=== PATIENT | female | born 1945 | race Caucasian/White ===

== ENCOUNTER → 2020-06-20 13:12 | Outpatient (BNVA) | payer MEDICARE, SELFPAY | PROVIDERS: PCP Family Medicine; Referring Provider Family Medicine; Visit Provider Internal Medicine | DX: I25.10 Atherosclerotic heart disease of native coronary artery without angina pectoris (principal); R00.2 Palpitations; I10 Essential (primary) hypertension; G47.33 Obstructive sleep apnea (adult) (pediatric); Z79.02 Long term (current) use of antithrombotics/antiplatelets; Z79.82 Long term (current) use of aspirin | CPT/HCPCS: 99212 ==

== ENCOUNTER 2020-07-21 20:37 | Observation (INO) | payer MEDICARE, SELFPAY ==
--- NOTE | 2020-07-21 | ECG_ITS ---
Test Reason : CP Blood Pressure : / mmHG Vent. Rate : 092 BPM Atrial Rate : 092 BPM P-R Int : 176 ms QRS Dur : 080 ms QT Int : 388 ms P-R-T Axes : 046 024 016 degrees QTc Int : 479 ms Sinus rhythm with Premature supraventricular complexes Nonspecific ST and T wave abnormality Abnormal ECG When compared with ECG of 12-NOV-2018 16:17, QT has lengthened Referred By: Generic ED Physician Electronically Signed By:CLOTILDE GERONIMO MD
[2020-07-21 20:49] VITALS: BP 187/102; PULSE 92; RESP 16; TEMP 36.9; O2SAT 99; BMI 28.9
--- NOTE | 2020-07-21 21:06 | ED.GENADULT ---
HPI - General Adult General Chief complaint: Weakness Stated complaint: Weakness Time Seen by Provider: 07/21/20 21:05 Source: patient Mode of arrival: wheelchair Limitations: language barrier Related Data Home Medications Medication Instructions Recorded Confirmed aspirin 81 mg tablet,delayed 81 mg PO DAILY 06/20/20 06/20/20 release clopidogrel 75 mg tablet 75 mg PO DAILY 06/20/20 06/20/20 empagliflozin 10 mg tablet 10 mg PO DAILY 06/20/20 06/20/20 glipizide 5 mg tablet, extended 10 mg PO DAILY tab 06/20/20 06/20/20 release 24 hr levothyroxine 50 mcg tablet 50 mcg PO DAILY tab 06/20/20 06/20/20 metoprolol succinate 25 mg 25 mg PO DAILY 06/20/20 06/20/20 tablet,extended release 24 hr pregabalin 75 mg capsule 75 mg PO DAILY cap 06/20/20 06/20/20 rosuvastatin 40 mg tablet 40 mg PO DAILY 06/20/20 06/20/20 sitagliptin 100 mg tablet 100 mg PO DAILY 06/20/20 06/20/20 tramadol 50 mg tablet 50 mg PO BID PRN 06/20/20 06/20/20 zolpidem 5 mg tablet 5 mg PO BEDTIME PRN 06/20/20 06/20/20 Allergies Allergy/AdvReac Type Severity Reaction Status Date / Time aspirin [Aspirin] AdvReac Mild STOMACHE Verified 07/21/20 20:49 UPSET esomeprazole [From NEXIUM] AdvReac Unknown BURNING Verified 07/21/20 20:49 SENSATION PMFSH Past Medical History Medical History Atherosclerotic cardiovascular disease Essential hypertension Heart palpitations TASHI (obstructive sleep apnea) Surgical History History of cardioversion (~08/16/13) History of hysterectomy History of tonsillectomy Family History Family History Father Asthma Mother Cardiovascular disease Diabetes Arthritis Social History Social History Smoking Status: Never smoker Advance Directives: No Advance Directives Information Provided: No Physical Exam Vital Signs: Vital Signs: Last Vital Signs Temp 98.4 F 07/21/20 20:49 Pulse 92 07/21/20 20:49 Resp 16 07/21/20 20:49 BP 187/102 H 07/21/20 20:49 Pulse Ox 99 07/21/20 20:49 Body Mass Index 28.9 Discharge Plan Discharge Prescriptions: No Action glipizide 5 mg tablet extended release 24hr 10 mg PO DAILY RF: 0 pregabalin 75 mg capsule 75 mg PO DAILY RF: 0 clopidogrel 75 mg tablet 75 mg PO DAILY RF: 0 tramadol 50 mg tablet 50 mg PO BID PRNRF: 0 Jardiance 10 mg tablet 10 mg PO DAILY RF: 0 zolpidem 5 mg tablet 5 mg PO BEDTIME PRNRF: 0 rosuvastatin 40 mg tablet 40 mg PO DAILY RF: 0 metoprolol succinate 25 mg tablet extended release 24 hr 25 mg PO DAILY RF: 0 aspirin 81 mg tablet,delayed release (DR/EC) 81 mg PO DAILY RF: 0 levothyroxine 50 mcg tablet 50 mcg PO DAILY RF: 0 Januvia 100 mg tablet 100 mg PO DAILY RF: 0
--- NOTE | 2020-07-21 21:07 | XR_ITS ---
EXAMINATION: PORTABLE CHEST 1 VIEW CLINICAL INFORMATION: CP . COMPARISON: 11/12/2018. TECHNIQUE: Portable frontal view of the chest was obtained. FINDINGS: The lungs are well expanded. No focal infiltrate, effusion, edema, or pneumothorax. Cardiac and mediastinal silhouettes are within normal limits for size. Coronary artery stents noted. No acute bony abnormality seen. XR/XR chest 1V IMPRESSION: No evidence of acute disease.
[2020-07-21 21:09] LABS: Glucose, Whole Blood 274 mg/dL (60-115)
--- NOTE | 2020-07-21 21:09 | PC.NURSE ---
Pt changed into hospital atire, pt placed on hat band attacher. poc collected and reported to provider. provider in to assess pt.
--- NOTE | 2020-07-21 21:19 | ED.CHESTPAIN ---
HPI - Chest Pain General Chief Complaint: Weakness Stated Complaint: Weakness Time Seen by Provider: 07/21/20 21:05 Source: patient Mode of arrival: ambulatory Limitations: language barrier History of Present Illness HPI narrative: Patient's history of coronary artery disease diabetes status post 3 stents placed 2 years ago and Plavix doing fine with her family suddenly when she got up from the stool in the kitchen felt lightheaded almost passed out and then started having chest chest pain is feeling like heaviness mid chest 10 without any radiation no diaphoresis little nauseated at that time had blurred vision patient does get of chest pain off and on but this time pain was heavy. Patient felt dizzy before the chest pain . Blood sugar was tested at home was 98. Patient denied any palpitations no urinary complaints no cough no shortness of breath MD complaint: chest heaviness Pertinent past history: coronary artery disease and [employer] Onset (ago): hour(s) (1) Timing of current episode: constant Prior episodes: Yes Onset: during rest Pain location: substernal Pain radiation: none Severity: moderate Pain scale (0-10): 6 Quality: heaviness Relieving factors: nothing Exacerbating factors: nothing Context: recent illness Associated symptoms: nausea Related Data Home Medications Medication Instructions Recorded Confirmed aspirin 81 mg tablet,delayed 81 mg PO DAILY 06/20/20 07/21/20 release clopidogrel 75 mg tablet 75 mg PO DAILY 06/20/20 07/21/20 glipizide 5 mg tablet, extended 10 mg PO DAILY tab 06/20/20 07/21/20 release 24 hr levothyroxine 50 mcg tablet 50 mcg PO DAILY tab 06/20/20 07/21/20 metoprolol succinate 25 mg 25 mg PO DAILY 06/20/20 07/21/20 tablet,extended release 24 hr pregabalin 75 mg capsule 75 mg PO DAILY cap 06/20/20 07/21/20 rosuvastatin 40 mg tablet 40 mg PO DAILY 06/20/20 07/21/20 tramadol 50 mg tablet 50 mg PO BID PRN 06/20/20 07/21/20 zolpidem 5 mg tablet 5 mg PO BEDTIME PRN 06/20/20 07/21/20 Allergies Allergy/AdvReac Type Severity Reaction Status Date / Time aspirin [Aspirin] AdvReac Mild STOMACHE Verified 07/21/20 20:49 UPSET esomeprazole [From NEXIUM] AdvReac Unknown BURNING Verified 07/21/20 20:49 SENSATION Review of Systems Review of Systems: Constitutional : No Weight loss, No Fever, No Chills ENT/Mouth : No sore throat, No Rhinorrhea Eyes: No Eye Pain, No Swelling Cardiovascular : no Dyspnea on Exertion, No Orthopnea, No Edema, No Palpitations, no SOB Respiratory : No Cough, No Sputum Gastrointestinal : No Vomiting, No Diarrhea, No abdominal Pain, No Hematochezia, No Melena Genitourinary : No Dysuria, No Urinary Frequency Musculoskeletal : No joint pain, No Myalgias, No Joint Swelling Skin : No Skin Lesions, No rash Neuro : No Weakness, No Numbness, No Dizziness, No Headache Psych : No Anxiety/Panic, No Depression Heme/Lymph: No Bruising, No Lymphadenopathy Endocrine : No Polyuria, No Polydipsia All other systems reviewed and are negative [facility] Past Medical History Medical History Atherosclerotic cardiovascular disease Essential hypertension Heart palpitations TASHI (obstructive sleep apnea) Surgical History History of cardioversion (~08/16/13) History of hysterectomy History of tonsillectomy Family History Family History Father Asthma Mother Cardiovascular disease Diabetes Arthritis Social History Social History Alcohol intake: never Smoking Status: Never smoker Smoked in Last 30 Days: No Use of substances other than those prescribed or required for medical reasons: No Advance Directives: No Advance Directives Information Provided: No Physical Exam Vital Signs: Vital Signs: Last Vital Signs Temp 98.8 F 07/22/20 04:00 Pulse 75 07/22/20 04:00 Resp 18 07/22/20 04:00 BP 154/78 H 07/22/20 04:00 Pulse Ox 98 07/22/20 04:00 Body Mass Index 28.9 Appearance: Alert. Oriented X3. No acute distress. Eyes: Pupils equal, round and reactive to light. ENT: Pharynx normal. Neck: Normal inspection. Neck supple. CVS: Normal heart rate and rhythm. Pulses normal. No murmur no S3 Respiratory: No respiratory distress. Breath sounds normal. Abdomen: Soft and nontender. Bowel sounds are present, no mass palpable, no CVA tenderness Skin: Skin warm and dry. Normal skin color. Normal skin turgor. Extremities: No lower extremity edema. Neuro: Oriented X 3. No motor deficit. No sensory deficit. MDM - Chest Pain MDM Narrative Medical decision making narrative: Patient with chest pain near syncope episode with history of coronary artery disease status post stent placement without any acute EKG changes. Will admit patient for unstable angina and near-syncope for further evaluation Differential Diagnosis Differential diagnosis: Likely unstable angina pectoris and chest pain Lab Data Attestation: I reviewed the patient's lab results. Result diagrams: 07/21/20 21:18 07/21/20 21:18 Labs: Lab Results 07/21/20 07/21/20 07/21/20 Range/Units 21:05 21:18 21:18 WBC 9.9 (4.8-10.8) X10*3/uL RBC 4.82 (4.20-5.50) X10*6/uL Hgb 13.0 (12.0-16.0) g/dl Hct 40.1 (37-47) % MCV 83.2 (80-98) fL MCH 27.0 (27.0-33.0) pg MCHC 32.4 (31.0-35.0) g/dl RDW 15.6 (11.0-16.0) % Plt Count 216 (160-400) X10*3/uL MPV 11.0 (9.4-12.3) fL Immature Gran % (Auto) 0.2 (0.0-0.4) % Neut % (Auto) 77.1 H (45-73) % Lymph % (Auto) 16.1 L (20-40) % [place] % (Auto) 5.6 (2-11) % Eos % (Auto) 0.8 (0-4) % Baso % (Auto) 0.2 (0-2) % Lymph # (Auto) 1.6 (1.2-4.9) X10*3/uL [place] # (Auto) 0.6 (0.1-1.2) X10*3/uL Eos # (Auto) 0.1 (0.0-0.4) X10*3/uL Baso # (Auto) 0.0 (0.0-0.2) X10*3/uL Abs Immat Gran (auto) 0.02 (0.00-0.03) X10*3/uL Absolute Neuts (auto) 7.6 (2.0-8.3) X10*3/uL Absolute Nucleated RBC 0.000 (0.0-0.012) X10*3/uL Nucleated RBC % (auto) 0.0 (0.0-0.2) /100WBC PT 12.7 (10.8-13.0) SEC INR 1.1 (0.9-1.1) APTT 40.4 H (24.1-38.0) SEC Sodium (135-145) mmol/L Potassium (3.3-5.1) mmol/l Chloride (96-108) mmol/L Carbon Dioxide (22-29) mmol/L Anion Gap (12-20) BUN (9-16) mg/dL Creatinine (0.5-1.4) mg/dL Estim Creat Clear Calc Estimated GFR POC Glucose 274 H (60-115) mg/dL Random Glucose (60-115) mg/dL Calcium (8.4-10.2) mg/dL Total Bilirubin (0.0-1.0) mg/dL Direct Bilirubin (0.0-0.5) mg/dL AST (5-31) U/L ALT (0-31) U/L Alkaline Phosphatase (39-117) U/L Troponin I High Sens (<3.5-17.0) ng/L Total Protein (6.5-8.0) g/dL Albumin (3.5-5.0) g/dL Urine Color Urine Appearance Urine pH (5.0-8.0) Ur Specific [place] (1.005-1.025) Urine Protein (NEG-TRACE) MG/DL Urine Glucose (UA) (NEG) MG/DL Urine Ketones (NEG) MG/DL Urine Blood (NEG) Urine Nitrite (NEG) Ur Leukocyte Esterase (NEG) Urine RBC (0) /HPF Urine WBC (0-4) /HPF Ur Squamous Epith Cells /LPF Urine Bacteria /LPF Coronavirus (PCR) (Negative) Influenza Type A (PCR) (Negative) Influenza Type B (PCR) (Negative) RSV RNA Qual (PCR) (Negative) 07/21/20 07/21/20 07/21/20 Range/Units 21:18 21:18 21:19 WBC (4.8-10.8) X10*3/uL RBC (4.20-5.50) X10*6/uL Hgb (12.0-16.0) g/dl Hct (37-47) % MCV (80-98) fL MCH (27.0-33.0) pg MCHC (31.0-35.0) g/dl RDW (11.0-16.0) % Plt Count (160-400) X10*3/uL MPV (9.4-12.3) fL Immature Gran % (Auto) (0.0-0.4) % Neut % (Auto) (45-73) % Lymph % (Auto) (20-40) % [place] % (Auto) (2-11) % Eos % (Auto) (0-4) % Baso % (Auto) (0-2) % Lymph # (Auto) (1.2-4.9) X10*3/uL [place] # (Auto) (0.1-1.2) X10*3/uL Eos # (Auto) (0.0-0.4) X10*3/uL Baso # (Auto) (0.0-0.2) X10*3/uL Abs Immat Gran (auto) (0.00-0.03) X10*3/uL Absolute Neuts (auto) (2.0-8.3) X10*3/uL Absolute Nucleated RBC (0.0-0.012) X10*3/uL Nucleated RBC % (auto) (0.0-0.2) /100WBC PT (10.8-13.0) SEC INR (0.9-1.1) APTT (24.1-38.0) SEC Sodium 135 (135-145) mmol/L Potassium 3.9 (3.3-5.1) mmol/l Chloride 97 (96-108) mmol/L Carbon Dioxide 28 (22-29) mmol/L Anion Gap 14 (12-20) BUN 21 H (9-16) mg/dL Creatinine 1.02 (0.5-1.4) mg/dL Estim Creat Clear Calc 40.0 Estimated GFR 53 POC Glucose (60-115) mg/dL Random Glucose 251 H (60-115) mg/dL Calcium 9.2 (8.4-10.2) mg/dL Total Bilirubin 0.4 (0.0-1.0) mg/dL Direct Bilirubin 0.2 (0.0-0.5) mg/dL AST 24 (5-31) U/L ALT 21 (0-31) U/L Alkaline Phosphatase 59 (39-117) U/L Troponin I High Sens 7.2 (<3.5-17.0) ng/L Total Protein 7.6 (6.5-8.0) g/dL Albumin 4.3 (3.5-5.0) g/dL Urine Color Urine Appearance Urine pH (5.0-8.0) Ur Specific [place] (1.005-1.025) Urine Protein (NEG-TRACE) MG/DL Urine Glucose (UA) (NEG) MG/DL Urine Ketones (NEG) MG/DL Urine Blood (NEG) Urine Nitrite (NEG) Ur Leukocyte Esterase (NEG) Urine RBC (0) /HPF Urine WBC (0-4) /HPF Ur Squamous Epith Cells /LPF Urine Bacteria /LPF Coronavirus (PCR) NEGATIVE (Negative) Influenza Type A (PCR) NEGATIVE (Negative) Influenza Type B (PCR) NEGATIVE (Negative) RSV RNA Qual (PCR) NEGATIVE (Negative) 07/21/20 07/21/20 Range/Units 23:36 23:36 WBC (4.8-10.8) X10*3/uL RBC (4.20-5.50) X10*6/uL Hgb (12.0-16.0) g/dl Hct (37-47) % MCV (80-98) fL MCH (27.0-33.0) pg MCHC (31.0-35.0) g/dl RDW (11.0-16.0) % Plt Count (160-400) X10*3/uL MPV (9.4-12.3) fL Immature Gran % (Auto) (0.0-0.4) % Neut % (Auto) (45-73) % Lymph % (Auto) (20-40) % [place] % (Auto) (2-11) % Eos % (Auto) (0-4) % Baso % (Auto) (0-2) % Lymph # (Auto) (1.2-4.9) X10*3/uL [place] # (Auto) (0.1-1.2) X10*3/uL Eos # (Auto) (0.0-0.4) X10*3/uL Baso # (Auto) (0.0-0.2) X10*3/uL Abs Immat Gran (auto) (0.00-0.03) X10*3/uL Absolute Neuts (auto) (2.0-8.3) X10*3/uL Absolute Nucleated RBC (0.0-0.012) X10*3/uL Nucleated RBC % (auto) (0.0-0.2) /100WBC PT (10.8-13.0) SEC INR (0.9-1.1) APTT (24.1-38.0) SEC Sodium (135-145) mmol/L Potassium (3.3-5.1) mmol/l Chloride (96-108) mmol/L Carbon Dioxide (22-29) mmol/L Anion Gap (12-20) BUN (9-16) mg/dL Creatinine (0.5-1.4) mg/dL Estim Creat Clear Calc Estimated GFR POC Glucose (60-115) mg/dL Random Glucose (60-115) mg/dL Calcium (8.4-10.2) mg/dL Total Bilirubin (0.0-1.0) mg/dL Direct Bilirubin (0.0-0.5) mg/dL AST (5-31) U/L ALT (0-31) U/L Alkaline Phosphatase (39-117) U/L Troponin I High Sens 11.0 D (<3.5-17.0) ng/L Total Protein (6.5-8.0) g/dL Albumin (3.5-5.0) g/dL Urine Color COLORLESS Urine Appearance CLEAR Urine pH 5.5 (5.0-8.0) Ur Specific [place] 1.010 (1.005-1.025) Urine Protein NEG (NEG-TRACE) MG/DL Urine Glucose (UA) 500 H (NEG) MG/DL Urine Ketones NEG (NEG) MG/DL Urine Blood TRACE (NEG) Urine Nitrite NEG (NEG) Ur Leukocyte Esterase NEG (NEG) Urine RBC 0-2 (0) /HPF Urine WBC 0-2 (0-4) /HPF Ur Squamous Epith Cells 1+ /LPF Urine Bacteria NONE /LPF Coronavirus (PCR) (Negative) Influenza Type A (PCR) (Negative) Influenza Type B (PCR) (Negative) RSV RNA Qual (PCR) (Negative) ECG Data ECG #1: Attestation: I personally reviewed and interpreted this ECG as follows: Interpretation: Normal sinus rhythm with ventricular rate of 92 normal axis normal intervals no acute ST T wave change occasional unifocal PVC impression no acute ischemia Discharge Plan Discharge Clinical Impression: Near syncope Chest pain Qualifiers: Chest pain type: precordial pain Qualified Code(s): R07.2 - Precordial pain Patient Disposition: Admitted As Inpatient Interventions: Admission Worksheet (ED) Last Done: 07/22/20 02:23 Discharge Date/Time: 07/22/20 02:23
[2020-07-21 21:25] VITALS: BP 176/78; PULSE 88; RESP 12; TEMP 37.5; O2SAT 97
[2020-07-21 21:27] LABS: Basophils Percent Auto 0.2 % (0-2); Eosinophils Absolute Auto 0.1 X10*3/uL (0.0-0.4); Eosinophils Percent Auto 0.8 % (0-4); Hematocrit 40.1 % (37-47); Imm Gran Abs Auto 0.02 X10*3/uL (0.00-0.03); Imm Gran Pct Auto 0.2 % (0.0-0.4); Lymphocytes Absolute Auto 1.6 X10*3/uL (1.2-4.9); Lymphocytes Percent Auto 16.1 % (20-40); Mean Corpuscular HGB Conc 32.4 g/dl (31.0-35.0); Mean Corpuscular Volume 83.2 fL (80-98); Monocytes Absolute Auto 0.6 X10*3/uL (0.1-1.2); Monocytes Percent Auto 5.6 % (2-11); Neutrophils Absolute Auto 7.6 X10*3/uL (2.0-8.3); Neutrophils Percent Auto 77.1 % (45-73); Platelet Count 216 X10*3/uL (160-400); Red Blood Count 4.82 X10*6/uL (4.20-5.50); Red Cell Distribution Width 15.6 % (11.0-16.0); White Blood Count 9.9 X10*3/uL (4.8-10.8)
[2020-07-21 21:28] LABS: MANUAL DIFF FLAG NO
[2020-07-21 21:33] LABS: INTERNATIONAL NORM RATIO 1.1 (0.9-1.1); Prothrombin Time 12.7 SEC (10.8-13.0)
--- NOTE | 2020-07-21 21:33 | PC.NURSE ---
patient placed on cardiac care nurse. provider at bedside poc 274 and ekg completed. labs drawn and sent. covid swab completed.
[2020-07-21 21:35] LABS: Partial Thromboplastin Time 40.4 SEC (24.1-38.0)
[2020-07-21 21:52] LABS: Alanine Aminotransferase 21 U/L (0-31); Albumin Level 4.3 g/dL (3.5-5.0); Alkaline Phosphatase 59 U/L (39-117); Anion Gap 14 (12-20); Aspartate Amino Transferase 24 U/L (5-31); Bilirubin Direct 0.2 mg/dL (0.0-0.5); Bilirubin Total 0.4 mg/dL (0.0-1.0); Blood Urea Nitrogen 21 mg/dL (9-16); Calcium 9.2 mg/dL (8.4-10.2); Carbon Dioxide 28 mmol/L (22-29); Chloride 97 mmol/L (96-108); Estimated Glomerular Filt Rate 53; Glucose Random 251 mg/dL (60-115); Potassium 3.9 mmol/l (3.3-5.1); Sodium 135 mmol/L (135-145); Total Protein 7.6 g/dL (6.5-8.0)
[2020-07-21 21:55] LABS: Troponin-I High Sensitivity 7.2 ng/L (<3.5-17.0)
[2020-07-21 22:19] LABS: Influenza A PCR NEGATIVE (Negative); Influenza B PCR NEGATIVE (Negative); Resp Syncy Virus RNA Qual PCR NEGATIVE (Negative); SARS COV2 PCR INHOUSE NEGATIVE (Negative)
[2020-07-21] MEDS: Nitroglycerin 2 % Oint 1 GM Packet 0.5 INCH TRANSDERMA (22:19)
--- NOTE | 2020-07-21 22:21 | PC.NURSE ---
Medicated per emar.
[2020-07-21 23:32] VITALS: BP 170/77; PULSE 78; RESP 16
--- NOTE | 2020-07-21 23:37 | PC.NURSE ---
Pt assisted to the bathroom, urine sample obtained and sent. Repeat Troponin obtained by this RN. Pt reports relief of chest discomfort, nitro paste remains in place on left upper chest. VSS. Awaiting results. Continue to monitor.
[2020-07-21 23:55] LABS: Appearance Urine CLEAR; Color Urine COLORLESS; Glucose Urine UA 500 MG/DL (NEG); Leukocyte Esterase Urine NEG (NEG); Nitrite Urine NEG (NEG); PH 5.5 (5.0-8.0); Urine Blood TRACE (NEG); Urine Ketones NEG (NEG); Urine Protein NEG (NEG-TRACE)
--- NOTE | 2020-07-21 23:56 | PC.NURSE ---
Hospitalist at bedside.
[2020-07-22] VITALS (10 sets, daily range): BP systolic 154–192; BP diastolic 71–79; PULSE 64–78; RESP 16–20; TEMP 36–37.1; O2SAT 95–99; BMI 29.4
--- NOTE | 2020-07-22 | MR_ITS ---
EXAMINATION: MR BRAIN WITHOUT CONTRAST CLINICAL INFORMATION: Vertigo. Cerebrovascular accident. COMPARISON: CT head from 06/02/2017. TECHNIQUE: MRI of the brain was obtained using routine sequences without contrast. FINDINGS: No focal restricted diffusion is demonstrated to suggest acute or subacute cerebral ischemia. No evidence of acute or chronic hemorrhagic products on heme-sensitive imaging. Basal ganglia mineralization. Scattered periventricular and deep white matter T2 FLAIR hyperintensities consistent with mild to moderate migraine cavity. Chronic lacunar infarcts within the bilateral lentiform nuclei and cortez radiata. The ventricles are normal in morphology and size. No abnormal mass effect. No midline shift. Sella turcica is expanded and partially empty. No abnormalities of the posterior fossa with normal appearance of the brainstem and cerebellum. Normal arterial and venous vascular flow voids are present. Normal, homogeneous marrow signal. Moderate degenerative spinal arthropathy of the visualized upper cervical spine. Thickening of the sinuses. No signal abnormalities within the mastoids. MR/MR head/brain wo con IMPRESSION: 1. No acute intracranial abnormalities. 2. Moderate underlying microangiopathy and generalized cerebral volume loss.
[2020-07-22 00:05] LABS: RBC Urine 0-2 /HPF (0); Squamous Epithelial Cell Urine 1+ /LPF; WBC Urine 0-2 /HPF (0-4)
--- NOTE | 2020-07-22 01:14 | PC.NURSE ---
Pt assisted OOB to the bathroom. Pt reports that she is pain free. BP elevated upon return from the bathroom. Pt assisted back into bed into POC. [facility] [place]
--- NOTE | 2020-07-22 01:18 | PC.NURSE ---
Report given to [facility] RN.
[2020-07-22] MEDS: traMADoL HCL 50 MG TABLET PO (03:57)
[2020-07-22] MEDS: Levothyroxine Sodium 50 MCG TABLET PO (05:25)
--- NOTE | 2020-07-22 05:44 | PM.IMHP ---
History of Present Illness Date of Service: 07/22/20 Chief Complaint: Dizziness and chest pain This is a 75-year-old female with past medical history of coronary artery disease status post stent placement, diabetes, hypothyroidism, who presents to the hospital with complaints of sudden-onset dizziness as well as chest pain. Patient reports that she was at dinner time, sitting with her friend, when all the sudden she started feeling vertigo were everything on the table was moving and spinning around, she tried to get up and illicit and she got chest pain that was epigastric, radiating upper chest, felt about 7/10, improved with the nitro paste, associated with nausea with no vomiting. Had no shortness of breath or palpitations. She reports chronic on and off chest pain but this felt different due to the dizziness. This pain was nonradiating, she has no abdominal pain diarrhea, suffers from chronic constipation. No urinary symptom. No lower extremity edema. No orthopnea or PND. On arrival to the ED hemodynamically stable with no significant abnormal vital Labs unremarkable, her troponin went from 7-11 with no changes on EKG Past medical history: Diabetes, hypertension, CAD status post stents on DAPT Surgical history: Hysterectomy, bladder prolapse repair Family history: Diabetes Social history: Comes from home, lives alone, uses a walker/cane to get around the house, denies any tobacco alcohol or illicit Review of Systems Review of Systems: Yes all other systems are reviewed and are negative [facility] Medical History Atherosclerotic cardiovascular disease Essential hypertension Heart palpitations TASHI (obstructive sleep apnea) Family History Father Asthma Mother Cardiovascular disease Diabetes Arthritis Surgical History History of cardioversion (~08/16/13) History of hysterectomy History of tonsillectomy Social History Alcohol intake: never Smoking Status: Never smoker Smoked in Last 30 Days: No Use of substances other than those prescribed or required for medical reasons: No Advance Directives: No Advance Directives Information Provided: No Meds Allergies Allergy/AdvReac Type Severity Reaction Status Date / Time aspirin [Aspirin] AdvReac Mild STOMACHE Verified 07/21/20 20:49 UPSET esomeprazole [From NEXIUM] AdvReac Unknown BURNING Verified 07/21/20 20:49 SENSATION Home Medications Medication Instructions Recorded Confirmed Type aspirin 81 mg tablet,delayed 81 mg PO DAILY 06/20/20 07/21/20 History release clopidogrel 75 mg tablet 75 mg PO DAILY 06/20/20 07/21/20 History glipizide 5 mg tablet, extended 10 mg PO DAILY tab 06/20/20 07/21/20 History release 24 hr levothyroxine 50 mcg tablet 50 mcg PO DAILY tab 06/20/20 07/21/20 History metoprolol succinate 25 mg 25 mg PO DAILY 06/20/20 07/21/20 History tablet,extended release 24 hr pregabalin 75 mg capsule 75 mg PO DAILY cap 06/20/20 07/21/20 History rosuvastatin 40 mg tablet 40 mg PO DAILY 06/20/20 07/21/20 History tramadol 50 mg tablet 50 mg PO BID PRN 06/20/20 07/21/20 History zolpidem 5 mg tablet 5 mg PO BEDTIME PRN 06/20/20 07/21/20 History Physical Exam Vital Signs and Narrative: Vital Signs: Last Vital Signs Temp 98.8 F 07/22/20 04:00 Pulse 75 07/22/20 04:00 Resp 18 07/22/20 04:00 BP 154/78 H 07/22/20 04:00 Pulse Ox 98 07/22/20 04:00 Body Mass Index 28.9 Const: General: cooperative and no acute distress Orientation/consciousness: patient oriented x3 Eyes: General: appearance normal, both eyes and all related structures Pupils: Equal, round and reactive pupils present Resp: Effort & Inspection: normal respiratory effort and able to speak in complete sentences Auscultation: clear to auscultation bilaterally Cardio: Rate: regular rate Rhythm: regular rhythm GI: Palpation (GI): Soft to palpation Auscultation: normal bowel sounds Skin: General skin exam: no rashes or lesions noted Neuro: Other: No nystagmus, no neurological deficit General: patient oriented x3 Cranial nerves: Yes Equal, round and reactive pupils present Cognition (Neuro): normal cognition Extrem: General: Yes normal to inspection and Yes no pedal edema Results Labs CBC and Chem 7: 07/21/20 21:18 07/21/20 21:18 Labs: Laboratory Results - last 24 hr 07/21/20 07/21/20 07/21/20 21:05 21:18 21:18 MCV 83.2 MCH 27.0 MCHC 32.4 RDW 15.6 Plt Count 216 MPV 11.0 Immature Gran % (Auto) 0.2 Neut % (Auto) 77.1 H Lymph % (Auto) 16.1 L [place] % (Auto) 5.6 Eos % (Auto) 0.8 Baso % (Auto) 0.2 Lymph # (Auto) 1.6 [place] # (Auto) 0.6 Eos # (Auto) 0.1 Baso # (Auto) 0.0 Abs Immat Gran (auto) 0.02 Absolute Neuts (auto) 7.6 Absolute Nucleated RBC 0.000 Nucleated RBC % (auto) 0.0 PT 12.7 INR 1.1 APTT 40.4 H Anion Gap Estim Creat Clear Calc Estimated GFR POC Glucose 274 H Random Glucose Calcium Total Bilirubin Direct Bilirubin AST ALT Alkaline Phosphatase Troponin I High Sens Total Protein Albumin Urine Color Urine Appearance Urine pH Ur Specific [place] Urine Protein Urine Glucose (UA) Urine Ketones Urine Blood Urine Nitrite Ur Leukocyte Esterase Urine RBC Urine WBC Ur Squamous Epith Cells Urine Bacteria Coronavirus (PCR) Influenza Type A (PCR) Influenza Type B (PCR) RSV RNA Qual (PCR) 07/21/20 07/21/20 07/21/20 21:18 21:18 21:19 MCV MCH MCHC RDW Plt Count MPV Immature Gran % (Auto) Neut % (Auto) Lymph % (Auto) [place] % (Auto) Eos % (Auto) Baso % (Auto) Lymph # (Auto) [place] # (Auto) Eos # (Auto) Baso # (Auto) Abs Immat Gran (auto) Absolute Neuts (auto) Absolute Nucleated RBC Nucleated RBC % (auto) PT INR APTT Anion Gap 14 Estim Creat Clear Calc 40.0 Estimated GFR 53 POC Glucose Random Glucose 251 H Calcium 9.2 Total Bilirubin 0.4 Direct Bilirubin 0.2 AST 24 ALT 21 Alkaline Phosphatase 59 Troponin I High Sens 7.2 Total Protein 7.6 Albumin 4.3 Urine Color Urine Appearance Urine pH Ur Specific [place] Urine Protein Urine Glucose (UA) Urine Ketones Urine Blood Urine Nitrite Ur Leukocyte Esterase Urine RBC Urine WBC Ur Squamous Epith Cells Urine Bacteria Coronavirus (PCR) NEGATIVE Influenza Type A (PCR) NEGATIVE Influenza Type B (PCR) NEGATIVE RSV RNA Qual (PCR) NEGATIVE 07/21/20 07/21/20 23:36 23:36 MCV MCH MCHC RDW Plt Count MPV Immature Gran % (Auto) Neut % (Auto) Lymph % (Auto) [place] % (Auto) Eos % (Auto) Baso % (Auto) Lymph # (Auto) [place] # (Auto) Eos # (Auto) Baso # (Auto) Abs Immat Gran (auto) Absolute Neuts (auto) Absolute Nucleated RBC Nucleated RBC % (auto) PT INR APTT Anion Gap Estim Creat Clear Calc Estimated GFR POC Glucose Random Glucose Calcium Total Bilirubin Direct Bilirubin AST ALT Alkaline Phosphatase Troponin I High Sens 11.0 D Total Protein Albumin Urine Color COLORLESS Urine Appearance CLEAR Urine pH 5.5 Ur Specific [place] 1.010 Urine Protein NEG Urine Glucose (UA) 500 H Urine Ketones NEG Urine Blood TRACE Urine Nitrite NEG Ur Leukocyte Esterase NEG Urine RBC 0-2 Urine WBC 0-2 Ur Squamous Epith Cells 1+ Urine Bacteria NONE Coronavirus (PCR) Influenza Type A (PCR) Influenza Type B (PCR) RSV RNA Qual (PCR) Imaging Radiologist's Impressions: Impressions Chest X-Ray 07/21/20 21:07 IMPRESSION: No evidence of acute disease. Assessment and Plan (1) Chest pain: Qualifiers: Chest pain type: precordial pain Qualified Code(s): R07.2 - Precordial pain Status: Acute (2) Near syncope: Status: Acute (3) Essential hypertension: Status: Acute (4) Coronary artery disease: Status: Acute (5) Vertigo: Status: Acute This is a 75-year-old female with past medical history of CAD who presents to the hospital with complaints of vertigo as well as chest # chest pain - atypical, no significant change to troponin, no significant EKG changes suggestive of ACS, most likely secondary to esophageal spasm/GERD - improved with nitro paste, this is nonspecific Plan: - Maarax p.r.n., will admit to telemetry for observation # vertigo - unclear etiology at this time, no need recent ear infection, she does have hearing issues and is very hard of hearing although that is chronic - will obtain the assistance of PT for possible [place]-Hallpike maneuver - will obtain orthostatic vital # diabetes - hold glipizide - low-dose sliding scale insulin, diabetic diet # CAD - continue metoprolol, aspirin, and Plavix # hypothyroidism - continue levothyroxine DVT prophylaxis: Early ambulation( admitted for observation )
[2020-07-22] MEDS: Clopidogrel Bisulfate 75 MG TABLET PO (09:00)
[2020-07-22] MEDS: Aspirin Enteric Coated 81 MG TABLET.DR PO (09:00)
[2020-07-22] MEDS: 0.9 % Sodium Chloride Flush 3 ML SYRINGE IVFLUSH (09:00)
[2020-07-22 09:01] LABS: Glucose, Whole Blood 220 mg/dL (60-115)
[2020-07-22] MEDS: Atorvastatin Calcium 80 MG TABLET PO (09:01)
[2020-07-22] MEDS: Metoprolol Succinate ER 25 MG TAB.ER.24H PO (09:01)
[2020-07-22] MEDS: Pregabalin 75 MG CAPSULE PO (09:01)
[2020-07-22] MEDS: Insulin Lispro 100 UNIT/ML 3 ML VIAL SUBCUT ×3 (09:25→16:25)
--- NOTE | 2020-07-22 09:44 | P.CONCA_ITS ---
History of Present Illness History of Present Illness Date of Service: 07/22/20 Requesting physician: Sky Juárez Consult reason: chest pain Chief complaint: Near Syncope Narrative: Thank you for inviting us in consult on Khadra. She is a pleasant 75-year-old woman with prior history of CAD status post LAD stenting as per her couple years ago, hypertension hyperlipidemia diabetes and obstructive sleep apnea. She was in usual state of health yesterday sitting with a friend having a meal suddenly she got dizzy. She describes this as systolic for her moving an abnormal pattern. She got concerned. She had associated headache as well as blurry vision. She then got up she got nauseous and subsequently got epigastric discomfort which he describes as pressure. She was admitted because of epigastric pressure and her prior coronary artery disease. On further inquiry she said this symptoms are similar to prior to her stent but much milder. Her initial EKG shows nonspecific ST changes, unchanged from before. Troponins are within normal limits cardiology consult was sought because of epigastric discomfort. She currently is chest discomfort free. Her dizziness also has resolved. She had no syncopal episodes, palpitations, shortness of breath. She has not had any recent exertional symptoms. Review of Systems Constitutional: Constitutional: Denies body ache(s), Denies chills, Denies fever(s) and Denies frequent falls Eyes: Eyes: Reports blurry vision ENT: Reports vertigo Cardiovascular: Cardiovascular: Denies chest pain with activity, Reports epigastric discomfort, Denies lightheadedness, Denies Loss of Consciousness, De nies palpitations and Denies dyspnea on exertion Respiratory: Respiratory: Denies cough and Denies dyspnea on exertion Gastrointestinal: Gastrointestinal: Reports nausea Genitourinary: Genitourinary: Reports no additional female genitourinary complaints Musculoskeletal: Musculoskeletal: Reports no additional musculoskeletal co mplaints Neurologic: Reports system reviewed and no additional complaints, except as documented, Reports vertigo and Denies frequent falls Psychiatric: Psychiatric: Reports no additional psychiatric complaints Endocrine: Endocrine: Reports no additional endocrine complaints and Denies palpitations PMFSH Past Medical History Medical History Essential hypertension Heart palpitations TASHI (obstructive sleep apnea) Family History Family History Father Asthma Mother Cardiovascular disease Diabetes Arthritis Surgical History Surgical History History of cardioversion (~08/16/13) History of hysterectomy History of tonsillectomy Stented coronary artery Social History Social History Alcohol intake: never Smoking Status: Never smoker Smoked in Last 30 Days: No Use of substances other than those prescribed or required for medical reasons: No Advance Directives: No Advance Directives Information Provided: No Meds Allergies Allergy/AdvReac Type Severity Reaction Status Date / Time aspirin [Aspirin] AdvReac Mild STOMACHE Verified 07/21/20 20:49 UPSET esomeprazole [From NEXIUM] AdvReac Unknown BURNING Verified 07/21/20 20:49 SENSATION Home Medications Medication Instructions Recorded Confirmed Type aspirin 81 mg tablet,delayed 81 mg PO DAILY 06/20/20 07/21/20 History release clopidogrel 75 mg tablet 75 mg PO DAILY 06/20/20 07/21/20 History glipizide 5 mg tablet, extended 10 mg PO DAILY tab 06/20/20 07/21/20 History release 24 hr levothyroxine 50 mcg tablet 50 mcg PO DAILY tab 06/20/20 07/21/20 History metoprolol succinate 25 mg 25 mg PO DAILY 06/20/20 07/21/20 History tablet,extended release 24 hr pregabalin 75 mg capsule 75 mg PO DAILY cap 06/20/20 07/21/20 History rosuvastatin 40 mg tablet 40 mg PO DAILY 06/20/20 07/21/20 History tramadol 50 mg tablet 50 mg PO BID PRN 06/20/20 07/21/20 History zolpidem 5 mg tablet 5 mg PO BEDTIME PRN 06/20/20 07/21/20 History Physical Exam Vital Signs: Vital Signs: Last Vital Signs Temp 97.3 F 07/22/20 08:00 Pulse 78 07/22/20 09:23 Resp 18 07/22/20 08:00 BP 176/78 H 07/22/20 09:23 Pulse Ox 95 07/22/20 08:00 Body Mass Index 29.4 Const: General: cooperative, comfortable, no acute distress, alert and awake Nutritional Appearance: obese Orientation/consciousness: patient oriented x3 Limitations: other limitations (Currently bed-bound) HENMT: Head: Yes normal to inspection, Yes normocephalic and Yes atraumatic Eyes: General: appearance normal, both eyes and all related structures Neck: Neck: Yes trachea midline, Yes supple and Yes no JVD Chest: Chest palpation & inspection: normal inspection of the chest Resp: Effort & Inspection: normal respiratory effort Auscultation: clear to auscultation bilaterally Cardio: Jugular venous distension: no JVD Palpation: normal PMI Rate: regular rate Rhythm: regular rhythm Heart sounds: S1 normal heart sound present, S2 normal heart sound present and Other heart sounds present (S4 present) GI: Auscultation: normal bowel sounds Skin: General skin exam: no rashes or lesions noted and ecchymosis Neuro: General: patient oriented x3 and no focal motor deficits Extrem: General: Yes no clubbing, cyanosis or edema Psych: Appearance: grossly normal Results Labs and Meds Result diagrams: 07/21/20 21:18 07/21/20 21:18 Lab results: Laboratory Results - last 24 hr 07/21/20 07/21/20 07/21/20 21:05 21:18 21:18 WBC 9.9 RBC 4.82 Hgb 13.0 Hct 40.1 MCV 83.2 MCH 27.0 MCHC 32.4 RDW 15.6 Plt Count 216 MPV 11.0 Immature Gran % (Auto) 0.2 Neut % (Auto) 77.1 H Lymph % (Auto) 16.1 L [place] % (Auto) 5.6 Eos % (Auto) 0.8 Baso % (Auto) 0.2 Lymph # (Auto) 1.6 [place] # (Auto) 0.6 Eos # (Auto) 0.1 Baso # (Auto) 0.0 Abs Immat Gran (auto) 0.02 Absolute Neuts (auto) 7.6 Absolute Nucleated RBC 0.000 Nucleated RBC % (auto) 0.0 PT 12.7 INR 1.1 APTT 40.4 H Sodium Potassium Chloride Carbon Dioxide Anion Gap BUN Creatinine Estim Creat Clear Calc Estimated GFR POC Glucose 274 H Random Glucose Calcium Total Bilirubin Direct Bilirubin AST ALT Alkaline Phosphatase Troponin I High Sens Total Protein Albumin Urine Color Urine Appearance Urine pH Ur Specific [place] Urine Protein Urine Glucose (UA) Urine Ketones Urine Blood Urine Nitrite Ur Leukocyte Esterase Urine RBC Urine WBC Ur Squamous Epith Cells Urine Bacteria Coronavirus (PCR) Influenza Type A (PCR) Influenza Type B (PCR) RSV RNA Qual (PCR) 07/21/20 07/21/20 07/21/20 21:18 21:18 21:19 WBC RBC Hgb Hct MCV MCH MCHC RDW Plt Count MPV Immature Gran % (Auto) Neut % (Auto) Lymph % (Auto) [place] % (Auto) Eos % (Auto) Baso % (Auto) Lymph # (Auto) [place] # (Auto) Eos # (Auto) Baso # (Auto) Abs Immat Gran (auto) Absolute Neuts (auto) Absolute Nucleated RBC Nucleated RBC % (auto) PT INR APTT Sodium 135 Potassium 3.9 Chloride 97 Carbon Dioxide 28 Anion Gap 14 BUN 21 H Creatinine 1.02 Estim Creat Clear Calc 40.0 Estimated GFR 53 POC Glucose Random Glucose 251 H Calcium 9.2 Total Bilirubin 0.4 Direct Bilirubin 0.2 AST 24 ALT 21 Alkaline Phosphatase 59 Troponin I High Sens 7.2 Total Protein 7.6 Albumin 4.3 Urine Color Urine Appearance Urine pH Ur Specific [place] Urine Protein Urine Glucose (UA) Urine Ketones Urine Blood Urine Nitrite Ur Leukocyte Esterase Urine RBC Urine WBC Ur Squamous Epith Cells Urine Bacteria Coronavirus (PCR) NEGATIVE Influenza Type A (PCR) NEGATIVE Influenza Type B (PCR) NEGATIVE RSV RNA Qual (PCR) NEGATIVE 07/21/20 07/21/20 07/22/20 23:36 23:36 08:57 WBC RBC Hgb Hct MCV MCH MCHC RDW Plt Count MPV Immature Gran % (Auto) Neut % (Auto) Lymph % (Auto) [place] % (Auto) Eos % (Auto) Baso % (Auto) Lymph # (Auto) [place] # (Auto) Eos # (Auto) Baso # (Auto) Abs Immat Gran (auto) Absolute Neuts (auto) Absolute Nucleated RBC Nucleated RBC % (auto) PT INR APTT Sodium Potassium Chloride Carbon Dioxide Anion Gap BUN Creatinine Estim Creat Clear Calc Estimated GFR POC Glucose 220 H Random Glucose Calcium Total Bilirubin Direct Bilirubin AST ALT Alkaline Phosphatase Troponin I High Sens 11.0 D Total Protein Albumin Urine Color COLORLESS Urine Appearance CLEAR Urine pH 5.5 Ur Specific [place] 1.010 Urine Protein NEG Urine Glucose (UA) 500 H Urine Ketones NEG Urine Blood TRACE Urine Nitrite NEG Ur Leukocyte Esterase NEG Urine RBC 0-2 Urine WBC 0-2 Ur Squamous Epith Cells 1+ Urine Bacteria NONE Coronavirus (PCR) Influenza Type A (PCR) Influenza Type B (PCR) RSV RNA Qual (PCR) EKG shows normal sinus rhythm with nonspecific ST changes Assessment and Plan (1) Vertigo: Status: Acute Sudden onset symptoms of vertigo in elderly woman with prior vascular disease. Neurologic issues and posterior circulation events need to be rule out. Consider MRI for the same. If this is negative then peripheral vertigo is possibility. Discussed this recommendation with the hospitalist team Dr. Juárez, will pursue this. (2) Epigastric discomfort: Status: Acute Epigastric discomfort, similar to her prior anginal sounding chest discomfort but much milder. Her troponins are negative. EKG does not show any new changes. At this point time she can be discharged from cardiac perspective. She will most likely require outpatient vasodilating myocardial perfusion imaging given her limited exercise activity. Will also obtain echocardiogram to assess LV systolic and diastolic function. Further treatment based on the finding of the test results and will be pursued as an outpatient and follow-up with Dr. Cassidy (3) Coronary artery disease: Status: Acute Coronary artery disease with prior PCI to the LAD for epigastric discomfort in unstable symptoms at that point time. Currently not having any evidence of acute coronary syndrome. Will pursue workup as about as outpatient. Blood pressure is well optimized, continue current therapy. Continue current antiplatelet therapy. Continue high-intensity statin therapy with target goal LDL less than 70 mg/dL. Will follow up as outpatient after the workup is completed. Thank you for allowing us to partake in the care
[2020-07-22 10:56] LABS: Glucose, Whole Blood 167 mg/dL (60-115)
--- NOTE | 2020-07-22 11:09 | MHC.CM.PN ---
CM met with patient with a interpreter who reports she is independent, amb with a cane and lives alone. Dtr Marisabel is HCP and [employer] ADMINISTRATOR [phone], copy requested. Patient has 24 hrs per wk [employer] services. Discussed discharge plan home with resumption of [employer]AN [employer]MINISTR[employer] services and PT services with [facility]. Granddaralf Tirado [phone] will provide transport. CM will continue to follow patient for discharge needs.
--- NOTE | 2020-07-22 15:18 | PM.DS ---
DS: Providers Provider Date of admission: 07/22/20 00:35 Primary care physician: Davis Watts MD Consults: 07/22/20 08:57 Consult to Cardiology Routine Consulting Provider: Rafael Cassidy Reason for consultation: chest pain DS: Diagnosis Discharge Diagnosis (1) Vertigo: Status: Acute (2) Epigastric discomfort: Status: Acute (3) Coronary artery disease: Status: Acute DS: Medications Discharge Medications Home Medications: Home Medications Medication Instructions Recorded Confirmed aspirin 81 mg tablet,delayed 81 mg PO DAILY 06/20/20 07/21/20 release clopidogrel 75 mg tablet 75 mg PO DAILY 06/20/20 07/21/20 glipizide 5 mg tablet, extended 10 mg PO DAILY tab 06/20/20 07/21/20 release 24 hr levothyroxine 50 mcg tablet 50 mcg PO DAILY tab 06/20/20 07/21/20 metoprolol succinate 25 mg 25 mg PO DAILY 06/20/20 07/21/20 tablet,extended release 24 hr pregabalin 75 mg capsule 75 mg PO DAILY cap 06/20/20 07/21/20 rosuvastatin 40 mg tablet 40 mg PO DAILY 06/20/20 07/21/20 tramadol 50 mg tablet 50 mg PO BID PRN 06/20/20 07/21/20 zolpidem 5 mg tablet 5 mg PO BEDTIME PRN 06/20/20 07/21/20 DS: Summary Hospital Course Hospital Course: patient was seen for chest pain. she was seen by cardiology who recommended outpatient follow up for echo and stress test. her chest pain did resolved. for her vertigo she had an mri which was negative for cva. she will be discharged home with home pt Time Spent with Patient Time attestation: Total time spent providing and/or coordinating discharge services: Physical Exam Vital Signs: Vital Signs: Last Vital Signs Temp 96.8 F 07/22/20 15:12 Pulse 64 07/22/20 15:12 Resp 19 07/22/20 15:12 BP 161/71 H 07/22/20 15:12 Pulse Ox 99 07/22/20 15:12 Body Mass Index 29.4 General: AO X 3, no acute distress Resp: CTA bilateral CVS: S1,S2,RRR GI: soft, non tender, non distended Neuro: motor grossly intact Psych: appropriate affect DS: Data Data Completed and Pending Labs on day of discharge: 07/21/20 ECG 12 lead EKG Stat 07/21/20 20:48 EKG Documentation DIRECTED 07/21/20 21:05 Glucose, Whole Blood Routine 07/21/20 21:07 XR chest 1V Stat 07/21/20 21:18 Basic Metabolic Panel Stat Complete Blood Count Auto Diff Stat Liver Panel Stat Partial Thromboplastin Time Stat Prothrombin Time INR Stat Troponin-I High Sensitivity Stat 07/21/20 21:19 SARS-CoV2/FLU/RSV Stat 07/21/20 21:20 Nitroglycerin 2 % Oint [Nitro-Bid] 1 inch TRANSDERMA ONCE ONE 07/21/20 22:16 Nitroglycerin 2 % Oint [Nitro-Bid] 0.5 inch TRANSDERMA ONCE ONE 07/21/20 23:36 Troponin-I High Sensitivity Stat 07/22/20 MR head/brain wo con Urgent 07/22/20 00:31 Transfer Order Routine 07/22/20 08:57 Glucose, Whole Blood Routine 07/22/20 10:50 Glucose, Whole Blood Routine Laboratory Last Values WBC 9.9 X10*3/uL (4.8-10.8) 07/21/20 21:18 RBC 4.82 X10*6/uL (4.20-5.50) 07/21/20 21:18 Hgb 13.0 g/dl (12.0-16.0) 07/21/20 21:18 Hct 40.1 % (37-47) 07/21/20 21:18 MCV 83.2 fL (80-98) 07/21/20 21:18 MCH 27.0 pg (27.0-33.0) 07/21/20 21:18 MCHC 32.4 g/dl (31.0-35.0) 07/21/20 21:18 RDW 15.6 % (11.0-16.0) 07/21/20 21:18 Plt Count 216 X10*3/uL (160-400) 07/21/20 21:18 MPV 11.0 fL (9.4-12.3) 07/21/20 21:18 Immature Gran % (Auto) 0.2 % (0.0-0.4) 07/21/20 21:18 Neut % (Auto) 77.1 % (45-73) H 07/21/20 21:18 Lymph % (Auto) 16.1 % (20-40) L 07/21/20 21:18 [place] % (Auto) 5.6 % (2-11) 07/21/20 21:18 Eos % (Auto) 0.8 % (0-4) 07/21/20 21:18 Baso % (Auto) 0.2 % (0-2) 07/21/20 21:18 Lymph # (Auto) 1.6 X10*3/uL (1.2-4.9) 07/21/20 21:18 [place] # (Auto) 0.6 X10*3/uL (0.1-1.2) 07/21/20 21:18 Eos # (Auto) 0.1 X10*3/uL (0.0-0.4) 07/21/20 21:18 Baso # (Auto) 0.0 X10*3/uL (0.0-0.2) 07/21/20 21:18 Abs Immat Gran (auto) 0.02 X10*3/uL (0.00-0.03) 07/21/20 21:18 Absolute Neuts (auto) 7.6 X10*3/uL (2.0-8.3) 07/21/20 21:18 Absolute Nucleated RBC 0.000 X10*3/uL (0.0-0.012) 07/21/20 21:18 Nucleated RBC % (auto) 0.0 /100WBC (0.0-0.2) 07/21/20 21:18 PT 12.7 SEC (10.8-13.0) 07/21/20 21:18 INR 1.1 (0.9-1.1) 07/21/20 21:18 APTT 40.4 SEC (24.1-38.0) H 07/21/20 21:18 Sodium 135 mmol/L (135-145) 07/21/20 21:18 Potassium 3.9 mmol/l (3.3-5.1) 07/21/20 21:18 Chloride 97 mmol/L (96-108) 07/21/20 21:18 Carbon Dioxide 28 mmol/L (22-29) 07/21/20 21:18 Anion Gap 14 (12-20) 07/21/20 21:18 BUN 21 mg/dL (9-16) H 07/21/20 21:18 Creatinine 1.02 mg/dL (0.5-1.4) 07/21/20 21:18 Estim Creat Clear Calc 40.0 07/21/20 21:18 Estimated GFR 53 07/21/20 21:18 POC Glucose 167 mg/dL (60-115) H 07/22/20 10:50 Random Glucose 251 mg/dL (60-115) H 07/21/20 21:18 Calcium 9.2 mg/dL (8.4-10.2) 07/21/20 21:18 Total Bilirubin 0.4 mg/dL (0.0-1.0) 07/21/20 21:18 Direct Bilirubin 0.2 mg/dL (0.0-0.5) 07/21/20 21:18 AST 24 U/L (5-31) 07/21/20 21:18 ALT 21 U/L (0-31) 07/21/20 21:18 Alkaline Phosphatase 59 U/L (39-117) 07/21/20 21:18 Troponin I High Sens 11.0 ng/L (<3.5-17.0) D 07/21/20 23:36 Total Protein 7.6 g/dL (6.5-8.0) 07/21/20 21:18 Albumin 4.3 g/dL (3.5-5.0) 07/21/20 21:18 Urine Color COLORLESS 07/21/20 23:36 Urine Appearance CLEAR 07/21/20 23:36 Urine pH 5.5 (5.0-8.0) 07/21/20 23:36 Ur Specific [place] 1.010 (1.005-1.025) 07/21/20 23:36 Urine Protein NEG MG/DL (NEG-TRACE) 07/21/20 23:36 Urine Glucose (UA) 500 MG/DL (NEG) H 07/21/20 23:36 Urine Ketones NEG MG/DL (NEG) 07/21/20 23:36 Urine Blood TRACE (NEG) 07/21/20 23:36 Urine Nitrite NEG (NEG) 07/21/20 23:36 Ur Leukocyte Esterase NEG (NEG) 07/21/20 23:36 Urine RBC 0-2 /HPF (0) 07/21/20 23:36 Urine WBC 0-2 /HPF (0-4) 07/21/20 23:36 Ur Squamous Epith Cells 1+ /LPF 07/21/20 23:36 Urine Bacteria NONE /LPF 07/21/20 23:36 Coronavirus (PCR) NEGATIVE (Negative) 07/21/20 21:19 Influenza Type A (PCR) NEGATIVE (Negative) 07/21/20 21:19 Influenza Type B (PCR) NEGATIVE (Negative) 07/21/20 21:19 RSV RNA Qual (PCR) NEGATIVE (Negative) 07/21/20 21:19 Discharge Plan Discharge Patient Disposition: Home Health Service Referrals: Davis Watts MD [Primary Care Provider] - Discharge Medications: Continued glipizide 5 mg tablet extended release 24hr 10 mg PO DAILY RF: 0 pregabalin 75 mg capsule 75 mg PO DAILY RF: 0 clopidogrel 75 mg tablet 75 mg PO DAILY RF: 0 tramadol 50 mg tablet 50 mg PO BID PRN (Reason: Pain) RF: 0 zolpidem 5 mg tablet 5 mg PO BEDTIME PRN (Reason: Sleep) RF: 0 rosuvastatin 40 mg tablet 40 mg PO DAILY RF: 0 metoprolol succinate 25 mg tablet extended release 24 hr 25 mg PO DAILY RF: 0 aspirin 81 mg tablet,delayed release (DR/EC) 81 mg PO DAILY RF: 0 levothyroxine 50 mcg tablet 50 mcg PO DAILY RF: 0 Discharge Orders: Discharge Order (Routine); Ordered 07/22/20 Ordered By: Sky Juárez Diet: advance to usual diet Activity on Discharge: As tolerated Visit Report Forms: Patient Portal Discharge page Care Plan Goals: recovery Health Concerns: cad Plan of Treatment: follow up with cardiology
--- NOTE | 2020-07-22 15:24 | MHC.CM.PN ---
Patient is being discharged home today with resumption of [facility] services. CM spoke with Yokasta at [facility] and informed PT recommended home PT and states [facility] can staff that. Nurse, patient made aware.
[2020-07-22 16:06] LABS: Glucose, Whole Blood 166 mg/dL (60-115)
== END 2020-07-22 17:15 | disposition home health service (06) ==
LOC: HO.ED 07-22 00:02 → HO.IMC 07-22 01:01
PROVIDERS: Admitting Provider Internal Medicine; Emergency Provider Internal Medicine; PCP Family Medicine; Visit Provider Internal Medicine
DX: R42 Dizziness and giddiness (principal); R10.13 Epigastric pain; I25.10 Atherosclerotic heart disease of native coronary artery without angina pectoris; R07.2 Precordial pain; R55 Syncope and collapse; I10 Essential (primary) hypertension; E78.5 Hyperlipidemia, unspecified; E11.9 Type 2 diabetes mellitus without complications; G47.33 Obstructive sleep apnea (adult) (pediatric); H53.8 Other visual disturbances; R00.2 Palpitations; I47.1 Supraventricular tachycardia; I45.81 Long QT syndrome; Z20.828 Contact with and (suspected) exposure to other viral communicable diseases; Z88.6 Allergy status to analgesic agent; Z88.8 Allergy status to other drugs, medicaments and biological substances; Z98.61 Coronary angioplasty status; Z79.899 Other long term (current) drug therapy
CPT/HCPCS: 0241U; 36415; 70551; 71045; 80048; 80076; 81001; 82947; 84484; 85025; 85610; 85730; 93005; 97161; 99219; 99285

== ENCOUNTER 2020-10-21 12:48 | Outpatient (REF) | payer MEDICARE, SELFPAY ==
--- NOTE | 2020-10-21 15:13 | MHC.AU.AHA ---
Adult Audiological Evaluation Date of Visit: 10/21/20 Reason for Appointment: History of asymmetrical hearing loss (worse in left ear). There is no measurable word discrimination ability in the left ear. Patient arrives today to determine if there has been a change in hearing. Previous Hearing Test Results: At this clinic on 04/13/2019- Right: Mild to moderately-severe sensorineural hearing loss Left: Severe to profound sensorineural hearing loss. Medical History: Medical History: History of diabetes, coronary artery disease, vertigo, sleep apnea, hypertension Hearing Instrument History- Right Ear: Research And Development Technician: Phonak Model: Bolero V50M Serial Number: [id number] Battery Size: 312 Repair Warranty: 06/21/2019 Loss and Damage Warranty: Used on 06/27/2018 Dispensed By: [facility] Date of Fittin04/07/2017 Hearing Instrument History- Left Ear: Research And Development Technician: Phonak Model: CROS II-312 Serial Number: [id number] Battery Size: 312 Warranty: 06/21/2019 Loss and Damage Warranty: 06/21/2019 Dispensed By: [facility] Date of Fittin04/07/2017 Otoscopy: Right Ear: Unremarkable Left Ear: Unremarkable Tympanometry: Tympanometry performed due to: To assess integrity of the middle ear system Right Ear: Normal Middle Ear System (Type A) Left Ear: Reduced Middle Ear Compliance (Type As) Hearing Evaluation: Transducer(s) Used: Insert Earphones Method: Conventional Audiometry Stimuli Used: Pure Tones Right Ear: Description of Hearing: Mild to moderately-severe sensorineural hearing loss Left Ear: Description of Hearing: Severe to profound sensorineural hearing loss Speech Recognition Threshold (SRT): Method Used: Recorded Lists Stimuli Used: Right Ear: 50 dBHL Left Ear: Could not test Word Discrimination: Method: Recorded Lists Word Lists Used: Lista Bisil?bica (Belarusian) Right Ear: 96% at 80 dBHL Left Ear: Could not test Aided Testing: Aided word discrimination is 96% at 55 dBHL Comparison: Compared to the most recent evaluation: Hearing is stable. Recommendations: Audiological re-evaluation in one year. See Hearing Aid Follow-Up note for more information. Diagnosis: Primary Diagnosis: H90.3 Bilateral Sensorineural Hearing Loss Services Performed: Comprehensive Audiological Evaluation (CPT 37914), Tympanometry (CPT 28879) Signature: Provider: Lizbeth Hooks, CCC-A
--- NOTE | 2020-10-21 15:14 | MHC.AU.HFU ---
Hearing Instrument Follow-Up- Binaural Date of Visit: 10/21/20 Right Ear: Pharmacy Customer Care Specialist: Phonak Model: Bolero V50M Serial Number: [id number] Repair Warranty: 06/21/2019 Loss and Damage Warranty: Used on 06/27/2018 Battery Size: 312 Left Ear: Pharmacy Customer Care Specialist: Phonak Model: CROS II-312 Serial Number: [id number] RepairWarranty: 06/21/2019 Loss and Damage Warranty: 06/21/2019 Battery Size: 312 Follow-Up Summary: Patient was seen for audiological evaluation. See separate note for details. Hearing aid maintenance performed. Slim tubes and domes replaced. Microphones vacuumed. Hearing instruments are working well. No programming changes made today. Dispensed batteries. Recommendations: Recommendations: Hearing instrument follow-up or maintenance as needed. Please contact our clinic with any questions or concerns. Diagnosis Code(s): Primary Diagnosis: H90.3 Bilateral Sensorineural Hearing Loss Signature: Provider: Lizbeth Hooks, BRITTANIE-A
== END 2020-10-21 12:49 | disposition home or self-care (01) ==
LOC: HO.SH 12:48
PROVIDERS: Visit Provider Nurse Practitioner Family
DX: Z46.1 Encounter for fitting and adjustment of hearing aid (principal); H90.3 Sensorineural hearing loss, bilateral
CPT/HCPCS: 92557; 92567; 99499; V5266

== ENCOUNTER → 2020-12-04 12:55 | Outpatient (REF) | payer MEDICARE, SELFPAY ==
--- NOTE | 2020-12-04 12:58 | CA_ITS ---
Transthoracic Echocardiogram Patient (Last, First, Middle): Khadra Hair, Gender: Female Date of : 1945 Age: 75 Procedure Date: 12/04/2020 Procedure Type: Transthoracic Echocardiogram Location: OP Height: 152.4 cm Weight: 68.04 kg BSA: 1.65 m2 Heart Rate: bpm BP: 150 / 80 mmHg Agricultural Technical Officer: VINNIE Referring MD: Rafael Cassidy MD Symptoms: I25.10 - Atherosclerotic heart disease of [place] coronary artery without angina pectoris Study Quality: Fair ECG Rhythm: Sinus Conclusions: - The left ventricular systolic function is low normal. The visually estimated ejection fraction is between 50-55%. - There is moderate mitral annular calcification. - There is mild calcification of the aortic valve. Findings Left Ventricle Normal left ventricular cavity size. There is mildly increased left ventricular wall thickness. The left ventricular systolic function is low normal. The visually estimated ejection fraction is between 50-55%. There is no evidence of regional wall motion abnormalities. E/E prime ratio is >15, consistent with elevated filling pressures. Evidence suggests grade I (mild) diastolic dysfunction. Right Ventricle Normal right ventricular cavity size and systolic function. Atria The left atrium is normal in size. The right atrium is normal in size. Aortic Valve There is mild calcification of the aortic valve. There is no aortic valve stenosis. There is no aortic valve regurgitation. Mitral Valve There is moderate mitral annular calcification. There is trace mitral valve regurgitation. There is no mitral valve stenosis. Pulmonic Valve The pulmonic valve was not well visualized. Tricuspid Valve Normal tricuspid valve structure. There is no tricuspid valve regurgitation. The pulmonary artery systolic pressure is normal. Great Vessels The aortic annulus, sinuses of valsalva, asc aorta, and aortic arch are normal in size. Venous The inferior vena cava is normal in size and collapses greater than 50% with inspiration. Pericardium/Pleural There is no evidence of pericardial effusion. Prior Study Comparison Changes noted compared to prior study dated: 12/06/2018. LVEF slightly reduced compared to prior study. Measurements 2D Linear Measurements IVSd: 1.04 0.6-0.9/0.6-1.0 cm LVIDd: 3.58 3.9-5.3/4.2-5.9 cm LVIDd Index: 2.17 2.4-3.2/2.2-3.1 cm/m2 LVIDs: 2.56 2.0-3.6 cm LVPWd: 1.04 0.7-1.1 cm Ao Root: 2.90 2.1-3.5 cm LA Diam: 3.40 2.7-3.8/3.0-4.0 cm LAIDs Index: 2.06 1.5-2.3 cm/m2 LV Mass: 140.86 67-162/88-224 g LV Mass Index: 85.37 43-95/49-115 g/m2 LVOT Diam: 1.90 3.0+(-)1.3 cm 2D Systolic Function EF 4C: 52.80 >55% EF 2C: 51.90 >55% EF BiP: 53.60 >55% Mitral Valve MV Pk E: 0.78 MV PK A: 1.02 MV Decel Time: 204.00 E/A: 0.80 E'Lateral: 5.03 E'Medial: 4.35 E/E' Med: 17.80 E/E' Lat: 15.40 PHT: 60.00 MVA PHT: 3.67 Decel [place]: 3.80 Aortic Valve AoV Pk Oli: 1.15 AoV Mn Oli: 0.84 AoV VTI: 0.30 AoV Pk Grad: 5.00 Aov Mn Grad: 3.00 GWENDOLYN Cont.VTI: 1.82 LVOT LVOT Pk Oli: 0.72 LVOT Mn Oli: 0.57 LVOT VTI: 0.19 LVOT Pk Grad: 2.00 LVOT Mn Grad: 1.00 LVOT Diam: 1.90 LVOT Area: 2.84 Diastolic Function MV Pk E: 0.78 MV Pk A: 1.02 E/A: 0.80 E'Medial: 4.35 E/E' Med: 17.80 E' Laterial: 5.03 E/E' Lat: 15.40 Tricuspid Valve TR Pk Oli: 1.64 TR Pk Grad: 11.00 RA Press: 3.00 RVSP: 14.00 Great Vessels Aorta Ao Root-2D: 2.90 2.0-3.7 cm Ao Asc: 2.40 2.1-3.4 cm Ao Arch: 2.50 Updated in Other Vendor System with Status of Final Rafael Cassidy MD electronically signed on 12/06/2020 3:08:20 PM with status of Final
== END ==
LOC: HO.CARD 12:55
PROVIDERS: Visit Provider Internal Medicine
DX: I25.10 Atherosclerotic heart disease of native coronary artery without angina pectoris (principal)
CPT/HCPCS: 93306

== ENCOUNTER → 2020-12-19 13:07 | Outpatient (BNVA) | payer MEDICARE, SELFPAY | PROVIDERS: Referring Provider Family Medicine; Visit Provider Internal Medicine | DX: I25.10 Atherosclerotic heart disease of native coronary artery without angina pectoris (principal); I10 Essential (primary) hypertension; I05.9 Rheumatic mitral valve disease, unspecified; G47.33 Obstructive sleep apnea (adult) (pediatric); R00.2 Palpitations | CPT/HCPCS: 99212 ==

== ENCOUNTER → 2021-06-19 12:33 | Outpatient (BNVA) | payer MEDICARE, SELFPAY | PROVIDERS: Visit Provider Internal Medicine | DX: I25.10 Atherosclerotic heart disease of native coronary artery without angina pectoris (principal); I10 Essential (primary) hypertension; I05.9 Rheumatic mitral valve disease, unspecified; R00.2 Palpitations; G47.33 Obstructive sleep apnea (adult) (pediatric); Z98.61 Coronary angioplasty status; Z98.890 Other specified postprocedural states; Z79.4 Long term (current) use of insulin; Z79.84 Long term (current) use of oral hypoglycemic drugs; Z79.899 Other long term (current) drug therapy | CPT/HCPCS: 93005; 99212 ==

== ENCOUNTER 2021-11-26 20:12 | Emergency (ER) | payer OTHER, SELFPAY ==
[2021-11-26 20:45] VITALS: BP 198/94; PULSE 98; RESP 16; TEMP 36.8; O2SAT 98; BMI 29.2
[2021-11-26 21:27] LABS: Appearance Urine CLOUDY; Color Urine STRAW; Glucose Urine UA 100 MG/DL (NEG); Leukocyte Esterase Urine 3+ (NEG); Nitrite Urine NEG (NEG); PH 5.5 (5.0-8.0); Specific Gravity - Urine <= 1.005 (1.005-1.025); UACC Culture Trigger YES; Urine Blood 1+ (NEG); Urine Ketones NEG (NEG); Urine Protein NEG (NEG-TRACE)
[2021-11-26 21:53] LABS: Bacteria Urine 3+ /LPF; Mucus Urine TRACE /LPF; Squamous Epithelial Cell Urine TRACE /LPF; WBC Clumps Urine NOTED; WBC Urine 30-49 /HPF (0-4)
[2021-11-26 23:20] LABS: Glucose, Whole Blood 211 mg/dL (60-115)
[2021-11-27 00:33] VITALS: BP 168/72; PULSE 97; RESP 18; TEMP 36.7; O2SAT 97
--- NOTE | 2021-11-27 00:40 | ED_ITS ---
HPI - Female Genitourinary General Chief complaint: Urogenital-Female Stated complaint: UTI- meds arent working Time Seen by Provider: 11/27/21 00:40 Source: patient Mode of arrival: ambulatory Limitations: no limitations History of Present Illness HPI Narrative: Patient history of diabetes been having recurrent UTI for last 1 year this year the 1st time she has UTI symptoms for last 1 week seen her PCP was started for on amoxicillin patient still feeling discomfort when she urinated and now for last 2 days pain is going to the left flank area has some nausea no vomiting no fever + chills does not feel comfortable has mild supra pubic pain Related Data Home Medications Medication Instructions Recorded Confirmed pregabalin 75 mg capsule 75 mg PO DAILY cap 06/20/20 06/19/21 tramadol 50 mg tablet 50 mg PO BID PRN 06/20/20 06/19/21 zolpidem 5 mg tablet 5 mg PO BEDTIME PRN 06/20/20 06/19/21 metoprolol succinate 50 mg 50 mg PO DAILY 12/19/20 06/19/21 tablet,extended release 24 hr sertraline 25 mg tablet 25 mg PO DAILY 12/19/20 06/19/21 aspirin 81 mg tablet,delayed 81 mg PO DAILY 06/19/21 06/19/21 release atorvastatin 40 mg tablet 40 mg PO BEDTIME 06/19/21 06/19/21 clopidogrel 75 mg tablet 75 mg PO DAILY 06/19/21 06/19/21 dulaglutide 1.5 mg/0.5 mL mg SUBCUT 06/19/21 06/19/21 subcutaneous pen injector (Trulicity) empagliflozin 10 mg tablet 10 mg PO DAILY 06/19/21 06/19/21 (Jardiance) glipizide 5 mg tablet 5 mg PO DAILY 06/19/21 06/19/21 levothyroxine 75 mcg tablet 0 mcg PO 06/19/21 06/19/21 pantoprazole 40 mg tablet,delayed 40 mg PO DAILY 06/19/21 06/19/21 release Previous Rx's Medication Instructions Recorded cefpodoxime 200 mg tablet 200 mg PO BID #20 tab 11/27/21 phenazopyridine 200 mg tablet 200 mg PO TID PRN 5 Days #5 tab 11/27/21 (Pyridium) Allergies Allergy/AdvReac Type Severity Reaction Status Date / Time aspirin [Aspirin] AdvReac Mild STOMACHE Verified 06/19/21 12:50 UPSET esomeprazole [From NEXIUM] AdvReac Unknown BURNING Verified 06/19/21 12:50 SENSATION Review of Systems Review of Systems: Yes all other systems are reviewed and are negative [facility] Past Medical History Medical History (Updated 11/27/21 @ 02:19 by Spenser Wolf MD) Essential hypertension Heart palpitations Mitral annular calcification TASHI (obstructive sleep apnea) Surgical History History of cardioversion (~08/16/13) History of hysterectomy History of tonsillectomy Stented coronary artery Family History Family History Father Asthma Mother Cardiovascular disease Diabetes Arthritis Social History Social History (Updated 06/19/21 @ 12:50 by YOAN Alarcon) Alcohol intake: never Patient Tobacco Use Status: Never used Tobacco Advance Directives: No Advance Directives Information Provided: Yes service: No Current occupational status: unemployed Physical Exam Vital Signs: Vital Signs: Last Vital Signs Temp 99.5 F 11/27/21 02:40 Pulse 77 11/27/21 02:40 Resp 18 11/27/21 02:40 BP 179/82 H 11/27/21 02:40 Pulse Ox 98 11/27/21 02:40 BMI result Body Mass Index 29.2 Appearance: Alert. Oriented X3. No acute distress. Eyes: No pallor or icterus ENT: Pharynx normal. Oral Mucosa moist Neck: Normal inspection. Neck supple. CVS: Normal heart rate and rhythm. Pulses normal. Respiratory: No respiratory distress. Equal air entry bilateral, Abdomen: Soft and nontender. Bowel sounds are present, no mass palpable, mild left CVA tenderness Skin: Skin warm and dry. Normal skin color. Normal skin turgor. Extremities: No lower extremity edema. No calf tenderness Neuro: Oriented X 3. MDM - Female Genitourinary MDM Narrative Medical decision making narrative: Patient with UTI symptoms with chills going to the left flank area will check his white count and lactic acid give IV dose of Rocephin UA showed UTI at this time we do not have any old cultures Lab Data Attestation: I reviewed the patient's lab results. Result diagrams: 11/27/21 01:23 11/27/21 01:23 Labs: Lab Results 11/26/21 11/26/21 11/27/21 Range/Units 21:20 23:16 01:23 WBC 8.9 (4.8-10.8) X10*3/uL RBC 4.85 (4.20-5.50) X10*6/uL Hgb 13.0 (12.0-16.0) g/dl Hct 39.4 (37.0-47.0) % MCV 81.2 (80.0-98.0) fL MCH 26.8 L (27.0-33.0) pg MCHC 33.0 (31.0-35.0) g/dl RDW 14.6 (11.0-16.0) % Plt Count 225 (160-400) X10*3/uL MPV 10.4 (9.4-12.3) fL Immature Gran % (Auto) 0.2 (0.0-0.4) % Neut % (Auto) 56.8 (45-73) % Lymph % (Auto) 32.2 (20-40) % [place] % (Auto) 9.5 (2-11) % Eos % (Auto) 1.1 (0-4) % Baso % (Auto) 0.2 (0-2) % Lymph # (Auto) 2.9 (1.2-4.9) X10*3/uL [place] # (Auto) 0.8 (0.1-1.2) X10*3/uL Eos # (Auto) 0.1 (0.0-0.4) X10*3/uL Baso # (Auto) 0.0 (0.0-0.2) X10*3/uL Abs Immat Gran (auto) 0.02 (0.00-0.03) X10*3/uL Absolute Neuts (auto) 5.0 (2.0-8.3) x10*3/uL Absolute Nucleated RBC 0.000 (0.0-0.012) X10*3/uL Nucleated RBC % (auto) 0.0 (0.0-0.2) /100WBC Sodium (135-145) mmol/L Potassium (3.3-5.1) mmol/L Chloride (96-108) mmol/L Carbon Dioxide (22-29) mmol/L Anion Gap (12-20) BUN (9-16) mg/dL Creatinine (0.5-1.4) mg/dL Estim Creat Clear Calc Estimated GFR POC Glucose 211 H (60-115) mg/dL Random Glucose (60-115) mg/dL Lactic Acid (0.5-2.0) mmol/L Calcium (8.4-10.2) mg/dL Urine Color STRAW Urine Appearance CLOUDY Urine pH 5.5 (5.0-8.0) Ur Specific [place] <= 1.005 (1.005-1.025) Urine Protein NEG (NEG-TRACE) MG/DL Urine Glucose (UA) 100 H (NEG) MG/DL Urine Ketones NEG (NEG) MG/DL Urine Blood 1+ H (NEG) Urine Nitrite NEG (NEG) Ur Leukocyte Esterase 3+ H (NEG) Urine RBC 1-4 (0) /HPF Urine WBC 30-49 H (0-4) /HPF Urine WBC Clumps NOTED Ur Squamous Epith Cells TRACE /LPF Urine Bacteria 3+ /LPF Urine Mucus TRACE /LPF 11/27/21 11/27/21 Range/Units 01:23 01:23 WBC (4.8-10.8) X10*3/uL RBC (4.20-5.50) X10*6/uL Hgb (12.0-16.0) g/dl Hct (37.0-47.0) % MCV (80.0-98.0) fL MCH (27.0-33.0) pg MCHC (31.0-35.0) g/dl RDW (11.0-16.0) % Plt Count (160-400) X10*3/uL MPV (9.4-12.3) fL Immature Gran % (Auto) (0.0-0.4) % Neut % (Auto) (45-73) % Lymph % (Auto) (20-40) % [place] % (Auto) (2-11) % Eos % (Auto) (0-4) % Baso % (Auto) (0-2) % Lymph # (Auto) (1.2-4.9) X10*3/uL [place] # (Auto) (0.1-1.2) X10*3/uL Eos # (Auto) (0.0-0.4) X10*3/uL Baso # (Auto) (0.0-0.2) X10*3/uL Abs Immat Gran (auto) (0.00-0.03) X10*3/uL Absolute Neuts (auto) (2.0-8.3) x10*3/uL Absolute Nucleated RBC (0.0-0.012) X10*3/uL Nucleated RBC % (auto) (0.0-0.2) /100WBC Sodium 135 (135-145) mmol/L Potassium 4.4 (3.3-5.1) mmol/L Chloride 99 (96-108) mmol/L Carbon Dioxide 28 (22-29) mmol/L Anion Gap 12 (12-20) BUN 13 (9-16) mg/dL Creatinine 0.87 (0.5-1.4) mg/dL Estim Creat Clear Calc 46.6 Estimated GFR > 60 POC Glucose (60-115) mg/dL Random Glucose 198 H (60-115) mg/dL Lactic Acid 1.6 (0.5-2.0) mmol/L Calcium 9.8 D (8.4-10.2) mg/dL Urine Color Urine Appearance Urine pH (5.0-8.0) Ur Specific [place] (1.005-1.025) Urine Protein (NEG-TRACE) MG/DL Urine Glucose (UA) (NEG) MG/DL Urine Ketones (NEG) MG/DL Urine Blood (NEG) Urine Nitrite (NEG) Ur Leukocyte Esterase (NEG) Urine RBC (0) /HPF Urine WBC (0-4) /HPF Urine WBC Clumps Ur Squamous Epith Cells /LPF Urine Bacteria /LPF Urine Mucus /LPF Discharge Plan Discharge Clinical Impression: Urinary tract infection Patient Disposition: Home, Self-Care Instructions: Urinary Tract Infection in Older Adults (ED) Additional Instructions: Drink plenty of fluids Take antibiotic as prescribed and follow with PCP Report to the ER if high fever/vomiting /increased pain Prescriptions: New cefpodoxime 200 mg tablet 200 mg PO BID Qty: 20 0RF Rx Instructions: must administer with a meal/food phenazopyridine [Pyridium] 200 mg tablet 200 mg PO TID PRN (Reason: pain) 5 Days Qty: 5 0RF No Action glipizide 5 mg tablet 5 mg PO DAILY 0RF clopidogrel 75 mg tablet 75 mg PO DAILY 0RF atorvastatin 40 mg tablet 40 mg PO BEDTIME 0RF Trulicity 1.5 mg/0.5 mL pen injector subcut 0RF levothyroxine 75 mcg tablet 0 mcg PO 0RF pantoprazole 40 mg tablet,delayed release (DR/EC) 40 mg PO DAILY 0RF Jardiance 10 mg tablet 10 mg PO DAILY 0RF aspirin 81 mg tablet,delayed release (DR/EC) 81 mg PO DAILY 0RF pregabalin 75 mg capsule 75 mg PO DAILY 0RF tramadol 50 mg tablet 50 mg PO BID PRN (Reason: Pain) 0RF zolpidem 5 mg tablet 5 mg PO BEDTIME PRN (Reason: Sleep) 0RF metoprolol succinate 50 mg tablet extended release 24 hr 50 mg PO DAILY 0RF sertraline 25 mg tablet 25 mg PO DAILY 0RF Interventions: ED Discharge Assessment Last Done: 11/27/21 02:55 Discharge Date/Time: 11/27/21 02:55 Print Language: [place]
[2021-11-27] MEDS: cefTRIAXone sodium 1 GM in 0.9 % Sodium Chloride 50 ML IV (01:29)
[2021-11-27] MEDS: 0.9 % Sodium Chloride 1,000 ML 999 ML IV (01:29)
[2021-11-27 01:31] LABS: MANUAL DIFF FLAG NO
[2021-11-27 01:32] LABS: Basophils Percent Auto 0.2 % (0-2); Eosinophils Absolute Auto 0.1 X10*3/uL (0.0-0.4); Eosinophils Percent Auto 1.1 % (0-4); Hematocrit 39.4 % (37.0-47.0); Imm Gran Abs Auto 0.02 X10*3/uL (0.00-0.03); Imm Gran Pct Auto 0.2 % (0.0-0.4); Lymphocytes Absolute Auto 2.9 X10*3/uL (1.2-4.9); Lymphocytes Percent Auto 32.2 % (20-40); Mean Corpuscular Hemoglobin 26.8 pg (27.0-33.0); Mean Corpuscular Volume 81.2 fL (80.0-98.0); Mean Platelet Volume 10.4 fL (9.4-12.3); Monocytes Absolute Auto 0.8 X10*3/uL (0.1-1.2); Monocytes Percent Auto 9.5 % (2-11); Neutrophils Percent Auto 56.8 % (45-73); Platelet Count 225 X10*3/uL (160-400); Red Blood Count 4.85 X10*6/uL (4.20-5.50); Red Cell Distribution Width 14.6 % (11.0-16.0); White Blood Count 8.9 X10*3/uL (4.8-10.8)
[2021-11-27 01:43] LABS: Lactic Acid 1.6 mmol/L (0.5-2.0)
[2021-11-27 01:48] LABS: Anion Gap 12 (12-20); Blood Urea Nitrogen 13 mg/dL (9-16); Calcium 9.8 mg/dL (8.4-10.2); Carbon Dioxide 28 mmol/L (22-29); Chloride 99 mmol/L (96-108); Creatinine Clr Calc Pharmacy 46.6; Estimated Glomerular Filt Rate > 60; Glucose Random 198 mg/dL (60-115); Potassium 4.4 mmol/L (3.3-5.1); Sodium 135 mmol/L (135-145)
[2021-11-27 02:40] VITALS: BP 179/82; PULSE 77; RESP 18; TEMP 37.5; O2SAT 98
== END 2021-11-27 02:55 | disposition home or self-care (01) ==
PROVIDERS: Emergency Provider Internal Medicine
DX: N39.0 Urinary tract infection, site not specified (principal); E11.9 Type 2 diabetes mellitus without complications; I10 Essential (primary) hypertension
CPT/HCPCS: 36415; 80048; 81001; 82947; 83605; 85025; 87086; 96361; 96374; 99284; J0696

== ENCOUNTER 2021-12-19 21:01 | Emergency (ER) | payer MEDICARE, SELFPAY ==
--- NOTE | ~2021-12-19 | XR_ITS ---
EXAMINATION: XR CHEST CLINICAL INFORMATION: Abdominal pain. COMPARISON: 07/21/2020 TECHNIQUE: Frontal view of the chest was obtained. FINDINGS: Coronary stents are in place. Heart is normal in size. Calcific atherosclerosis is present in the thoracic aorta. Pulmonary vasculature is unremarkable. Lungs appear clear. No consolidation, pneumothorax, or pleural effusion. Degenerative spondylosis in the thoracic spine. No intraperitoneal free air. XR/XR chest 1V IMPRESSION: No acute pulmonary findings. No pneumoperitoneum.
[2021-12-19 21:27] VITALS: BP 218/102; PULSE 83; RESP 20; TEMP 37.1; O2SAT 98; BMI 29.2
--- NOTE | 2021-12-19 23:18 | ED_ITS ---
HPI - Female Genitourinary General Chief complaint: Urogenital-Female Stated complaint: UTI Source: patient Mode of arrival: ambulatory Limitations: language barrier History of Present Illness HPI Narrative: 76-year-old female presents With dysuria, frequency, recently finished a course of Macrobid about a week ago. Patient stop taking the medication because the medication caused abdominal pain and nausea. Patient does report drinking lots of water today. MD elicited complaint: dysuria and UTI Pertinent past history: recurrent UTIs Onset (ago): week(s) (1) Location of symptoms: urethra Severity: moderate Female Urogenital Radiation: Non-Radiating Severity scale (1-10): 7 Quality of pain: burning Consistency: intermittent Vaginal discharge: none Vaginal bleeding: none Urinary symptoms: Dysuria, Urgency and Frequency Exacerbating factors: urination Relieving factors: none Treatment prior to arrival: none Sexual activity: No Related Data Home Medications Medication Instructions Recorded Confirmed pregabalin 75 mg capsule 75 mg PO DAILY cap 06/20/20 06/19/21 tramadol 50 mg tablet 50 mg PO BID PRN 06/20/20 06/19/21 zolpidem 5 mg tablet 5 mg PO BEDTIME PRN 06/20/20 06/19/21 metoprolol succinate 50 mg 50 mg PO DAILY 12/19/20 06/19/21 tablet,extended release 24 hr sertraline 25 mg tablet 25 mg PO DAILY 12/19/20 06/19/21 aspirin 81 mg tablet,delayed 81 mg PO DAILY 06/19/21 06/19/21 release atorvastatin 40 mg tablet 40 mg PO BEDTIME 06/19/21 06/19/21 clopidogrel 75 mg tablet 75 mg PO DAILY 06/19/21 06/19/21 dulaglutide 1.5 mg/0.5 mL mg SUBCUT 06/19/21 06/19/21 subcutaneous pen injector (Trulicity) empagliflozin 10 mg tablet 10 mg PO DAILY 06/19/21 06/19/21 (Jardiance) glipizide 5 mg tablet 5 mg PO DAILY 06/19/21 06/19/21 levothyroxine 75 mcg tablet 0 mcg PO 06/19/21 06/19/21 pantoprazole 40 mg tablet,delayed 40 mg PO DAILY 06/19/21 06/19/21 release Previous Rx's Medication Instructions Recorded cefpodoxime 200 mg tablet 200 mg PO BID #20 tab 11/27/21 phenazopyridine 200 mg tablet 200 mg PO TID PRN 5 Days #5 tab 11/27/21 (Pyridium) cefuroxime axetil 500 mg tablet 500 mg PO Q12H 7 Days #14 tab 12/20/21 Allergies Allergy/AdvReac Type Severity Reaction Status Date / Time aspirin [Aspirin] AdvReac Mild STOMACHE Verified 06/19/21 12:50 UPSET esomeprazole [From NEXIUM] AdvReac Unknown BURNING Verified 06/19/21 12:50 SENSATION Review of Systems 2 Review of Systems: Constitutional: No Fever, No Chills ENT/Mouth: No Ear Pain, No Hoarseness, No sore throat Eyes: No Eye Pain, No Swelling, No Redness, No Foreign Body Cardiovascular: No Chest Pain, No SOB Respiratory: No Cough, No Dyspnea Gastrointestinal: No Nausea, No Vomiting, No Diarrhea, positive abdominal Pain Genitourinary: Positive Dysuria, positive frequency, No Hematuria Musculoskeletal: No joint pain, No Myalgias, No Joint Swelling Skin: No Skin lacerations, No rash Neuro: No Weakness, No Numbness, No Paresthesias, No Loss of Consciousness, No Dizziness, No Headache Psych: No Anxiety/Panic, No Depression Heme/Lymph: no easy bruising, no Lymphadenopathy Endocrine: No Polyuria, No Polydipsia Yes all other systems are reviewed and are negative [facility] Past Medical History Attestation statement: The following information was validated with the patient. Source: old records reviewed Medical History Essential hypertension Heart palpitations Mitral annular calcification TASHI (obstructive sleep apnea) Surgical History History of cardioversion (~08/16/13) History of hysterectomy History of tonsillectomy Stented coronary artery Family History Family History Father Asthma Mother Cardiovascular disease Diabetes Arthritis Social History Social History Alcohol intake: never Patient Tobacco Use Status: Never used Tobacco Advance Directives: No Advance Directives Information Provided: Yes service: No Current occupational status: unemployed Physical Exam Vital Signs: Vital Signs: Last Vital Signs Temp 98.3 F 12/20/21 03:06 Pulse 77 12/20/21 03:06 Resp 18 12/20/21 03:06 BP 147/69 H 12/20/21 03:06 Pulse Ox 100 12/20/21 03:06 BMI result Body Mass Index 29.2 Appearance: Alert. Oriented X3. No acute distress. Eyes: Pupils equal, round and reactive to light. ENT: Pharynx normal. Neck: Normal inspection. Neck supple. CVS: Normal heart rate and rhythm. Pulses normal. Respiratory: No respiratory distress. Breath sounds normal. Abdomen: Soft and nontender to palpation. No CVA tenderness. Skin: Skin warm and dry. Normal skin color. Normal skin turgor. Extremities: No lower extremity edema. Moves all extremities against resistance. Neuro: No motor deficit. No sensory deficit. Cranial nerves 2-12 intact. Course Course Course Narrative: 76-year-old female presents with 1 week of urinary frequency, dysuria, was given Macrobid but stop the antibiotic short because of abdominal discomfort. Patient does not report any fevers, chills, or any other concerning symptoms. Patient is afebrile, appears nontoxic, blood pressure is elevated however she does report drinking lots of water today. Daughter states that there is usually a gal of water or more. Will order urinalysis, labs lactic and cultures. Will give ceftriaxone IV at this time and 1 L of fluid. 01:30 sodium 126, BUN 20. Will repeat lab values after L of fluid. 03:17 labs pending. Sign out to Dr. Weiner. [facility] - Female Genitourinary Differential Diagnosis Differential diagnosis: Likely urinary tract infection and cystitis Medical Records Attestation: I reviewed the patient's medical records. Lab Data Attestation: I reviewed the patient's lab results. Result diagrams: 12/19/21 23:34 12/19/21 23:34 Labs: Lab Results 12/19/21 12/19/21 12/19/21 Range/Units 23:34 23:34 23:34 WBC 9.6 (4.8-10.8) X10*3/uL RBC 5.02 (4.20-5.50) X10*6/uL Hgb 13.6 (12.0-16.0) g/dl Hct 40.4 (37.0-47.0) % MCV 80.5 (80.0-98.0) fL MCH 27.1 (27.0-33.0) pg MCHC 33.7 (31.0-35.0) g/dl RDW 14.5 (11.0-16.0) % Plt Count 224 (160-400) X10*3/uL MPV 10.3 (9.4-12.3) fL Immature Gran % (Auto) 0.2 (0.0-0.4) % Neut % (Auto) 70.0 (45-73) % Lymph % (Auto) 21.2 (20-40) % [place] % (Auto) 7.7 (2-11) % Eos % (Auto) 0.7 (0-4) % Baso % (Auto) 0.2 (0-2) % Lymph # (Auto) 2.0 (1.2-4.9) X10*3/uL [place] # (Auto) 0.7 (0.1-1.2) X10*3/uL Eos # (Auto) 0.1 (0.0-0.4) X10*3/uL Baso # (Auto) 0.0 (0.0-0.2) X10*3/uL Abs Immat Gran (auto) 0.02 (0.00-0.03) X10*3/uL Absolute Neuts (auto) 6.7 (2.0-8.3) x10*3/uL Absolute Nucleated RBC 0.000 (0.0-0.012) X10*3/uL Nucleated RBC % (auto) 0.0 (0.0-0.2) /100WBC Sodium 126 L (135-145) mmol/L Potassium 5.0 (3.3-5.1) mmol/L Chloride 92 L (96-108) mmol/L Carbon Dioxide 27 (22-29) mmol/L Anion Gap 12 (12-20) BUN 20 H D (9-16) mg/dL Creatinine 1.00 (0.5-1.4) mg/dL Estim Creat Clear Calc 40.5 Estimated GFR 54 Random Glucose 240 H (60-115) mg/dL Lactic Acid 1.0 (0.5-2.0) mmol/L Calcium 9.6 (8.4-10.2) mg/dL Urine Color Urine Appearance Urine pH (5.0-8.0) Ur Specific [place] (1.005-1.025) Urine Protein (NEG-TRACE) MG/DL Urine Glucose (UA) (NEG) MG/DL Urine Ketones (NEG) MG/DL Urine Blood (NEG) Urine Nitrite (NEG) Ur Leukocyte Esterase (NEG) Urine RBC (0) /HPF Urine WBC (0-4) /HPF Ur Squamous Epith Cells /LPF Urine Bacteria /LPF Influenza Type A (PCR) (Negative) Influenza Type B (PCR) (Negative) RSV RNA Qual (PCR) (Negative) SARS-CoV-2 RNA (RT-PCR) (Negative) 12/19/21 12/19/21 Range/Units 23:42 23:43 WBC (4.8-10.8) X10*3/uL RBC (4.20-5.50) X10*6/uL Hgb (12.0-16.0) g/dl Hct (37.0-47.0) % MCV (80.0-98.0) fL MCH (27.0-33.0) pg MCHC (31.0-35.0) g/dl RDW (11.0-16.0) % Plt Count (160-400) X10*3/uL MPV (9.4-12.3) fL Immature Gran % (Auto) (0.0-0.4) % Neut % (Auto) (45-73) % Lymph % (Auto) (20-40) % [place] % (Auto) (2-11) % Eos % (Auto) (0-4) % Baso % (Auto) (0-2) % Lymph # (Auto) (1.2-4.9) X10*3/uL [place] # (Auto) (0.1-1.2) X10*3/uL Eos # (Auto) (0.0-0.4) X10*3/uL Baso # (Auto) (0.0-0.2) X10*3/uL Abs Immat Gran (auto) (0.00-0.03) X10*3/uL Absolute Neuts (auto) (2.0-8.3) x10*3/uL Absolute Nucleated RBC (0.0-0.012) X10*3/uL Nucleated RBC % (auto) (0.0-0.2) /100WBC Sodium (135-145) mmol/L Potassium (3.3-5.1) mmol/L Chloride (96-108) mmol/L Carbon Dioxide (22-29) mmol/L Anion Gap (12-20) BUN (9-16) mg/dL Creatinine (0.5-1.4) mg/dL Estim Creat Clear Calc Estimated GFR Random Glucose (60-115) mg/dL Lactic Acid (0.5-2.0) mmol/L Calcium (8.4-10.2) mg/dL Urine Color YELLOW Urine Appearance CLEAR Urine pH 6.5 (5.0-8.0) Ur Specific [place] <= 1.005 (1.005-1.025) Urine Protein NEG (NEG-TRACE) MG/DL Urine Glucose (UA) 100 H (NEG) MG/DL Urine Ketones NEG (NEG) MG/DL Urine Blood NEG (NEG) Urine Nitrite NEG (NEG) Ur Leukocyte Esterase 1+ H (NEG) Urine RBC 1-4 (0) /HPF Urine WBC 5-9 H (0-4) /HPF Ur Squamous Epith Cells TRACE /LPF Urine Bacteria 3+ /LPF Influenza Type A (PCR) NEGATIVE (Negative) Influenza Type B (PCR) NEGATIVE (Negative) RSV RNA Qual (PCR) NEGATIVE (Negative) SARS-CoV-2 RNA (RT-PCR) NEGATIVE (Negative) Imaging Data Chest x-ray: Attestation: I personally reviewed and interpreted this imaging study as follows: Radiologist's impression: EXAMINATION: XR CHEST CLINICAL INFORMATION: Abdominal pain. COMPARISON: 07/21/2020 TECHNIQUE: Frontal view of the chest was obtained. FINDINGS: Coronary stents are in place. Heart is normal in size. Calcific atherosclerosis is present in the thoracic aorta. Pulmonary vasculature is unremarkable. Lungs appear clear. No consolidation, pneumothorax, or pleural effusion. Degenerative spondylosis in the thoracic spine. No intraperitoneal free air. XR/XR chest 1V IMPRESSION: No acute pulmonary findings. ? No pneumoperitoneum. ? Discharge Plan Discharge Clinical Impression: Acute UTI, Acute hyponatremia Patient Disposition: Home, Self-Care Instructions: Urinary Tract Infection in Older Adults (ED) Additional Instructions: Usted fue evaluado por s?ntomas urinarios. El an?lisis de orina es positivo para UTI. Le administramos 1 dosis de ceftriaxona IV mientras estaba en el departamento de emergencias. [place] cefuroxima 500 mg cada 12 horas bobo 7 d?as. Debe hacer un seguimiento con johnson m?dico de atenci?n primaria para repetir los valores de laboratorio. Eligio por elegir nancy departamento de emergencias para johnson evaluaci?n. Por favor, aydin un seguimiento con el m?dico de atenci?n primaria seg?n sea necesario. Regrese al departamento de emergencias por cualquier s?ntoma nuevo, preocupante o que empeore. You were evaluated for urinary symptoms. Urinalysis is positive for UTI. We gave you 1 dose of IV ceftriaxone while in the emergency department. Please take cefuroxime 500 mg every 12 hours for 7 days. You must follow-up with her primary care physician for repeat lab values. Thank you for choosing this emergency department for evaluation. Please follow-up with primary care physician as needed. Return to the emergency department for any new, concerning, or worsening symptoms. Prescriptions: New cefuroxime axetil 500 mg tablet 500 mg PO Q12H 7 Days Qty: 14 0RF No Action cefpodoxime 200 mg tablet 200 mg PO BID Qty: 20 0RF Rx Instructions: must administer with a meal/food phenazopyridine [Pyridium] 200 mg tablet 200 mg PO TID PRN (Reason: pain) 5 Days Qty: 5 0RF glipizide 5 mg tablet 5 mg PO DAILY 0RF clopidogrel 75 mg tablet 75 mg PO DAILY 0RF atorvastatin 40 mg tablet 40 mg PO BEDTIME 0RF Trulicity 1.5 mg/0.5 mL pen injector subcut 0RF levothyroxine 75 mcg tablet 0 mcg PO 0RF pantoprazole 40 mg tablet,delayed release (DR/EC) 40 mg PO DAILY 0RF Jardiance 10 mg tablet 10 mg PO DAILY 0RF aspirin 81 mg tablet,delayed release (DR/EC) 81 mg PO DAILY 0RF pregabalin 75 mg capsule 75 mg PO DAILY 0RF tramadol 50 mg tablet 50 mg PO BID PRN (Reason: Pain) 0RF zolpidem 5 mg tablet 5 mg PO BEDTIME PRN (Reason: Sleep) 0RF metoprolol succinate 50 mg tablet extended release 24 hr 50 mg PO DAILY 0RF sertraline 25 mg tablet 25 mg PO DAILY 0RF
[2021-12-19 23:37] LABS: Appearance Urine CLEAR; Color Urine YELLOW; Glucose Urine UA 100 MG/DL (NEG); Leukocyte Esterase Urine 1+ (NEG); Nitrite Urine NEG (NEG); PH 6.5 (5.0-8.0); Specific Gravity - Urine <= 1.005 (1.005-1.025); UACC Culture Trigger YES; Urine Blood NEG (NEG); Urine Ketones NEG (NEG); Urine Protein NEG (NEG-TRACE)
[2021-12-19 23:50] LABS: MANUAL DIFF FLAG NO
[2021-12-19 23:53] LABS: Basophils Percent Auto 0.2 % (0-2); Eosinophils Absolute Auto 0.1 X10*3/uL (0.0-0.4); Eosinophils Percent Auto 0.7 % (0-4); Hematocrit 40.4 % (37.0-47.0); Hemoglobin 13.6 g/dl (12.0-16.0); Imm Gran Abs Auto 0.02 X10*3/uL (0.00-0.03); Imm Gran Pct Auto 0.2 % (0.0-0.4); Lymphocytes Percent Auto 21.2 % (20-40); Mean Corpuscular HGB Conc 33.7 g/dl (31.0-35.0); Mean Corpuscular Hemoglobin 27.1 pg (27.0-33.0); Mean Corpuscular Volume 80.5 fL (80.0-98.0); Mean Platelet Volume 10.3 fL (9.4-12.3); Monocytes Absolute Auto 0.7 X10*3/uL (0.1-1.2); Monocytes Percent Auto 7.7 % (2-11); Neutrophils Absolute Auto 6.7 x10*3/uL (2.0-8.3); Platelet Count 224 X10*3/uL (160-400); Red Blood Count 5.02 X10*6/uL (4.20-5.50); Red Cell Distribution Width 14.5 % (11.0-16.0); White Blood Count 9.6 X10*3/uL (4.8-10.8)
[2021-12-19] MEDS: 0.9 % Sodium Chloride 1,000 ML 999 ML IVCONT (23:54)
[2021-12-19] MEDS: cefTRIAXone sodium 1 GM in 0.9 % Sodium Chloride 50 ML IV (23:54)
[2021-12-19 23:59] LABS: Bacteria Urine 3+ /LPF; Squamous Epithelial Cell Urine TRACE /LPF
[2021-12-20 00:05] LABS: Anion Gap 12 (12-20); Blood Urea Nitrogen 20 mg/dL (9-16); Calcium 9.6 mg/dL (8.4-10.2); Carbon Dioxide 27 mmol/L (22-29); Chloride 92 mmol/L (96-108); Creatinine Clr Calc Pharmacy 40.5; Estimated Glomerular Filt Rate 54; Glucose Random 240 mg/dL (60-115); Sodium 126 mmol/L (135-145)
[2021-12-20 00:30] LABS: Influenza A PCR NEGATIVE (Negative); Influenza B PCR NEGATIVE (Negative); Resp Syncy Virus RNA Qual PCR NEGATIVE (Negative); SARS COV2 PCR INHOUSE NEGATIVE (Negative)
[2021-12-20 02:00] VITALS: BP 142/63; PULSE 75; RESP 16; TEMP 36.7; O2SAT 99
[2021-12-20 03:06] VITALS: BP 147/69; PULSE 77; RESP 18; TEMP 36.8; O2SAT 100
[2021-12-20 03:34] LABS: Anion Gap 10 (12-20); Blood Urea Nitrogen 18 mg/dL (9-16); Calcium 8.8 mg/dL (8.4-10.2); Carbon Dioxide 28 mmol/L (22-29); Chloride 97 mmol/L (96-108); Estimated Glomerular Filt Rate > 60; Glucose Random 201 mg/dL (60-115); Potassium 4.6 mmol/L (3.3-5.1); Sodium 130 mmol/L (135-145)
[2021-12-20 03:52] VITALS: BP 147/89
== END 2021-12-20 04:08 | disposition home or self-care (01) ==
PROVIDERS: Nurse Practitioner Family; Emergency Provider Emergency Medicine; PCP Allergy & Immunology
DX: N39.0 Urinary tract infection, site not specified (principal); R30.0 Dysuria; E87.1 Hypo-osmolality and hyponatremia; R35.0 Frequency of micturition; R07.89 Other chest pain; Z20.822 Contact with and (suspected) exposure to COVID-19; Z79.899 Other long term (current) drug therapy
CPT/HCPCS: 0241U; 36415; 71045; 80048; 81001; 83605; 85025; 87040; 87086; 87088; 87186; 96361; 96365; 99283; 99284; J0696

== ENCOUNTER 2021-12-23 12:43 | Inpatient (IN) | payer MEDICARE, SELFPAY ==
--- NOTE | ~2021-12-23 | CT_ITS ---
EXAMINATION: CT CHEST, ABDOMEN AND PELVIS WITHOUT CONTRAST CLINICAL INFORMATION: Chest pain. Abdominal pain. COMPARISON: CT chest 06/02/2017. CT abdomen pelvis 12/14/2017. Plain film chest and abdomen November 2021 TECHNIQUE: Multidetector volumetric CT imaging of the chest, abdomen and pelvis was obtained without oral or intravenous contrast. Coronal and sagittal reformatted images are performed at CT scanner [This CT examination was performed using dose optimization techniques as appropriate, variously including the following: *Automated exposure control *Adjustment of mA and/or kV according to patient size (this includes techniques or standardized protocols for targeted exams where dose is matched to indication/reason for exam; i.e. extremities or head) *Use of iterative reconstruction technique] DLP: 754 mGy-cm. FINDINGS: CT CHEST: Lungs: The lungs are clear with no evidence of inflammation or nodules. Small thin-walled lung cyst at right lung apex. Mediastinum: No mediastinal mass or significant lymphadenopathy. Heart size is normal. Heavy vascular calcification of coronary arteries. No aneurysm of aorta. Moderate volume of calcifications of aorta. Pleura: There is no pleural effusion. No pleural mass or thickening. Axilla: No lymphadenopathy. CT ABDOMEN AND PELVIS: Liver, Gallbladder and Biliary Tree: The liver is normal in size, shape, and attenuation. No focal hepatic lesion or biliary ductal dilatation is present. Small volume of hyperdense material consistent with gallstones layering dependently in gallbladder. No edema around the gallbladder. No bile duct dilatation. Pancreas: Moderate fatty atrophy of the pancreas. No acute change of pancreas. No inflammation or mass. Pancreatic duct dilatation. Spleen: Spleen normal in size and contour. No focal lesion. Adrenal Glands: Adrenal glands are normal in size. No focal mass. Kidneys and Ureters: The kidneys are normal in size, shape, and attenuation. No hydronephrosis, hydroureter, or calculi seen. No perinephric stranding. Bladder: Unremarkable. Gastrointestinal Tract: The small and large bowel are unremarkable. The appendix is unremarkable. Mesentery: No focal inflammation. No free fluid. No free air. Abdominal Wall: No significant hernia is appreciated. Lymph Nodes: Normal. Vascular: There are extensive atherosclerotic vascular calcifications throughout the abdomen and pelvis. Pelvic Viscera: Status post hysterectomy. No pelvic mass. Osseous Structures: S-shaped scoliosis spine. Multilevel degenerative spondylosis spine. Degenerative joint disease of hips bilateral. CT/CT abdomen pelvis wo con IMPRESSION: 1. CT CHEST: No acute abnormality of chest. 2. CT abdomen pelvis: No acute abnormality CT abdomen and pelvis.
--- NOTE | ~2021-12-23 | CT_ITS ---
EXAMINATION: CT HEAD WITHOUT CONTRAST CLINICAL INFORMATION: Headache, dizziness. COMPARISON: None TECHNIQUE: Contiguous axial imaging was performed from the skull base to vertex without intravenous administration of contrast. This CT examination was performed using dose optimization techniques as appropriate, variously including the following: *Automated exposure control *Adjustment of mA and/or kV according to patient size (this includes techniques or standardized protocols for targeted exams where dose is matched to indication/reason for exam; i.e. extremities or head) *Use of iterative reconstruction technique DLP: 580 mGy-cm FINDINGS: There is no evidence of acute intracranial hemorrhage or territorial infarction. No abnormal mass effect or midline shift is seen. Terry to white matter differentiation is well preserved. No extra-axial fluid collections are identified. The lateral ventricles are symmetrical in size and configuration but mildly enlarged. There is diffuse periventricular hypodensity in both cerebral hemispheres suggestive of chronic small vessel ischemic changes. The osseous structures and soft tissues are normal. The mastoid air cells and visualized portions of the paranasal sinuses are well aerated. CT/CT head/brain wo con IMPRESSION: No acute intracranial process seen. Mild cerebral volume loss and Chronic small vessel ischemic changes in both cerebral hemispheres.
--- NOTE | ~2021-12-23 | XR_ITS ---
EXAMINATION: XR ABDOMEN KUB CLINICAL INDICATION: Constipation COMPARISON: None TECHNIQUE: AP view of the abdomen. FINDINGS: There are no dilated loops of bowel to suggest obstruction. There is does not appear to be a large stool burden. There is no evidence of free air. No calcifications are seen. There is curvature of the lumbar spine to the left and degenerative changes. XR/XR KUB IMPRESSION: Unremarkable bowel gas pattern.
--- NOTE | 2021-12-23 14:01 | ECG_ITS ---
Test Reason : CHEST PAIN Blood Pressure : / mmHG Vent. Rate : 079 BPM Atrial Rate : 079 BPM P-R Int : 138 ms QRS Dur : 082 ms QT Int : 390 ms P-R-T Axes : 023 019 -07 degrees QTc Int : 447 ms Normal sinus rhythm Nonspecific T wave abnormality Abnormal ECG When compared with ECG of 21-JUL-2020 21:11, Premature supraventricular complexes are no longer Present Referred By: Generic ED Physician Electronically Signed By:Musa Tadeo
[2021-12-23 14:05] VITALS: BP 184/82; PULSE 85; RESP 18; TEMP 36.9; O2SAT 95; BMI 29.2
[2021-12-23 14:23] LABS: MANUAL DIFF FLAG NO
[2021-12-23 14:25] LABS: Basophils Percent Auto 0.2 % (0-2); Eosinophils Absolute Auto 0.1 X10*3/uL (0.0-0.4); Hematocrit 38.3 % (37.0-47.0); Hemoglobin 12.9 g/dl (12.0-16.0); Imm Gran Abs Auto 0.02 X10*3/uL (0.00-0.03); Imm Gran Pct Auto 0.2 % (0.0-0.4); Lymphocytes Absolute Auto 2.1 X10*3/uL (1.2-4.9); Lymphocytes Percent Auto 23.4 % (20-40); Mean Corpuscular HGB Conc 33.7 g/dl (31.0-35.0); Mean Corpuscular Hemoglobin 27.1 pg (27.0-33.0); Mean Corpuscular Volume 80.5 fL (80.0-98.0); Mean Platelet Volume 10.1 fL (9.4-12.3); Monocytes Absolute Auto 0.6 X10*3/uL (0.1-1.2); Monocytes Percent Auto 7.1 % (2-11); Neutrophils Absolute Auto 6.1 x10*3/uL (2.0-8.3); Neutrophils Percent Auto 68.1 % (45-73); Platelet Count 203 X10*3/uL (160-400); Red Blood Count 4.76 X10*6/uL (4.20-5.50); Red Cell Distribution Width 14.4 % (11.0-16.0); White Blood Count 8.9 X10*3/uL (4.8-10.8)
[2021-12-23 14:44] LABS: COVID-19 Test Negative (Negative); Influenza A Negative (Negative); Influenza B2 Negative (Negative)
[2021-12-23 14:50] LABS: Troponin-I High Sensitivity 9.5 ng/L (<3.5-17.0)
[2021-12-23 14:58] LABS: Alanine Aminotransferase 65 U/L (0-31); Albumin Level 3.9 g/dL (3.5-5.0); Alkaline Phosphatase 60 U/L (39-117); Anion Gap 11 (12-20); Aspartate Amino Transferase 38 U/L (5-31); Bilirubin Total 0.7 mg/dL (0.0-1.0); Blood Urea Nitrogen 12 mg/dL (9-16); Calcium 9.1 mg/dL (8.4-10.2); Carbon Dioxide 26 mmol/L (22-29); Chloride 92 mmol/L (96-108); Creatinine Clr Calc Pharmacy 49.4; Estimated Glomerular Filt Rate > 60; Glucose Random 185 mg/dL (60-115); Potassium 4.6 mmol/L (3.3-5.1); Sodium 124 mmol/L (135-145); Total Protein 7.2 g/dL (6.5-8.0)
--- NOTE | 2021-12-23 20:45 | ED.GENADULT ---
HPI - General Adult General Chief complaint: General Medical Stated complaint: stomach pain/High BP Time Seen by Provider: 12/23/21 20:45 Source: patient Mode of arrival: ambulatory Limitations: no limitations History of Present Illness HPI narrative: 76-year-old female past medical history significant for mitral annular calcification, obstructive sleep apnea, palpitations, hypertension presents with severe abdominal pain, constipation, chest pain, dizziness and weakness x3 days worsening. Patient tells me her abdominal pain is diffuse however worse in the epigastric region she tells me it is a strong pain, and very uncomfortable worse with movement. Patient also reports constipation with no bowel movements x4 days. She tells me that she took milk of magnesium with little to no relief. Patient also reports substernal chest pain nonradiating she rates it a 7 out of 10. She tells me that the chest pain is intermittent in nature. She also reports dizziness and issues with ambulation, as she reports she feels like she is going to fall over. She denies shortness of breath, fevers, chills, increased urinary frequency changes in urination, altered mental status. Onset (ago): day(s) (2) Location: chest and abdomen Radiation: non-radiation Severity: severe Severity scale (1-10): 10 Quality: constant and other (cramping) Pain Consistency: constant Relieving factors: none Exacerbating factors: none Associated symptoms: chest pain, headaches, malaise and other (dizziness) Treatments prior to arrival: none Related Data Home Medications Medication Instructions Recorded Confirmed pregabalin 75 mg capsule 75 mg PO DAILY cap 06/20/20 06/19/21 tramadol 50 mg tablet 50 mg PO BID PRN 06/20/20 06/19/21 zolpidem 5 mg tablet 5 mg PO BEDTIME PRN 06/20/20 06/19/21 metoprolol succinate 50 mg 50 mg PO DAILY 12/19/20 06/19/21 tablet,extended release 24 hr sertraline 25 mg tablet 25 mg PO DAILY 12/19/20 06/19/21 aspirin 81 mg tablet,delayed 81 mg PO DAILY 06/19/21 06/19/21 release atorvastatin 40 mg tablet 40 mg PO BEDTIME 06/19/21 06/19/21 clopidogrel 75 mg tablet 75 mg PO DAILY 06/19/21 06/19/21 dulaglutide 1.5 mg/0.5 mL mg SUBCUT 06/19/21 06/19/21 subcutaneous pen injector (Trulicity) empagliflozin 10 mg tablet 10 mg PO DAILY 06/19/21 06/19/21 (Jardiance) glipizide 5 mg tablet 5 mg PO DAILY 06/19/21 06/19/21 levothyroxine 75 mcg tablet 0 mcg PO 06/19/21 06/19/21 pantoprazole 40 mg tablet,delayed 40 mg PO DAILY 06/19/21 06/19/21 release Previous Rx's Medication Instructions Recorded cefpodoxime 200 mg tablet 200 mg PO BID #20 tab 11/27/21 phenazopyridine 200 mg tablet 200 mg PO TID PRN 5 Days #5 tab 11/27/21 (Pyridium) cefuroxime axetil 500 mg tablet 500 mg PO Q12H 7 Days #14 tab 12/20/21 Allergies Allergy/AdvReac Type Severity Reaction Status Date / Time aspirin [Aspirin] AdvReac Mild STOMACHE Verified 12/23/21 14:05 UPSET esomeprazole [From NEXIUM] AdvReac Unknown BURNING Verified 12/23/21 14:05 SENSATION Review of Systems Review of Systems: Constitutional : No Weight loss, No Fever, No Chills, No Fatigue, No Malaise ENT/Mouth : No sore throat, No Rhinorrhea Eyes: No Eye Pain, No Swelling, No Redness Cardiovascular : + Chest Pain, No SOB, No Dyspnea on Exertion, No Orthopnea, No Edema, No Palpitations Respiratory : No Cough, No Sputum, No Wheezing Gastrointestinal : No Nausea, No Vomiting, No Diarrhea, + Constipation, + abdominal Pain, No Hematochezia, No Melena Genitourinary : No Dysuria, No Urinary Frequency, No Hematuria, Musculoskeletal : No joint pain, No Myalgias, No Joint Swelling Skin : No Skin Lesions, No rash Neuro : No Weakness, No Numbness, + Dizziness, No Headache Psych : No Anxiety/Panic, No Depression All other systems reviewed and are negative Yes all other systems are reviewed and are negative [facility] Past Medical History Attestation statement: The following information was validated with the patient. Source: old records reviewed and nursing notes reviewed Medical History Essential hypertension Heart palpitations Mitral annular calcification TASHI (obstructive sleep apnea) Surgical History History of cardioversion (~08/16/13) History of hysterectomy History of tonsillectomy Stented coronary artery Family History Family History Father Asthma Mother Cardiovascular disease Diabetes Arthritis Social History Social History Alcohol intake: never Patient Tobacco Use Status: Never used Tobacco Advance Directives: No Advance Directives Information Provided: No service: No Current occupational status: unemployed Physical Exam ED Vital Signs: Vital Signs - 24 hr 12/23/21 14:05 12/23/21 21:56 12/23/21 21:59 Temperature 98.5 F Pulse Rate 85 79 81 Respiratory Rate 18 Blood Pressure 184/82 H 186/72 H 186/87 H Pulse Oximetry 95 12/23/21 22:00 12/23/21 22:03 Temperature 98.9 F Pulse Rate 82 82 Respiratory Rate 17 Blood Pressure 183/87 H 183/87 H Pulse Oximetry 99 BMI result Body Mass Index 29.2 vss Appearance: Alert.? Oriented X3.? No acute distress.? Head: Normocephalic, atraumatic, no step-offs or deformities Eyes: Pupils equal, round and reactive to light.? ENT: Pharynx normal.? Neck: Normal inspection.? Neck supple.? CVS: Normal heart rate and rhythm.? Pulses normal.? Respiratory: No respiratory distress.? Breath sounds normal.? Abdomen: Soft and +diffusely tender. Normal bowel sounds ? Skin: Skin warm and dry.? Normal skin color.? Normal skin turgor.? Extremities: No lower extremity edema.? No calf ttp. 5/5 strength to bilateral upper and lower extremities Back: No midline tenderness, no C-spine tenderness, full range of motion, no CVA tenderness bilaterally Neuro: Oriented X 3.? No motor deficit.? No sensory deficit. CN 2-12 intact . Normal finger to nose, heel to saul. Reports severe dizziness w/ ambulation Course Reevaluation(s) Reevaluation #1: Patient's CBC within normal limits. Chemistry is significant for hyponatremia. Initial troponin 9.5 2nd troponin pending. UA clean for infection. COVID negative, influenza negative. Patient receiving a L of normal saline as she has symptomatic hyponatremia. Will also obtain CT of the head, chest, abdomen and pelvis to rule out any signs of malignancy and other etiologies. Patient's KUB unremarkable. Time: 21:40 Reevaluation #2: Head CT non remarkable. Pending urine, serum osms, urine creatinine and urine sodium. Pending CT of the chest, abdomen and pelvis. Time: 21:42 Reevaluation #3: Spoke to Nephrology Dr. Randall who tells me there is no need for fluids at this time. He suggest checking a TSH and free T4 to rule out hypothyroidism as a causative agent of hyponatremia. He also tells me that SSRIs could be causing the hyponatremia. He recommends a water restriction have p.o. fluids of 1 L for 24 hours. No need for IVF. And he would like sodium rechecked at this time.Informed nuring strict I&Os should be recorded. Time: 21:51 Additional Reevaluation(s): 2226 Patient's sodium is not downtrending. Discussed laboratory studies and imaging with hospitalist who agrees to take patient for symptomatic hyponatremia. Medical Decision Making MDM Narrative Medical decision making narrative: 2114 76 yo f present w/ abd pain, cp, dizziness X3 days. Upon physical examination patient is noted to be dizzy with positional changes, normal [id number], [id number], negative pronator drift, neuro exam is nonfocal. Regular rate and rhythm. Lungs clear. Abdomen soft and diffusely tender with normoactive bowel sounds. Will rule out electrolyte abnormalities, ICH, ACS, CHF, UTI, orthostatic hypotension. Based off patient history and physical examination I do not suspect posterior infarct, patient tells me that her dizziness feels like her typical dizziness and she gets it all the time and this is been going on for months. Unlikely ACS. Patient denies head trauma neuro exam is nonfocal unlikely ICH or stroke. Medical Records Medical records reviewed: Yes I reviewed the patient's medical records. Lab Data Lab results reviewed: Yes I reviewed the patient's lab results. Result diagrams: 12/23/21 14:11 12/23/21 14:11 Labs: Lab Results 05/24/22 05/24/22 05/24/22 Range/Units 10:46 10:46 10:46 WBC (4.8-10.8) X10*3/uL RBC (4.20-5.50) X10*6/uL Hgb (12.0-16.0) g/dl Hct (37.0-47.0) % MCV (80.0-98.0) fL MCH (27.0-33.0) pg MCHC (31.0-35.0) g/dl RDW (11.0-16.0) % Plt Count (160-400) X10*3/uL MPV (9.4-12.3) fL Immature Gran % (Auto) (0.0-0.4) % Neut % (Auto) (45-73) % Lymph % (Auto) (20-40) % [place] % (Auto) (2-11) % Eos % (Auto) (0-4) % Baso % (Auto) (0-2) % Lymph # (Auto) (1.2-4.9) X10*3/uL [place] # (Auto) (0.1-1.2) X10*3/uL Eos # (Auto) (0.0-0.4) X10*3/uL Baso # (Auto) (0.0-0.2) X10*3/uL Abs Immat Gran (auto) (0.00-0.03) X10*3/uL Absolute Neuts (auto) (2.0-8.3) x10*3/uL Absolute Nucleated RBC (0.0-0.012) X10*3/uL Nucleated RBC % (auto) (0.0-0.2) /100WBC Sodium (135-145) mmol/L Potassium (3.3-5.1) mmol/L Chloride (96-108) mmol/L Carbon Dioxide (22-29) mmol/L Anion Gap (12-20) BUN (9-16) mg/dL Creatinine (0.5-1.4) mg/dL Estim Creat Clear Calc Estimated GFR Random Glucose (60-115) mg/dL Osmolality (281-305) mosm/kg Calcium (8.4-10.2) mg/dL Magnesium (1.6-2.6) mg/dL Total Bilirubin (0.0-1.0) mg/dL AST (5-31) U/L ALT (0-31) U/L Alkaline Phosphatase (39-117) U/L Troponin I High Sens (<3.5-17.0) ng/L B-Natriuretic Peptide (<100) pg/mL Total Protein (6.5-8.0) g/dL Albumin (3.5-5.0) g/dL Urine Color YELLOW Urine Appearance CLEAR Urine pH 7.0 (5.0-8.0) Ur Specific [place] 1.020 (1.005-1.025) Urine Protein NEG (NEG-TRACE) MG/DL Urine Glucose (UA) NEG (NEG) MG/DL Urine Ketones 15 (NEG) MG/DL Urine Blood NEG (NEG) Urine Nitrite NEG (NEG) Ur Leukocyte Esterase NEG (NEG) Urine Osmolality 1095 H (373-1093) mosm/kg Ur Random Sodium 233.0 mmol/L COVID-19 (SONIA) (Negative) COVID-19 Clin Com Influenza Type A (REYNA) (Negative) Influenza Type B (REYNA) (Negative) Influenza A & B Note 12/23/21 12/23/21 12/23/21 Range/Units 14:11 14:11 14:11 WBC 8.9 (4.8-10.8) X10*3/uL RBC 4.76 (4.20-5.50) X10*6/uL Hgb 12.9 (12.0-16.0) g/dl Hct 38.3 (37.0-47.0) % MCV 80.5 (80.0-98.0) fL MCH 27.1 (27.0-33.0) pg MCHC 33.7 (31.0-35.0) g/dl RDW 14.4 (11.0-16.0) % Plt Count 203 (160-400) X10*3/uL MPV 10.1 (9.4-12.3) fL Immature Gran % (Auto) 0.2 (0.0-0.4) % Neut % (Auto) 68.1 (45-73) % Lymph % (Auto) 23.4 (20-40) % [place] % (Auto) 7.1 (2-11) % Eos % (Auto) 1.0 (0-4) % Baso % (Auto) 0.2 (0-2) % Lymph # (Auto) 2.1 (1.2-4.9) X10*3/uL [place] # (Auto) 0.6 (0.1-1.2) X10*3/uL Eos # (Auto) 0.1 (0.0-0.4) X10*3/uL Baso # (Auto) 0.0 (0.0-0.2) X10*3/uL Abs Immat Gran (auto) 0.02 (0.00-0.03) X10*3/uL Absolute Neuts (auto) 6.1 (2.0-8.3) x10*3/uL Absolute Nucleated RBC 0.000 (0.0-0.012) X10*3/uL Nucleated RBC % (auto) 0.0 (0.0-0.2) /100WBC Sodium 124 L (135-145) mmol/L Potassium 4.6 (3.3-5.1) mmol/L Chloride 92 L (96-108) mmol/L Carbon Dioxide 26 (22-29) mmol/L Anion Gap 11 L (12-20) BUN 12 (9-16) mg/dL Creatinine 0.82 (0.5-1.4) mg/dL Estim Creat Clear Calc 49.4 Estimated GFR > 60 Random Glucose 185 H (60-115) mg/dL Osmolality (281-305) mosm/kg Calcium 9.1 (8.4-10.2) mg/dL Magnesium (1.6-2.6) mg/dL Total Bilirubin 0.7 (0.0-1.0) mg/dL AST 38 H D (5-31) U/L ALT 65 H (0-31) U/L Alkaline Phosphatase 60 (39-117) U/L Troponin I High Sens (<3.5-17.0) ng/L B-Natriuretic Peptide (<100) pg/mL Total Protein 7.2 (6.5-8.0) g/dL Albumin 3.9 (3.5-5.0) g/dL Urine Color Urine Appearance Urine pH (5.0-8.0) Ur Specific [place] (1.005-1.025) Urine Protein (NEG-TRACE) MG/DL Urine Glucose (UA) (NEG) MG/DL Urine Ketones (NEG) MG/DL Urine Blood (NEG) Urine Nitrite (NEG) Ur Leukocyte Esterase (NEG) Urine Osmolality (373-1093) mosm/kg Ur Random Sodium mmol/L COVID-19 (SONIA) Negative (Negative) COVID-19 Clin Com See Note Influenza Type A (REYNA) (Negative) Influenza Type B (REYNA) (Negative) Influenza A & B Note 12/23/21 12/23/21 12/23/21 Range/Units 14:11 14:11 14:11 WBC (4.8-10.8) X10*3/uL RBC (4.20-5.50) X10*6/uL Hgb (12.0-16.0) g/dl Hct (37.0-47.0) % MCV (80.0-98.0) fL MCH (27.0-33.0) pg MCHC (31.0-35.0) g/dl RDW (11.0-16.0) % Plt Count (160-400) X10*3/uL MPV (9.4-12.3) fL Immature Gran % (Auto) (0.0-0.4) % Neut % (Auto) (45-73) % Lymph % (Auto) (20-40) % [place] % (Auto) (2-11) % Eos % (Auto) (0-4) % Baso % (Auto) (0-2) % Lymph # (Auto) (1.2-4.9) X10*3/uL [place] # (Auto) (0.1-1.2) X10*3/uL Eos # (Auto) (0.0-0.4) X10*3/uL Baso # (Auto) (0.0-0.2) X10*3/uL Abs Immat Gran (auto) (0.00-0.03) X10*3/uL Absolute Neuts (auto) (2.0-8.3) x10*3/uL Absolute Nucleated RBC (0.0-0.012) X10*3/uL Nucleated RBC % (auto) (0.0-0.2) /100WBC Sodium (135-145) mmol/L Potassium (3.3-5.1) mmol/L Chloride (96-108) mmol/L Carbon Dioxide (22-29) mmol/L Anion Gap (12-20) BUN (9-16) mg/dL Creatinine (0.5-1.4) mg/dL Estim Creat Clear Calc Estimated GFR Random Glucose (60-115) mg/dL Osmolality 263 L (281-305) mosm/kg Calcium (8.4-10.2) mg/dL Magnesium (1.6-2.6) mg/dL Total Bilirubin (0.0-1.0) mg/dL AST (5-31) U/L ALT (0-31) U/L Alkaline Phosphatase (39-117) U/L Troponin I High Sens 9.5 (<3.5-17.0) ng/L B-Natriuretic Peptide (<100) pg/mL Total Protein (6.5-8.0) g/dL Albumin (3.5-5.0) g/dL Urine Color Urine Appearance Urine pH (5.0-8.0) Ur Specific [place] (1.005-1.025) Urine Protein (NEG-TRACE) MG/DL Urine Glucose (UA) (NEG) MG/DL Urine Ketones (NEG) MG/DL Urine Blood (NEG) Urine Nitrite (NEG) Ur Leukocyte Esterase (NEG) Urine Osmolality (373-1093) mosm/kg Ur Random Sodium mmol/L COVID-19 (SONIA) (Negative) COVID-19 Clin Com Influenza Type A (REYNA) Negative (Negative) Influenza Type B (REYNA) Negative (Negative) Influenza A & B Note See Note 12/23/21 12/23/21 Range/Units 21:45 21:45 WBC (4.8-10.8) X10*3/uL RBC (4.20-5.50) X10*6/uL Hgb (12.0-16.0) g/dl Hct (37.0-47.0) % MCV (80.0-98.0) fL MCH (27.0-33.0) pg MCHC (31.0-35.0) g/dl RDW (11.0-16.0) % Plt Count (160-400) X10*3/uL MPV (9.4-12.3) fL Immature Gran % (Auto) (0.0-0.4) % Neut % (Auto) (45-73) % Lymph % (Auto) (20-40) % [place] % (Auto) (2-11) % Eos % (Auto) (0-4) % Baso % (Auto) (0-2) % Lymph # (Auto) (1.2-4.9) X10*3/uL [place] # (Auto) (0.1-1.2) X10*3/uL Eos # (Auto) (0.0-0.4) X10*3/uL Baso # (Auto) (0.0-0.2) X10*3/uL Abs Immat Gran (auto) (0.00-0.03) X10*3/uL Absolute Neuts (auto) (2.0-8.3) x10*3/uL Absolute Nucleated RBC (0.0-0.012) X10*3/uL Nucleated RBC % (auto) (0.0-0.2) /100WBC Sodium (135-145) mmol/L Potassium (3.3-5.1) mmol/L Chloride (96-108) mmol/L Carbon Dioxide (22-29) mmol/L Anion Gap (12-20) BUN (9-16) mg/dL Creatinine (0.5-1.4) mg/dL Estim Creat Clear Calc Estimated GFR Random Glucose (60-115) mg/dL Osmolality (281-305) mosm/kg Calcium (8.4-10.2) mg/dL Magnesium 2.3 (1.6-2.6) mg/dL Total Bilirubin (0.0-1.0) mg/dL AST (5-31) U/L ALT (0-31) U/L Alkaline Phosphatase (39-117) U/L Troponin I High Sens 9.5 (<3.5-17.0) ng/L B-Natriuretic Peptide 176 H (<100) pg/mL Total Protein (6.5-8.0) g/dL Albumin (3.5-5.0) g/dL Urine Color Urine Appearance Urine pH (5.0-8.0) Ur Specific [place] (1.005-1.025) Urine Protein (NEG-TRACE) MG/DL Urine Glucose (UA) (NEG) MG/DL Urine Ketones (NEG) MG/DL Urine Blood (NEG) Urine Nitrite (NEG) Ur Leukocyte Esterase (NEG) Urine Osmolality (373-1093) mosm/kg Ur Random Sodium mmol/L COVID-19 (SONIA) (Negative) COVID-19 Clin Com Influenza Type A (REYNA) (Negative) Influenza Type B (RENYA) (Negative) Influenza A & B Note Critical Care Time Critical Care Time Critical Care Time: No Discharge Plan Discharge Clinical Impression: Acute hyponatremia, Chest pain, Dizziness, Abdominal pain, Constipation Patient Disposition: Admitted As Inpatient
[2021-12-23] MEDS: 0.9 % Sodium Chloride 1,000 ML 999 ML IV (21:46)
[2021-12-23] MEDS: bisacodyL 5 MG TABLET.DR 10 MG PO (21:46)
[2021-12-23 21:51] LABS: Osmolality, Serum 263 mosm/kg (281-305)
[2021-12-23 21:56] VITALS: BP 186/72; PULSE 79
[2021-12-23 21:59] VITALS: BP 186/87; PULSE 81
[2021-12-23 22:00] VITALS: BP 183/87; PULSE 82
[2021-12-23 22:03] VITALS: BP 183/87; PULSE 82; RESP 17; TEMP 37.2; O2SAT 99
[2021-12-23 22:05] LABS: Magnesium 2.3 mg/dL (1.6-2.6)
[2021-12-23 22:12] LABS: B Type Natriuretic Peptide 176 pg/mL (<100); Troponin-I High Sensitivity 9.5 ng/L (<3.5-17.0)
[2021-12-23 22:24] LABS: Alanine Aminotransferase 67 U/L (0-31); Albumin Level 4.3 g/dL (3.5-5.0); Alkaline Phosphatase 66 U/L (39-117); Anion Gap 13 (12-20); Aspartate Amino Transferase 37 U/L (5-31); Blood Urea Nitrogen 10 mg/dL (9-16); Calcium 9.6 mg/dL (8.4-10.2); Carbon Dioxide 25 mmol/L (22-29); Chloride 92 mmol/L (96-108); Creatinine Clr Calc Pharmacy 46.6; Estimated Glomerular Filt Rate > 60; Glucose Random 201 mg/dL (60-115); Potassium 4.7 mmol/L (3.3-5.1); Sodium 125 mmol/L (135-145); Total Protein 7.9 g/dL (6.5-8.0)
--- NOTE | 2021-12-23 22:31 | PM.IMHP ---
History of Present Illness Date of Service: 12/23/21 Chief Complaint: chest pain 78-year-old female with a past medical history of hypertension, hyperlipidemia, diabetes, TASHI, hypothyroidism, anxiety, depression presented to the hospital with a chief complaint of abdominal pain. Patient reports that over the past few days she has been having abdominal pain, felt constipated, took milk of magnesia with no significant improvement; patient reports that she has not been eating drinking. Patient also reports she had chest pain, nonradiating, no associated nausea vomiting or diaphoresis. chest pain currently resolved Reports she felt lightheaded/ dizzy. Denies any room spinning. Denies any falls or trauma. Denies any nausea or vomiting. Denies any fever chills cough Denies any chest pain or palpitations. Review of all other systems is negative except mentioned above ER course: Per ER team patient exam was nonfocal; CT head showed no acute findings; CT chest abdomen pelvis was pending; on labs noted to have hyponatremia to 124; spoke to Nephrology - concern for possible SIADH. I recommended to give the patient on fluid restriction. Admitted to the hospital for further management [facility] Medical History Essential hypertension Heart palpitations Mitral annular calcification TASHI (obstructive sleep apnea) Family History Father Asthma Mother Cardiovascular disease Diabetes Arthritis Surgical History History of cardioversion (~08/16/13) History of hysterectomy History of tonsillectomy Stented coronary artery Social History Alcohol intake: never Patient Tobacco Use Status: Never used Tobacco Advance Directives: No Advance Directives Information Provided: No service: No Current occupational status: unemployed Meds Allergies Allergy/AdvReac Type Severity Reaction Status Date / Time aspirin [Aspirin] AdvReac Mild STOMACHE Verified 12/23/21 14:05 UPSET esomeprazole [From NEXIUM] AdvReac Unknown BURNING Verified 12/23/21 14:05 SENSATION Active Medications: Current Medications Dextrose (Dextrose 50 % 25 Gm/50 Ml Syringe) 25 gm IVPUSH Q15M PRN; Protocol PRN Reason: per Hypoglycemia Standing Ord. Glucose (Glucose Gel 15 Gm Gel..Gram.) 15 gm PO Q15M PRN; Protocol PRN Reason: per Hypoglycemia Standing Ord. Insulin Human Lispro (Insulin Lispro 100 Unit/Ml 3 Ml Vial) 0 unit SUBCUT [facility]; Protocol Home Medications Medication Instructions Recorded Confirmed Last Taken Type pregabalin 75 mg capsule 75 mg PO DAILY cap 06/20/20 06/19/21 07/21/20 History tramadol 50 mg tablet 50 mg PO BID PRN 06/20/20 06/19/21 07/21/20 History zolpidem 5 mg tablet 5 mg PO BEDTIME PRN 06/20/20 06/19/21 07/20/20 21:00 History metoprolol succinate 50 mg 50 mg PO DAILY 12/19/20 06/19/21 Unknown History tablet,extended release 24 hr sertraline 25 mg tablet 25 mg PO DAILY 12/19/20 06/19/21 Unknown History aspirin 81 mg tablet,delayed 81 mg PO DAILY 06/19/21 06/19/21 Unknown History release atorvastatin 40 mg tablet 40 mg PO BEDTIME 06/19/21 06/19/21 Unknown History clopidogrel 75 mg tablet 75 mg PO DAILY 06/19/21 06/19/21 Unknown History dulaglutide 1.5 mg/0.5 mL mg SUBCUT 06/19/21 06/19/21 Unknown History subcutaneous pen injector (Trulicity) empagliflozin 10 mg tablet 10 mg PO DAILY 06/19/21 06/19/21 Unknown History (Jardiance) glipizide 5 mg tablet 5 mg PO DAILY 06/19/21 06/19/21 Unknown History levothyroxine 75 mcg tablet 0 mcg PO 06/19/21 06/19/21 Unknown History pantoprazole 40 mg tablet,delayed 40 mg PO DAILY 06/19/21 06/19/21 Unknown History release Physical Exam Vital Signs and Narrative: Vital Signs: Last Vital Signs Temp 98.9 F 12/23/21 22:03 Pulse 82 12/23/21 22:03 Resp 17 12/23/21 22:03 BP 183/87 H 12/23/21 22:03 Pulse Ox 99 12/23/21 22:03 BMI result Body Mass Index 29.2 Gen: Appears be in no acute distress HEENT: NCAT, Moist mucosa. Pulmonary: Vesicular breath sounds, fair air entry CVS: Normal S1-S2 Abdomen: BS+, Soft, Nontender Extremities: Warm well perfused Neuro: Alert and awake. grossly nonfocal Results Labs CBC and Chem 7: 12/23/21 14:11 12/23/21 21:45 Labs: Laboratory Results - last 24 hr 12/23/21 12/23/21 12/23/21 10:46 10:46 10:46 MCV MCH MCHC RDW Plt Count MPV Immature Gran % (Auto) Neut % (Auto) Lymph % (Auto) [place] % (Auto) Eos % (Auto) Baso % (Auto) Lymph # (Auto) [place] # (Auto) Eos # (Auto) Baso # (Auto) Abs Immat Gran (auto) Absolute Neuts (auto) Absolute Nucleated RBC Nucleated RBC % (auto) Anion Gap Estim Creat Clear Calc Estimated GFR Random Glucose Osmolality Calcium Magnesium Total Bilirubin AST ALT Alkaline Phosphatase Troponin I High Sens B-Natriuretic Peptide Total Protein Albumin Urine Color YELLOW Urine Appearance CLEAR Urine pH 7.0 Ur Specific [place] 1.020 Urine Protein NEG Urine Glucose (UA) NEG Urine Ketones 15 Urine Blood NEG Urine Nitrite NEG Ur Leukocyte Esterase NEG Urine Osmolality 1095 H Ur Random Sodium 233.0 COVID-19 (SONIA) COVID-19 Clin Com Influenza Type A (REYNA) Influenza Type B (REYNA) Influenza A & B Note 12/23/21 12/23/21 12/23/21 14:11 14:11 14:11 MCV 80.5 MCH 27.1 MCHC 33.7 RDW 14.4 Plt Count 203 MPV 10.1 Immature Gran % (Auto) 0.2 Neut % (Auto) 68.1 Lymph % (Auto) 23.4 [place] % (Auto) 7.1 Eos % (Auto) 1.0 Baso % (Auto) 0.2 Lymph # (Auto) 2.1 [place] # (Auto) 0.6 Eos # (Auto) 0.1 Baso # (Auto) 0.0 Abs Immat Gran (auto) 0.02 Absolute Neuts (auto) 6.1 Absolute Nucleated RBC 0.000 Nucleated RBC % (auto) 0.0 Anion Gap 11 L Estim Creat Clear Calc 49.4 Estimated GFR > 60 Random Glucose 185 H Osmolality Calcium 9.1 Magnesium Total Bilirubin 0.7 AST 38 H D ALT 65 H Alkaline Phosphatase 60 Troponin I High Sens B-Natriuretic Peptide Total Protein 7.2 Albumin 3.9 Urine Color Urine Appearance Urine pH Ur Specific [place] Urine Protein Urine Glucose (UA) Urine Ketones Urine Blood Urine Nitrite Ur Leukocyte Esterase Urine Osmolality Ur Random Sodium COVID-19 (SONIA) Negative COVID-19 Clin Com See Note Influenza Type A (REYNA) Influenza Type B (REYNA) Influenza A & B Note 12/23/21 12/23/21 12/23/21 14:11 14:11 14:11 MCV MCH MCHC RDW Plt Count MPV Immature Gran % (Auto) Neut % (Auto) Lymph % (Auto) [place] % (Auto) Eos % (Auto) Baso % (Auto) Lymph # (Auto) [place] # (Auto) Eos # (Auto) Baso # (Auto) Abs Immat Gran (auto) Absolute Neuts (auto) Absolute Nucleated RBC Nucleated RBC % (auto) Anion Gap Estim Creat Clear Calc Estimated GFR Random Glucose Osmolality 263 L Calcium Magnesium Total Bilirubin AST ALT Alkaline Phosphatase Troponin I High Sens 9.5 B-Natriuretic Peptide Total Protein Albumin Urine Color Urine Appearance Urine pH Ur Specific [place] Urine Protein Urine Glucose (UA) Urine Ketones Urine Blood Urine Nitrite Ur Leukocyte Esterase Urine Osmolality Ur Random Sodium COVID-19 (SONIA) COVID-19 Clin Com Influenza Type A (REYNA) Negative Influenza Type B (REYNA) Negative Influenza A & B Note See Note 12/23/21 12/23/21 12/23/21 21:45 21:45 21:45 MCV MCH MCHC RDW Plt Count MPV Immature Gran % (Auto) Neut % (Auto) Lymph % (Auto) [place] % (Auto) Eos % (Auto) Baso % (Auto) Lymph # (Auto) [place] # (Auto) Eos # (Auto) Baso # (Auto) Abs Immat Gran (auto) Absolute Neuts (auto) Absolute Nucleated RBC Nucleated RBC % (auto) Anion Gap 13 Estim Creat Clear Calc 46.6 Estimated GFR > 60 Random Glucose 201 H Osmolality Calcium 9.6 Magnesium 2.3 Total Bilirubin 1.0 AST 37 H ALT 67 H Alkaline Phosphatase 66 Troponin I High Sens 9.5 B-Natriuretic Peptide 176 H Total Protein 7.9 Albumin 4.3 Urine Color Urine Appearance Urine pH Ur Specific [place] Urine Protein Urine Glucose (UA) Urine Ketones Urine Blood Urine Nitrite Ur Leukocyte Esterase Urine Osmolality Ur Random Sodium COVID-19 (SONIA) COVID-19 Clin Com Influenza Type A (REYNA) Influenza Type B (REYNA) Influenza A & B Note Imaging Radiologist's Impressions: Impressions KUB X-Ray 12/23/21 14:31 IMPRESSION: Unremarkable bowel gas pattern. Head CT 12/23/21 21:07 IMPRESSION: No acute intracranial process seen. Mild cerebral volume loss and Chronic small vessel ischemic changes in both cerebral hemispheres. Assessment and Plan Plan 76-year-old female with a past medical history of hypertension, hyperlipidemia, diabetes, anxiety, depression presented to the hospital with a chief complaint of abdominal pain/chest pain /dizziness; noted to have following Hyponatremia: Likely low solute state in the setting of poor oral intake s/w normal saline at 50 cc/hour Nephrology follow-up Abdominal pain: CT abdomen showed no acute findings. Supportive care Dizziness: Nonfocal examination. CT head showed no acute findings. Fall precautions. PT/ OT. Chest pain: Atypical in nature. EKG nonischemic. Troponins negative. History of Diabetes: Insulin sliding scale History of Hypothyroidism: Will obtain TSH. Continue home levothyroxine History of Hypertension/Hyperlipidemia: Continue home medications DVT prophylaxis: Lovenox Code status: DNR/DNI. Quality Stroke Does the patient have a stroke diagnosis?: No VTE Prior VTE?: No VTE Risk Level:: Medical - moderate - high VTE Device Contraindication: N/A - Device Ordered VTE Drug Contraindication: Treatment Not Indicated
[2021-12-23 22:44] LABS: TSH reflex Free T4 1.28 uIU/mL (0.32-4.0)
[2021-12-24] VITALS (7 sets, daily range): BP systolic 151–187; BP diastolic 70–94; PULSE 87–96; RESP 10–17; TEMP 36.1–37.2; O2SAT 91–98
[2021-12-24 01:12] LABS: Appearance Urine HAZY; Color Urine STRAW; Glucose Urine UA 100 MG/DL (NEG); Leukocyte Esterase Urine NEG (NEG); Nitrite Urine NEG (NEG); PH 7.5 (5.0-8.0); Urine Blood NEG (NEG); Urine Ketones 15 MG/DL (NEG); Urine Protein NEG (NEG-TRACE)
[2021-12-24 01:23] LABS: Osmolality Urine 266 mosm/kg (373-1093)
[2021-12-24] MEDS: Enoxaparin Sodium 40 MG/0.4 ML SYRINGE SUBCUT (02:12)
[2021-12-24] MEDS: 0.9 % Sodium Chloride Flush 3 ML SYRINGE IVFLUSH (02:12)
--- NOTE | 2021-12-24 02:29 | PC.NURSE ---
Addendum entered by Melody Barboza 12/24/21 07:02: Report given to ALFRED Inman Addendum entered by Melody Barboza 12/24/21 04:34: pt had two episode of vtach showing in the monitor. Dr. Gruber aware. Original Note: report given to ALFRED Demarco
[2021-12-24] MEDS: 0.9 % Sodium Chloride 1,000 ML 50 ML IVCONT (02:40)
[2021-12-24] MEDS: Melatonin 3 MG TABLET 6 MG PO (03:45)
[2021-12-24] MEDS: Acetaminophen 325 MG TABLET 650 MG PO ×2 (03:45→16:16)
[2021-12-24 07:40] LABS: Glucose, Whole Blood 179 mg/dL (60-115)
--- NOTE | 2021-12-24 09:19 | PHA.MEDREC ---
Pharmacy Consult ? Medication Reconciliation Pharmacy has completed the medication reconciliation.
[2021-12-24] MEDS: Aspirin 81 MG TAB.CHEW PO (09:20)
[2021-12-24] MEDS: Insulin Lispro 100 UNIT/ML 3 ML VIAL SUBCUT ×2 (09:20→19:15)
[2021-12-24 10:49] LABS: Anion Gap 11 (12-20); Blood Urea Nitrogen 13 mg/dL (9-16); Calcium 9.2 mg/dL (8.4-10.2); Carbon Dioxide 25 mmol/L (22-29); Chloride 93 mmol/L (96-108); Creatinine Clr Calc Pharmacy 45.5; Estimated Glomerular Filt Rate > 60; Glucose Random 231 mg/dL (60-115); Potassium 4.8 mmol/L (3.3-5.1); Sodium 124 mmol/L (135-145)
[2021-12-24 12:16] LABS: Glucose, Whole Blood 156 mg/dL (60-115)
--- NOTE | 2021-12-24 14:28 | MHC.CM.PN ---
Met with pt and dtr Irene Ortega to discuss d/c planning needs. 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 Dtrs provide transportation. Pt uses a walker, BG monitoring device and 2 hearing aides; of which the Left is not working. HCP at home: copy requested: IMM signed and in chart. No additional services anticipated. CM to follow.
--- NOTE | 2021-12-24 14:41 | PC.NURSE ---
PT AOX4 USING BESIDE COMMODE, TOLERATING PO. PT WAITING ON NEPHROLOGY CONSULT POC DONE BEFORE MEALS
[2021-12-24 15:53] LABS: Glucose, Whole Blood 302 mg/dL (60-115)
[2021-12-24] MEDS: Sertraline HCL 25 MG TABLET PO (16:16)
--- NOTE | 2021-12-24 16:28 | PC.NURSE ---
pt a&ox3, vss, medicated per provider order - insulin held pending dinner arrival to ED overflow. pt c/o 04/11 back/leg/abd pain - medicated w PRN tylenol. pt reports that she didn't sleep last night and was wondering if her sleep medication was ordered - provider notified.
--- NOTE | 2021-12-24 16:53 | HO.PM.IMPN ---
Subjective Subjective Date of Service: 12/24/21 Interval History: cc: chest pain interval history: neuropathic pain, insomnia Constitutional Constitutional: Reports no additional constitutional complaints Eyes Eyes: Reports no additional eye complaints Physical Exam Vital Signs: Vital Signs: Last Vital Signs Temp 97.5 F 12/24/21 16:00 Pulse 89 12/24/21 16:00 Resp 16 12/24/21 16:00 BP 161/87 H 12/24/21 16:00 Pulse Ox 98 12/24/21 16:00 BMI result Body Mass Index 29.2 General: AO X 3, no acute distress Resp: CTA bilateral, no accessory muscles used CVS: S1,S2,RRR GI: soft, non tender, non distended Neuro: motor grossly intact, alert Psych: appropriate affect, appropriate insight Objective Data Active Medications Acetaminophen (Acetaminophen 325 Mg Tablet) 650 mg PO Q6H PRN PRN Reason: Pain, Mild (Pain Scale 1-3) Last Admin: 12/24/21 16:16 Dose: 650 mg Documented by: NAY Aspirin (Aspirin 81 Mg Tab.Chew) 81 mg PO DAILY [facility] Last Admin: 12/24/21 09:20 Dose: 81 mg Documented by: TANIYA Atorvastatin Calcium (Atorvastatin Calcium 40 Mg Tablet) 40 mg PO BEDTIME [facility] Benzonatate (Benzonatate 100 Mg Capsule) 100 mg PO TID PRN PRN Reason: Cough Calcium Carbonate (Calcium Carbonate 500 Mg Tablet) 500 mg PO DAILY [facility] Dextrose (Dextrose 50 % 25 Gm/50 Ml Syringe) 25 gm IVPUSH Q15M PRN; Protocol PRN Reason: per Hypoglycemia Standing Ord. Enoxaparin Sodium (Enoxaparin Sodium 40 Mg/0.4 Ml Syringe) 40 mg SUBCUT Q24H [facility] Last Admin: 12/24/21 02:12 Dose: 40 mg Documented by: FARSHAD Glucose (Glucose Gel 15 Gm Gel..Gram.) 15 gm PO Q15M PRN; Protocol PRN Reason: per Hypoglycemia Standing Ord. Insulin Human Lispro (Insulin Lispro 100 Unit/Ml 3 Ml Vial) 0 unit SUBCUT QIDACHS [facility]; Protocol Last Admin: 12/24/21 14:08 Dose: Not Given Documented by: TANIYA Non-Admin Reason: No Insulin Coverage Levothyroxine Sodium (Levothyroxine Sodium 50 Mcg Tablet) 50 mcg PO SuTuThSa@0600 [facility] Levothyroxine Sodium (Levothyroxine Sodium 75 Mcg Tablet) 75 mcg PO MoWeFr@0600 [facility] Melatonin (Melatonin 3 Mg Tablet) 6 mg PO BEDTIME PRN PRN Reason: Insomnia Last Admin: 12/24/21 03:45 Dose: 6 mg Documented by: TORITO-ANICL Omeprazole (Omeprazole 20 Mg Capsule.Dr) 20 mg PO DAILY [facility] Senna (Sennosides 8.6 Mg Tablet) 17.2 mg PO BEDTIME PRN PRN Reason: Constipation Sertraline HCl (Sertraline Hcl 25 Mg Tablet) 25 mg PO DAILY@1400 [facility] Last Admin: 12/24/21 16:16 Dose: 25 mg Documented by: ABBIEDENNick Sodium Chloride (0.9 % Sodium Chloride Flush 3 Ml Syringe) 3 ml IVFLUSH QSHIFT [facility] Last Admin: 12/24/21 16:21 Dose: Not Given Documented by: NAY Non-Admin Reason: IV Running Valsartan (Valsartan 40 Mg Tablet) 40 mg PO DAILY [facility] Zolpidem Tartrate (Zolpidem Tartrate 5 Mg Tablet) 5 mg PO BEDTIME PRN PRN Reason: Sleep Labs CBC & Chem 7: 12/23/21 14:11 12/24/21 10:04 Labs: Laboratory Results - last 24 hr 12/23/21 12/23/21 12/23/21 10:46 10:46 10:46 Anion Gap Estim Creat Clear Calc Estimated GFR POC Glucose Random Glucose Osmolality Calcium Magnesium Total Bilirubin AST ALT Alkaline Phosphatase Troponin I High Sens B-Natriuretic Peptide Total Protein Albumin TSH Urine Color Urine Appearance Urine pH Ur Specific [place] Urine Protein Urine Glucose (UA) Urine Ketones Urine Blood Urine Nitrite Ur Leukocyte Esterase Urine Osmolality Ur Random Sodium Ur Random Chloride 12/23/21 12/23/21 12/23/21 14:11 21:45 21:45 Anion Gap Estim Creat Clear Calc Estimated GFR POC Glucose Random Glucose Osmolality 263 L Calcium Magnesium 2.3 Total Bilirubin AST ALT Alkaline Phosphatase Troponin I High Sens 9.5 B-Natriuretic Peptide 176 H Total Protein Albumin TSH Urine Color Urine Appearance Urine pH Ur Specific [place] Urine Protein Urine Glucose (UA) Urine Ketones Urine Blood Urine Nitrite Ur Leukocyte Esterase Urine Osmolality Ur Random Sodium Ur Random Chloride 12/23/21 12/24/21 12/24/21 21:45 01:01 01:01 Anion Gap 13 Estim Creat Clear Calc 46.6 Estimated GFR > 60 POC Glucose Random Glucose 201 H Osmolality Calcium 9.6 Magnesium Total Bilirubin 1.0 AST 37 H ALT 67 H Alkaline Phosphatase 66 Troponin I High Sens B-Natriuretic Peptide Total Protein 7.9 Albumin 4.3 TSH 1.28 Urine Color STRAW Urine Appearance HAZY Urine pH 7.5 Ur Specific [place] 1.010 Urine Protein NEG Urine Glucose (UA) 100 H Urine Ketones 15 Urine Blood NEG Urine Nitrite NEG Ur Leukocyte Esterase NEG Urine Osmolality 266 L Ur Random Sodium Ur Random Chloride 12/24/21 12/24/21 12/24/21 01:01 07:36 10:04 Anion Gap 11 L Estim Creat Clear Calc 45.5 Estimated GFR > 60 POC Glucose 179 H Random Glucose 231 H Osmolality Calcium 9.2 Magnesium Total Bilirubin AST ALT Alkaline Phosphatase Troponin I High Sens B-Natriuretic Peptide Total Protein Albumin TSH Urine Color Urine Appearance Urine pH Ur Specific [place] Urine Protein Urine Glucose (UA) Urine Ketones Urine Blood Urine Nitrite Ur Leukocyte Esterase Urine Osmolality Ur Random Sodium 68.0 Ur Random Chloride 51.0 12/24/21 12/24/21 12:11 15:45 Anion Gap Estim Creat Clear Calc Estimated GFR POC Glucose 156 H 302 H Random Glucose Osmolality Calcium Magnesium Total Bilirubin AST ALT Alkaline Phosphatase Troponin I High Sens B-Natriuretic Peptide Total Protein Albumin TSH Urine Color Urine Appearance Urine pH Ur Specific [place] Urine Protein Urine Glucose (UA) Urine Ketones Urine Blood Urine Nitrite Ur Leukocyte Esterase Urine Osmolality Ur Random Sodium Ur Random Chloride Assessment and Plan (1) Acute hyponatremia: Status: Acute Plan 76F presented with chest pain found to have hyponatremia chest pain resolved, ekg negative, troponins negative, no further work up for now hyponatremia ?SIADH hold ivf, fluid restrict, will hold lyrica, sertraline neprho follow up montior bmp DM insulin hypohtyroid tsh normal continue sythroid htn diovan hld statin insomnia ambien dvt prophylaxis - lovenox dnr/dni reason for continued hospitalization: stil with significant hyponatremia requiring close monitoring Quality Stroke Does the patient have a stroke diagnosis?: No VTE Prior VTE?: No VTE Risk Level:: Medical - moderate - high VTE Device Contraindication: N/A - Device Ordered VTE Drug Contraindication: Treatment Not Indicated
--- NOTE | 2021-12-24 18:06 | PM.CNNEP ---
History of Present Illness Reason for Consult Consult date: 12/24/21 Reason for consult: Hyponatremia Chief Complaint Chief complaint: Hyponatremia History of Present Illness Narrative: 76-year-old female past medical history significant for mitral annular calcification, obstructive sleep apnea, palpitations, and hypertension who presented with severe abdominal pain, constipation, chest pain, dizziness and weakness x3 days.She also reports dizziness and issues with ambulation, as she reports she feels like she is going to fall over. She denies shortness of breath, fevers, chills, increased urinary frequency changes in urination, altered mental status. In ED, initial lab work showed Na = 124. Started on Fluid restriction. ROS otherwise negative. Review of Systems Review of Systems Yes all other systems are reviewed and are negative Constitutional: Reports as per [facility] Past Medical History Medical History Essential hypertension Heart palpitations Mitral annular calcification TASHI (obstructive sleep apnea) Family History Family History Father Asthma Mother Cardiovascular disease Diabetes Arthritis Surgical History Surgical History History of cardioversion (~08/16/13) History of hysterectomy History of tonsillectomy Stented coronary artery Social History Social History Alcohol intake: never Patient Tobacco Use Status: Never used Tobacco Advance Directives: No Advance Directives Information Provided: No service: No Current occupational status: unemployed Meds Allergies Allergy/AdvReac Type Severity Reaction Status Date / Time aspirin [Aspirin] AdvReac Mild STOMACHE Verified 12/23/21 14:05 UPSET esomeprazole [From NEXIUM] AdvReac Unknown BURNING Verified 12/23/21 14:05 SENSATION Active Medications: Current Medications Acetaminophen (Acetaminophen 325 Mg Tablet) 650 mg PO Q6H PRN PRN Reason: Pain, Mild (Pain Scale 1-3) Last Admin: 12/24/21 16:16 Dose: 650 mg Documented by: Aspirin (Aspirin 81 Mg Tab.Chew) 81 mg PO DAILY HIREN Last Admin: 12/24/21 09:20 Dose: 81 mg Documented by: Atorvastatin Calcium (Atorvastatin Calcium 40 Mg Tablet) 40 mg PO BEDTIME [facility] Benzonatate (Benzonatate 100 Mg Capsule) 100 mg PO TID PRN PRN Reason: Cough Calcium Carbonate (Calcium Carbonate 500 Mg Tablet) 500 mg PO DAILY [facility] Dextrose (Dextrose 50 % 25 Gm/50 Ml Syringe) 25 gm IVPUSH Q15M PRN; Protocol PRN Reason: per Hypoglycemia Standing Ord. Enoxaparin Sodium (Enoxaparin Sodium 40 Mg/0.4 Ml Syringe) 40 mg SUBCUT Q24H [facility] Last Admin: 12/24/21 02:12 Dose: 40 mg Documented by: Glucose (Glucose Gel 15 Gm Gel..Gram.) 15 gm PO Q15M PRN; Protocol PRN Reason: per Hypoglycemia Standing Ord. Insulin Human Lispro (Insulin Lispro 100 Unit/Ml 3 Ml Vial) 0 unit SUBCUT QIDACHS [facility]; Protocol Last Admin: 12/24/21 14:08 Dose: Not Given Documented by: Levothyroxine Sodium (Levothyroxine Sodium 50 Mcg Tablet) 50 mcg PO SuTuThSa@0600 [facility] Levothyroxine Sodium (Levothyroxine Sodium 75 Mcg Tablet) 75 mcg PO MoWeFr@0600 [facility] Melatonin (Melatonin 3 Mg Tablet) 6 mg PO BEDTIME PRN PRN Reason: Insomnia Last Admin: 12/24/21 03:45 Dose: 6 mg Documented by: Omeprazole (Omeprazole 20 Mg Capsule.Dr) 20 mg PO DAILY [facility] Senna (Sennosides 8.6 Mg Tablet) 17.2 mg PO BEDTIME PRN PRN Reason: Constipation Sodium Chloride (0.9 % Sodium Chloride Flush 3 Ml Syringe) 3 ml IVFLUSH QSHIFT [facility] Last Admin: 12/24/21 16:21 Dose: Not Given Documented by: Urea (Urea 15 Gm Powder) 15 gm PO ONCE ONE Stop: 12/24/21 18:06 Valsartan (Valsartan 40 Mg Tablet) 40 mg PO DAILY [facility] Zolpidem Tartrate (Zolpidem Tartrate 5 Mg Tablet) 5 mg PO BEDTIME PRN PRN Reason: Sleep Home Medications Medication Instructions Recorded Confirmed Last Taken Type pregabalin 75 mg capsule 75 mg PO BID cap 06/20/20 12/24/21 12/23/21 History tramadol 50 mg tablet 50 mg PO BID PRN 06/20/20 12/24/2120 History zolpidem 5 mg tablet 5 mg PO BEDTIME PRN 06/20/20 12/24/21 07/20/20 21:00 History sertraline 25 mg tablet 25 mg PO DAILY@1400 12/19/20 12/24/21 12/23/21 History aspirin 81 mg tablet,delayed 81 mg PO DAILY 06/19/21 12/24/21 12/23/21 History release atorvastatin 40 mg tablet 40 mg PO BEDTIME 06/19/21 12/24/21 12/23/21 History glipizide 5 mg tablet 5 mg PO DAILY 06/19/21 12/24/21 Unknown History levothyroxine 75 mcg tablet 75 mcg PO MOWEFR 06/19/21 12/24/21 12/22/21 History pantoprazole 40 mg tablet,delayed 40 mg PO DAILY 06/19/21 12/24/21 12/23/21 History release calcium carbonate 500 mg calcium 500 mg PO DAILY 12/24/21 12/24/21 12/23/21 History (1,250 mg) tablet dulaglutide 0.75 mg/0.5 mL 0.75 mg SUBCUT WE 12/24/21 12/24/21 12/17/21 History subcutaneous pen injector (Trulicity) irbesartan 75 mg tablet 1 tab PO DAILY 12/24/21 12/24/21 12/23/21 History levothyroxine 50 mcg tablet 1 tab PO SUTUTHSA 12/24/21 12/24/21 12/23/21 History Physical Exam Vital Signs: Last Vital Signs Temp 97.5 F 12/24/21 16:00 Pulse 89 12/24/21 16:00 Resp 16 12/24/21 16:00 BP 161/87 H 12/24/21 16:00 Pulse Ox 98 12/24/21 16:00 BMI result Body Mass Index 29.2 Const General: no acute distress HEENT Head: Yes normocephalic and Yes atraumatic Neck Neck: Yes no JVD Resp Auscultation: clear to auscultation bilaterally Cardio Jugular venous distension: no JVD Rate: regular rate Rhythm: regular rhythm Heart sounds: S1 normal heart sound present and S2 normal heart sound present GI Auscultation: normal bowel sounds Neuro General: no focal motor deficits Extrem General: Yes no clubbing, cyanosis or edema Results Lab Results Result Diagrams: 12/23/21 14:11 12/24/21 10:04 Lab results: Chemistry 12/23/21 12/23/21 12/24/21 14:11 21:45 10:04 Sodium 124 L 125 L 124 L Potassium 4.6 4.7 4.8 Carbon Dioxide 26 25 25 BUN 12 10 13 Creatinine 0.82 0.87 0.89 Calcium 9.1 9.6 9.2 Hematology 12/23/21 14:11 WBC 8.9 Hgb 12.9 Plt Count 203 Urinalysis 12/23/21 12/24/21 10:46 01:01 Urine Color STRAW Urine Appearance HAZY Urine pH 7.5 Ur Specific [place] 1.010 Urine Protein NEG Urine Glucose (UA) 100 H Urine Ketones 15 Urine Blood NEG Urine Nitrite NEG Ur Leukocyte Esterase NEG Urine Studies 12/23/21 12/24/21 10:46 01:01 Urine Osmolality 266 L Assessment and Plan (1) Acute hyponatremia: Status: Acute Plan 76-year-old female past medical history significant for mitral annular calcification, obstructive sleep apnea, palpitations, and hypertension who presented with severe abdominal pain, constipation, chest pain, dizziness and weakness x3 days.She also reports dizziness and issues with ambulation, as she reports she feels like she is going to fall over. She denies shortness of breath, fevers, chills, increased urinary frequency changes in urination, altered mental status. In ED, initial lab work showed Na = 124. Started on Fluid restriction. #) Hypotonic hyponatremia: Hyponatremia in setting of poor po intake, and concern for SIADH. Review of urine data consistent with preserved renal attempt to excrete FW and generate dilute urine. No adh secretion Would repeat U-Osm, U-Na daily. Suspect she has low solute state which was worsened by pain/nausea and chronic medications. Her Sertraline and tramadol combination place her at high risk for hyponatremia and serotonin syndrome. I will add 15 gm urea now. Would add boost/ensure to provide additional supplementation. Continue with FW restriction. TSH ok-hx underlying hypothyroidism. Procedures Date of Service Date of Service: 12/24/21
--- NOTE | 2021-12-24 19:03 | PC.NURSE ---
Addendum entered by Melody Barboza 12/25/21 06:54: Report given to ALFRED Amato Note: report received from ALFRED Patel
[2021-12-24 20:03] LABS: Glucose, Whole Blood 206 mg/dL (60-115)
[2021-12-24] MEDS: Urea 15 GM POWDER PO (20:58)
[2021-12-24] MEDS: Zolpidem Tartrate 5 MG TABLET PO (20:58)
[2021-12-24] MEDS: Atorvastatin Calcium 40 MG TABLET PO (20:58)
[2021-12-25] VITALS: BP 144/70; PULSE 86; RESP 18; TEMP 36.2; O2SAT 96
[2021-12-25 05:00] LABS: Hematocrit 37.1 % (37.0-47.0); Hemoglobin 12.6 g/dl (12.0-16.0); Mean Corpuscular Hemoglobin 27.3 pg (27.0-33.0); Mean Corpuscular Volume 80.5 fL (80.0-98.0); Mean Platelet Volume 10.3 fL (9.4-12.3); Platelet Count 196 X10*3/uL (160-400); Red Blood Count 4.61 X10*6/uL (4.20-5.50); Red Cell Distribution Width 14.3 % (11.0-16.0); White Blood Count 8.3 X10*3/uL (4.8-10.8)
[2021-12-25 05:21] VITALS: BP 148/84; PULSE 100; RESP 17; TEMP 36.2; O2SAT 17
[2021-12-25 05:23] LABS: Anion Gap 13 (12-20); Blood Urea Nitrogen 24 mg/dL (9-16); Calcium 8.6 mg/dL (8.4-10.2); Carbon Dioxide 25 mmol/L (22-29); Chloride 92 mmol/L (96-108); Creatinine Clr Calc Pharmacy 50.7; Estimated Glomerular Filt Rate > 60; Glucose Fasting 111 mg/dL (60-99); Potassium 4.9 mmol/L (3.3-5.1); Sodium 125 mmol/L (135-145)
[2021-12-25] MEDS: Levothyroxine Sodium 50 MCG TABLET PO (05:23)
[2021-12-25 07:40] LABS: Glucose, Whole Blood 146 mg/dL (60-115)
[2021-12-25] MEDS: Aspirin 81 MG TAB.CHEW PO (08:34)
[2021-12-25] MEDS: Omeprazole 20 MG CAPSULE.DR PO (08:34)
[2021-12-25] MEDS: Valsartan 40 MG TABLET PO (08:34)
[2021-12-25 08:45] VITALS: BP 161/86; PULSE 102; TEMP 36; O2SAT 97
--- NOTE | 2021-12-25 12:59 | PC.NURSE ---
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
--- NOTE | 2021-12-25 13:28 | P.PNIM_ITS ---
Subjective Subjective Date of Service: 12/25/21 Interval History: cc: chest pain interval history: no complaints Cardiovascular Cardiovascular: Reports no additional cardiovascular complaints Respiratory Respiratory: Reports no additional respiratory complaints Physical Exam Vital Signs: Vital Signs: Last Vital Signs Temp 96.8 F 12/25/21 08:45 Pulse 102 H 12/25/21 08:45 Resp 17 12/25/21 05:21 BP 161/86 H 12/25/21 08:45 Pulse Ox 97 12/25/21 08:45 BMI result Body Mass Index 29.2 General: AO X 3, no acute distress Resp: CTA bilateral, no accessory muscles used CVS: S1,S2,RRR GI: soft, non tender, non distended Neuro: motor grossly intact, alert Psych: appropriate affect, appropriate insight Objective Data Active Medications Acetaminophen (Acetaminophen 325 Mg Tablet) 650 mg PO Q6H PRN PRN Reason: Pain, Mild (Pain Scale 1-3) Last Admin: 12/24/21 16:16 Dose: 650 mg Documented by: NAY Aspirin (Aspirin 81 Mg Tab.Chew) 81 mg PO DAILY COUNT [facility]CLUD[facility] Last Admin: 12/25/21 08:34 Dose: 81 mg Documented by: RUSLAN Atorvastatin Calcium (Atorvastatin Calcium 40 Mg Tablet) 40 mg PO BEDTIME COUNT [facility]CLUD[facility] Last Admin: 12/24/21 20:58 Dose: 40 mg Documented by: TORITO-ANICL Benzonatate (Benzonatate 100 Mg Capsule) 100 mg PO TID PRN PRN Reason: Cough Calcium Carbonate (Calcium Carbonate 500 Mg Tablet) 500 mg PO DAILY COUNT [facility] Last Admin: 12/25/21 08:34 Dose: 500 mg Documented by: RUSLAN Dextrose (Dextrose 50 % 25 Gm/50 Ml Syringe) 25 gm IVPUSH Q15M PRN; Protocol PRN Reason: per Hypoglycemia Standing Ord. Enoxaparin Sodium (Enoxaparin Sodium 40 Mg/0.4 Ml Syringe) 40 mg SUBCUT Q24H S Last Admin: 12/24/21 23:13 Dose: Not Given Documented by: TORITO-ANICL Non-Admin Reason: Patient Asleep Glucose (Glucose Gel 15 Gm Gel..Gram.) 15 gm PO Q15M PRN; Protocol PRN Reason: per Hypoglycemia Standing Ord. Insulin Human Lispro (Insulin Lispro 100 Unit/Ml 3 Ml Vial) 0 unit SUBCUT QIDACHS COUNT [facility]CLUDES [facility]; Protocol Last Admin: 12/25/21 07:30 Dose: Not Given Documented by: RUSLAN Non-Admin Reason: No Insulin Coverage Levothyroxine Sodium (Levothyroxine Sodium 50 Mcg Tablet) 50 mcg PO SuTuThSa@0600 COUNT [facility] Last Admin: 12/25/21 05:23 Dose: 50 mcg Documented by: TORITO-ANICL Levothyroxine Sodium (Levothyroxine Sodium 75 Mcg Tablet) 75 mcg PO MoWeFr@0600 COUNT [facility] Melatonin (Melatonin 3 Mg Tablet) 6 mg PO BEDTIME PRN PRN Reason: Insomnia Last Admin: 12/24/21 03:45 Dose: 6 mg Documented by: TORITO-PER Omeprazole (Omeprazole 20 Mg Capsule.Dr) 20 mg PO DAILY COUNT [facility]CLUD[facility] Last Admin: 12/25/21 08:34 Dose: 20 mg Documented by: RUSLAN Senna (Sennosides 8.6 Mg Tablet) 17.2 mg PO BEDTIME PRN PRN Reason: Constipation Sodium Chloride (0.9 % Sodium Chloride Flush 3 Ml Syringe) 3 ml IVFLUSH QSHIFT COUNT [facility]CLUDES [facility] Last Admin: 12/25/21 10:42 Dose: Not Given Documented by: RUSLAN Non-Admin Reason: Med Not Available Valsartan (Valsartan 40 Mg Tablet) 40 mg PO DAILY COUNT [facility] Last Admin: 12/25/21 08:34 Dose: 40 mg Documented by: RUSLAN Zolpidem Tartrate (Zolpidem Tartrate 5 Mg Tablet) 5 mg PO BEDTIME PRN PRN Reason: Sleep Last Admin: 12/24/21 20:58 Dose: 5 mg Documented by: ALMA Labs CBC & Chem 7: 12/25/21 04:42 12/25/21 04:42 Labs: Laboratory Results - last 24 hr 12/24/21 12/24/21 12/25/21 15:45 19:59 04:42 MCV 80.5 MCH 27.3 MCHC 34.0 RDW 14.3 Plt Count 196 MPV 10.3 Absolute Nucleated RBC 0.000 Nucleated RBC % (auto) 0.0 Anion Gap Estim Creat Clear Calc Estimated GFR POC Glucose 302 H 206 H Fasting Glucose Calcium 12/25/21 12/25/21 04:42 07:30 MCV MCH MCHC RDW Plt Count MPV Absolute Nucleated RBC Nucleated RBC % (auto) Anion Gap 13 Estim Creat Clear Calc 50.7 Estimated GFR > 60 POC Glucose 146 H Fasting Glucose 111 H Calcium 8.6 D Assessment and Plan (1) Acute hyponatremia: Status: Acute Plan 76F presented with chest pain found to have hyponatremia chest pain resolved, ekg negative, troponins negative, no further work up for now hyponatremia ?SIADH, solute deficiency fluid restrict, will hold lyrica, sertraline nephro appreciated, urea 09/26, will give another dose today montior bmp DM insulin hypohtyroid tsh normal continue sythroid htn diovan hld statin insomnia ambien dvt prophylaxis - lovenox dnr/dni reason for continued hospitalization: stil with significant hyponatremia requiring close monitoring Quality Stroke Does the patient have a stroke diagnosis?: No VTE Prior VTE?: No VTE Risk Level:: Medical - moderate - high VTE Device Contraindication: N/A - Device Ordered VTE Drug Contraindication: Treatment Not Indicated
[2021-12-25 13:49] LABS: Glucose, Whole Blood 190 mg/dL (60-115)
[2021-12-25 14:22] VITALS: BP 156/85; PULSE 100; RESP 16; TEMP 36.1; O2SAT 97
[2021-12-25] MEDS: Insulin Lispro 100 UNIT/ML 3 ML VIAL SUBCUT ×2 (14:53→18:29)
[2021-12-25] MEDS: Urea 15 GM POWDER PO (14:53)
--- NOTE | 2021-12-25 17:43 | PM.PNNEP ---
Subjective Subjective Date of Service: 12/25/21 Interval history: Chart Reviewed. Events noted. Physical Exam Vital Signs: Vital Signs: Last Vital Signs Temp 97.0 F 12/25/21 14: Pulse 100 12/25/21 14:22 Resp 16 12/25/21 14:22 BP 156/85 H 12/25/21 14:22 Pulse Ox 97 12/25/21 14:22 BMI result Body Mass Index 29.2 Const: General: cooperative and no acute distress HEENT: Head: Yes normocephalic Neck: Neck: Yes no JVD Resp: Auscultation: clear to auscultation bilaterally Cardio: Jugular venous distension: no JVD Rate: regular rate Rhythm: regular rhythm Heart sounds: S1 normal heart sound present and S2 normal heart sound present GI: Auscultation: normal bowel sounds Neuro: General: no focal motor deficits Extrem: General: Yes no clubbing, cyanosis or edema Objective Data Labs CBC & Chem 7: 12/25/21 04:42 12/25/21 04:42 Labs: Laboratory Results - last 24 hr 12/24/21 12/25/21 12/25/21 19:59 04:42 04:42 WBC 8.3 RBC 4.61 Hgb 12.6 Hct 37.1 MCV 80.5 MCH 27.3 MCHC 34.0 RDW 14.3 Plt Count 196 MPV 10.3 Absolute Nucleated RBC 0.000 Nucleated RBC % (auto) 0.0 Sodium 125 L Potassium 4.9 Chloride 92 L Carbon Dioxide 25 Anion Gap 13 BUN 24 H D Creatinine 0.80 Estim Creat Clear Calc 50.7 Estimated GFR > 60 POC Glucose 206 H Fasting Glucose 111 H Calcium 8.6 D 12/25/21 12/25/21 07:30 13:46 WBC RBC Hgb Hct MCV MCH MCHC RDW Plt Count MPV Absolute Nucleated RBC Nucleated RBC % (auto) Sodium Potassium Chloride Carbon Dioxide Anion Gap BUN Creatinine Estim Creat Clear Calc Estimated GFR POC Glucose 146 H 190 H Fasting Glucose Calcium Procedures Date of Service Date of Service: 12/25/21 Assessment & Plan Assessment and plan (1) Acute hyponatremia: Status: Acute Assessment and Plan: 76-year-old female past medical history significant for mitral annular calcification, obstructive sleep apnea, palpitations, and hypertension who presented with severe abdominal pain, constipation, chest pain, dizziness and weakness x3 days.She also reports dizziness and issues with ambulation, as she reports she feels like she is going to fall over.? She denies shortness of breath, fevers, chills, increased urinary frequency changes in urination, altered mental status. In ED, initial lab work showed Na = 124. Started on Fluid restriction. #) Hypotonic hyponatremia: Hyponatremia in setting of poor po intake, and concern for SIADH. Review of urine data consistent with preserved renal attempt to excrete FW and generate dilute urine. Suspect she has low solute state which was worsened by pain/nausea and chronic medications. Her Sertraline and tramadol combination place her at high risk for hyponatremia and serotonin syndrome. Continue urea supplementation. Suggest increasing to 30 Gm daily. Would add boost/ensure to provide additional supplementation. Continue with FW restriction. TSH ok-hx underlying hypothyroidism. Time Spent With Patient Time: Total time spent is greater than 50% in coordination of care (as documented) at patient's floor/unit and/or counseling patient: Progress Note: Quality Stroke Does the patient have a stroke diagnosis?: No
[2021-12-25 17:59] VITALS: BP 130/63; PULSE 84; RESP 16; TEMP 36.8; O2SAT 98
[2021-12-25 18:11] LABS: Glucose, Whole Blood 211 mg/dL (60-115)
[2021-12-25] MEDS: Acetaminophen 325 MG TABLET 650 MG PO (18:42)
[2021-12-25 21:17] VITALS: BP 130/63; PULSE 85; RESP 18; TEMP 36.9; O2SAT 98
[2021-12-25 21:24] LABS: Glucose, Whole Blood 123 mg/dL (60-115)
[2021-12-25] MEDS: Atorvastatin Calcium 40 MG TABLET PO (21:44)
[2021-12-25] MEDS: Zolpidem Tartrate 5 MG TABLET PO (21:44)
--- NOTE | 2021-12-25 22:00 | PC.NURSE ---
Pt medicated per SEP Pt given warm pack for back/hip pain Pt made aware of 1000 cc/day fluid restriction Will continue to monitor
[2021-12-25] MEDS: Enoxaparin Sodium 40 MG/0.4 ML SYRINGE SUBCUT (23:44)
[2021-12-25] MEDS: 0.9 % Sodium Chloride Flush 3 ML SYRINGE IVFLUSH (23:45)
[2021-12-26] VITALS (7 sets, daily range): BP systolic 118–186; BP diastolic 56–95; PULSE 83–94; RESP 14–18; TEMP 36.1–36.8; O2SAT 97–99
[2021-12-26] MEDS: Acetaminophen 325 MG TABLET 650 MG PO ×2 (04:33→19:54)
[2021-12-26] MEDS: Levothyroxine Sodium 75 MCG TABLET PO (05:53)
[2021-12-26 06:59] LABS: Hematocrit 36.1 % (37.0-47.0); Hemoglobin 12.6 g/dl (12.0-16.0); Mean Corpuscular HGB Conc 34.9 g/dl (31.0-35.0); Mean Corpuscular Hemoglobin 27.8 pg (27.0-33.0); Mean Corpuscular Volume 79.5 fL (80.0-98.0); Mean Platelet Volume 10.4 fL (9.4-12.3); Platelet Count 202 X10*3/uL (160-400); Red Blood Count 4.54 X10*6/uL (4.20-5.50); Red Cell Distribution Width 14.4 % (11.0-16.0); White Blood Count 8.9 X10*3/uL (4.8-10.8)
[2021-12-26 07:20] LABS: Anion Gap 12 (12-20); Blood Urea Nitrogen 24 mg/dL (9-16); Calcium 8.9 mg/dL (8.4-10.2); Carbon Dioxide 24 mmol/L (22-29); Chloride 92 mmol/L (96-108); Creatinine Clr Calc Pharmacy 48.8; Estimated Glomerular Filt Rate > 60; Glucose Fasting 145 mg/dL (60-99); Potassium 4.9 mmol/L (3.3-5.1); Sodium 123 mmol/L (135-145)
[2021-12-26] MEDS: Insulin Lispro 100 UNIT/ML 3 ML VIAL SUBCUT ×4 (07:37→20:46)
[2021-12-26] MEDS: 0.9 % Sodium Chloride Flush 3 ML SYRINGE IVFLUSH ×3 (07:38→20:51)
[2021-12-26 07:43] LABS: Glucose, Whole Blood 186 mg/dL (60-115)
[2021-12-26] MEDS: Omeprazole 20 MG CAPSULE.DR PO (08:54)
[2021-12-26] MEDS: Urea 15 GM POWDER 30 GM PO ×2 (08:54→16:47)
[2021-12-26] MEDS: Aspirin 81 MG TAB.CHEW PO (08:54)
[2021-12-26] MEDS: Valsartan 40 MG TABLET PO (08:54)
--- NOTE | 2021-12-26 11:18 | P.PNIM_ITS ---
Subjective Subjective Date of Service: 12/26/21 Interval History: cc: chest pain interval history: no complaints Cardiovascular Cardiovascular: Reports no additional cardiovascular complaints Respiratory Respiratory: Reports no additional respiratory complaints Physical Exam Vital Signs: Vital Signs: Last Vital Signs Temp 97.8 F 12/26/21 07:40 Pulse 92 12/26/21 08:53 Resp 18 12/26/21 07:40 BP 133/56 L 12/26/21 08:53 Pulse Ox 99 12/26/21 07:40 BMI result Body Mass Index 29.2 General: AO X 3, no acute distress Resp: CTA bilateral, no accessory muscles used CVS: S1,S2,RRR GI: soft, non tender, non distended Neuro: motor grossly intact, alert Psych: appropriate affect, appropriate insight Objective Data Active Medications Acetaminophen (Acetaminophen 325 Mg Tablet) 650 mg PO Q6H PRN PRN Reason: Pain, Mild (Pain Scale 1-3) Last Admin: 12/26/21 04:33 Dose: 650 mg Documented by: YURI Aspirin (Aspirin 81 Mg Tab.Chew) 81 mg PO DAILY [facility] Last Admin: 12/26/21 08:54 Dose: 81 mg Documented by: HAILE Atorvastatin Calcium (Atorvastatin Calcium 40 Mg Tablet) 40 mg PO BEDTIME [facility] Last Admin: 12/25/21 21:44 Dose: 40 mg Documented by: YURI Benzonatate (Benzonatate 100 Mg Capsule) 100 mg PO TID PRN PRN Reason: Cough Calcium Carbonate (Calcium Carbonate 500 Mg Tablet) 500 mg PO DAILY [facility] Last Admin: 12/26/21 08:54 Dose: 500 mg Documented by: HAILE Dextrose (Dextrose 50 % 25 Gm/50 Ml Syringe) 25 gm IVPUSH Q15M PRN; Protocol PRN Reason: per Hypoglycemia Standing Ord. Enoxaparin Sodium (Enoxaparin Sodium 40 Mg/0.4 Ml Syringe) 40 mg SUBCUT Q24H S Last Admin: 12/25/21 23:44 Dose: 40 mg Documented by: YURI Glucose (Glucose Gel 15 Gm Gel..Gram.) 15 gm PO Q15M PRN; Protocol PRN Reason: per Hypoglycemia Standing Ord. Insulin Human Lispro (Insulin Lispro 100 Unit/Ml 3 Ml Vial) 0 unit SUBCUT QIDACHS [facility]; Protocol Last Admin: 12/26/21 07:37 Dose: 2 unit Documented by: HAILE Levothyroxine Sodium (Levothyroxine Sodium 50 Mcg Tablet) 50 mcg PO SuTuThSa@0600 [facility] Last Admin: 12/25/21 05:23 Dose: 50 mcg Documented by: ALMA Levothyroxine Sodium (Levothyroxine Sodium 75 Mcg Tablet) 75 mcg PO MoWeFr@0600 [facility] Last Admin: 12/26/21 05:53 Dose: 75 mcg Documented by: YURI Melatonin (Melatonin 3 Mg Tablet) 6 mg PO BEDTIME PRN PRN Reason: Insomnia Last Admin: 12/24/21 03:45 Dose: 6 mg Documented by: ALMA Omeprazole (Omeprazole 20 Mg Capsule.Dr) 20 mg PO DAILY [facility] Last Admin: 12/26/21 08:54 Dose: 20 mg Documented by: HAILE Senna (Sennosides 8.6 Mg Tablet) 17.2 mg PO BEDTIME PRN PRN Reason: Constipation Sodium Chloride (0.9 % Sodium Chloride Flush 3 Ml Syringe) 3 ml IVFLUSH QSHIFT [facility] Last Admin: 12/26/21 07:38 Dose: 3 ml Documented by: HAILE Urea (Urea 15 Gm Powder) 30 gm PO DAILY [facility] Last Admin: 12/26/21 08:54 Dose: 30 gm Documented by: HAILE Valsartan (Valsartan 40 Mg Tablet) 40 mg PO DAILY [facility] Last Admin: 12/26/21 08:54 Dose: 40 mg Documented by: HAILE Zolpidem Tartrate (Zolpidem Tartrate 5 Mg Tablet) 5 mg PO BEDTIME PRN PRN Reason: Sleep Last Admin: 12/25/21 21:44 Dose: 5 mg Documented by: YURI Labs CBC & Chem 7: 12/26/21 06:11 12/26/21 06:11 Labs: Laboratory Results - last 24 hr 12/25/21 12/25/21 12/25/21 13:46 18:06 21:15 MCV MCH MCHC RDW Plt Count MPV Absolute Nucleated RBC Nucleated RBC % (auto) Anion Gap Estim Creat Clear Calc Estimated GFR POC Glucose 190 H 211 H 123 H Fasting Glucose Calcium 12/26/21 12/26/21 12/26/21 06:11 06:11 07:31 MCV 79.5 L MCH 27.8 MCHC 34.9 RDW 14.4 Plt Count 202 MPV 10.4 Absolute Nucleated RBC 0.000 Nucleated RBC % (auto) 0.0 Anion Gap 12 Estim Creat Clear Calc 48.8 Estimated GFR > 60 POC Glucose 186 H Fasting Glucose 145 H Calcium 8.9 Assessment and Plan (1) Acute hyponatremia: Status: Acute Plan 76F presented with chest pain found to have hyponatremia chest pain resolved, ekg negative, troponins negative, no further work up for now hyponatremia continues to be low - 123 today ?SIADH, solute deficiency fluid restrict, holding lyrica, sertraline nephro appreciated, continue urea 30gm daily montior bmp DM insulin hypohtyroid tsh normal continue sythroid htn diovan hld statin insomnia ambien dvt prophylaxis - lovenox dnr/dni reason for continued hospitalization: stil with significant hyponatremia requiri ng close monitoring Quality Stroke Does the patient have a stroke diagnosis?: No VTE Prior VTE?: No VTE Risk Level:: Medical - moderate - high VTE Device Contraindication: N/A - Device Ordered VTE Drug Contraindication: Treatment Not Indicated
[2021-12-26 11:29] LABS: Glucose, Whole Blood 210 mg/dL (60-115)
[2021-12-26 14:21] LABS: Sodium 124 mmol/L (135-145)
[2021-12-26 15:56] LABS: Glucose, Whole Blood 220 mg/dL (60-115)
--- NOTE | 2021-12-26 16:46 | PM.PNNEP ---
Subjective Subjective Date of Service: 12/26/21 Interval history: Seen and examined, events noted Physical Exam Vital Signs: Vital Signs: Last Vital Signs Temp 97.6 F 12/26/21 15:50 Pulse 83 12/26/21 15:50 Resp 17 12/26/21 15:50 BP 118/64 12/26/21 15:50 Pulse Ox 99 12/26/21 15:50 BMI result Body Mass Index 29.2 Const: General: cooperative and no acute distress HEENT: Head: Yes normocephalic and Yes atraumatic Neck: Neck: Yes no JVD Resp: Auscultation: clear to auscultation bilaterally Cardio: Jugular venous distension: no JVD Rate: regular rate Rhythm: regular rhythm Heart sounds: S1 normal heart sound present and S2 normal heart sound present GI: Auscultation: normal bowel sounds Neuro: General: no focal motor deficits Extrem: General: Yes no clubbing, cyanosis or edema Objective Data Labs CBC & Chem 7: 12/26/21 06:11 12/26/21 14:05 Labs: Laboratory Results - last 24 hr 12/25/21 12/25/21 12/26/21 18:06 21:15 06:11 WBC 8.9 RBC 4.54 Hgb 12.6 Hct 36.1 L MCV 79.5 L MCH 27.8 MCHC 34.9 RDW 14.4 Plt Count 202 MPV 10.4 Absolute Nucleated RBC 0.000 Nucleated RBC % (auto) 0.0 Sodium Potassium Chloride Carbon Dioxide Anion Gap BUN Creatinine Estim Creat Clear Calc Estimated GFR POC Glucose 211 H 123 H Fasting Glucose Calcium 12/26/21 12/26/21 12/26/21 06:11 07:31 11:21 WBC RBC Hgb Hct MCV MCH MCHC RDW Plt Count MPV Absolute Nucleated RBC Nucleated RBC % (auto) Sodium 123 L Potassium 4.9 Chloride 92 L Carbon Dioxide 24 Anion Gap 12 BUN 24 H Creatinine 0.83 Estim Creat Clear Calc 48.8 Estimated GFR > 60 POC Glucose 186 H 210 H Fasting Glucose 145 H Calcium 8.9 12/26/21 12/26/21 14:05 15:51 WBC RBC Hgb Hct MCV MCH MCHC RDW Plt Count MPV Absolute Nucleated RBC Nucleated RBC % (auto) Sodium 124 L Potassium Chloride Carbon Dioxide Anion Gap BUN Creatinine Estim Creat Clear Calc Estimated GFR POC Glucose 220 H Fasting Glucose Calcium Procedures Date of Service Date of Service: 12/26/21 Assessment & Plan Assessment and plan (1) Acute hyponatremia: Status: Acute Assessment and Plan: 76-year-old female past medical history significant for mitral annular calcification, obstructive sleep apnea, palpitations, and hypertension who presented with severe abdominal pain, constipation, chest pain, dizziness and weakness x3 days.She also reports dizziness and issues with ambulation, as she reports she feels like she is going to fall over.? She denies shortness of breath, fevers, chills, increased urinary frequency changes in urination, altered mental status. In ED, initial lab work showed Na = 124. Started on Fluid restriction. 1. Euvolemic HypoNa: w/u c/w SIADH but suspect low solute intake playing a contributing role; need to r/o adrenal insuf hypothy has been r/o also head and chest CT do not identify any tuors which can alos be a soure of SIADH She had been on SSRI ( zoloft ) whic h can also be assoc with SIADH REC: incr URea and cont po fluid restrition; am cortisol ordered, repeat urine studies ( I ordered), may need to conisder use of demeclocylcine if Urea does not work, be sure fluid restreiction is being adhered to will follow with team Time Spent With Patient Time: Total time spent is greater than 50% in coordination of care (as documented) at patient's floor/unit and/or counseling patient: Progress Note: Quality Stroke Does the patient have a stroke diagnosis?: No
[2021-12-26 17:16] LABS: Uric Acid 2.3 mg/dL (2.4-5.7)
[2021-12-26 20:42] LABS: Glucose, Whole Blood 319 mg/dL (60-115)
[2021-12-26] MEDS: Atorvastatin Calcium 40 MG TABLET PO (20:46)
[2021-12-26] MEDS: Zolpidem Tartrate 5 MG TABLET PO (20:48)
[2021-12-26] MEDS: Enoxaparin Sodium 40 MG/0.4 ML SYRINGE SUBCUT (23:38)
[2021-12-27] VITALS: BP 128/72; PULSE 97; RESP 18; TEMP 36.4; O2SAT 98
[2021-12-27 04:00] VITALS: BP 145/68; PULSE 94; RESP 18; TEMP 36.9; O2SAT 99
[2021-12-27] MEDS: Levothyroxine Sodium 50 MCG TABLET PO (05:45)
[2021-12-27 06:27] LABS: Anion Gap 13 (12-20); Blood Urea Nitrogen 56 mg/dL (9-16); Calcium 9.9 mg/dL (8.4-10.2); Carbon Dioxide 27 mmol/L (22-29); Chloride 96 mmol/L (96-108); Creatinine Clr Calc Pharmacy 41.3; Estimated Glomerular Filt Rate 55; Glucose Fasting 141 mg/dL (60-99); Potassium 4.9 mmol/L (3.3-5.1); Sodium 131 mmol/L (135-145)
[2021-12-27 06:44] LABS: Cortisol Random 9.3 ug/dL
[2021-12-27 07:18] VITALS: BP 137/71; PULSE 96; RESP 18; TEMP 37.3; O2SAT 96
[2021-12-27 07:40] LABS: Glucose, Whole Blood 156 mg/dL (60-115)
[2021-12-27] MEDS: Aspirin 81 MG TAB.CHEW PO (09:28)
[2021-12-27] MEDS: Omeprazole 20 MG CAPSULE.DR PO (09:29)
[2021-12-27] MEDS: Urea 15 GM POWDER 30 GM PO (09:29)
[2021-12-27] MEDS: Insulin Lispro 100 UNIT/ML 3 ML VIAL SUBCUT ×3 (09:29→12:34)
[2021-12-27] MEDS: Valsartan 40 MG TABLET PO (09:29)
[2021-12-27] MEDS: 0.9 % Sodium Chloride Flush 3 ML SYRINGE IVFLUSH (09:33)
--- NOTE | 2021-12-27 11:19 | PM.DS ---
DS: Providers Provider Date of Service: 12/27/21 Date of admission: 12/23/21 22:27 Primary care physician: Ariela Goodwin MD Consults: 12/24/21 09:41 Consult to Nephrology Routine Consulting Provider: Jerman Lara Reason for consultation: hyponatremia DS: Diagnosis Discharge Diagnosis (1) Acute hyponatremia: Status: Acute DS: Summary Hospital Course Hospital Course: from initial hpi: Chief Complaint:? chest pain 78-year-old female with a past medical history of hypertension, hyperlipidemia, diabetes, TASHI, hypothyroidism, anxiety, depression presented to the hospital with a chief complaint of abdominal pain.? Patient reports that over the past few days she has been having abdominal pain, felt constipated, took milk of magnesia with no significant improvement; patient reports that she has not been eating drinking. Patient also reports she had chest pain, nonradiating, no associated nausea vomiting or diaphoresis. chest pain currently resolved ? Reports she felt lightheaded/ dizzy.? Denies any room spinning.? Denies any falls or trauma. Denies any nausea or vomiting.? Denies any fever chills cough Denies any chest pain or palpitations.? Review of all other systems is negative except mentioned above ER course: Per ER team patient exam was nonfocal; CT head showed no acute findings; CT chest abdomen pelvis was pending; on labs noted to have hyponatremia to 124; spoke to Nephrology - concern for possible SIADH.? I recommended to give the patient on fluid restriction.? Admitted to the hospital for further management hospital course: Patient was admitted for chest pain and hyponatremia. Her chest pain resolved. Her troponins were negative and EKG was negative, no further workup was pursued. For her hyponatremia this was felt to be multifactorial, element of SIADH and poor solute intake. She was put on fluid restriction, her Lyrica and sertraline was initially held, though can try restarting on discharge and follow-up BMP as outpatient. She was given urea and sodium slowly improved, it is 131 at time of discharge. For diabetes she will continue insulin, for hypothyroid she will continue Synthroid, for hypertension she will continue Diovan, for hyperlipidemia she will continue statin, for insomnia Ambien. Time Spent with Patient Time attestation: Total time spent providing and/or coordinating discharge services: Discharge coordination time: Greater than 30 minutes Quality: Safe Use of Opioids Does Pt have an Active Cancer Diagnosis on the Problem List?: No Quality: Stroke Does the patient have a stroke diagnosis?: No Physical Exam Vital Signs: Vital Signs: Last Vital Signs Temp 99.1 F 12/27/21 07:18 Pulse 96 12/27/21 07:18 Resp 18 12/27/21 07:18 BP 137/71 12/27/21 07:18 Pulse Ox 96 12/27/21 07:18 BMI result Body Mass Index 29.2 General: AO X 3, no acute distress Resp: CTA bilateral, no accessory muscles used CVS: S1,S2,RRR GI: soft, non tender, non distended Neuro: motor grossly intact, alert Psych: appropriate affect, appropriate insight DS: Data Data Completed and Pending Labs on day of discharge: Laboratory Results - last 24 hr 12/26/21 12/26/21 12/26/21 11:21 14:05 15:51 Sodium 124 L Potassium Chloride Carbon Dioxide Anion Gap BUN Creatinine Estim Creat Clear Calc Estimated GFR POC Glucose 210 H 220 H Fasting Glucose Uric Acid 2.3 L Calcium Random Cortisol 12/26/21 12/27/21 12/27/21 19:13 05:22 05:22 Sodium 131 L Potassium 4.9 Chloride 96 Carbon Dioxide 27 Anion Gap 13 BUN 56 H D Creatinine 0.98 Estim Creat Clear Calc 41.3 Estimated GFR 55 POC Glucose 319 H Fasting Glucose 141 H Uric Acid Calcium 9.9 D Random Cortisol 9.3 12/27/21 07:17 Sodium Potassium Chloride Carbon Dioxide Anion Gap BUN Creatinine Estim Creat Clear Calc Estimated GFR POC Glucose 156 H Fasting Glucose Uric Acid Calcium Random Cortisol Discharge Plan Discharge Patient Disposition: Home, Self-Care Discharge Diagnosis: hyponatremia Referrals: Ariela Goodwin MD [Primary Care Provider] - 1 Week Discharge Medications: Continued levothyroxine 50 mcg tablet 1 tab PO SUTUTHSA 0RF irbesartan 75 mg tablet 1 tab PO DAILY 0RF Trulicity 0.75 mg/0.5 mL pen injector 0.75 mg subcut WE 0RF calcium carbonate 500 mg calcium (1,250 mg) Tablet 500 mg PO DAILY 0RF glipizide 5 mg tablet 5 mg PO DAILY 0RF atorvastatin 40 mg tablet 40 mg PO BEDTIME 0RF levothyroxine 75 mcg tablet 75 mcg PO MOWEFR 0RF pantoprazole 40 mg tablet,delayed release (DR/EC) 40 mg PO DAILY 0RF aspirin 81 mg tablet,delayed release (DR/EC) 81 mg PO DAILY 0RF pregabalin 75 mg capsule 75 mg PO BID 0RF tramadol 50 mg tablet 50 mg PO BID PRN (Reason: Pain) 0RF zolpidem 5 mg tablet 5 mg PO BEDTIME PRN (Reason: Sleep) 0RF sertraline 25 mg tablet 25 mg PO DAILY@1400 0RF Discharge Orders: Discharge Order (Routine); Ordered 12/27/21 Ordered By: Sky Juárez Diet: advance to usual diet Activity on Discharge: As tolerated Stand Alone Forms: Patient Portal Discharge page Care Plan Goals: avoid low sodium Health Concerns: low sodium Plan of Treatment: fluid restriction Assessment: see above
--- NOTE | 2021-12-27 11:26 | MHC.CM.PN ---
DC HOME WITH FAMILY RN AWARE IMM 12/26 IN CHART
[2021-12-27 11:51] VITALS: BP 145/69; PULSE 107; RESP 18; TEMP 36.4; O2SAT 97
[2021-12-27 11:56] LABS: Glucose, Whole Blood 425 mg/dL (60-115)
--- NOTE | 2021-12-27 13:04 | PM.PNNEP ---
Subjective Subjective Date of Service: 12/27/21 Interval history: Seen and examined, events noted Physical Exam Vital Signs: Vital Signs: Last Vital Signs Temp 97.5 F 12/27/21 11:51 Pulse 107 H 12/27/21 11:51 Resp 18 12/27/21 11:51 BP 145/69 H 12/27/21 11:51 Pulse Ox 97 12/27/21 11:51 BMI result Body Mass Index 29.2 Const: General: cooperative and no acute distress HEENT: Head: Yes normocephalic and Yes atraumatic Neck: Neck: Yes no JVD Resp: Auscultation: clear to auscultation bilaterally Cardio: Jugular venous distension: no JVD Rate: regular rate Rhythm: regular rhythm Heart sounds: S1 normal heart sound present and S2 normal heart sound present GI: Auscultation: normal bowel sounds Neuro: General: no focal motor deficits Extrem: General: Yes no clubbing, cyanosis or edema Objective Data Labs CBC & Chem 7: 12/26/21 06:11 12/27/21 05:22 Labs: Laboratory Results - last 24 hr 12/26/21 12/26/21 12/26/21 14:05 15:51 19:13 Sodium 124 L Potassium Chloride Carbon Dioxide Anion Gap BUN Creatinine Estim Creat Clear Calc Estimated GFR POC Glucose 220 H 319 H Fasting Glucose Uric Acid 2.3 L Calcium Random Cortisol 12/27/21 12/27/21 12/27/21 05:22 05:22 07:17 Sodium 131 L Potassium 4.9 Chloride 96 Carbon Dioxide 27 Anion Gap 13 BUN 56 H D Creatinine 0.98 Estim Creat Clear Calc 41.3 Estimated GFR 55 POC Glucose 156 H Fasting Glucose 141 H Uric Acid Calcium 9.9 D Random Cortisol 9.3 12/27/21 11:50 Sodium Potassium Chloride Carbon Dioxide Anion Gap BUN Creatinine Estim Creat Clear Calc Estimated GFR POC Glucose 425 H* Fasting Glucose Uric Acid Calcium Random Cortisol Procedures Date of Service Date of Service: 12/27/21 Assessment & Plan Assessment and plan (1) Acute hyponatremia: Status: Acute Assessment and Plan: 76-year-old female past medical history significant for mitral annular calcification, obstructive sleep apnea, palpitations, and hypertension who presented with severe abdominal pain, constipation, chest pain, dizziness and weakness x3 days.She also reports dizziness and issues with ambulation, as she reports she feels like she is going to fall over.? She denies shortness of breath, fevers, chills, increased urinary frequency changes in urination, altered mental status. In ED, initial lab work showed Na = 124. Started on Fluid restriction. 1. Euvolemic HypoNa: SNA 131 this am w/u c/w SIADH but suspect low solute intake playing a contributing role; need to r/o adrenal insuf hypothy has been r/o also head and chest CT do not identify any tumors which can alos be a soure of SIADH She had been on SSRI ( zoloft ) whic h can also be assoc with SIADH REC: cont URea and cont po fluid restrition; be sure fluid restreiction is being adhered to if d/c home needs repeat labs in 2-4 days as outpt to stay ontop of the SNa; the Urea is over the counter--they can try to buy it online from [employer] ( cheaper then URe-Na) will follow with team Time Spent With Patient Time: Total time spent is greater than 50% in coordination of care (as documented) at patient's floor/unit and/or counseling patient: Progress Note: Quality Stroke Does the patient have a stroke diagnosis?: No
[2021-12-27 14:25] LABS: Glucose, Whole Blood 305 mg/dL (60-115)
== END 2021-12-27 16:30 | disposition home or self-care (01) | DRG 645 ==
LOC: HO.ED 21:59 → HO.EDOVER 22:49 → HO.S3 12-26 08:47
PROVIDERS: Internal Medicine Nephrology; Physician Assistant; Admitting Provider Hospitalist; Emergency Provider Internal Medicine; PCP Allergy & Immunology; Visit Provider Internal Medicine
DX: E22.2 Syndrome of inappropriate secretion of antidiuretic hormone (principal); E03.9 Hypothyroidism, unspecified; Z66 Do not resuscitate; F32.A Depression, unspecified; G47.33 Obstructive sleep apnea (adult) (pediatric); E78.5 Hyperlipidemia, unspecified; E11.40 Type 2 diabetes mellitus with diabetic neuropathy, unspecified; I10 Essential (primary) hypertension; G47.00 Insomnia, unspecified; K59.00 Constipation, unspecified; Z20.822 Contact with and (suspected) exposure to COVID-19; Z88.6 Allergy status to analgesic agent; Z88.8 Allergy status to other drugs, medicaments and biological substances; Z79.82 Long term (current) use of aspirin; Z79.84 Long term (current) use of oral hypoglycemic drugs; Z79.890 Hormone replacement therapy; Z79.899 Other long term (current) drug therapy
CPT/HCPCS: 36415; 70450; 71250; 74018; 74176; 80048; 80053; 81003; 82436; 82533; 82947; 83735; 83880; 83930; 83935; 84295; 84300; 84443; 84484; 84550; 85025; 85027; 87502; 87635; 93005; 96360; 99285; J1650

== ENCOUNTER → 2022-04-09 09:34 | Outpatient (BNVA) | payer MEDICARE, SELFPAY | PROVIDERS: PCP Family Medicine; Referring Provider Family Medicine; Visit Provider Internal Medicine | DX: I25.10 Atherosclerotic heart disease of native coronary artery without angina pectoris (principal); I10 Essential (primary) hypertension; I05.9 Rheumatic mitral valve disease, unspecified; G47.33 Obstructive sleep apnea (adult) (pediatric) | CPT/HCPCS: 99212 ==

== ENCOUNTER 2022-05-25 15:12 | Emergency (ER) | payer MEDICARE, SELFPAY ==
[2022-05-25 15:37] VITALS: BP 161/71; PULSE 87; RESP 16; TEMP 36.6; O2SAT 96; BMI 29.2
[2022-05-25 15:59] LABS: MANUAL DIFF FLAG NO
[2022-05-25 16:03] LABS: Basophils Percent Auto 0.4 % (0-2); Eosinophils Absolute Auto 0.2 X10*3/uL (0.0-0.4); Eosinophils Percent Auto 2.5 % (0-4); Hematocrit 35.7 % (37.0-47.0); Hemoglobin 11.9 g/dl (12.0-16.0); Imm Gran Abs Auto 0.01 X10*3/uL (0.00-0.03); Imm Gran Pct Auto 0.1 % (0.0-0.4); Lymphocytes Absolute Auto 2.2 X10*3/uL (1.2-4.9); Lymphocytes Percent Auto 31.6 % (20-40); Mean Corpuscular HGB Conc 33.3 g/dl (31.0-35.0); Mean Corpuscular Hemoglobin 28.2 pg (27.0-33.0); Mean Corpuscular Volume 84.6 fL (80.0-98.0); Mean Platelet Volume 11.3 fL (9.4-12.3); Monocytes Absolute Auto 0.9 X10*3/uL (0.1-1.2); Monocytes Percent Auto 13.1 % (2-11); Neutrophils Absolute Auto 3.6 x10*3/uL (2.0-8.3); Neutrophils Percent Auto 52.3 % (45-73); Platelet Count 197 X10*3/uL (160-400); Red Blood Count 4.22 X10*6/uL (4.20-5.50); Red Cell Distribution Width 14.7 % (11.0-16.0); White Blood Count 6.9 X10*3/uL (4.8-10.8)
[2022-05-25 16:17] LABS: Anion Gap 16 (12-20); Blood Urea Nitrogen 18 mg/dL (9-16); Carbon Dioxide 24 mmol/L (22-29); Chloride 102 mmol/L (96-108); Estimated Glomerular Filt Rate > 60; Glucose Random 129 mg/dL (60-115); Potassium 4.3 mmol/L (3.3-5.1); Sodium 138 mmol/L (135-145)
[2022-05-25 16:36] LABS: Appearance Urine Cloudy; Color Urine Yellow; Glucose Urine UA Negative (Negative); Leukocyte Esterase Urine Trace (Negative); Nitrite Urine Negative (Negative); UMIC TRIGGER UACC YES; Urine Blood Negative (Negative); Urine Ketones Negative (Negative); Urine Protein Negative (Neg-Trace)
[2022-05-25 16:38] LABS: Bacteria Urine None Seen (None Seen); Hyaline Casts Urine 0-2 /LPF (0-2); RBC Urine 0-2 /HPF (0-2); UACC Culture Trigger YES
[2022-05-25 22:21] VITALS: BP 185/77; PULSE 74; RESP 16; TEMP 36.6; O2SAT 98
--- NOTE | 2022-05-25 22:26 | ED.FEMALEGU ---
HPI - Female Genitourinary General Chief complaint: Urogenital-Female Stated complaint: ?uti Time Seen by Provider: 05/25/22 22:13 Source: patient, family and occupational therapist assistants Mode of arrival: ambulatory History of Present Illness HPI Narrative: 77-year-old female presents with complaints of suprapubic discomfort, burning on urination and dysuria. She denies any fever, chills, nausea, vomiting. Related Data Home Medications Medication Instructions Recorded Confirmed pregabalin 75 mg capsule 75 mg PO BID 06/20/20 04/09/22 tramadol 50 mg tablet 50 mg PO BID PRN Pain 06/20/20 04/09/22 zolpidem 5 mg tablet 5 mg PO BEDTIME PRN Sleep 06/20/20 04/09/22 sertraline 25 mg tablet 25 mg PO DAILY@1400 12/19/20 04/09/22 aspirin 81 mg tablet,delayed 81 mg PO DAILY 06/19/21 04/09/22 release atorvastatin 40 mg tablet 40 mg PO BEDTIME 06/19/21 04/09/22 glipizide 5 mg tablet 5 mg PO DAILY 06/19/21 04/09/22 levothyroxine 75 mcg tablet 75 mcg PO MOWEFR 06/19/21 04/09/22 pantoprazole 40 mg tablet,delayed 40 mg PO DAILY 06/19/21 04/09/22 release calcium carbonate 500 mg calcium 500 mg PO DAILY 12/24/21 04/09/22 (1,250 mg) tablet dulaglutide 0.75 mg/0.5 mL 0.75 mg subcut WE 12/24/21 04/09/22 subcutaneous pen injector (Trulicity) levothyroxine 50 mcg tablet 1 tab PO SUTUTHSA 12/24/21 04/09/22 irbesartan 75 mg tablet 75 mg PO DAILY 04/09/22 04/09/22 Previous Rx's Medication Instructions Recorded cefdinir 300 mg capsule 300 mg PO Q12H 5 days #10 caps 05/25/22 phenazopyridine 100 mg tablet 100 mg PO TID PRN pain 6 doses #6 05/25/22 (Pyridium) tabs Allergies Allergy/AdvReac Type Severity Reaction Status Date / Time aspirin [Aspirin] AdvReac Mild STOMACHE Verified 04/09/22 09:46 UPSET esomeprazole [From NEXIUM] AdvReac Unknown BURNING Verified 04/09/22 09:46 SENSATION Review of Systems Review of Systems: Pertinent positives and negatives as stated in HPI 10 point review of systems is otherwise negative. [facility] Past Medical History Source: nursing notes reviewed Medical History Essential hypertension Heart palpitations Mitral annular calcification TASHI (obstructive sleep apnea) Surgical History History of cardioversion (~08/16/13) History of hysterectomy History of tonsillectomy Stented coronary artery Family History Family History Father Asthma Mother Cardiovascular disease Diabetes Arthritis Social History Social History Household Members: None Housing: Apartment Do you presently have visiting nurse or other home services: No (vmware architect only) Alcohol intake: never Patient Tobacco Use Status: Never used Tobacco e-Cigarette/Vaping Use: Never Used Use of substances other than those prescribed or required for medical reasons: No Advance Directives: No Advance Directives Information Provided: No service: No Current occupational status: unemployed Physical Exam Vital Signs: Vital Signs: Last Vital Signs Temp 97.9 F 05/25/22 22:21 Pulse 74 05/25/22 22:21 Resp 16 05/25/22 22:21 BP 185/77 H 05/25/22 22:21 Pulse Ox 98 05/25/22 22:21 O2 Del Method 05/25/22 22:21 BMI result Body Mass Index 29.2 VITAL SIGNS: Reviewed. GENERAL: Well developed, well nourished, in no acute distress. HEAD: Normocephalic/atraumatic EYES: PERRLA, EOMI EARS: Ext canals without abnormality OROPHARYNX: no oral lesions noted, posterior pharynx clear LUNGS: Normal breath sounds. No adventitious sounds or accessory muscle use. SpO2<98> CARDIOVASCULAR: Regular rate and rhythm without noted murmurs, no JVD or lower extremity edema. ABDOMEN: Soft, pain on palpation is suprapubic without rebound, non-distended with bowel sounds, no CVA tenderness MUSCULOSKELETAL: No tenderness, deformities, or effusions noted on gross inspection. EXTREMITIES: No cyanosis, clubbing or edema. SKIN: Inspection of the skin reveals no rashes NEUROLOGIC: Alert and oriented x 4. Strength and sensation to light touch were grossly intact x 4. Course Course Course Narrative: 77-year-old female with history and clinical presentation after review of all investigations consistent with cystitis. Patient received pyridium, initial antibiotics, as well as Tylenol. She is otherwise discharged home in stable condition. MDM - Female Genitourinary Lab Data Result diagrams: 05/25/22 15:53 05/25/22 15:53 Labs: Lab Results 05/25/22 05/25/22 05/25/22 Range/Units 15:53 15:53 16:29 WBC 6.9 (4.8-10.8) X10*3/uL RBC 4.22 (4.20-5.50) X10*6/uL Hgb 11.9 L (12.0-16.0) g/dl Hct 35.7 L (37.0-47.0) % MCV 84.6 (80.0-98.0) fL MCH 28.2 (27.0-33.0) pg MCHC 33.3 (31.0-35.0) g/dl RDW 14.7 (11.0-16.0) % Plt Count 197 (160-400) X10*3/uL MPV 11.3 (9.4-12.3) fL Immature Gran % (Auto) 0.1 (0.0-0.4) % Neut % (Auto) 52.3 (45-73) % Lymph % (Auto) 31.6 (20-40) % Milam % (Auto) 13.1 H (2-11) % Eos % (Auto) 2.5 (0-4) % Baso % (Auto) 0.4 (0-2) % Lymph # (Auto) 2.2 (1.2-4.9) X10*3/uL Milam # (Auto) 0.9 (0.1-1.2) X10*3/uL Eos # (Auto) 0.2 (0.0-0.4) X10*3/uL Baso # (Auto) 0.0 (0.0-0.2) X10*3/uL Abs Immat Gran (auto) 0.01 (0.00-0.03) X10*3/uL Absolute Neuts (auto) 3.6 (2.0-8.3) x10*3/uL Absolute Nucleated RBC 0.000 (0.0-0.012) X10*3/uL Nucleated RBC % (auto) 0.0 (0.0-0.2) /100WBC Sodium 138 (135-145) mmol/L Potassium 4.3 (3.3-5.1) mmol/L Chloride 102 (96-108) mmol/L Carbon Dioxide 24 (22-29) mmol/L Anion Gap 16 (12-20) BUN 18 H D (9-16) mg/dL Creatinine 0.83 (0.5-1.4) mg/dL Estim Creat Clear Calc 48.0 Estimated GFR > 60 Random Glucose 129 H (60-115) mg/dL Calcium 9.0 D (8.4-10.2) mg/dL Urine Color Yellow Urine Appearance Cloudy Urine pH 6.0 (5.0-9.0) Ur Specific Pyatt 1.010 (1.005-1.025) Urine Protein Negative (Neg-Trace) mg/dL Urine Glucose (UA) Negative (Negative) mg/dL Urine Ketones Negative (Negative) mg/dL Urine Blood Negative (Negative) Urine Nitrite Negative (Negative) Ur Leukocyte Esterase Trace H (Negative) Urine RBC 0-2 (0-2) /HPF Urine WBC 6-10 H (0-5) /HPF Ur Squamous Epith Cells 3-5 (0-2) /HPF Urine Bacteria None Seen (None Seen) Hyaline Casts 0-2 (0-2) /LPF Discharge Plan Discharge Clinical Impression: Cystitis Patient Disposition: Home, Self-Care Instructions: Urinary Tract Infection in Older Adults (ED) Additional Instructions: 1. Reanudar todos los medicamentos caseros seg?n lo prescrito. 2. Complete todo el ciclo de antibi?ticos seg?n lo indicado. 3. Elle un seguimiento con johnson proveedor de atenci?n primaria y discuta rosalee remisi?n para izabella a un especialista en urolog?a para evaluar m?s a fondo las posibles razones de las UTI recurrentes. Regrese a la calvin de emergencias si los s?ntomas empeoran. Prescriptions: New cefdinir 300 mg capsule 300 mg PO Q12H 5 Days Qty: 10 0RF phenazopyridine [Pyridium] 100 mg tablet 100 mg PO TID PRN (Reason: pain) Qty: 6 0RF No Action levothyroxine 50 mcg tablet 1 tab PO SUTUTHSA Trulicity 0.75 mg/0.5 mL pen injector 0.75 mg subcut WE calcium carbonate 500 mg calcium (1,250 mg) Tablet 500 mg PO DAILY irbesartan 75 mg tablet 75 mg PO DAILY glipizide 5 mg tablet 5 mg PO DAILY atorvastatin 40 mg tablet 40 mg PO BEDTIME levothyroxine 75 mcg tablet 75 mcg PO MOWEFR pantoprazole 40 mg tablet,delayed release (DR/EC) 40 mg PO DAILY aspirin 81 mg tablet,delayed release (DR/EC) 81 mg PO DAILY pregabalin 75 mg capsule 75 mg PO BID tramadol 50 mg tablet 50 mg PO BID PRN (Reason: Pain) zolpidem 5 mg tablet 5 mg PO BEDTIME PRN (Reason: Sleep) sertraline 25 mg tablet 25 mg PO DAILY@1400 Print Language: Portuguese
[2022-05-25] MEDS: Acetaminophen 325 MG TABLET 975 MG PO (22:34)
[2022-05-25] MEDS: Phenazopyridine HCL 100 MG TABLET PO (22:35)
[2022-05-25] MEDS: levoFLOXacin 750 MG TABLET PO (22:35)
== END 2022-05-25 22:49 | disposition home or self-care (01) ==
PROVIDERS: Emergency Provider Student in an Organized Health Care Education/Training Program; PCP Family Medicine
DX: N30.90 Cystitis, unspecified without hematuria (principal); B96.20 Unspecified Escherichia coli [E. coli] as the cause of diseases classified elsewhere; E11.9 Type 2 diabetes mellitus without complications; I10 Essential (primary) hypertension; Z79.02 Long term (current) use of antithrombotics/antiplatelets; Z79.82 Long term (current) use of aspirin; Z79.899 Other long term (current) drug therapy
CPT/HCPCS: 36415; 80048; 81001; 85025; 87086; 87088; 87186; 99283; 99284

== ENCOUNTER 2022-07-18 19:46 | Emergency (ER) | payer MEDICARE, SELFPAY ==
[2022-07-18 20:14] VITALS: BP 180/90; BP 200/62; PULSE 84; PULSE 98; RESP 17; TEMP 36.9; O2SAT 96; O2SAT 97; BMI 29.2
--- NOTE | 2022-07-18 20:23 | ED_ITS ---
HPI - Female Genitourinary General Chief complaint: Urogenital-Female Stated complaint: LOW ABD PAIN PER EMS Time Seen by Provider: 07/18/22 20:21 Source: patient, EMS and drug counselor Mode of arrival: EMS Limitations: language barrier History of Present Illness HPI Narrative: Patient is a 77 year old assigned female at with a history of recurrent UTI presenting to the emergency department today with mid abdominal pain and burning when she urinates. Patient states that she finished her most recent dose of antibiotics for a UTI 1 week ago. Patient denies any dizziness, lightheadedness, nausea, vomiting, fever, chills, blurry vision, double vision, loss of vision, chest pain, difficulty breathing, shortness of breath, back pain, night sweats, increased urinary frequency, increased urinary urgency, blood in her urine or stool, syncope or a near syncopal episode, recent trauma or falls, bowel incontinence, bladder incontinence, bowel retention, bladder retention, or any other complaints at this time. MD elicited complaint: dysuria and UTI Severity scale (1-10): 1 Vaginal discharge: none Vaginal bleeding: none Related Data Home Medications Medication Instructions Recorded Confirmed pregabalin 75 mg capsule 75 mg PO BID 06/20/20 04/09/22 tramadol 50 mg tablet 50 mg PO BID PRN Pain 06/20/20 04/09/22 zolpidem 5 mg tablet 5 mg PO BEDTIME PRN Sleep 06/20/20 04/09/22 sertraline 25 mg tablet 25 mg PO DAILY@1400 12/19/20 04/09/22 aspirin 81 mg tablet,delayed 81 mg PO DAILY 06/19/21 04/09/22 release atorvastatin 40 mg tablet 40 mg PO BEDTIME 06/19/21 04/09/22 glipizide 5 mg tablet 5 mg PO DAILY 06/19/21 04/09/22 levothyroxine 75 mcg tablet 75 mcg PO MOWEFR 06/19/21 04/09/22 pantoprazole 40 mg tablet,delayed 40 mg PO DAILY 06/19/21 04/09/22 release calcium carbonate 500 mg calcium 500 mg PO DAILY 12/24/21 04/09/22 (1,250 mg) tablet dulaglutide 0.75 mg/0.5 mL 0.75 mg subcut WE 12/24/21 04/09/22 subcutaneous pen injector ([facility]) levothyroxine 50 mcg tablet 1 tab PO SUTUTHSA 12/24/21 04/09/22 irbesartan 75 mg tablet 75 mg PO DAILY 04/09/22 04/09/22 Previous Rx's Medication Instructions Recorded cefdinir 300 mg capsule 300 mg PO Q12H 5 days #10 caps 05/25/22 phenazopyridine 100 mg tablet 100 mg PO TID PRN pain 6 doses #6 05/25/22 (Pyridium) tabs phenazopyridine 200 mg tablet 200 mg PO TID 3 days #9 tabs 07/03/22 (Pyridium) sulfamethoxazole 800 1 tab PO BID 5 days #10 tabs 07/03/22 mg-trimethoprim 160 mg tablet (Bactrim DS) cephalexin 500 mg capsule 500 mg PO Q6H 7 days #28 caps 07/18/22 Allergies Allergy/AdvReac Type Severity Reaction Status Date / Time aspirin [Aspirin] AdvReac Mild STOMACHE Verified 07/03/22 15:12 UPSET esomeprazole [From NEXIUM] AdvReac Unknown BURNING Verified 07/03/22 15:12 SENSATION Review of Systems Constitutional: Constitutional: Reports no additional constitutional complaints, Denies chills, Denies fever(s) and Denies night sweats Eyes: Eyes: Reports no additional eye complaints, Denies blurry vision, Denies change in vision, Denies diplopia, Denies eye discharge, Denies loss of vision and Denies eye pain ENT: Denies dizziness Cardiovascular: Cardiovascular: Reports no additional cardiovascular complaints, Denies chest pain, Denies lightheadedness, Denies Loss of Consciousness and Denies dyspnea Respiratory: Respiratory: Reports no additional respiratory complaints and Denies dyspnea Gastrointestinal: Gastrointestinal: Reports no additional gastrointestinal complaints, Reports abdominal pain, Denies melena, Denies hematochezia, Denies change in bowel habits and Denies change in stool character Genitourinary: Genitourinary: Denies hematuria, Denies urinary frequency, Reports dysuria, Denies urinary incontinence, Denies urinary hesitancy and Denies urinary urgency Musculoskeletal: Musculoskeletal: Reports no additional musculoskeletal complaints, Denies numbness and Denies tingling Neurologic: Denies dizziness, Denies loss of vision, Denies numbness and Denies tingling Psychiatric: Psychiatric: Reports no additional psychiatric complaints Endocrine: Endocrine: Reports no additional endocrine complaints Hematologic/Lymphatic: Hematologic/Lymphatic: Reports no additional hematologic/lymphatic complaints Allergic/Immunologic: Allergic/Immunologic: Reports no additional allergic/immunologic complaints [facility] Past Medical History Attestation statement: The following information was validated with the patient. Source: old records reviewed and nursing notes reviewed Medical History Essential hypertension Heart palpitations Mitral annular calcification TASHI (obstructive sleep apnea) Surgical History History of cardioversion (~08/16/13) History of hysterectomy History of tonsillectomy Stented coronary artery Family History Family History Father Asthma Mother Cardiovascular disease Diabetes Arthritis Social History Social History Household Members: None Housing: Apartment Do you presently have visiting nurse or other home services: No (regional program manager only) Alcohol intake: never Patient Tobacco Use Status: Never used Tobacco Smoked in Last 30 Days: No e-Cigarette/Vaping Use: Never Used Use of substances other than those prescribed or required for medical reasons: No Advance Directives: No Advance Directives Information Provided: No Patient : No service: No Current occupational status: unemployed Physical Exam Vital Signs: Vital Signs: Last Vital Signs Temp 98.0 F 07/19/22 00:05 Pulse 82 07/19/22 00:05 Resp 20 07/19/22 00:05 BP 137/64 07/19/22 00:05 Pulse Ox 98 07/19/22 00:05 O2 Del Method 07/19/22 00:05 BMI result Body Mass Index 29.2 Const: General: cooperative, no acute distress, alert and awake Nutritional Appearance: well nourished Orientation/consciousness: patient oriented x3 Limitations: no limitations HEENT: Head: Yes normal to inspection and Yes atraumatic Ears: hearing grossly normal bilaterally and external ears normal General nose exam: Normal external nose present, no nasal discharge noted and no epistaxis Face and sinus: Yes normal facial exam, No abrasion and No laceration Mouth: Normal oral and palatal mucosa present, no drooling and no muffled voice Eyes: General: appearance normal, both eyes and all related structures Periorbital: periorbital findings normal Eyelids: Yes eyelids normal Conjunctivae: conjunctivae normal Pupils: Equal, round and reactive pupils present EOM: EOMs intact bilaterally Neck: Neck: Yes normal visual inspection, Yes full ROM and Yes no lymphadenopathy Chest: Chest palpation & inspection: normal inspection of the chest Resp: Effort & Inspection: normal respiratory effort and able to speak in complete sentences Auscultation: clear to auscultation bilaterally Cardio: Rate: regular rate Rhythm: regular rhythm GI: Inspection: Yes normal to inspection Palpation (GI): Soft to palpation, not firm, nontender, no guarding and not rigid Neuro: General: patient oriented x3 and moves all extremities Cranial nerves: Yes Equal, round and reactive pupils present Cognition (Neuro): normal cognition Motor exam (neuro): 5/5 motor strength present throughout Sensory Exam: Normal double simultaneous stimulation for sensation Coordination: [id number] test normal Extrem: General: Yes normal to inspection, Yes full ROM and Yes capillary refill normal Psych: Appearance: grossly normal Mental Status: mental status grossly normal Affect: normal affect Attitude: cooperative Thought process: Normal thought process present Thought content: Normal thought content present Insight: Good insight present (Psych) Medications Administered Discontinued Medications Generic Name Dose Route Start Last Admin Trade Name Freq PRN Reason Stop Dose Admin Ceftriaxone Sodium 2 gm/ 50 mls @ 100 mls/hr 07/18/22 22:52 07/19/22 00:27 Sodium Chloride IV 07/18/22 23:21 Infused ONCE ONE Infusion Morphine Sulfate 4 mg 07/18/22 22:52 07/18/22 23:57 Morphine Sulfate 4 Mg/Ml Cartridge IVPUSH 07/18/22 22:53 4 mg ONCE ONE Administration Protocol Ondansetron HCl 4 mg 07/18/22 22:52 07/18/22 23:57 Ondansetron Hcl 4 Mg/2 Ml Vial IVPUSH 07/18/22 22:53 4 mg ONCE ONE Administration Medical Decision Making Medical Decision Making MDM Narrative: Patient is a 77 year old assigned female at with a history of recurrent UTI presenting to the emergency department today with abdominal pain and painful urination. Patient's physical exam was unremarkable. Patient's blood work was unremarkable. Patient's urine showed an acute UTI. I explained my physical exam findings as well as all test results to the patient. I answered all questions asked by the patient. I stressed the importance of the patient taking her medication as prescribed. I stressed the importance of the patient following up with her primary care provider and her urologist this upcoming Wednesday as scheduled. I stressed the importance of the patient returning to the emergency department immediately if her symptoms were to worsen or if she were to develop any dizziness, shortness of breath, difficulty breathing, chest pain, blurry vision, loss of vision, nausea, vomiting, abdominal pain, fever, chills, back pain, or any other complaints. Patient verbalized agreement and understanding with this treatment plan and discharge. Differential Diagnosis Differential Diagnoses: The differential diagnosis associated with the presentation includes UTI Lab Data MDM Lab Attestation statement: I reviewed the patient's lab results. Result Diagrams: 07/18/22 20:33 07/18/22 20:33 Labs: Lab Results 07/18/22 07/18/22 07/18/22 Range/Units 20:32 20:33 20:33 WBC 8.9 (4.8-10.8) X10*3/uL RBC 4.45 (4.20-5.50) X10*6/uL Hgb 12.1 (12.0-16.0) g/dl Hct 36.8 L (37.0-47.0) % MCV 82.7 (80.0-98.0) fL MCH 27.2 (27.0-33.0) pg MCHC 32.9 (31.0-35.0) g/dl RDW 14.3 (11.0-16.0) % Plt Count 231 (160-400) X10*3/uL MPV 10.9 (9.4-12.3) fL Immature Gran % (Auto) 0.2 (0.0-0.4) % Neut % (Auto) 67.8 (45-73) % Lymph % (Auto) 22.7 (20-40) % Hood % (Auto) 7.9 (2-11) % Eos % (Auto) 1.1 (0-4) % Baso % (Auto) 0.3 (0-2) % Lymph # (Auto) 2.0 (1.2-4.9) X10*3/uL Hood # (Auto) 0.7 (0.1-1.2) X10*3/uL Eos # (Auto) 0.1 (0.0-0.4) X10*3/uL Baso # (Auto) 0.0 (0.0-0.2) X10*3/uL Abs Immat Gran (auto) 0.02 (0.00-0.03) X10*3/uL Absolute Neuts (auto) 6.0 (2.0-8.3) x10*3/uL Absolute Nucleated RBC 0.000 (0.0-0.012) X10*3/uL Nucleated RBC % (auto) 0.0 (0.0-0.2) /100WBC Sodium 135 (135-145) mmol/L Potassium 4.3 (3.3-5.1) mmol/L Chloride 100 (96-108) mmol/L Carbon Dioxide 28 (22-29) mmol/L Anion Gap 11 L (12-20) BUN 19 H (9-16) mg/dL Creatinine 0.89 (0.5-1.4) mg/dL Estim Creat Clear Calc 44.8 Estimated GFR > 60 Random Glucose 184 H (60-115) mg/dL Lactic Acid (0.5-2.0) mmol/L Calcium 9.3 (8.4-10.2) mg/dL Magnesium 1.7 (1.6-2.6) mg/dL Total Bilirubin 0.3 (0.0-1.0) mg/dL AST 22 (5-31) U/L ALT 24 (0-31) U/L Alkaline Phosphatase 60 (39-117) U/L Total Protein 6.9 (6.5-8.0) g/dL Albumin 3.9 (3.5-5.0) g/dL Urine Color Yellow Urine Appearance Cloudy Urine pH 7.0 (5.0-9.0) Ur Specific [place] <= 1.005 (1.005-1.025) Urine Protein Negative (Neg-Trace) mg/dL Urine Glucose (UA) Negative (Negative) mg/dL Urine Ketones Negative (Negative) mg/dL Urine Blood Small (1+) H (Negative) Urine Nitrite Negative (Negative) Ur Leukocyte Esterase Large (3+) H (Negative) Urine RBC 0-2 (0-2) /HPF Urine WBC >50 H (0-5) /HPF Ur Squamous Epith Cells 0-2 (0-2) /HPF Urine Bacteria None Seen (None Seen) Hyaline Casts 0-2 (0-2) /LPF Influenza Type A (PCR) (Negative) Influenza Type B (PCR) (Negative) RSV RNA Qual (PCR) (Negative) SARS-CoV-2 RNA (RT-PCR) (Negative) 07/18/22 07/18/22 Range/Units 20:33 20:37 WBC (4.8-10.8) X10*3/uL RBC (4.20-5.50) X10*6/uL Hgb (12.0-16.0) g/dl Hct (37.0-47.0) % MCV (80.0-98.0) fL MCH (27.0-33.0) pg MCHC (31.0-35.0) g/dl RDW (11.0-16.0) % Plt Count (160-400) X10*3/uL MPV (9.4-12.3) fL Immature Gran % (Auto) (0.0-0.4) % Neut % (Auto) (45-73) % Lymph % (Auto) (20-40) % Hood % (Auto) (2-11) % Eos % (Auto) (0-4) % Baso % (Auto) (0-2) % Lymph # (Auto) (1.2-4.9) X10*3/uL Hood # (Auto) (0.1-1.2) X10*3/uL Eos # (Auto) (0.0-0.4) X10*3/uL Baso # (Auto) (0.0-0.2) X10*3/uL Abs Immat Gran (auto) (0.00-0.03) X10*3/uL Absolute Neuts (auto) (2.0-8.3) x10*3/uL Absolute Nucleated RBC (0.0-0.012) X10*3/uL Nucleated RBC % (auto) (0.0-0.2) /100WBC Sodium (135-145) mmol/L Potassium (3.3-5.1) mmol/L Chloride (96-108) mmol/L Carbon Dioxide (22-29) mmol/L Anion Gap (12-20) BUN (9-16) mg/dL Creatinine (0.5-1.4) mg/dL Estim Creat Clear Calc Estimated GFR Random Glucose (60-115) mg/dL Lactic Acid 1.8 (0.5-2.0) mmol/L Calcium (8.4-10.2) mg/dL Magnesium (1.6-2.6) mg/dL Total Bilirubin (0.0-1.0) mg/dL AST (5-31) U/L ALT (0-31) U/L Alkaline Phosphatase (39-117) U/L Total Protein (6.5-8.0) g/dL Albumin (3.5-5.0) g/dL Urine Color Urine Appearance Urine pH (5.0-9.0) Ur Specific [place] (1.005-1.025) Urine Protein (Neg-Trace) mg/dL Urine Glucose (UA) (Negative) mg/dL Urine Ketones (Negative) mg/dL Urine Blood (Negative) Urine Nitrite (Negative) Ur Leukocyte Esterase (Negative) Urine RBC (0-2) /HPF Urine WBC (0-5) /HPF Ur Squamous Epith Cells (0-2) /HPF Urine Bacteria (None Seen) Hyaline Casts (0-2) /LPF Influenza Type A (PCR) NEGATIVE (Negative) Influenza Type B (PCR) NEGATIVE (Negative) RSV RNA Qual (PCR) NEGATIVE (Negative) SARS-CoV-2 RNA (RT-PCR) NEGATIVE (Negative) Discharge Plan Discharge Clinical Impression: Urinary tract infection Patient Disposition: Home, Self-Care Instructions: Urinary Tract Infection in Older Adults (ED) Additional Instructions: Follow up with your primary care provider and urologist. Return to the emergency department immediately if your symptoms worsen or if you develop any dizziness, shortness of breath, difficulty breathing, chest pain, blurry vision, loss of vision, nausea, vomiting, abdominal pain, fever, chills, back pain, or any other complaints. Elle un seguimiento con johnson proveedor de atenci?n primaria y ur?logo. Regrese al departamento de emergencias de inmediato si yuri s?ntomas empeoran o si presenta mareos, falta de aire, dificultad para respirar, dolor de pecho, visi?n borrosa, p?rdida de la visi?n, n?useas, v?mitos, dolor abdominal, fiebre, escalofr?os, dolor de espalda o cualquier otras quejas. Prescriptions: New cephalexin 500 mg capsule 500 mg PO Q6H 7 Days Qty: 28 0RF No Action levothyroxine 50 mcg tablet 1 tab PO SUTUTHSA Trulicity 0.75 mg/0.5 mL pen injector 0.75 mg subcut WE calcium carbonate 500 mg calcium (1,250 mg) Tablet 500 mg PO DAILY irbesartan 75 mg tablet 75 mg PO DAILY cefdinir 300 mg capsule 300 mg PO Q12H 5 Days Qty: 10 0RF phenazopyridine [Pyridium] 100 mg tablet 100 mg PO TID PRN (Reason: pain) Qty: 6 0RF sulfamethoxazole-trimethoprim [Bactrim DS] 800-160 mg tablet 1 tab PO BID 5 Days Qty: 10 0RF phenazopyridine [Pyridium] 200 mg tablet 200 mg PO TID 3 Days Qty: 9 0RF glipizide 5 mg tablet 5 mg PO DAILY atorvastatin 40 mg tablet 40 mg PO BEDTIME levothyroxine 75 mcg tablet 75 mcg PO MOWEFR pantoprazole 40 mg tablet,delayed release (DR/EC) 40 mg PO DAILY aspirin 81 mg tablet,delayed release (DR/EC) 81 mg PO DAILY pregabalin 75 mg capsule 75 mg PO BID tramadol 50 mg tablet 50 mg PO BID PRN (Reason: Pain) zolpidem 5 mg tablet 5 mg PO BEDTIME PRN (Reason: Sleep) sertraline 25 mg tablet 25 mg PO DAILY@1400 Interventions: ED Discharge Assessment Last Done: 07/19/22 00:35 Discharge Date/Time: 07/19/22 00:40 Print Language: Polish
[2022-07-18 20:38] VITALS: BP 174/65; PULSE 78; RESP 16; TEMP 37; O2SAT 96
[2022-07-18 20:42] LABS: MANUAL DIFF FLAG NO
--- NOTE | 2022-07-18 20:43 | PC.NURSE ---
Pt's BP elevated, afribile no AMS, a/o x4, labs has been drawn, and IV on her RAC inserted a 20g. Urine specimen has been collected, pt in bed, call perales within reach.
[2022-07-18 20:47] LABS: Basophils Percent Auto 0.3 % (0-2); Eosinophils Absolute Auto 0.1 X10*3/uL (0.0-0.4); Eosinophils Percent Auto 1.1 % (0-4); Hematocrit 36.8 % (37.0-47.0); Hemoglobin 12.1 g/dl (12.0-16.0); Imm Gran Abs Auto 0.02 X10*3/uL (0.00-0.03); Imm Gran Pct Auto 0.2 % (0.0-0.4); Lymphocytes Percent Auto 22.7 % (20-40); Mean Corpuscular HGB Conc 32.9 g/dl (31.0-35.0); Mean Corpuscular Hemoglobin 27.2 pg (27.0-33.0); Mean Corpuscular Volume 82.7 fL (80.0-98.0); Mean Platelet Volume 10.9 fL (9.4-12.3); Monocytes Absolute Auto 0.7 X10*3/uL (0.1-1.2); Monocytes Percent Auto 7.9 % (2-11); Neutrophils Percent Auto 67.8 % (45-73); Platelet Count 231 X10*3/uL (160-400); Red Blood Count 4.45 X10*6/uL (4.20-5.50); Red Cell Distribution Width 14.3 % (11.0-16.0); White Blood Count 8.9 X10*3/uL (4.8-10.8)
[2022-07-18 20:49] LABS: Appearance Urine Cloudy; Color Urine Yellow; Glucose Urine UA Negative (Negative); Leukocyte Esterase Urine Large (3+) (Negative); Nitrite Urine Negative (Negative); Specific Gravity - Urine <= 1.005 (1.005-1.025); UMIC TRIGGER UACC YES; Urine Blood Small (1+) (Negative); Urine Ketones Negative (Negative); Urine Protein Negative (Neg-Trace)
[2022-07-18 20:59] LABS: Lactic Acid 1.8 mmol/L (0.5-2.0)
[2022-07-18 21:02] LABS: Alanine Aminotransferase 24 U/L (0-31); Albumin Level 3.9 g/dL (3.5-5.0); Alkaline Phosphatase 60 U/L (39-117); Anion Gap 11 (12-20); Aspartate Amino Transferase 22 U/L (5-31); Bilirubin Total 0.3 mg/dL (0.0-1.0); Blood Urea Nitrogen 19 mg/dL (9-16); Calcium 9.3 mg/dL (8.4-10.2); Carbon Dioxide 28 mmol/L (22-29); Chloride 100 mmol/L (96-108); Creatinine Clr Calc Pharmacy 44.8; Estimated Glomerular Filt Rate > 60; Glucose Random 184 mg/dL (60-115); Magnesium 1.7 mg/dL (1.6-2.6); Potassium 4.3 mmol/L (3.3-5.1); Sodium 135 mmol/L (135-145); Total Protein 6.9 g/dL (6.5-8.0)
[2022-07-18 21:28] LABS: Influenza A PCR NEGATIVE (Negative); Influenza B PCR NEGATIVE (Negative); Resp Syncy Virus RNA Qual PCR NEGATIVE (Negative); SARS COV2 PCR INHOUSE NEGATIVE (Negative)
[2022-07-18 22:00] VITALS: BP 164/62; PULSE 75; RESP 16; TEMP 36.3; O2SAT 97
[2022-07-18 23:38] LABS: Bacteria Urine None Seen (None Seen); Hyaline Casts Urine 0-2 /LPF (0-2); RBC Urine 0-2 /HPF (0-2); Squamous Epithelial Cell Urine 0-2 /HPF (0-2); UACC Culture Trigger YES; WBC Urine >50 /HPF (0-5)
[2022-07-18 23:57] VITALS: RESP 18
[2022-07-18] MEDS: cefTRIAXone sodium 2 GM in 0.9 % Sodium Chloride 50 ML IV (23:57)
[2022-07-18] MEDS: ondansetron HCL 4 MG/2 ML VIAL IVPUSH (23:57)
[2022-07-18] MEDS: Morphine Sulfate 4 MG/ML CARTRIDGE IVPUSH (23:57)
[2022-07-19 00:05] VITALS: BP 137/64; PULSE 82; RESP 20; TEMP 36.7; O2SAT 98
== END 2022-07-19 00:40 | disposition home or self-care (01) ==
PROVIDERS: Physician Assistant Medical; Emergency Provider Emergency Medicine
DX: N39.0 Urinary tract infection, site not specified (principal); B96.1 Klebsiella pneumoniae [K. pneumoniae] as the cause of diseases classified elsewhere; B96.89 Other specified bacterial agents as the cause of diseases classified elsewhere; I10 Essential (primary) hypertension; Z87.440 Personal history of urinary (tract) infections; Z20.828 Contact with and (suspected) exposure to other viral communicable diseases
CPT/HCPCS: 0241U; 36415; 80053; 81001; 81003; 83605; 83735; 85025; 87040; 87086; 87088; 87186; 96365; 96375; 99284; 99285; J0696; J2270; J2405

== ENCOUNTER 2022-10-12 07:29 | Day surgery (SDC) | payer MEDICARE, SELFPAY ==
[2022-10-07 11:52] VITALS: BMI 29.8
--- NOTE | 2022-10-09 09:18 | MHC.SHP ---
Pre-Procedural Eval Section A Date of Service: 10/09/22 The patient is an INPATIENT: No Changes since office visit: No Cold of Flu in the past 2 weeks, No New Medical Problems, No Changes in Medication and No Patient answered all questions The History & Physical has been completed within 30 days and I have reviewed it.: Yes Section B Chief Complaint: Age-related nuclear cataract, right eye Allergies: Allergies Allergy/AdvReac Type Severity Reaction Status Date / Time aspirin [Aspirin] AdvReac Mild STOMACHE Verified 10/07/22 11:23 UPSET esomeprazole [From NEXIUM] AdvReac Unknown BURNING Verified 10/07/22 11:23 SENSATION Plan Diagnosis/Plan: Unchanged I have reviewed the history and physical and performed a pertinent physical examination on my patient. No changes have occurred unless specified. Time Spent With Patient Time: Total time managing care of this patient today ____ minutes.
--- NOTE | 2022-10-09 10:22 | HO.ANESPROP2 ---
Documented by User: Gloria Champion NP 10/09/22 10:22 HPI - Anesthesia Eval Consult details Narrative: 77yo F for Right Cataract Extraction IOL Insertion PCP cleared No previous cataract on record [facility] Active Problems Active Problems: All Active Problems (Updated 10/07/22 @ 11:33 by Keiry Aguilar, RN) Chest pain (Acute) Near syncope (Acute) Coronary artery disease (Acute) Vertigo (Acute) Diabetes (Acute) Epigastric discomfort (Acute) Acute hyponatremia (Acute) Chest pain (Acute) Dizziness (Acute) Abdominal pain (Acute) Constipation (Acute) Urinary tract infection (Acute) Mitral annular calcification (Acute) Heart palpitations (Acute) TASHI (obstructive sleep apnea) (Acute) Essential hypertension (Acute) Past Medical History Medical History (Updated 10/07/22 @ 11:33 by Keiry Aguilar, RN) Anxiety and depression CAD (coronary artery disease) Diabetes Diabetic retinopathy Essential hypertension Female bladder prolapse GERD (gastroesophageal reflux disease) Heart palpitations History of CVA (cerebrovascular accident) Hypothyroid IBS (irritable bowel syndrome) Mitral annular calcification Neuropathy TASHI (obstructive sleep apnea) Osteoarthritis Osteoporosis Family History Family History Father Asthma Mother Cardiovascular disease Diabetes Arthritis Surgical History Surgical History History of cardioversion (~08/16/13) History of hysterectomy History of tonsillectomy Hx of colonoscopy Stented coronary artery Social History Social History Household Members: None Housing: Apartment Are you a primary home care manager to a significant other at home: No Do you presently have visiting nurse 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) Alcohol intake: never Patient Tobacco Use Status: Never used Tobacco e-Cigarette/Vaping Use: Never Used Use of substances other than those prescribed or required for medical reasons: No Are you DNR?: No Advance Directives: No Advance Directives Information Provided: Yes Advance Directives on File: No Recently lost weight without trying: No Eating poorly because of decreased appetite: No Nutrition Risks: No Nutritional Risk service: No Current occupational status: unemployed Meds Allergies Allergy/AdvReac Type Severity Reaction Status Date / Time aspirin [Aspirin] AdvReac Mild STOMACHE Verified 10/07/22 11:23 UPSET esomeprazole [From NEXIUM] AdvReac Unknown BURNING Verified 10/07/22 11:23 SENSATION Home Medications Medication Instructions Recorded Confirmed Last Taken Type pregabalin 75 mg capsule 75 mg PO BID 06/20/20 10/07/22 12/23/21 History tramadol 50 mg tablet 50 mg PO BID PRN Pain 06/20/20 10/07/22 07/21/20 History zolpidem 5 mg tablet 5 mg PO BEDTIME PRN Sleep 06/20/20 10/07/22 07/20/20 21:00 History sertraline 25 mg tablet 25 mg PO DAILY@1400 12/19/20 10/07/22 12/23/21 History aspirin 81 mg tablet,delayed 81 mg PO DAILY 06/19/21 10/07/22 12/23/21 History release atorvastatin 40 mg tablet 40 mg PO BEDTIME 06/19/21 10/07/22 12/23/21 History glipizide 5 mg tablet 5 mg PO DAILY 06/19/21 10/07/22 Unknown History levothyroxine 75 mcg tablet 75 mcg PO MOWEFR 06/19/21 10/07/22 10/12/22 History pantoprazole 40 mg tablet,delayed 40 mg PO DAILY 06/19/21 10/07/22 10/12/22 History release calcium carbonate 500 mg calcium 500 mg PO DAILY 12/24/21 10/07/22 12/23/21 History (1,250 mg) tablet dulaglutide 0.75 mg/0.5 mL 0.75 mg subcut WE 12/24/21 10/07/22 12/17/21 History subcutaneous pen injector (Trulicity) levothyroxine 50 mcg tablet 1 tab PO SUTUTHSA 12/24/21 10/07/22 12/23/21 History irbesartan 75 mg tablet 75 mg PO DAILY 04/09/22 10/07/22 10/12/22 History alpha lipoic acid 600 mg capsule 600 mg PO DAILY 10/07/22 10/07/22 Unknown History ascorbic acid (vitamin C) 500 mg 500 mg PO BID 10/07/22 10/07/22 Unknown History tablet (Vitamin C) cholecalciferol (vitamin D3) 50 50 mcg PO DAILY 10/07/22 10/07/22 Unknown History mcg (2,000 unit) capsule (Vitamin D3) estradiol 0.01% (0.1 mg/gram) vaginal 10/07/22 Unknown History vaginal cream meclizine 12.5 mg tablet 1 tab PO TID PRN dizziness 10/07/22 10/07/22 Unknown History methenamine hippurate 1 gram tablet 1 g PO BID 10/07/22 10/07/22 Unknown History Exam Exam Date and Time: October 09, 2022 1022 Height,Weight and Vital Signs: Height 5 ft Weight 69.3 kg Assessment and Plan Assessment Anesthesia Assessment: Chart Reviewed Documented by User: Joshua Etienne MD 10/12/22 12:31 HPI - Anesthesia Eval Consult details Narrative: 77yo F for Right Cataract Extraction IOL Insertion CVA left sided residual weakness , facial asymmetry , left eye dropping , CAD s/p stent optimized as per PCP No previous cataract on record PMF Past Medical History Medical History (Updated 10/07/22 @ 11:33 by Keiry Aguilar RN) Anxiety and depression CAD (coronary artery disease) Diabetes Diabetic retinopathy Essential hypertension Female bladder prolapse GERD (gastroesophageal reflux disease) Heart palpitations History of CVA (cerebrovascular accident) Hypothyroid IBS (irritable bowel syndrome) Mitral annular calcification Neuropathy TASHI (obstructive sleep apnea) Osteoarthritis Osteoporosis Family History Family History Father Asthma Mother Cardiovascular disease Diabetes Arthritis Family history of problems with anesthesia: Yes (Ponv sister ) Surgical History Surgical History History of cardioversion (~08/16/13) History of hysterectomy History of tonsillectomy Hx of colonoscopy Stented coronary artery History of Problems with Anesthesia: No Social History Social History Household Members: None Housing: Apartment Are you a primary home care manager to a significant other at home: No Do you presently have 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 nurse 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) Alcohol intake: never Patient Tobacco Use Status: Never used Tobacco e-Cigarette/Vaping Use: Never Used Use of substances other than those prescribed or required for medical reasons: No Are you DNR?: No Advance Directives: No Advance Directives Information Provided: Yes Advance Directives on File: No Recently lost weight without trying: No Eating poorly because of decreased appetite: No Nutrition Risks: No Nutritional Risk service: No Current occupational status: unemployed Meds Allergies Allergy/AdvReac Type Severity Reaction Status Date / Time aspirin [Aspirin] AdvReac Mild STOMACHE Verified 10/07/22 11:23 UPSET esomeprazole [From NEXIUM] AdvReac Unknown BURNING Verified 10/07/22 11:23 SENSATION Home Medications Medication Instructions Recorded Confirmed Last Taken Type pregabalin 75 mg capsule 75 mg PO BID 06/20/20 10/07/22 12/23/21 History tramadol 50 mg tablet 50 mg PO BID PRN Pain 06/20/20 10/07/22 07/21/20 History zolpidem 5 mg tablet 5 mg PO BEDTIME PRN Sleep 06/20/20 10/07/22 07/20/20 21:00 History sertraline 25 mg tablet 25 mg PO DAILY@1400 12/19/20 10/07/22 12/23/21 History aspirin 81 mg tablet,delayed 81 mg PO DAILY 06/19/21 10/07/22 12/23/21 History release atorvastatin 40 mg tablet 40 mg PO BEDTIME 06/19/21 10/07/22 12/23/21 History glipizide 5 mg tablet 5 mg PO DAILY 06/19/21 10/07/22 Unknown History levothyroxine 75 mcg tablet 75 mcg PO MOWEFR 06/19/21 10/07/22 10/12/22 History pantoprazole 40 mg tablet,delayed 40 mg PO DAILY 06/19/21 10/07/22 10/12/22 History release calcium carbonate 500 mg calcium 500 mg PO DAILY 12/24/21 10/07/22 12/23/21 History (1,250 mg) tablet dulaglutide 0.75 mg/0.5 mL 0.75 mg subcut WE 12/24/21 10/07/22 12/17/21 History subcutaneous pen injector (Trulicity) levothyroxine 50 mcg tablet 1 tab PO SUTUTHSA 12/24/21 10/07/22 12/23/21 History irbesartan 75 mg tablet 75 mg PO DAILY 04/09/22 10/07/22 10/12/22 History alpha lipoic acid 600 mg capsule 600 mg PO DAILY 10/07/22 10/07/22 Unknown History ascorbic acid (vitamin C) 500 mg 500 mg PO BID 10/07/22 10/07/22 Unknown History tablet (Vitamin C) cholecalciferol (vitamin D3) 50 50 mcg PO DAILY 10/07/22 10/07/22 Unknown History mcg (2,000 unit) capsule (Vitamin D3) estradiol 0.01% (0.1 mg/gram) vaginal 10/07/22 Unknown History vaginal cream meclizine 12.5 mg tablet 1 tab PO TID PRN dizziness 10/07/22 10/07/22 Unknown History methenamine hippurate 1 gram tablet 1 g PO BID 10/07/22 10/07/22 Unknown History Exam Narrative Narrative: EKG on 12/23/21 Normal sinus rhythm Nonspecific T wave abnormality Abnormal ECG When compared with ECG of 21-JUL-2020 21:11, Premature supraventricular complexes are no longer Present Airway Mallampati Class: IV TM Dist: >3cm Neck ROM: Full Loose/Missing/Broken Teeth: Yes Heart: S1,S2 Lungs: b/l breath sounds Assessment and Plan Assessment Anesthesia Assessment: Anesthesia Plan Discussed Final Anesthetic Review Family History of Problems with Anesthesia: Yes (Ponv sister ) History of Problems with Anesthesia: No NPO: Yes ASA Class: III Final Preanesthetic Review: Meds/Allgs Chart Reviewed, Consent Obtained/Reviewed and Anes Risks/Benef Reviewed Patient Risk: Intermediate Procedure Risk: Intermediate Anesthetic Plan Anesthetic Plan: MAC: Disposition: Standard PACU
[2022-10-12 08:39] VITALS: BP 188/64; PULSE 79; RESP 16; TEMP 35.8; O2SAT 97
[2022-10-12] MEDS: Tetracaine HCl/PF 0.5% Oph Sol 4 ML DROPS 1 DROP EYE-RIGHT (08:45)
[2022-10-12] MEDS: Cyclopentolate 1 % Ophth Sol 2 ML DRPBTL 1 DROP EYE-RIGHT ×3 (08:46→08:57)
[2022-10-12] MEDS: Tropicamide 1 % Ophth Sol 3 ML BTL 1 DROP EYE-RIGHT ×3 (08:47→08:58)
[2022-10-12] MEDS: Ketorolac Tromethamine 0.5% Op 5 ML DROPS 1 DROP EYE-RIGHT ×3 (08:48→08:59)
[2022-10-12] MEDS: Phenylephrine HCL 2.5% Oph SoL 2 ML BOTTLE 1 DROP EYE-RIGHT ×3 (08:50→09:01)
[2022-10-12] MEDS: Lactated Ringers 500 ML 50 ML IV (08:54)
[2022-10-12 09:02] LABS: Glucose, Whole Blood 97 mg/dL (60-115)
--- NOTE | 2022-10-12 10:04 | HO.PNOPHT ---
Ophthalmology Procedure Procedure Date of Service: 10/12/22 Ophthalmology Viscoelastic: Healluis Duet Dual Pack Pro Ophthalmology Lenses: TECNIS [id number] (21.5) Procedure Notes: PREOPERATIVE DIAGNOSIS: Decreased visual acuity right eye secondary to cataract POSTOPERATIVE DIAGNOSIS: Same PROCEDURE: Right cataract extraction with intraocular lens insertion SURGEON: Selvin Ramos M.D. ANESTHESIA: Topical/MAC ESTIMATED BLOOD LOSS: None COMPLICATIONS: None After obtaining informed consent, the patient was brought to the operating room suite and placed in the supine position. After adequate sedation per anesthesia, topical drops of Tetracaine were given to the right eye. The eye was then prepped and draped in the usual sterile fashion. The operating room microscope was then positioned over the operative eye and a lid speculum placed. A paracentesis was created. Viscoelastic was then instilled into the anterior chamber. A three plane incision was then created temporally, utilizing a 2.85 mm keratome. Capsulotomy forceps were then utilized to create a circular tear capsulotomy. Hydrodissection and hydrodelineation were carried out until adequate mobilization of the nucleus occurred. Phacoemulsification was then utilized to remove the dense central nucleus followed by removal of the cortical material utilizing the automated aspiration irrigation unit. Viscoelastic was instilled into the posterior capsular bag followed by placement of a posterior chamber intraocular lens without difficulty. The residual Viscoelastic was then removed utilizing the automated IA machine. The wound was checked and found to be watertight. The patient tolerated the procedure well and the lid speculum was removed. Intracameral injection of Vigamox 0.1 mL followed by a subtenon injection of Kenalog-40 0.2 mL were administered. The patient will be seen in the a.m.
[2022-10-12 10:35] VITALS: BP 156/64; PULSE 78; RESP 16; TEMP 36.1; O2SAT 96
== END 2022-10-12 10:41 | disposition home or self-care (01) ==
PROVIDERS: PCP Family Medicine; Visit Provider Ophthalmology
PROC: (CPT 66985; principal; 2022-10-12 10:10)
DX: H25.11 Age-related nuclear cataract, right eye (principal); H54.7 Unspecified visual loss; Z83.511 Family history of glaucoma; I10 Essential (primary) hypertension; E03.9 Hypothyroidism, unspecified; E11.9 Type 2 diabetes mellitus without complications; E78.00 Pure hypercholesterolemia, unspecified; F41.1 Generalized anxiety disorder; Z79.82 Long term (current) use of aspirin; Z79.85 Long-term (current) use of injectable non-insulin antidiabetic drugs; Z79.899 Other long term (current) drug therapy; Z88.8 Allergy status to other drugs, medicaments and biological substances
CPT/HCPCS: 66984; 82947; J2250; J3010; J3301; V2632

== ENCOUNTER 2022-10-26 08:19 | Day surgery (SDC) | payer OTHER, SELFPAY ==
[2022-10-07 11:58] VITALS: BMI 29.8
--- NOTE | 2022-10-22 14:51 | MHC.SHP ---
Pre-Procedural Eval Section A Date of Service: 10/22/22 The patient is an INPATIENT: No Changes since office visit: No Cold of Flu in the past 2 weeks, No New Medical Problems, No Changes in Medication and No Patient answered all questions The History & Physical has been completed within 30 days and I have reviewed it.: Yes Section B Chief Complaint: Age-related nuclear cataract, left eye Allergies: Allergies Allergy/AdvReac Type Severity Reaction Status Date / Time aspirin [Aspirin] AdvReac Mild STOMACHE Verified 10/07/22 11:23 UPSET esomeprazole [From NEXIUM] AdvReac Unknown BURNING Verified 10/07/22 11:23 SENSATION Plan Diagnosis/Plan: Unchanged I have reviewed the history and physical and performed a pertinent physical examination on my patient. No changes have occurred unless specified. Time Spent With Patient Time: Total time managing care of this patient today ____ minutes.
[2022-10-26 09:04] VITALS: BMI 29.2
[2022-10-26 09:18] VITALS: BP 189/74; PULSE 75; RESP 18; TEMP 36.8; O2SAT 98
[2022-10-26] MEDS: Phenylephrine HCL 2.5% Oph SoL 2 ML BOTTLE 1 DROP EYE-LEFT ×3 (09:21→09:29)
[2022-10-26] MEDS: Tetracaine HCl/PF 0.5% Oph Sol 4 ML DROPS 1 DROP EYE-LEFT (09:21)
[2022-10-26] MEDS: Ketorolac Tromethamine 0.5% Op 5 ML DROPS 1 DROP EYE-LEFT ×3 (09:21→09:29)
[2022-10-26] MEDS: Cyclopentolate 1 % Ophth Sol 2 ML DRPBTL 1 DROP EYE-LEFT ×3 (09:22→09:30)
[2022-10-26] MEDS: Tropicamide 1 % Ophth Sol 3 ML BTL 1 DROP EYE-LEFT ×3 (09:22→09:30)
--- NOTE | 2022-10-26 09:23 | P.CONAN_ITS ---
[facility] Active Problems Active Problems: All Active Problems (Updated 10/07/22 @ 11:33 by Keiry Aguilar, RN) Chest pain (Acute) Near syncope (Acute) Coronary artery disease (Acute) Vertigo (Acute) Diabetes (Acute) Epigastric discomfort (Acute) Acute hyponatremia (Acute) Chest pain (Acute) Dizziness (Acute) Abdominal pain (Acute) Constipation (Acute) Urinary tract infection (Acute) Mitral annular calcification (Acute) Heart palpitations (Acute) TASHI (obstructive sleep apnea) (Acute) Essential hypertension (Acute) Past Medical History Medical History (Updated 10/07/22 @ 11:33 by Keiry Aguilar, RN) Anxiety and depression CAD (coronary artery disease) Diabetes Diabetic retinopathy Essential hypertension Female bladder prolapse GERD (gastroesophageal reflux disease) Heart palpitations History of CVA (cerebrovascular accident) Hypothyroid IBS (irritable bowel syndrome) Mitral annular calcification Neuropathy TASHI (obstructive sleep apnea) Osteoarthritis Osteoporosis Family History Family History Father Asthma Mother Cardiovascular disease Diabetes Arthritis Family history of problems with anesthesia: Yes (Ponv sister ) Surgical History Surgical History History of cardioversion (~08/16/13) History of hysterectomy History of tonsillectomy Hx of colonoscopy Stented coronary artery History of Problems with Anesthesia: No Social History Social History Household Members: None Housing: Apartment Are you a primary urgent care physician assistant to a significant other at home: No Do you presently 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) Alcohol intake: never Patient Tobacco Use Status: Never used Tobacco e-Cigarette/Vaping Use: Never Used Use of substances other than those prescribed or required for medical reasons: No Are you DNR?: No Advance Directives: No Advance Directives Information Provided: Yes Advance Directives on File: No Patient : No service: No Current occupational status: unemployed Meds Allergies Allergy/AdvReac Type Severity Reaction Status Date / Time aspirin [Aspirin] AdvReac Mild STOMACHE Verified 10/07/22 11:23 UPSET esomeprazole [From NEXIUM] AdvReac Unknown BURNING Verified 10/07/22 11:23 SENSATION Active Medications: Current Medications Cyclopentolate HCl (Cyclopentolate 1 % Ophth Abena 2 Ml Drpbtl) 1 drop EYE-LEFT Q5M HIRNE Stop: 10/26/22 09:26 Last Admin: 10/26/22 09:22 Dose: 1 drop Lactated Ringer's (Lr) 500 mls @ 50 mls/hr IV .Q10H HIREN Stop: 10/26/22 19:14 Ketorolac Tromethamine (Ketorolac Tromethamine 0.5% Op 5 Ml Drops) 1 drop EYE- LEFT Q5M HIREN Stop: 10/26/22 09:26 Last Admin: 10/26/22 09:21 Dose: 1 drop Phenylephrine HCl (Phenylephrine Hcl 2.5% Oph Abena 2 Ml Bottle) 1 drop EYE-LEFT Q5M HIREN Stop: 10/26/22 09:26 Last Admin: 10/26/22 09:21 Dose: 1 drop Povidone Iodine (Povidone Iodine 5 % Ophth Soln 30 Ml Bottle) 1 appl EYE-LEFT PREOP PRN PRN Reason: Pre-Op Surgical Implant Prophy Tropicamide (Tropicamide 1 % Ophth Abena 3 Ml Btl) 1 drop EYE-LEFT Q5M HIREN Stop: 10/26/22 09:26 Last Admin: 10/26/22 09:22 Dose: 1 drop Home Medications Medication Instructions Recorded Confirmed Last Taken Type pregabalin 75 mg capsule 75 mg PO BID 06/20/20 10/07/22 12/23/21 History tramadol 50 mg tablet 50 mg PO BID PRN Pain 06/20/20 10/07/22 07/21/20 History zolpidem 5 mg tablet 5 mg PO BEDTIME PRN Sleep 06/20/20 10/07/22 07/20/20 21:00 History sertraline 25 mg tablet 25 mg PO DAILY@1400 12/19/20 10/07/22 12/23/21 History aspirin 81 mg tablet,delayed 81 mg PO DAILY 06/19/21 10/07/22 12/23/21 History release atorvastatin 40 mg tablet 40 mg PO BEDTIME 06/19/21 10/07/22 12/23/21 History glipizide 5 mg tablet 5 mg PO DAILY 06/19/21 10/07/22 Unknown History levothyroxine 75 mcg tablet 75 mcg PO MOWEFR 06/19/21 10/07/22 10/12/22 History pantoprazole 40 mg tablet,delayed 40 mg PO DAILY 06/19/21 10/07/22 10/12/22 History release calcium carbonate 500 mg calcium 500 mg PO DAILY 12/24/21 10/07/22 12/23/21 History (1,250 mg) tablet dulaglutide 0.75 mg/0.5 mL 0.75 mg subcut WE 12/24/21 10/07/22 12/17/21 History subcutaneous pen injector (Trulicity) levothyroxine 50 mcg tablet 1 tab PO SUTUTHSA 12/24/21 10/07/22 12/23/21 History irbesartan 75 mg tablet 75 mg PO DAILY 04/09/22 10/07/22 10/12/22 History alpha lipoic acid 600 mg capsule 600 mg PO DAILY 10/07/22 10/07/22 Unknown History ascorbic acid (vitamin C) 500 mg 500 mg PO BID 10/07/22 10/07/22 Unknown History tablet (Vitamin C) cholecalciferol (vitamin D3) 50 50 mcg PO DAILY 10/07/22 10/07/22 Unknown History mcg (2,000 unit) capsule (Vitamin D3) estradiol 0.01% (0.1 mg/gram) vaginal 10/07/22 Unknown History vaginal cream meclizine 12.5 mg tablet 1 tab PO TID PRN dizziness 10/07/22 10/07/22 Unknown History methenamine hippurate 1 gram tablet 1 g PO BID 10/07/22 10/07/22 Unknown History Exam Exam Date and Time: October 26, 2022 0923 Height,Weight and Vital Signs: Height 5 ft Weight 68.039 kg Last Vital Signs Temp 98.2 F 10/26/22 09:18 Pulse 75 10/26/22 09:18 Resp 18 10/26/22 09:18 BP 189/74 H 10/26/22 09:18 Pulse Ox 98 10/26/22 09:18 O2 Del Method Room Air 10/26/22 09:18 Airway Mallampati Class: III TM Dist: >3cm Neck ROM: Full Heart: rrr Lungs: cta Assessment and Plan Assessment Anesthesia Assessment: Anesthesia Plan Discussed Final Anesthetic Review Family History of Problems with Anesthesia: Yes (Ponv sister ) History of Problems with Anesthesia: No NPO: No ASA Class: III Final Preanesthetic Review: No Changes in Pt Med Stat and Meds/Allgs Chart Reviewed Patient Risk: Intermediate Procedure Risk: Intermediate Anesthetic Plan Anesthetic Plan: MAC:
[2022-10-26 09:34] LABS: Glucose, Whole Blood 129 mg/dL (60-115)
[2022-10-26] MEDS: Lactated Ringers 500 ML 50 ML IV (09:34)
--- NOTE | 2022-10-26 09:50 | HO.PNOPHT ---
Ophthalmology Procedure Procedure Date of Service: 10/26/22 Ophthalmology Viscoelastic: Healluis Duet Dual Pack Pro Ophthalmology Lenses: TECNIS [id number] (21.5) Procedure Notes: PREOPERATIVE DIAGNOSIS: Decreased visual acuity left eye secondary to cataract POSTOPERATIVE DIAGNOSIS: Same PROCEDURE: Left cataract extraction with intraocular lens insertion SURGEON: Selvin Ramos M.D. ANESTHESIA: Topical/MAC ESTIMATED BLOOD LOSS: None COMPLICATIONS: None After obtaining informed consent, the patient was brought to the operation room suite and placed in the supine position. After adequate sedation per anesthesia, topical drops of Tetracaine were given to the left eye. The eye was then prepped and draped in the usual sterile fashion. The operating room microscope was then positioned over the operative eye and a lid speculum placed. A paracentesis was created. Viscoelastic was then instilled into the anterior chamber. A three plane incision was then created temporally, utilizing a 2.85 mm keratome. Capsulotomy forceps were then utilized to create a circular tear capsulotomy. Hydrodissection and hydrodelineation were carried out until adequate mobilization of the nucleus occurred. Phacoemulsification was then utilized to remove the dense central nucleus followed by removal of the cortical material utilizing the automated aspiration irrigation unit. Viscoat elastic was instilled into the posterior capsular bag followed by placement of a posterior chamber intraocular lens without difficulty. The residual Viscoat elastic was then removed utilizing the automated IA machine. The wound was check and found to be watertight. The patient tolerated the procedure well and the lid speculum was removed. Intracameral injection of Vigamox 0.1 mL followed by a subtenon injection of Kenalog-40 0.2 mL were administered. The patient will be seen in the a.m.
[2022-10-26 10:11] VITALS: BP 161/68; PULSE 70; RESP 13; TEMP 36.6; O2SAT 100
== END 2022-10-26 10:29 | disposition home or self-care (01) ==
PROVIDERS: PCP Family Medicine; Visit Provider Ophthalmology
PROC: (CPT 66985; principal; 2022-10-26 10:00)
DX: H25.12 Age-related nuclear cataract, left eye (principal); Z83.511 Family history of glaucoma; H52.4 Presbyopia; I10 Essential (primary) hypertension; E78.00 Pure hypercholesterolemia, unspecified; E03.9 Hypothyroidism, unspecified; F41.1 Generalized anxiety disorder; M81.0 Age-related osteoporosis without current pathological fracture; I25.10 Atherosclerotic heart disease of native coronary artery without angina pectoris; Z95.5 Presence of coronary angioplasty implant and graft; E11.9 Type 2 diabetes mellitus without complications; Z79.84 Long term (current) use of oral hypoglycemic drugs; Z79.85 Long-term (current) use of injectable non-insulin antidiabetic drugs; Z79.899 Other long term (current) drug therapy; Z79.82 Long term (current) use of aspirin; Z88.8 Allergy status to other drugs, medicaments and biological substances
CPT/HCPCS: 66984; 82947; J2250; J3010; J3301; V2632

== ENCOUNTER 2023-10-31 13:47 | Inpatient (IN) | payer OTHER, SELFPAY ==
--- NOTE | ~2023-10-31 | XR_ITS ---
EXAMINATION: PORTABLE CHEST 1 VIEW CLINICAL INFORMATION: cp. COMPARISON: 12/19/2021. TECHNIQUE: Portable frontal view of the chest was obtained. FINDINGS: The lungs are well expanded. Minimal linear scarring or atelectasis at the left lung base. No focal infiltrate, effusion, edema, or pneumothorax. Cardiac and mediastinal silhouettes are within normal limits for size. Coronary artery stent is seen with vascular calcification in aorta. No acute bony abnormality seen. XR/XR chest 1V IMPRESSION: Chronic appearing and postoperative changes but no acute process seen otherwise.
--- NOTE | 2023-10-31 09:58 | ECG_ITS ---
Test Reason : CHEST PAIN Blood Pressure : / mmHG Vent. Rate : 093 BPM Atrial Rate : 093 BPM P-R Int : 160 ms QRS Dur : 078 ms QT Int : 358 ms P-R-T Axes : 047 009 175 degrees QTc Int : 445 ms Normal sinus rhythm ST & T wave abnormality, consider inferior ischemia ST & T wave abnormality, consider anterolateral ischemia Abnormal ECG When compared with ECG of 23-DEC-2021 13:59, Inverted T waves have replaced nonspecific T wave abnormality in Anterolateral leads Referred By: Marielena Becerra Electronically Signed By:CLOTILDE GERONIMO MD
--- NOTE | 2023-10-31 09:59 | ECG_ITS ---
Test Reason : ELEVATED TROP Blood Pressure : / mmHG Vent. Rate : 089 BPM Atrial Rate : 089 BPM P-R Int : 168 ms QRS Dur : 076 ms QT Int : 370 ms P-R-T Axes : 041 013 144 degrees QTc Int : 450 ms Normal sinus rhythm Nonspecific ST and T wave abnormality Abnormal ECG When compared with ECG of 31-OCT-2023 18:05, No significant change was found Referred By: Marielena Becerra Electronically Signed By:CLOTILDE GERONIMO MD
[2023-10-31 13:56] VITALS: BP 184/103; BP 192/86; PULSE 96; PULSE 97; RESP 18; TEMP 37.2; O2SAT 97; O2SAT 98; BMI 30.2
--- NOTE | 2023-10-31 14:03 | ECG_ITS ---
Test Reason : ELEVATED TROP Blood Pressure : / mmHG Vent. Rate : 089 BPM Atrial Rate : 089 BPM P-R Int : 174 ms QRS Dur : 076 ms QT Int : 392 ms P-R-T Axes : 041 013 158 degrees QTc Int : 476 ms Normal sinus rhythm Nonspecific ST and T wave abnormality Prolonged QT Abnormal ECG When compared with ECG of 31-OCT-2023 14:03, No significant change was found Referred By: Generic ED Physician Electronically Signed By:CLOTILDE GERONIMO MD
[2023-10-31 14:36] LABS: MANUAL DIFF FLAG NO
[2023-10-31 14:38] LABS: Appearance Urine Clear; Basophils Percent Auto 0.5 % (0-2); Color Urine Yellow; Eosinophils Absolute Auto 0.1 X10*3/uL (0.0-0.4); Eosinophils Percent Auto 1.7 % (0-4); Glucose Urine UA 100 mg/dL (Negative); Hematocrit 38.8 % (37.0-47.0); Imm Gran Abs Auto 0.01 X10*3/uL (0.00-0.03); Imm Gran Pct Auto 0.2 % (0.0-0.4); Leukocyte Esterase Urine Negative (Negative); Lymphocytes Percent Auto 33.9 % (20-40); Mean Corpuscular HGB Conc 33.5 g/dl (31.0-35.0); Mean Corpuscular Volume 83.6 fL (80.0-98.0); Mean Platelet Volume 10.4 fL (9.4-12.3); Monocytes Absolute Auto 0.6 X10*3/uL (0.1-1.2); Monocytes Percent Auto 10.5 % (2-11); Neutrophils Absolute Auto 3.1 x10*3/uL (2.0-8.3); Neutrophils Percent Auto 53.2 % (45-73); Nitrite Urine Negative (Negative); PH 7.5 (5.0-9.0); Platelet Count 199 X10*3/uL (160-400); Red Blood Count 4.64 X10*6/uL (4.20-5.50); Red Cell Distribution Width 13.4 % (11.0-16.0); Specific Gravity - Urine <= 1.005 (1.005-1.025); Urine Blood Negative (Negative); Urine Ketones Negative (Negative); Urine Protein Negative (Neg-Trace); White Blood Count 5.8 X10*3/uL (4.8-10.8)
[2023-10-31 15:01] LABS: Troponin-I High Sensitivity 45.9 ng/L (<3.5-17.0)
[2023-10-31 15:04] LABS: Alanine Aminotransferase 25 U/L (0-31); Alkaline Phosphatase 54 U/L (39-117); Anion Gap 11 (12-20); Aspartate Amino Transferase 23 U/L (5-31); Bilirubin Total 0.4 mg/dL (0.0-1.0); Blood Urea Nitrogen 14 mg/dL (9-16); Calcium 9.2 mg/dL (8.4-10.2); Carbon Dioxide 27 mmol/L (22-29); Chloride 102 mmol/L (96-108); Creatinine Clr Calc Pharmacy 46.3; Estimated Glomerular Filt Rate > 60; Glucose Random 164 mg/dL (60-115); Potassium 4.1 mmol/L (3.3-5.1); Sodium 136 mmol/L (135-145); Total Protein 7.3 g/dL (6.5-8.0)
--- NOTE | 2023-10-31 15:56 | ED.CHESTPAIN ---
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 The description of the chest pain is coming and going and pressure in nature. Related Data Home Medications Medication Instructions Recorded Confirmed pregabalin 75 mg capsule 75 mg PO BID 06/20/20 10/07/22 tramadol 50 mg tablet 50 mg PO BID PRN Pain 06/20/20 10/07/22 zolpidem 5 mg tablet 5 mg PO BEDTIME PRN Sleep 06/20/20 10/07/22 sertraline 25 mg tablet 25 mg PO DAILY@1400 12/19/20 10/07/22 aspirin 81 mg tablet,delayed 81 mg PO DAILY 06/19/21 10/07/22 release atorvastatin 40 mg tablet 40 mg PO BEDTIME 06/19/21 10/07/22 glipizide 5 mg tablet 5 mg PO DAILY 06/19/21 10/07/22 levothyroxine 75 mcg tablet 75 mcg PO MOWEFR 06/19/21 10/07/22 pantoprazole 40 mg tablet,delayed 40 mg PO DAILY 06/19/21 10/07/22 release calcium carbonate 500 mg calcium 500 mg PO DAILY 12/24/21 10/07/22 (1,250 mg) tablet dulaglutide 0.75 mg/0.5 mL 0.75 mg subcut WE 12/24/21 10/07/22 subcutaneous pen injector (Trulicity) levothyroxine 50 mcg tablet 1 tab PO SUTUTHSA 12/24/21 10/07/22 irbesartan 75 mg tablet 75 mg PO DAILY 04/09/22 10/07/22 alpha lipoic acid 600 mg capsule 600 mg PO DAILY 10/07/22 10/07/22 ascorbic acid (vitamin C) 500 mg 500 mg PO BID 10/07/22 10/07/22 tablet (Vitamin C) cholecalciferol (vitamin D3) 50 50 mcg PO DAILY 03/08/23 03/08/23 mcg (2,000 unit) capsule (Vitamin D3) estradiol 0.01% (0.1 mg/gram) vaginal 10/07/22 vaginal cream meclizine 12.5 mg tablet 1 tab PO TID PRN dizziness 10/07/22 10/07/22 methenamine hippurate 1 gram tablet 1 g PO BID 10/07/22 10/07/22 Previous Rx's Medication Instructions Recorded phenazopyridine 100 mg tablet 100 mg PO TID PRN pain 6 doses #6 05/25/22 (Pyridium) tabs Allergies Allergy/AdvReac Type Severity Reaction Status Date / Time esomeprazole [From NEXIUM] AdvReac Unknown BURNING Verified 10/07/22 11:23 SENSATION Review of Systems Review of Systems: Pertinent positives and negatives as stated in HPI [facility] Past Medical History Source: nursing notes reviewed Medical History Anxiety and depression IBS (irritable bowel syndrome) Female bladder prolapse Diabetic retinopathy Osteoporosis CAD (coronary artery disease) Diabetes Osteoarthritis Neuropathy Hypothyroid GERD (gastroesophageal reflux disease) History of CVA (cerebrovascular accident) Mitral annular calcification Heart palpitations TASHI (obstructive sleep apnea) Essential hypertension Surgical History Hx of colonoscopy Stented coronary artery History of hysterectomy History of tonsillectomy History of cardioversion (~08/16/13) Family History Family History Father Asthma Mother Cardiovascular disease Diabetes Arthritis Social History Social History Household Members: None Housing: Apartment Are you a primary director of healthcare systems to a significant other at home: No 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) Alcohol intake: never Patient Tobacco Use Status: Never used Tobacco Smoked in Last 30 Days: No e-Cigarette/Vaping Use: Never Used Use of substances other than those prescribed or required for medical reasons: No Advance Directives: Yes Advance Directives Information Provided: No Advance Directives on File: No service: No Current occupational status: unemployed Physical Exam Vital Signs: Vital Signs: Last Vital Signs Temp 98.9 F 10/31/23 13:56 Pulse 96 10/31/23 13:56 Resp 18 10/31/23 13:56 BP 192/86 H 10/31/23 13:56 Pulse Ox 97 10/31/23 13:56 O2 Del Method Room Air 10/31/23 13:56 BMI result Body Mass Index 30.2 VITAL SIGNS: Reviewed. GENERAL: Elevated BMI, Well developed, well nourished, in no acute distress. HEAD: Normocephalic/atraumatic EYES: PERRLA, EOMI EARS: Ext canals without abnormality NOSE: Nares patent bilateral OROPHARYNX: no oral lesions noted, posterior pharynx clear NECK: Supple, no adenopathy LUNGS: Normal breath sounds. No adventitious sounds or accessory muscle use. SpO2<97> CARDIOVASCULAR: Regular rate and rhythm without noted murmurs, no JVD or lower extremity edema. ABDOMEN: Soft, non-tender, non-distended with bowel sounds. MUSCULOSKELETAL: No tenderness, deformities, or effusions noted on gross inspection. EXTREMITIES: No cyanosis, clubbing or edema. SKIN: Inspection of the skin reveals no rashes NEUROLOGIC: Alert and oriented x 4. Strength and sensation to light touch were grossly intact x 4. Medical Decision Making Medical Decision Making [facility] Narrative: 78-year-old female with history and clinical presentation, DDX: Malignant hypertension, ACS, viral illness, pneumonia, acid reflux. I reviewed all investigations and hematologic indices are negative for leukocytosis/left shift/anemia/thrombocytopenia. Chemistry indices negative for ZA/electrolyte/liver enzymes derangement, but I sensitivity troponin is noted to be 45.9 and although this could be attributable to poorly controlled blood pressure will follow-up with 2nd troponin, patient's chest pain is absent at this time but there were noted ST abnormalities in the anterolateral leads without comparison EKG. Signed out to Dr Dickson. - Trop #2 - Viral Testing - UA Differential Diagnosis Differential Diagnoses: The differential diagnosis associated with the presentation includes Please see the discussion above Admission/Observation Consideration of admission/observation: Escalation of care including admission/observation considered Please see the discussion above Lab Data [facility] Lab Attestation statement: I reviewed the patient's lab results. Please see the discussion above 10/31/23 14:32 10/31/23 14:32 Labs: Lab Results 10/31/23 Range/Units 14:32 WBC 5.8 (4.8-10.8) X10*3/uL RBC 4.64 (4.20-5.50) X10*6/uL Hgb 13.0 (12.0-16.0) g/dl Hct 38.8 (37.0-47.0) % MCV 83.6 (80.0-98.0) fL MCH 28.0 (27.0-33.0) pg MCHC 33.5 (31.0-35.0) g/dl RDW 13.4 (11.0-16.0) % Plt Count 199 (160-400) X10*3/uL MPV 10.4 (9.4-12.3) fL Immature Gran % (Auto) 0.2 (0.0-0.4) % Neut % (Auto) 53.2 (45-73) % Lymph % (Auto) 33.9 (20-40) % [place] % (Auto) 10.5 (2-11) % Eos % (Auto) 1.7 (0-4) % Baso % (Auto) 0.5 (0-2) % Lymph # (Auto) 2.0 (1.2-4.9) X10*3/uL [place] # (Auto) 0.6 (0.1-1.2) X10*3/uL Eos # (Auto) 0.1 (0.0-0.4) X10*3/uL Baso # (Auto) 0.0 (0.0-0.2) X10*3/uL Abs Immat Gran (auto) 0.01 (0.00-0.03) X10*3/uL Absolute Neuts (auto) 3.1 (2.0-8.3) x10*3/uL Absolute Nucleated RBC 0.000 (0.0-0.012) X10*3/uL Nucleated RBC % (auto) 0.0 (0.0-0.2) /100WBC Sodium 136 (135-145) mmol/L Potassium 4.1 (3.3-5.1) mmol/L Chloride 102 (96-108) mmol/L Carbon Dioxide 27 (22-29) mmol/L Anion Gap 11 L (12-20) BUN 14 (9-16) mg/dL Creatinine 0.86 (0.5-1.4) mg/dL Estim Creat Clear Calc 46.3 Estimated GFR > 60 Random Glucose 164 H (60-115) mg/dL Calcium 9.2 (8.4-10.2) mg/dL Total Bilirubin 0.4 (0.0-1.0) mg/dL AST 23 (5-31) U/L ALT 25 (0-31) U/L Alkaline Phosphatase 54 (39-117) U/L Troponin I High Sens 45.9 H (<3.5-17.0) ng/L Total Protein 7.3 (6.5-8.0) g/dL Albumin 4.0 (3.5-5.0) g/dL Urine Color Yellow Urine Appearance Clear Urine pH 7.5 (5.0-9.0) Ur Specific [place] <= 1.005 (1.005-1.025) Urine Protein Negative (Neg-Trace) mg/dL Urine Glucose (UA) 100 H (Negative) mg/dL Urine Ketones Negative (Negative) mg/dL Urine Blood Negative (Negative) Urine Nitrite Negative (Negative) Ur Leukocyte Esterase Negative (Negative) Independent Interpretation I performed an independent interpretation of an: EKG Interpretation: Normal sinus rhythm, HR-93, no STEMI, but significant ST abnormalities in the inferolateral as well as anterior leads, due to system constraints unable to obtain comparison EKG. Radiology Impression Discussion of test interpretation with radiology: I have reviewed the radiologist's reading. Radiologist Impression: Please see the discussion above External Record Review External record reviewed: Outpatient record, Prior outpatient labs and Prior outpatient radiology Chronic Conditions Patient?s care impacted by: Diabetes and Hypertension Critical Care Time Critical Care Time Critical Care Time: Yes Total Critical Care Time: 45 Attestation: I personally attest to this time spent taking care of the patient. Discharge Plan Discharge Clinical Impression: Chest pain Patient Disposition: Still a Patient Prescriptions: No Action levothyroxine 50 mcg tablet 1 tab PO SUTUTHSA Trulicity 0.75 mg/0.5 mL pen injector 0.75 mg subcut WE calcium carbonate 500 mg calcium (1,250 mg) Tablet 500 mg PO DAILY irbesartan 75 mg tablet 75 mg PO DAILY phenazopyridine [Pyridium] 100 mg tablet 100 mg PO TID PRN (Reason: pain) Qty: 6 0RF meclizine 12.5 mg tablet 1 tab PO TID PRN (Reason: dizziness) estradiol 0.01 % (0.1 mg/gram) cream vaginal methenamine hippurate 1 gram Tablet 1 g PO BID ascorbic acid (vitamin C) [Vitamin C] 500 mg Tablet 500 mg PO BID cholecalciferol (vitamin D3) [Vitamin D3] 50 mcg (2,000 unit) Capsule 50 mcg PO DAILY alpha lipoic acid 600 mg Capsule 600 mg PO DAILY glipizide 5 mg tablet 5 mg PO DAILY atorvastatin 40 mg tablet 40 mg PO BEDTIME levothyroxine 75 mcg tablet 75 mcg PO MOWEFR pantoprazole 40 mg tablet,delayed release (DR/EC) 40 mg PO DAILY aspirin 81 mg tablet,delayed release (DR/EC) 81 mg PO DAILY pregabalin 75 mg capsule 75 mg PO BID tramadol 50 mg tablet 50 mg PO BID PRN (Reason: Pain) zolpidem 5 mg tablet 5 mg PO BEDTIME PRN (Reason: Sleep) sertraline 25 mg tablet 25 mg PO DAILY@1400
[2023-10-31 16:58] VITALS: BP 162/75; PULSE 89; RESP 12; O2SAT 97
[2023-10-31] MEDS: amLODIPine Besylate 10 MG TABLET PO (16:58)
[2023-10-31 17:35] LABS: COVID-19 Test Negative (Negative); IDNOW Serial# 152EDE1D
[2023-10-31 17:36] LABS: IDNOW Serial# 08D9AD1C; Influenza A Negative (Negative); Influenza B2 Negative (Negative)
[2023-10-31 18:29] VITALS: BP 190/89; PULSE 91; RESP 12; O2SAT 97
--- NOTE | 2023-10-31 18:34 | PHA.MEDREC ---
Pharmacy Consult ? Medication Reconciliation Pharmacy has completed the medication reconciliation. spoke with patient and family members to confirm medications. Patient is a good historian. They reported she stopped taking bupropion. Her Trulicity is given on Saturdays and did receive yesterday. She reports taking her morning medications today.
--- NOTE | 2023-10-31 18:57 | PC.NURSE ---
Karina BOYD made aware of pts elevated BP
[2023-10-31 18:58] LABS: Hematocrit 41.4 % (37.0-47.0); Hemoglobin 14.4 g/dl (12.0-16.0); Mean Corpuscular HGB Conc 34.8 g/dl (31.0-35.0); Mean Corpuscular Hemoglobin 29.1 pg (27.0-33.0); Mean Corpuscular Volume 83.6 fL (80.0-98.0); Mean Platelet Volume 11.3 fL (9.4-12.3); Platelet Count 213 X10*3/uL (160-400); Red Blood Count 4.95 X10*6/uL (4.20-5.50); Red Cell Distribution Width 13.3 % (11.0-16.0); White Blood Count 7.4 X10*3/uL (4.8-10.8)
[2023-10-31] MEDS: Nitroglycerin 2 % Oint 1 GM Packet 0.5 INCH TRANSDERMA (18:59)
[2023-10-31] MEDS: Atorvastatin Calcium 80 MG TABLET PO (18:59)
[2023-10-31] MEDS: Aspirin 81 MG TAB.CHEW 324 MG PO (19:00)
--- NOTE | 2023-10-31 19:23 | PC.NURSE ---
Admitting provider at bedside. Second 22 G IV line placed into L AC by this RN, PT/INR, PTT HD drawn and sent to lab for processing.
[2023-10-31 19:30] LABS: INTERNATIONAL NORM RATIO 0.9 (0.9-1.1); Prothrombin Time 11.3 SEC (11.1-13.3)
[2023-10-31 19:33] LABS: PTT Heparin Drip 37.2 SEC (53-77.9)
[2023-10-31] MEDS: Heparin Sodium,Porcine 5,000 UNIT/ML VIAL 4000 UNIT IVPUSH (19:39)
[2023-10-31] MEDS: Heparin Sodium,Porcine/1/2NS 25,000 UNIT/250 ML IV.SOLN 8.42 UNIT IVCONT (19:40)
[2023-10-31 19:52] VITALS: BP 191/99; PULSE 97; RESP 13; O2SAT 96
--- NOTE | 2023-10-31 19:59 | PM.IMHP ---
History of Present Illness Date of Service: 10/31/23 Attending physician on admission: Pablo Vo Chief Complaint: Chest pain 78-year-old female with history of [id number] type 2 diabetes, osteoporosis, diabetic polyneuropathy, hypothyroidism, GERD, history CVA, TASHI not on CPAP but uses 2 L supplemental O2 at bedtime, hypertension, diabetic retinopathy, coronary artery disease s/p JANEY to LAD 2019 presents to the ED earlier today for evaluation of chest pain that started last night. She is accompanied by her daughters, Irene and Gerardo. Per the patient, since last night, she has had intermittent midsternal/left-sided chest pain radiating to the shoulder and down the left arm. She currently reports her pain as a 9/10 but at its worst was a 10/10. She does endorse associated lightheadedness, nausea, dyspnea. Currently she just feels generally unwell. Since arrival, patient has been hypertensive with blood pressure improved to 151/100 following amlodipine 10 mg and nitro paste. Vitals otherwise stable. Hematology studies unremarkable. Renal function baseline, electrolyte levels normal. Initial troponin 45.9, repeat 95.0. Negative for COVID-19, influenza, RSV. Chest x-ray shows chronic appearing postoperative changes but no acute process. EKG shows NSR, rate 89 without any significant acute ST/T-wave abnormalities. In the ED, given 324 mg aspirin, 80 mg atorvastatin, 0.5 in nitroglycerin paste, 10 mg amlodipine, and initiated on heparin drip with bolus per protocol. Patient will be admitted for further management of NSTEMI. American interpretor used to assist with translation. [facility] Medical History Anxiety and depression IBS (irritable bowel syndrome) Female bladder prolapse Diabetic retinopathy Osteoporosis CAD (coronary artery disease) Diabetes Osteoarthritis Neuropathy Hypothyroid GERD (gastroesophageal reflux disease) History of CVA (cerebrovascular accident) Mitral annular calcification Heart palpitations TASHI (obstructive sleep apnea) Essential hypertension Family History Father Asthma Mother Cardiovascular disease Diabetes Arthritis Surgical History Hx of colonoscopy Stented coronary artery History of hysterectomy History of tonsillectomy History of cardioversion (~08/16/13) Social History Household Members: None Housing: Apartment Are you a primary wound care rn to a significant other at home: No 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) Alcohol intake: never Patient Tobacco Use Status: Never used Tobacco Smoked in Last 30 Days: No e-Cigarette/Vaping Use: Never Used Use of substances other than those prescribed or required for medical reasons: No Advance Directives: Yes Advance Directives Information Provided: No Advance Directives on File: No service: No Current occupational status: unemployed Meds Allergies Allergy/AdvReac Type Severity Reaction Status Date / Time esomeprazole [From NEXIUM] AdvReac Unknown BURNING Verified 10/07/22 11:23 SENSATION Active Medications: Current Medications Acetaminophen (Acetaminophen 325 Mg Tablet) 650 mg PO Q6H PRN PRN Reason: Pain, Mild (Pain Scale 1-3) Artificial Tears (Artificial Tears 15 Ml Drops) 1 drop EYE-BOTH Q4H PRN PRN Reason: Dry Eyes Heparin Sodium (Porcine) (Heparin Sodium,Porcine 5,000 Unit/Ml Vial) 2,800 unit 40 unit/kg (2800 unit) IVPUSH PROTOCOL BOLUS PRN; Protocol PRN Reason: 40 unit/kg - Heparin Protocol Heparin Sodium (Porcine) (Heparin Sodium,Porcine 5,000 Unit/Ml Vial) 5,600 unit 80 unit/kg (5600 unit) IVPUSH PROTOCOL BOLUS PRN; Protocol PRN Reason: 80 unit/kg - Heparin Protocol Heparin Sodium/Sodium Chloride (Heparin Sodium,Porcine/1/2ns) 25,000 unit in 250 mls @ 0 mls/hr IVCONT .Q0M HIREN; Protocol Last Admin: 10/31/23 19:40 Dose: 12 units/kg/hr, 8.42 mls/hr Ondansetron HCl (Ondansetron Hcl 4 Mg/2 Ml Vial) 4 mg IVPUSH Q8H PRN PRN Reason: Nausea and Vomiting Senna (Sennosides 8.6 Mg Tablet) 17.2 mg PO BEDTIME PRN PRN Reason: Constipation Sodium Chloride (0.9 % Sodium Chloride Flush 3 Ml Syringe) 3 ml IVFLUSH [facility] Home Medications Medication Instructions Recorded Confirmed Last Taken Type pregabalin 75 mg capsule 75 mg PO BID 06/20/20 10/31/23 12/23/21 History tramadol 50 mg tablet 50 mg PO BID Pain 06/20/20 10/31/23 07/21/20 History zolpidem 5 mg tablet 5 mg PO BEDTIME Sleep 06/20/20 10/31/23 07/20/20 21:00 History aspirin 81 mg tablet,delayed 81 mg PO DAILY 06/19/21 10/31/23 12/23/21 History release atorvastatin 40 mg tablet 40 mg PO BEDTIME 06/19/21 10/31/23 12/23/21 History levothyroxine 75 mcg tablet 75 mcg PO MOWEFR 06/19/21 10/31/23 10/26/22 History pantoprazole 40 mg tablet,delayed 40 mg PO DAILY 06/19/21 10/31/23 10/12/22 History release calcium carbonate 500 mg calcium 500 mg PO DAILY 12/24/21 10/31/23 12/23/21 History (1,250 mg) tablet dulaglutide 0.75 mg/0.5 mL 0.75 mg subcut SA 12/24/21 10/31/23 10/30/23 History subcutaneous pen injector (Trulicity) levothyroxine 50 mcg tablet 1 tab PO SUTUTHSA 12/24/21 10/31/23 12/23/21 History irbesartan 75 mg tablet 75 mg PO DAILY 04/09/22 10/31/23 10/12/22 History ascorbic acid (vitamin C) 500 mg 500 mg PO BID 10/07/22 10/31/23 Unknown History tablet (Vitamin C) cholecalciferol (vitamin D3) 50 50 mcg PO DAILY 10/07/22 10/31/23 Unknown History mcg (2,000 unit) capsule (Vitamin D3) estradiol 0.01% (0.1 mg/gram) 2 g vaginal 2XW 10/07/22 10/31/23 Unknown History vaginal cream Physical Exam Vital Signs and Narrative: Vital Signs: Last Vital Signs Temp 98.9 F 10/31/23 13:56 Pulse 97 10/31/23 19:52 Resp 13 10/31/23 19:52 BP 191/99 H 10/31/23 19:52 Pulse Ox 96 10/31/23 19:52 O2 Del Method Room Air 10/31/23 19:52 BMI result Body Mass Index 30.2 Constitutional - Awake and Alert, No apparent distress Eyes - PERRLA, EOMI Cardiovascular - S1S2, RRR, No edema Respiratory - Normal lung expansion, Normal respiratory effort, No respiratory distress, CTA bilaterally Gastrointestinal - NT / ND; +BS; No rebound or guarding Extremities - no calf tenderness bilaterally, no swelling Skin - Warm/Dry Neurological - Alert & oriented x3 Psychological - Appropriate affect Results Labs 10/31/23 18:42 10/31/23 14:32 Labs: Laboratory Results - last 24 hr 10/31/23 10/31/23 10/31/23 14:32 17:08 18:42 MCV 83.6 83.6 MCH 28.0 29.1 MCHC 33.5 34.8 RDW 13.4 13.3 Plt Count 199 213 MPV 10.4 11.3 Immature Gran % (Auto) 0.2 Neut % (Auto) 53.2 Lymph % (Auto) 33.9 [place] % (Auto) 10.5 Eos % (Auto) 1.7 Baso % (Auto) 0.5 Lymph # (Auto) 2.0 [place] # (Auto) 0.6 Eos # (Auto) 0.1 Baso # (Auto) 0.0 Abs Immat Gran (auto) 0.01 Absolute Neuts (auto) 3.1 Absolute Nucleated RBC 0.000 0.000 Nucleated RBC % (auto) 0.0 0.0 PT INR aPTT Heparin Protocol Hold Blue Top Anion Gap 11 L Estim Creat Clear Calc 46.3 Estimated GFR > 60 Random Glucose 164 H Calcium 9.2 Total Bilirubin 0.4 AST 23 ALT 25 Alkaline Phosphatase 54 Troponin I High Sens 45.9 H 95.0 H* D Total Protein 7.3 Albumin 4.0 Urine Color Yellow Urine Appearance Clear Urine pH 7.5 Ur Specific [place] <= 1.005 Urine Protein Negative Urine Glucose (UA) 100 H Urine Ketones Negative Urine Blood Negative Urine Nitrite Negative Ur Leukocyte Esterase Negative COVID-19 (SONIA) Negative COVID-19 Clin Com See Note Influenza Type A (REYNA) Negative Influenza Type B (REYNA) Negative Influenza A & B Note See Note 10/31/23 10/31/23 18:43 19:20 MCV MCH MCHC RDW Plt Count MPV Immature Gran % (Auto) Neut % (Auto) Lymph % (Auto) [place] % (Auto) Eos % (Auto) Baso % (Auto) Lymph # (Auto) [place] # (Auto) Eos # (Auto) Baso # (Auto) Abs Immat Gran (auto) Absolute Neuts (auto) Absolute Nucleated RBC Nucleated RBC % (auto) PT 11.3 INR 0.9 aPTT Heparin Protocol 37.2 L Hold Blue Top SEE NOTE Anion Gap Estim Creat Clear Calc Estimated GFR Random Glucose Calcium Total Bilirubin AST ALT Alkaline Phosphatase Troponin I High Sens Total Protein Albumin Urine Color Urine Appearance Urine pH Ur Specific [place] Urine Protein Urine Glucose (UA) Urine Ketones Urine Blood Urine Nitrite Ur Leukocyte Esterase COVID-19 (SONIA) COVID-19 Clin Com Influenza Type A (REYNA) Influenza Type B (REYNA) Influenza A & B Note Imaging Radiologist's Impressions: Impressions Chest X-Ray 10/31/23 14:10 IMPRESSION: Chronic appearing and postoperative changes but no acute process seen otherwise. Assessment and Plan (1) NSTEMI (non-ST elevated myocardial infarction): Status: Acute Plan 78-year-old female with history of [id number]-[id number] type 2 diabetes, osteoporosis, diabetic polyneuropathy, hypothyroidism, GERD, history CVA, TASHI not on CPAP but uses 2 L supplemental O2 at bedtime, hypertension, diabetic retinopathy, coronary artery disease s/p JANEY to LAD 2018 admitted for further management of NSTEMI #NSTEMI -trop 45.9 -->95.0. EKG wtihout any acute israel or depressions -Continue heparin per protocol -nitro paste, statin -continue asa 81mg daily -initiate metorpolol 25mg BID -echo -cardiac diet -repeat trop am -cardiology consult -monitor on telemetry # [id number] type 2 diabetes without hyperglycemia -POC glucose, diabetic diet -Admelog on sliding scale # hypertension -blood pressure improved on admission -nitro in place -continue irbesartan. Initaite metoprolol 25mg BID #diabetic polyneuropathy -continue lyrica, tramadol # hypothyroidism -continue levothyroxine # GERD -PPI # TASHI with nocturnal hypoxemia -intolerant of CPAP. Continue 2 L supplemental O2 at bedtime # CAD -as above DVT prophylaxis-on heparin drip DNR/DNI Patient requires inpatient stay at least 2 midnights for management of NSTEMI on heparin drip per protocol requiring expert consultation, close cardiac monitoring and probable transfer to tertiary care facility for cardiac catheterization pending echocardiogram Quality Stroke Does the patient have a stroke diagnosis?: No VTE Prior VTE?: No VTE Risk Level:: Medical - moderate - high VTE Device Contraindication: Treatment Not Indicated VTE Drug Contraindication: N/A - Med Ordered
[2023-10-31 20:00] VITALS: BP 151/100; PULSE 100; RESP 14; O2SAT 97
--- NOTE | 2023-10-31 20:02 | PC.NURSE ---
Patient continues to report left sided chest pain / at present. BP improved 151/100. Heparin drip started and infusing w/o issues via 22 G IV line in L AC. Patient requested turkey sandwich and isa merary. Patient's daughters at bedside, call perales in patient's reach.
[2023-10-31 21:01] LABS: Glucose, Whole Blood 211 mg/dL (60-115)
[2023-10-31] MEDS: traMADoL HCL 50 MG TABLET PO (21:04)
[2023-10-31] MEDS: Metoprolol Tartrate 25 MG TABLET PO (21:05)
[2023-10-31] MEDS: Pregabalin 75 MG CAPSULE PO (21:05)
[2023-10-31] MEDS: Insulin Lispro 100 UNIT/ML 3 ML VIAL SUBCUT (21:06)
[2023-10-31] MEDS: Zolpidem Tartrate 5 MG TABLET PO (21:06)
[2023-10-31] MEDS: Ascorbic Acid 500 MG TABLET PO (21:06)
[2023-10-31 22:24] LABS: Glucose, Whole Blood 194 mg/dL (60-115)
[2023-10-31 23:39] VITALS: BP 136/78; PULSE 85; RESP 18; TEMP 37; O2SAT 94
[2023-11-01 02:14] LABS: PTT Heparin Drip > 200.0 SEC (53-77.9)
[2023-11-01 03:31] VITALS: BP 125/69; PULSE 77; RESP 20; TEMP 36.8; O2SAT 97
[2023-11-01 04:20] LABS: PTT Heparin Drip > 200.0 SEC (53-77.9)
[2023-11-01 05:19] LABS: MANUAL DIFF FLAG NO
[2023-11-01 05:22] LABS: Basophils Percent Auto 0.5 % (0-2); Eosinophils Absolute Auto 0.2 X10*3/uL (0.0-0.4); Eosinophils Percent Auto 2.1 % (0-4); Hematocrit 38.9 % (37.0-47.0); Imm Gran Abs Auto 0.01 X10*3/uL (0.00-0.03); Imm Gran Pct Auto 0.1 % (0.0-0.4); Lymphocytes Percent Auto 34.9 % (20-40); Mean Corpuscular HGB Conc 33.4 g/dl (31.0-35.0); Mean Corpuscular Hemoglobin 28.6 pg (27.0-33.0); Mean Corpuscular Volume 85.5 fL (80.0-98.0); Monocytes Absolute Auto 0.9 X10*3/uL (0.1-1.2); Neutrophils Absolute Auto 4.6 x10*3/uL (2.0-8.3); Neutrophils Percent Auto 52.4 % (45-73); Platelet Count 204 X10*3/uL (160-400); Red Blood Count 4.55 X10*6/uL (4.20-5.50); Red Cell Distribution Width 13.6 % (11.0-16.0); White Blood Count 8.7 X10*3/uL (4.8-10.8)
[2023-11-01 05:28] LABS: Prothrombin Time 12.4 SEC (11.1-13.3)
[2023-11-01 05:30] LABS: PTT Heparin Drip 77.7 SEC (53-77.9)
[2023-11-01 05:36] LABS: Anion Gap 12 (12-20); Blood Urea Nitrogen 12 mg/dL (9-16); Calcium 9.4 mg/dL (8.4-10.2); Carbon Dioxide 25 mmol/L (22-29); Chloride 107 mmol/L (96-108); Cholesterol 182 mg/dL (<200); Creatinine Clr Calc Pharmacy 46.8; Estimated Glomerular Filt Rate > 60; Glucose Random 128 mg/dL (60-115); HDL Cholesterol 48 mg/dL (>40); LDL Cholesterol Calculated 104 mg/dL (<100); Potassium 4.4 mmol/L (3.3-5.1); Sodium 140 mmol/L (135-145); Triglycerides 153 mg/dL (<150)
[2023-11-01] MEDS: Levothyroxine Sodium 75 MCG TABLET PO (05:46)
[2023-11-01] MEDS: Omeprazole 20 MG CAPSULE.DR PO (05:46)
[2023-11-01 05:48] LABS: Troponin-I High Sensitivity 298.7 ng/L (<3.5-17.0)
--- NOTE | 2023-11-01 07:00 | CA_ITS ---
Transthoracic Echocardiogram Patient (Last, First, Middle): Khadra Hair, Gender: Female Date of : 1945 Age: 78 Procedure Date: 11/01/2023 Procedure Type: Transthoracic Echocardiogram Location: [facility] – [place] Height: 152.4 cm Weight: 66.68 kg BSA: 1.64 m2 Heart Rate: 80 bpm BP: 125 / 69 mmHg Office System Analyst: KATHIE Referring MD: Mary BOYD Mosaic Worker: Bishop Fountain MD Symptoms: nstemi Study Quality: Adequate ECG Rhythm: Sinus Conclusions: - 1. Normal LV ejection fraction 55-60% with impaired relaxation filling pattern and elevated filling pressures 2. Severe mitral calcification and fibrocalcific aortic valve changes noted with cardiac valvular Dopplers within normal limits 3. Normal RV systolic pressure 4. No gross pericardial effusion Findings Left Ventricle Normal left ventricular size, thickness, and systolic function. The visually estimated ejection fraction is between 55-60%. Regional wall motion abnormalities can not be excluded due to suboptimal endocardial definition. Spectral Doppler is indicative of an impaired relaxation filling pattern. Elevated filling pressures. E/E prime ratio is >15, consistent with elevated filling pressures. Right Ventricle Normal right ventricular cavity size. There is moderately decreased right ventricular systolic function. Atria Both atria are normal in size. Interatrial shunt cannot be excluded. Aortic Valve There is mild calcification of the aortic valve. There is no aortic valve stenosis. There is no aortic valve regurgitation. Mitral Valve There is mild anterior and severe posterior mitral leaflet thickening. There is severe mitral annular calcification. There is trace mitral valve regurgitation. There is no mitral valve stenosis. Pulmonic Valve The pulmonic valve was not well visualized. Tricuspid Valve Likely normal tricuspid valve structure and function. There is mild tricuspid valve regurgitation. The right ventricular systolic pressure is normal. The right ventricular systolic pressure is 19 mmHg. Normal right atrial pressure. There is no evidence of pulmonary hypertension. Great Vessels The pulmonary artery was not well visualized. There is no dilatation of the ascending aorta measuring 2.70 cm. Moderate plaque is seen in the ascending aorta and arch. Venous The inferior vena cava is normal in size and collapses greater than 50% with inspiration. Pericardium/Pleural There is no evidence of pericardial effusion. Prior Study Comparison No significant change compared to prior study dated: 12/04/2020. Measurements 2D Linear Measurements IVSd: 0.86 0.6-0.9/0.6-1.0 cm LVIDd: 3.75 3.9-5.3/4.2-5.9 cm LVIDd Index: 2.29 2.4-3.2/2.2-3.1 cm/m2 LVIDs: 2.53 2.0-3.6 cm LVPWd: 0.60 0.7-1.1 cm Ao Root: 2.90 2.1-3.5 cm LA Diam: 3.20 2.7-3.8/3.0-4.0 cm LAIDs Index: 1.95 1.5-2.3 cm/m2 LV Mass: 91.73 67-162/88-224 g LV Mass Index: 55.93 43-95/49-115 g/m2 LVOT Diam: 2.00 3.0+(-)1.3 cm 2D Systolic Function EF 4C: 56.20 >55% EF 2C: 55.20 >55% EF BiP: 57.80 >55% Mitral Valve MV Pk E: 0.76 MV PK A: 1.01 MV Decel Time: 206.00 E/A: 0.80 E'Lateral: 3.81 E'Medial: 3.37 E/E' Med: 22.60 E/E' Lat: 20.00 PHT: 60.00 MVA PHT: 3.67 Decel Charlton: 3.69 Aortic Valve AoV Pk Oli: 1.10 AoV Pk Grad: 5.00 GWENDOLYN: 1.84 LVOT LVOT Pk Oli: 0.65 LVOT Mn Oli: 0.46 LVOT VTI: 0.16 LVOT Pk Grad: 2.00 LVOT Mn Grad: 1.00 LVOT Diam: 2.00 LVOT Area: 3.14 Diastolic Function MV Pk E: 0.76 MV Pk A: 1.01 E/A: 0.80 E'Medial: 3.37 E/E' Med: 22.60 E' Laterial: 3.81 E/E' Lat: 20.00 Right Ventricle TAPSE (mm): 12.00 TVS' Oli: 7.00 Tricuspid Valve TR Pk Oli: 2.00 TR Pk Grad: 16.00 RA Press: 3.00 RVSP: 19.00 Great Vessels Aorta Ao Root-2D: 2.90 2.0-3.7 cm Ao Asc: 2.70 2.1-3.4 cm Pulmonary Valve PV Pk Oli: 0.71 Peak PV Grad: 2.00 Updated in Other Vendor System with Status of Final Bishop Fountain MD electronically signed on 11/01/2023 11:24:42 AM with status of Final
[2023-11-01 07:21] VITALS: BMI 28.8
[2023-11-01 07:49] LABS: Glucose, Whole Blood 124 mg/dL (60-115)
[2023-11-01 08:00] VITALS: BP 121/73; PULSE 75; RESP 18; TEMP 36.2; O2SAT 94
[2023-11-01] MEDS: Metoprolol Tartrate 25 MG TABLET PO (08:37)
[2023-11-01] MEDS: Aspirin Enteric Coated 81 MG TABLET.DR PO (08:37)
[2023-11-01] MEDS: Pregabalin 75 MG CAPSULE PO (08:37)
[2023-11-01] MEDS: Cholecalciferol (Vitamin D3) 25 MCG TABLET 50 MCG PO (08:37)
[2023-11-01] MEDS: traMADoL HCL 50 MG TABLET PO (08:37)
[2023-11-01] MEDS: Ascorbic Acid 500 MG TABLET PO (08:37)
[2023-11-01] MEDS: 0.9 % Sodium Chloride Flush 3 ML SYRINGE IVFLUSH (08:38)
--- NOTE | 2023-11-01 10:42 | P.CONCA_ITS ---
History of Present Illness History of Present Illness Date of Service: 11/01/23 Requesting physician: Ariela Hair Chief complaint: Acute coronary syndrome Narrative: I was consulted to see Khadra in cardiology consultation today for acute coronary syndrome. She has a 78-year-old female, history obtained with help of a jockey room custodian in the room. Patient's daughter was present as well. Patient with prior history of LAD stenting 2018 for angina, last seen in cardiology clinic by Dr. Cassidy in April of 2022. No follow-up since then. Patient has prior history of diabetes, hypertension, obstructive sleep apnea, can not use CPAP at night but uses oxygen therapy. Patient's usual state of health minimally active at home because of her diabetic neuropathy and pain in her joints and knees. She also has history of fibromyalgia. Patient came to the hospital because she was feeling weak the whole day and following that night she had severe chest pressure with radiation to both arms with numbness in her fingers. Patient then decided come to emergency room. Initial EKG with diffuse ST T wave changes in multiple leads. She was then treated as myocardial ischemia and the symptoms improved. EKG shows improvement in ST depression her troponin initially was 45 then to the 90s and then used as a to 40s. Patient currently is chest pain-free. Cardiology consult was sought because of symptoms suggestive of acute coronary syndrome. Review of Systems 2 Constitutional: Constitutional: Denies body ache(s), Denies chills, Denies fever(s), Reports lethargy and Reports weakness Eyes: Eyes: Reports no additional eye complaints Cardiovascular: Cardiovascular: Reports chest pain at rest, Denies pedal edema, Denies leg edema, Reports lightheadedness, Denies Loss of Consciousness and Denies dyspnea Respiratory: Respiratory: Reports no additional respiratory complaints and Denies dyspnea Gastrointestinal: Gastrointestinal: Reports no additional gastrointestinal complaints Genitourinary: Genitourinary: Reports no additional female genitourinary complaints Musculoskeletal: Musculoskeletal: Reports no additional musculoskeletal complaints Integumentary/Breasts: Skin/Breast: Reports system reviewed and no additional complaints, except as docu Neurologic: Reports system reviewed and no additional complaints, except as documented and Reports weakness Psychiatric: Psychiatric: Reports no additional psychiatric complaints Endocrine: Endocrine: Reports no additional endocrine complaints Hematologic/Lymphatic: Hematologic/Lymphatic: Reports no additional hematologic/lymphatic complaints Allergic/Immunologic: Allergic/Immunologic: Reports no additional allergic/immunologic complaints PMFSH Past Medical History Medical History Anxiety and depression IBS (irritable bowel syndrome) Female bladder prolapse Diabetic retinopathy Osteoporosis CAD (coronary artery disease) Diabetes Osteoarthritis Neuropathy Hypothyroid GERD (gastroesophageal reflux disease) History of CVA (cerebrovascular accident) Mitral annular calcification Heart palpitations TASHI (obstructive sleep apnea) Essential hypertension Family History Family History Father Asthma Mother Cardiovascular disease Diabetes Arthritis Surgical History Surgical History Hx of colonoscopy Stented coronary artery History of hysterectomy History of tonsillectomy History of cardioversion (~08/16/13) Social History Social History Household Members: None Housing: Apartment Are you a primary patient care to a significant other at home: No Do you presently have visiting nurse or other home services: Yes ([employer]) Alcohol intake: never Patient Tobacco Use Status: Never used Tobacco e-Cigarette/Vaping Use: Never Used Advance Directives Date on File: 10/31/23 service: No Current occupational status: unemployed Meds Allergies Allergy/AdvReac Type Severity Reaction Status Date / Time esomeprazole [From NEXIUM] AdvReac Unknown BURNING Verified 10/07/22 11:23 SENSATION Active Medications: Current Medications Acetaminophen (Acetaminophen 325 Mg Tablet) 650 mg PO Q6H PRN PRN Reason: Pain, Mild (Pain Scale 1-3) Artificial Tears (Artificial Tears 15 Ml Drops) 1 drop EYE-BOTH Q4H PRN PRN Reason: Dry Eyes Ascorbic Acid (Ascorbic Acid 500 Mg Tablet) 500 mg PO BID [facility] Last Admin: 11/01/23 08:37 Dose: 500 mg Aspirin (Aspirin Enteric Coated 81 Mg Tablet.Dr) 81 mg PO DAILY [facility] Last Admin: 11/01/23 08:37 Dose: 81 mg Atorvastatin Calcium (Atorvastatin Calcium 40 Mg Tablet) 40 mg PO BEDTIME [facility] Calcium Carbonate (Calcium Carbonate 500 Mg Tablet) 500 mg PO DAILY [facility] Last Admin: 11/01/23 08:37 Dose: 500 mg Dextrose (Dextrose 50 % 25 Gm/50 Ml Syringe) 25 gm IVPUSH Q15M PRN; Protocol PRN Reason: per Hypoglycemia Standing Ord. Glucose (Glucose Gel 15 Gm Gel..Gram.) 15 gm PO Q15M PRN; Protocol PRN Reason: per Hypoglycemia Standing Ord. Heparin Sodium (Porcine) (Heparin Sodium,Porcine 5,000 Unit/Ml Vial) 2,800 unit 40 unit/kg (2800 unit) IVPUSH PROTOCOL BOLUS PRN; Protocol PRN Reason: 40 unit/kg - Heparin Protocol Heparin Sodium (Porcine) (Heparin Sodium,Porcine 5,000 Unit/Ml Vial) 5,600 unit 80 unit/kg (5600 unit) IVPUSH PROTOCOL BOLUS PRN; Protocol PRN Reason: 80 unit/kg - Heparin Protocol Heparin Sodium/Sodium Chloride (Heparin Sodium,Porcine/1/2ns) 25,000 unit in 250 mls @ 0 mls/hr IVCONT .Q0M [facility]; Protocol Last Titration: 11/01/23 05:41 Dose: 8 units/kg/hr, 5.62 mls/hr Insulin Human Lispro (Insulin Lispro 100 Unit/Ml 3 Ml Vial) 0 unit SUBCUT QIDACHS [facility]; Protocol Last Admin: 11/01/23 07:51 Dose: Not Given Levothyroxine Sodium (Levothyroxine Sodium 50 Mcg Tablet) 50 mcg PO SuTuThSa@0600 [facility] Levothyroxine Sodium (Levothyroxine Sodium 75 Mcg Tablet) 75 mcg PO MoWeFr@0600 [facility] Last Admin: 11/01/23 05:46 Dose: 75 mcg Metoprolol Tartrate (Metoprolol Tartrate 25 Mg Tablet) 25 mg PO BID [facility]; Protocol Last Admin: 11/01/23 08:37 Dose: 25 mg Non-Formulary Medication (Estradiol) 2 gm VAGINAL 2XW [facility] Omeprazole (Omeprazole 20 Mg Capsule.Dr) 20 mg PO DAILY@0630 [facility] Last Admin: 11/01/23 05:46 Dose: 20 mg Ondansetron HCl (Ondansetron Hcl 4 Mg/2 Ml Vial) 4 mg IVPUSH Q8H PRN PRN Reason: Nausea and Vomiting Pregabalin (Pregabalin 75 Mg Capsule) 75 mg PO BID [facility] Last Admin: 11/01/23 08:37 Dose: 75 mg Senna (Sennosides 8.6 Mg Tablet) 17.2 mg PO BEDTIME PRN PRN Reason: Constipation Sodium Chloride (0.9 % Sodium Chloride Flush 3 Ml Syringe) 3 ml IVFLUSH QSHIFT [facility] Last Admin: 11/01/23 08:38 Dose: 3 ml Tramadol HCl (Tramadol Hcl 50 Mg Tablet) 50 mg PO BID [facility] Last Admin: 11/01/23 08:37 Dose: 50 mg Vitamin D (Cholecalciferol (Vitamin D3) 25 Mcg Tablet) 50 mcg PO DAILY [facility] Last Admin: 11/01/23 08:37 Dose: 50 mcg Zolpidem Tartrate (Zolpidem Tartrate 5 Mg Tablet) 5 mg PO BEDTIME [facility] Last Admin: 10/31/23 21:06 Dose: 5 mg Home Medications Medication Instructions Recorded Confirmed Last Taken Type pregabalin 75 mg capsule 75 mg PO BID 06/20/20 10/31/23 12/23/21 History tramadol 50 mg tablet 50 mg PO BID Pain 06/20/20 10/31/23 07/21/20 History zolpidem 5 mg tablet 5 mg PO BEDTIME Sleep 06/20/20 10/31/23 07/20/20 21:00 History aspirin 81 mg tablet,delayed 81 mg PO DAILY 06/19/21 10/31/23 12/23/21 History release atorvastatin 40 mg tablet 40 mg PO BEDTIME 06/19/21 10/31/23 12/23/21 History levothyroxine 75 mcg tablet 75 mcg PO MOWEFR 06/19/21 10/31/23 10/26/22 History pantoprazole 40 mg tablet,delayed 40 mg PO DAILY 06/19/21 10/31/23 10/12/22 History release calcium carbonate 500 mg calcium 500 mg PO DAILY 12/24/21 10/31/23 12/23/21 History (1,250 mg) tablet dulaglutide 0.75 mg/0.5 mL 0.75 mg subcut SA 12/24/21 10/31/23 10/30/23 History subcutaneous pen injector (Trulicity) levothyroxine 50 mcg tablet 1 tab PO SUTUTHSA 12/24/21 10/31/23 12/23/21 History irbesartan 75 mg tablet 75 mg PO DAILY 04/09/22 10/31/23 10/12/22 History ascorbic acid (vitamin C) 500 mg 500 mg PO BID 10/07/22 10/31/23 Unknown History tablet (Vitamin C) cholecalciferol (vitamin D3) 50 50 mcg PO DAILY 10/07/22 10/31/23 Unknown History mcg (2,000 unit) capsule (Vitamin D3) estradiol 0.01% (0.1 mg/gram) 2 g vaginal 2XW 10/07/22 10/31/23 Unknown History vaginal cream Physical Exam 2 Vital Signs: Vital Signs: Last Vital Signs Temp 97.2 F 11/01/23 08:00 Pulse 75 11/01/23 08:00 Resp 18 11/01/23 08:00 BP 121/73 11/01/23 08:00 Pulse Ox 94 11/01/23 08:00 O2 Del Method Room Air 11/01/23 08:00 BMI result Body Mass Index 28.8 Const: General: cooperative, comfortable, no acute distress, alert and awake Nutritional Appearance: overweight Orientation/consciousness: patient oriented x3 HEENT: Head: Yes normocephalic and Yes atraumatic Neck: Neck: Yes trachea midline, Yes supple and Yes no JVD Resp: Effort & Inspection: normal respiratory effort Auscultation: clear to auscultation bilaterally Cardio: Jugular venous distension: no JVD Palpation: normal PMI Rate: r egular rate Rhythm: regular rhythm Heart sounds: S1 normal heart sound present, S2 normal heart sound present, no click, no gallops, no murmurs and no rubs GI: Auscultation: normal bowel sounds Skin: General skin exam: no rashes or lesions noted Neuro: General: patient oriented x3 and no focal motor deficits Extrem: General: Yes no clubbing, cyanosis or edema Psych: Appearance: grossly normal Objective Labs and Meds 11/01/23 04:57 11/01/23 04:57 Lab results: Laboratory Results - last 24 hr 10/31/23 10/31/23 10/31/23 14:32 17:08 18:42 WBC 5.8 7.4 RBC 4.64 4.95 Hgb 13.0 14.4 Hct 38.8 41.4 MCV 83.6 83.6 MCH 28.0 29.1 MCHC 33.5 34.8 RDW 13.4 13.3 Plt Count 199 213 MPV 10.4 11.3 Immature Gran % (Auto) 0.2 Neut % (Auto) 53.2 Lymph % (Auto) 33.9 [place] % (Auto) 10.5 Eos % (Auto) 1.7 Baso % (Auto) 0.5 Lymph # (Auto) 2.0 [place] # (Auto) 0.6 Eos # (Auto) 0.1 Baso # (Auto) 0.0 Abs Immat Gran (auto) 0.01 Absolute Neuts (auto) 3.1 Absolute Nucleated RBC 0.000 0.000 Nucleated RBC % (auto) 0.0 0.0 PT INR aPTT Heparin Protocol Hold Blue Top Sodium 136 Potassium 4.1 Chloride 102 Carbon Dioxide 27 Anion Gap 11 L BUN 14 Creatinine 0.86 Estim Creat Clear Calc 46.3 Estimated GFR > 60 POC Glucose Random Glucose 164 H Calcium 9.2 Total Bilirubin 0.4 AST 23 ALT 25 Alkaline Phosphatase 54 Troponin I High Sens 45.9 H 95.0 H* D Total Protein 7.3 Albumin 4.0 Triglycerides Cholesterol LDL Cholesterol, Calc HDL Cholesterol Urine Color Yellow Urine Appearance Clear Urine pH 7.5 Ur Specific [place] <= 1.005 Urine Protein Negative Urine Glucose (UA) 100 H Urine Ketones Negative Urine Blood Negative Urine Nitrite Negative Ur Leukocyte Esterase Negative COVID-19 (SONIA) Negative COVID-19 Clin Com See Note Influenza Type A (REYNA) Negative Influenza Type B (REYNA) Negative Influenza A & B Note See Note 10/31/23 10/31/23 10/31/23 18:43 19:20 20:57 WBC RBC Hgb Hct MCV MCH MCHC RDW Plt Count MPV Immature Gran % (Auto) Neut % (Auto) Lymph % (Auto) [place] % (Auto) Eos % (Auto) Baso % (Auto) Lymph # (Auto) [place] # (Auto) Eos # (Auto) Baso # (Auto) Abs Immat Gran (auto) Absolute Neuts (auto) Absolute Nucleated RBC Nucleated RBC % (auto) PT 11.3 INR 0.9 aPTT Heparin Protocol 37.2 L Hold Blue Top SEE NOTE Sodium Potassium Chloride Carbon Dioxide Anion Gap BUN Creatinine Estim Creat Clear Calc Estimated GFR POC Glucose 211 H Random Glucose Calcium Total Bilirubin AST ALT Alkaline Phosphatase Troponin I High Sens Total Protein Albumin Triglycerides Cholesterol LDL Cholesterol, Calc HDL Cholesterol Urine Color Urine Appearance Urine pH Ur Specific [place] Urine Protein Urine Glucose (UA) Urine Ketones Urine Blood Urine Nitrite Ur Leukocyte Esterase COVID-19 (SONIA) COVID-19 Clin Com Influenza Type A (REYNA) Influenza Type B (REYNA) Influenza A & B Note 10/31/23 11/01/23 11/01/23 22:19 01:45 03:40 WBC RBC Hgb Hct MCV MCH MCHC RDW Plt Count MPV Immature Gran % (Auto) Neut % (Auto) Lymph % (Auto) [place] % (Auto) Eos % (Auto) Baso % (Auto) Lymph # (Auto) [place] # (Auto) Eos # (Auto) Baso # (Auto) Abs Immat Gran (auto) Absolute Neuts (auto) Absolute Nucleated RBC Nucleated RBC % (auto) PT INR aPTT Heparin Protocol > 200.0 H* D > 200.0 H* Hold Blue Top Sodium Potassium Chloride Carbon Dioxide Anion Gap BUN Creatinine Estim Creat Clear Calc Estimated GFR POC Glucose 194 H Random Glucose Calcium Total Bilirubin AST ALT Alkaline Phosphatase Troponin I High Sens Total Protein Albumin Triglycerides Cholesterol LDL Cholesterol, Calc HDL Cholesterol Urine Color Urine Appearance Urine pH Ur Specific [place] Urine Protein Urine Glucose (UA) Urine Ketones Urine Blood Urine Nitrite Ur Leukocyte Esterase COVID-19 (SONIA) COVID-19 Clin Com Influenza Type A (REYNA) Influenza Type B (REYNA) Influenza A & B Note 11/01/23 11/01/23 04:57 07:44 WBC 8.7 RBC 4.55 Hgb 13.0 Hct 38.9 MCV 85.5 MCH 28.6 MCHC 33.4 RDW 13.6 Plt Count 204 MPV 11.0 Immature Gran % (Auto) 0.1 Neut % (Auto) 52.4 Lymph % (Auto) 34.9 [place] % (Auto) 10.0 Eos % (Auto) 2.1 Baso % (Auto) 0.5 Lymph # (Auto) 3.0 [place] # (Auto) 0.9 Eos # (Auto) 0.2 Baso # (Auto) 0.0 Abs Immat Gran (auto) 0.01 Absolute Neuts (auto) 4.6 Absolute Nucleated RBC 0.000 Nucleated RBC % (auto) 0.0 PT 12.4 INR 1.0 aPTT Heparin Protocol 77.7 D Hold Blue Top Sodium 140 Potassium 4.4 Chloride 107 Carbon Dioxide 25 Anion Gap 12 BUN 12 Creatinine 0.85 Estim Creat Clear Calc 46.8 Estimated GFR > 60 POC Glucose 124 H Random Glucose 128 H Calcium 9.4 Total Bilirubin AST ALT Alkaline Phosphatase Troponin I High Sens 298.7 H* D Total Protein Albumin Triglycerides 153 H Cholesterol 182 LDL Cholesterol, Calc 104 H HDL Cholesterol 48 Urine Color Urine Appearance Urine pH Ur Specific [place] Urine Protein Urine Glucose (UA) Urine Ketones Urine Blood Urine Nitrite Ur Leukocyte Esterase COVID-19 (SONIA) COVID-19 Clin Com Influenza Type A (REYNA) Influenza Type B (REYNA) Influenza A & B Note Imaging Radiologist's impression: Impressions Chest X-Ray 10/31/23 14:10 IMPRESSION: Chronic appearing and postoperative changes but no acute process seen otherwise. Assessment and Plan (1) ACS (acute coronary syndrome): Status: Acute Acute coronary syndrome in this lady with high risk features with prior LAD stenting. Diffuse ST T wave changes abnormal troponins. Discussed about management including need for cardiac catheterization. I had a very detailed discussion about possible outcomes. Risks, benefits, alternatives to the procedures were discussed. Possibility of needing cardiac surgery was discussed. She is job was witnessed and says she would not take blood products under any circumstances. For now continue IV heparin. Continue aspirin. Avoid dual antiplatelet therapy for now. Continue high-intensity statin therapy. Continue nitro paste and metoprolol therapy as an anti ischemic therapy. Arrangements have been made for transfer the cardiac catheterization to [facility]. Will follow up in the clinic after discharge. Thank you for allowing me to partake in the care Procedures Date of Service Date of Service: 11/01/23
[2023-11-01 11:19] LABS: Glucose, Whole Blood 189 mg/dL (60-115)
--- NOTE | 2023-11-01 11:21 | MHC.CM.PN ---
IMM 10/31. This CM met with pt with a seismic interpreter. 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 Pt uses a cane and a walker. Pts daughter to transport home at D/C. Pt states she has a HCP and her daughter will bring in a copy. PCP: Dr. Davis Watts
[2023-11-01 11:30] VITALS: BP 136/60; PULSE 78; RESP 18; TEMP 36.1; O2SAT 97
[2023-11-01] MEDS: Insulin Lispro 100 UNIT/ML 3 ML VIAL SUBCUT (12:10)
[2023-11-01 12:32] LABS: PTT Heparin Drip 108.8 SEC (53-77.9)
--- NOTE | 2023-11-01 12:42 | P.DS_ITS ---
DS: Providers Provider Date of Service: 11/01/23 Date of admission: 10/31/23 19:51 Primary care physician: Davis Watts MD Consults: 10/31/23 19:56 Consult to Cardiology Routine Consulting Provider: [facility] Cardiovascular Services Reason for consultation: nstemi DS: Diagnosis Discharge Diagnosis (1) ACS (acute coronary syndrome): Status: Acute DS: Summary Hospital Course Hospital Course: History and physical as per admitting provider. 78-year-old female with history of oow-zjhyraw-wheulojol type 2 diabetes, osteoporosis, diabetic polyneuropathy, hypothyroidism, GERD, history CVA, TASHI not on CPAP but uses 2 L supplemental O2 at bedtime, hypertension, diabetic retinopathy, coronary artery disease s/p JANEY to LAD 2018 presents to the ED earlier today for evaluation of chest pain that started last night. She is accompanied by her daughters, Irene and Gerardo. Per the patient, since last night, she has had intermittent midsternal/left- sided chest pain radiating to the shoulder and down the left arm. She currently reports her pain as a 9/10 but at its worst was a 10/10. She does endorse associated lightheadedness, nausea, dyspnea. Currently she just feels generally unwell. Since arrival, patient has been hypertensive with blood pressure improved to 151/100 following amlodipine 10 mg and nitro paste. Vitals otherwise stable. Hematology studies unremarkable. Renal function baseline, electrolyte levels normal. Initial troponin 45.9, repeat 95.0. Negative for COVID-19, influenza, RSV. Chest x-ray shows chronic appearing postoperative changes but no acute process. EKG shows NSR, rate 89 without any significant acute ST/T-wave abnormalities. In the ED, given 324 mg aspirin, 80 mg atorvastatin, 0.5 in nitroglycerin paste, 10 mg amlodipine, and initiated on heparin drip with bolus per protocol. Patient will be admitted for further management of NSTEMI. Japanese interpretor used to assist with translation. 78-year-old woman treated for NSTEMI. Initial troponin 45.9 with repeat of 95.0 EKG without any acute ST wave abnormalities. No chest pain or shortness of breath during hospital stay. Started on IV heparin. Given nitro paste. Aspirin, statin, beta-claudia. Seen and evaluated by Cardiology. History of CAD with LAD stenting. Patient is a Jehovah Witness and would not take blood products under any circumstances. We will transfer patient with IV heparin, aspirin, statin, nitro paste metoprolol. Plan to transfer to [facility] for cardiac catheterization. Diabetes mellitus type 2. Continue Trulicity Hypertension continue MPL losartan, metoprolol initiated, nitroglycerin. Diabetic neuropathy. Continue Lyrica tramadol Hypothyroidism. Continue levothyroxine GERD. Continue PPI TASHI with nocturnal hypoxemia. Intolerant to CPAP may continue 2 L of supplemental oxygen at bedtime as needed History of coronary artery disease. Continue as above. Time Attestation Discharge Coordination Time (in mins): 36 Quality: Safe Use of Opioids Does Pt have an Active Cancer Diagnosis on the Problem List?: No Quality: Stroke Does the patient have a stroke diagnosis?: No Physical Exam Vital Signs: Vital Signs: Last Vital Signs Temp 97.0 F 11/01/23 11:30 Pulse 78 11/01/23 11:30 Resp 18 11/01/23 11:30 BP 136/60 11/01/23 11:30 Pulse Ox 97 11/01/23 11:30 O2 Del Method Room Air 11/01/23 11:30 BMI result Body Mass Index 28.8 Appearing in no acute distress argentine speaking head is normocephalic atraumatic eyes pupils are PERRLA sclera is anicteric mouth throat mucous membranes are intact and moist neck is supple no lymphadenopathy, no JVD noted lung sounds are clear to auscultation heart regular rate rhythm, clear S1, S2 positive bowel sounds, abdomen is soft, nontender neuro patient is alert x3, no focal deficits DS: Data Data Completed and Pending Labs on day of discharge: Laboratory Results - last 24 hr 10/31/23 10/31/23 10/31/23 14:32 17:08 18:42 WBC 5.8 7.4 RBC 4.64 4.95 Hgb 13.0 14.4 Hct 38.8 41.4 MCV 83.6 83.6 MCH 28.0 29.1 MCHC 33.5 34.8 RDW 13.4 13.3 Plt Count 199 213 MPV 10.4 11.3 Immature Gran % (Auto) 0.2 Neut % (Auto) 53.2 Lymph % (Auto) 33.9 [place] % (Auto) 10.5 Eos % (Auto) 1.7 Baso % (Auto) 0.5 Lymph # (Auto) 2.0 [place] # (Auto) 0.6 Eos # (Auto) 0.1 Baso # (Auto) 0.0 Abs Immat Gran (auto) 0.01 Absolute Neuts (auto) 3.1 Absolute Nucleated RBC 0.000 0.000 Nucleated RBC % (auto) 0.0 0.0 PT INR aPTT Heparin Protocol Hold Blue Top Sodium 136 Potassium 4.1 Chloride 102 Carbon Dioxide 27 Anion Gap 11 L BUN 14 Creatinine 0.86 Estim Creat Clear Calc 46.3 Estimated GFR > 60 POC Glucose Random Glucose 164 H Calcium 9.2 Total Bilirubin 0.4 AST 23 ALT 25 Alkaline Phosphatase 54 Troponin I High Sens 45.9 H 95.0 H* D Total Protein 7.3 Albumin 4.0 Triglycerides Cholesterol LDL Cholesterol, Calc HDL Cholesterol Urine Color Yellow Urine Appearance Clear Urine pH 7.5 Ur Specific [place] <= 1.005 Urine Protein Negative Urine Glucose (UA) 100 H Urine Ketones Negative Urine Blood Negative Urine Nitrite Negative Ur Leukocyte Esterase Negative COVID-19 (SONIA) Negative COVID-19 Clin Com See Note Influenza Type A (REYNA) Negative Influenza Type B (REYNA) Negative Influenza A & B Note See Note 10/31/23 10/31/23 10/31/23 18:43 19:20 20:57 WBC RBC Hgb Hct MCV MCH MCHC RDW Plt Count MPV Immature Gran % (Auto) Neut % (Auto) Lymph % (Auto) [place] % (Auto) Eos % (Auto) Baso % (Auto) Lymph # (Auto) [place] # (Auto) Eos # (Auto) Baso # (Auto) Abs Immat Gran (auto) Absolute Neuts (auto) Absolute Nucleated RBC Nucleated RBC % (auto) PT 11.3 INR 0.9 aPTT Heparin Protocol 37.2 L Hold Blue Top SEE NOTE Sodium Potassium Chloride Carbon Dioxide Anion Gap BUN Creatinine Estim Creat Clear Calc Estimated GFR POC Glucose 211 H Random Glucose Calcium Total Bilirubin AST ALT Alkaline Phosphatase Troponin I High Sens Total Protein Albumin Triglycerides Cholesterol LDL Cholesterol, Calc HDL Cholesterol Urine Color Urine Appearance Urine pH Ur Specific [place] Urine Protein Urine Glucose (UA) Urine Ketones Urine Blood Urine Nitrite Ur Leukocyte Esterase COVID-19 (SONIA) COVID-19 Clin Com Influenza Type A (REYNA) Influenza Type B (REYNA) Influenza A & B Note 03/31/24 04/01/24 04/01/24 22:19 01:45 03:40 WBC RBC Hgb Hct MCV MCH MCHC RDW Plt Count MPV Immature Gran % (Auto) Neut % (Auto) Lymph % (Auto) [place] % (Auto) Eos % (Auto) Baso % (Auto) Lymph # (Auto) [place] # (Auto) Eos # (Auto) Baso # (Auto) Abs Immat Gran (auto) Absolute Neuts (auto) Absolute Nucleated RBC Nucleated RBC % (auto) PT INR aPTT Heparin Protocol > 200.0 H* D > 200.0 H* Hold Blue Top Sodium Potassium Chloride Carbon Dioxide Anion Gap BUN Creatinine Estim Creat Clear Calc Estimated GFR POC Glucose 194 H Random Glucose Calcium Total Bilirubin AST ALT Alkaline Phosphatase Troponin I High Sens Total Protein Albumin Triglycerides Cholesterol LDL Cholesterol, Calc HDL Cholesterol Urine Color Urine Appearance Urine pH Ur Specific [place] Urine Protein Urine Glucose (UA) Urine Ketones Urine Blood Urine Nitrite Ur Leukocyte Esterase COVID-19 (SONIA) COVID-19 Clin Com Influenza Type A (REYNA) Influenza Type B (REYNA) Influenza A & B Note 11/01/23 11/01/23 11/01/23 04:57 07:44 11:04 WBC 8.7 RBC 4.55 Hgb 13.0 Hct 38.9 MCV 85.5 MCH 28.6 MCHC 33.4 RDW 13.6 Plt Count 204 MPV 11.0 Immature Gran % (Auto) 0.1 Neut % (Auto) 52.4 Lymph % (Auto) 34.9 [place] % (Auto) 10.0 Eos % (Auto) 2.1 Baso % (Auto) 0.5 Lymph # (Auto) 3.0 [place] # (Auto) 0.9 Eos # (Auto) 0.2 Baso # (Auto) 0.0 Abs Immat Gran (auto) 0.01 Absolute Neuts (auto) 4.6 Absolute Nucleated RBC 0.000 Nucleated RBC % (auto) 0.0 PT 12.4 INR 1.0 aPTT Heparin Protocol 77.7 D Hold Blue Top Sodium 140 Potassium 4.4 Chloride 107 Carbon Dioxide 25 Anion Gap 12 BUN 12 Creatinine 0.85 Estim Creat Clear Calc 46.8 Estimated GFR > 60 POC Glucose 124 H 189 H Random Glucose 128 H Calcium 9.4 Total Bilirubin AST ALT Alkaline Phosphatase Troponin I High Sens 298.7 H* D Total Protein Albumin Triglycerides 153 H Cholesterol 182 LDL Cholesterol, Calc 104 H HDL Cholesterol 48 Urine Color Urine Appearance Urine pH Ur Specific [place] Urine Protein Urine Glucose (UA) Urine Ketones Urine Blood Urine Nitrite Ur Leukocyte Esterase COVID-19 (SONIA) COVID-19 Clin Com Influenza Type A (REYNA) Influenza Type B (REYNA) Influenza A & B Note 11/01/23 11:45 WBC RBC Hgb Hct MCV MCH MCHC RDW Plt Count MPV Immature Gran % (Auto) Neut % (Auto) Lymph % (Auto) [place] % (Auto) Eos % (Auto) Baso % (Auto) Lymph # (Auto) [place] # (Auto) Eos # (Auto) Baso # (Auto) Abs Immat Gran (auto) Absolute Neuts (auto) Absolute Nucleated RBC Nucleated RBC % (auto) PT INR aPTT Heparin Protocol 108.8 H* D Hold Blue Top Sodium Potassium Chloride Carbon Dioxide Anion Gap BUN Creatinine Estim Creat Clear Calc Estimated GFR POC Glucose Random Glucose Calcium Total Bilirubin AST ALT Alkaline Phosphatase Troponin I High Sens Total Protein Albumin Triglycerides Cholesterol LDL Cholesterol, Calc HDL Cholesterol Urine Color Urine Appearance Urine pH Ur Specific [place] Urine Protein Urine Glucose (UA) Urine Ketones Urine Blood Urine Nitrite Ur Leukocyte Esterase COVID-19 (SONIA) COVID-19 Clin Com Influenza Type A (REYNA) Influenza Type B (REYNA) Influenza A & B Note Discharge Plan Discharge Anticipated Discharge Date/Time: 11/01/23 12:39 Patient Disposition: Xfer Acute Care Hospital Discharge Diagnosis: NSTEMI Referrals: Davis Watts MD [Primary Care Provider] - 1 Week Discharge Medications: New metoprolol tartrate 25 mg Tablet 25 mg PO BID Qty: 60 0RF Protocol: Hold for SBP/HR < HOLD for SBP < : 90 HOLD for HR < : 60 heparin(porcine) in 0.45% NaCl 25,000 unit/250 mL Parenteral Solution 25,000 unit continuous IV infusion .Q0M Qty: 6000 0RF Continued levothyroxine 50 mcg tablet 1 tab PO SUTUTHSA Trulicity 0.75 mg/0.5 mL pen injector 0.75 mg subcut SA calcium carbonate 500 mg calcium (1,250 mg) Tablet 500 mg PO DAILY irbesartan 75 mg tablet 75 mg PO DAILY estradiol 0.01 % (0.1 mg/gram) cream 2 g vaginal 2XW ascorbic acid (vitamin C) [Vitamin C] 500 mg Tablet 500 mg PO BID cholecalciferol (vitamin D3) [Vitamin D3] 50 mcg (2,000 unit) Capsule 50 mcg PO DAILY atorvastatin 40 mg tablet 40 mg PO BEDTIME levothyroxine 75 mcg tablet 75 mcg PO MOWE pantoprazole 40 mg tablet,delayed release (DR/EC) 40 mg PO DAILY aspirin 81 mg tablet,delayed release (DR/EC) 81 mg PO DAILY pregabalin 75 mg capsule 75 mg PO BID tramadol 50 mg tablet 50 mg PO BID zolpidem 5 mg tablet 5 mg PO BEDTIME Discharge Orders: Discharge Order (Routine); Ordered 11/01/23 Ordered By: Ariela Hair Diet: Advance to usual diet Activity on Discharge: As tolerated Stand Alone Forms: Patient Portal Discharge page Care Plan Goals: Transferred to [facility] for cardiac catheterization Health Concerns: NSTEMI Plan of Treatment: Transferred with IV heparin, aspirin, statin, beta-claudia Assessment: See discharge summary
[2023-11-01 14:12] LABS: PTT Heparin Drip 46.6 SEC (53-77.9)
[2023-11-01 15:56] VITALS: BP 134/64; PULSE 73; RESP 18; TEMP 35.7; O2SAT 96
[2023-11-01 16:02] LABS: Glucose, Whole Blood 170 mg/dL (60-115)
== END 2023-11-01 17:25 | disposition short-term general hospital (02) | DRG 282 ==
LOC: HO.ED 16:12 → HO.EDOVER 20:01 → HO.IMC 20:21
PROVIDERS: Physician Assistant; Student in an Organized Health Care Education/Training Program; Admitting Provider Physician Assistant; Emergency Provider Student in an Organized Health Care Education/Training Program; PCP Family Medicine; Visit Provider Nurse Practitioner Acute Care
DX: I21.4 Non-ST elevation (NSTEMI) myocardial infarction (principal); I25.10 Atherosclerotic heart disease of native coronary artery without angina pectoris; E03.9 Hypothyroidism, unspecified; G47.33 Obstructive sleep apnea (adult) (pediatric); E11.42 Type 2 diabetes mellitus with diabetic polyneuropathy; Z99.81 Dependence on supplemental oxygen; Z20.822 Contact with and (suspected) exposure to COVID-19; Z79.82 Long term (current) use of aspirin; Z79.85 Long-term (current) use of injectable non-insulin antidiabetic drugs; Z79.890 Hormone replacement therapy; Z79.899 Other long term (current) drug therapy; I10 Essential (primary) hypertension
CPT/HCPCS: 36415; 71045; 80048; 80053; 80061; 81003; 82947; 84484; 85025; 85027; 85610; 85730; 87502; 87635; 93005; 93306; 99285; J1644

== ENCOUNTER → 2023-10-31 14:03 | Outpatient (BNV) | payer OTHER, SELFPAY | PROVIDERS: Admitting Provider Physician Assistant; Emergency Provider Student in an Organized Health Care Education/Training Program; PCP Family Medicine; Visit Provider Internal Medicine Cardiovascular Disease | DX: R94.31 Abnormal electrocardiogram [ECG] [EKG] (principal) | CPT/HCPCS: 93010 ==

== ENCOUNTER 2023-10-31 19:51 | Outpatient (BNV) | payer OTHER, SELFPAY | END 2023-11-01 07:00 | PROVIDERS: Admitting Provider Physician Assistant; Emergency Provider Student in an Organized Health Care Education/Training Program; PCP Family Medicine; Visit Provider Internal Medicine Cardiovascular Disease | DX: I34.81 Nonrheumatic mitral (valve) annulus calcification (principal); I35.8 Other nonrheumatic aortic valve disorders | CPT/HCPCS: 93306 ==

== ENCOUNTER → 2023-10-31 19:51 | Outpatient (BNV) | payer OTHER, SELFPAY | PROVIDERS: Admitting Provider Physician Assistant; Emergency Provider Student in an Organized Health Care Education/Training Program; PCP Family Medicine; Visit Provider Internal Medicine Cardiovascular Disease | DX: I24.9 Acute ischemic heart disease, unspecified (principal) | CPT/HCPCS: 99222 ==

== ENCOUNTER → 2023-10-31 19:51 | Outpatient (BNV) | payer OTHER, SELFPAY | PROVIDERS: Admitting Provider Physician Assistant; Emergency Provider Student in an Organized Health Care Education/Training Program; PCP Family Medicine; Visit Provider Physician Assistant | DX: I24.9 Acute ischemic heart disease, unspecified (principal) | CPT/HCPCS: 99223; 99239 ==

== ENCOUNTER → 2023-11-02 23:59 | Outpatient (BNV) | payer OTHER, SELFPAY | PROVIDERS: PCP Family Medicine; Visit Provider Internal Medicine Cardiovascular Disease | DX: I21.4 Non-ST elevation (NSTEMI) myocardial infarction (principal) | CPT/HCPCS: 92920; 92921; 92928; 92972; 92978; 92979; 93458; 99152 ==

== ENCOUNTER 2023-11-25 13:06 | Outpatient (AMB) | payer OTHER, SELFPAY ==
[2023-11-25 13:07] VITALS: BP 130/64; BMI 28.8
--- NOTE | 2023-11-25 13:07 | A.OFFVIS_ITS ---
Vital Signs 11/25/23 13:07 Height 5 ft Weight 147 lb 11.355 oz BMI 28.8 BP 130/64 Blood Pressure Location Rt brachial Position Sitting Pulse Source Pulse Oximeter Intake Visit Reasons: 4 week follow up Resident Care Associate Required: Yes Resident Care Associate Name: linda Accompanied by: Employee Allergies esomeprazole [From NEXIUM] Adverse Reaction (Unknown, Verified 10/07/22 11:23) BURNING SENSATION Medication List - Last Reconciled 11/25/23 by Rafael Cassidy MD ascorbic acid (vitamin C) (Vitamin C) 500 mg PO BID aspirin 81 mg PO DAILY atorvastatin 40 mg PO BEDTIME calcium carbonate 500 mg PO DAILY cholecalciferol (vitamin D3) (Vitamin D3) 50 mcg PO DAILY dulaglutide (Trulicity) 0.75 mg subcut SA estradiol 0.01%(0.1mg/gram) 2 grams vaginal 2XW levothyroxine 1 tab PO SUTUTHSA levothyroxine 75 mcg PO MOWEFR metoprolol tartrate 25 mg See Protocol PO BID pantoprazole 40 mg PO DAILY pregabalin 75 mg PO BID tramadol 50 mg PO BID zolpidem 5 mg PO BEDTIME HPI Comments Details: Khadra returns for follow-up regarding coronary disease. In 2019, she underwent LAD stenting. She has not been seen in a couple of years but more recently had another hospitalization with NSTEMI. At that time, sent to [facility] for cardiac catheterization and she underwent circumflex stenting. After that, it seems that she had a lot of bleeding issues in the groin. She states that somebody stopped her Brilinta and he is only on aspirin. Not entirely clear what happened. Any case, no new chest pains after that. [facility] Medical History Anxiety and depression IBS (irritable bowel syndrome) Female bladder prolapse Diabetic retinopathy Osteoporosis CAD (coronary artery disease) Diabetes Osteoarthritis Neuropathy Hypothyroid GERD (gastroesophageal reflux disease) History of CVA (cerebrovascular accident) Mitral annular calcification Heart palpitations TASHI (obstructive sleep apnea) Essential hypertension Surgical History Hx of colonoscopy Stented coronary artery History of hysterectomy History of tonsillectomy History of cardioversion (~08/16/13) Family History Father Asthma Mother Cardiovascular disease Diabetes Arthritis Social History Household Members: None Housing: Apartment Are you a primary healthcare advisory services manager to a significant other at home: No Do you presently have visiting nurse or other home services: Yes ([facility]) Alcohol intake: never Patient Tobacco Use Status: Never used Tobacco e-Cigarette/Vaping Use: Never Used Advance Directives Date on File: 10/31/23 service: No Current occupational status: unemployed Review of Systems Const Denies chills, Denies fatigue, Denies fever(s), Denies frequent falls, Denies weakness, Denies weight gain and Denies weight loss ENT Denies dizziness Card Denies chest pain, Denies leg edema, Denies lightheadedness, Denies palpitations, Denies dyspnea and Denies dyspnea on exertion Resp Denies cough, Denies dyspnea and Denies dyspnea on exertion GI Denies hematochezia Musc Denies abnormal gait, Denies muscle weakness, Denies numbness, Denies radiating pain into limb and Denies tingling Neuro Denies abnormal gait, Denies dizziness, Denies frequent falls, Denies numbness, Denies tingling and Denies weakness Endo Denies fatigue and Denies palpitations Physical Exam Vital Signs: Last Vital Signs BP 130/64 11/25/23 13:07 BMI result Body Mass Index 28.8 Const General: comfortable and no acute distress Orientation/consciousness: patient oriented x3 HEENT Other: Unremarkable Head: Yes normal to inspection Neck Neck: Yes normal visual inspection Chest Chest palpation & inspection: normal inspection of the chest Resp Auscultation: clear to auscultation bilaterally Cardio Palpation: normal PMI Heart sounds: S1 normal heart sound present, S2 normal heart sound present, no gallops, no murmurs and no rubs GI Palpation (GI): Soft to palpation Back/Spine/Pelvis Other: unremarkable Skin General skin exam: no rashes or lesions noted Neuro General: patient oriented x3 Extrem General: Yes normal to inspection Psych Mental Status: mental status grossly normal Assessment & Plan Assessment & Plan (1) Atherosclerotic cardiovascular disease: Code(s): I25.10 - Atherosclerotic heart disease of [place] coronary artery without angina pectoris Category: Medical Plan: Most recent cardiac catheterization reviewed from November 2023. Severe ostial left circumflex stenosis, culprit for NSTEMI. Status post PCI of circumflex and left main. Also had severe calcification of LAD with previous stent with InStent restenosis in the proximal segment. Underwent balloon angioplasty of InStent restenosis. There is moderate diffuse calcified stenosis of the right coronary artery with ostial as well as proximal 70% stenosis. Overall, diffuse CAD. For antiplatelet therapy, she is only on aspirin. Advised the [employer] to start Brilinta as well. Labs from [facility]-LDL is 78 mg/dL and HDL 45 mg/dL. Triglycerides 156 mg/dL. (2) Essential hypertension: Code(s): I10 - Essential (primary) hypertension Category: Medical Plan: Not tolerant of beta-blockers or amlodipine in the past. More recently, list has beta-blockers again. (3) Mitral annular calcification: Code(s): I05.9 - Rheumatic mitral valve disease, unspecified Category: Medical Plan: Echocardiogram with severe mitral annular calcification but no significant dysfunction. (4) Hematoma of groin: Code(s): S30.1XXA - Contusion of abdominal wall, initial encounter Category: Medical Plan: Per [place] [facility] patient apparently had bleeding at the femoral access site and went to the ER. There was evidence of liquefying hematoma which was apparently draining through the skin incision. Then it seems there was one more visit due to again bleeding from the surgical site. Will ask Interventional to see and evaluate. (5) TASHI (obstructive sleep apnea): Comment: O2 - @L/MIN @ NIGHT- Could not tolerate CPAP Code(s): G47.33 - Obstructive sleep apnea (adult) (pediatric) Category: Medical Plan: Cannot tolerate CPAP. Using oxygen at nighttime. Plan Neither patient or the [employer] does not know the meds clearly and hence advised them to bring the medication bottles tomorrow. Also advised them to start Brilinta. Coding Level of Care Code Est Pt Level 4 (02571) Diagnoses Atherosclerotic cardiovascular disease I25.10 Essential hypertension I10 Mitral annular calcification I05.9 Hematoma of groin S30.1XXA TASHI (obstructive sleep apnea) G47.33
== END 2023-11-25 13:46 | disposition home or self-care (01) ==
PROVIDERS: PCP Family Medicine; Visit Provider Internal Medicine
DX: I25.10 Atherosclerotic heart disease of native coronary artery without angina pectoris (principal); I10 Essential (primary) hypertension; I05.9 Rheumatic mitral valve disease, unspecified; S30.1XXA Contusion of abdominal wall, initial encounter; G47.33 Obstructive sleep apnea (adult) (pediatric)
CPT/HCPCS: 99214

== ENCOUNTER → 2023-11-25 13:06 | Outpatient (BNVA) | payer OTHER, SELFPAY | PROVIDERS: PCP Family Medicine; Visit Provider Internal Medicine | DX: I25.10 Atherosclerotic heart disease of native coronary artery without angina pectoris (principal); I10 Essential (primary) hypertension; I05.9 Rheumatic mitral valve disease, unspecified; G47.33 Obstructive sleep apnea (adult) (pediatric); S30.1XXD Contusion of abdominal wall, subsequent encounter; Z79.82 Long term (current) use of aspirin | CPT/HCPCS: 99212 ==

== ENCOUNTER 2023-11-26 11:07 | Outpatient (AMB) | payer OTHER, SELFPAY ==
[2023-11-26 11:23] VITALS: BP 120/62; PULSE 75; BMI 28.7
--- NOTE | 2023-11-26 11:23 | MHC.OFFVIS ---
Vital Signs 11/26/23 11:23 Height 5 ft Weight 147 lb BMI 28.7 BP 120/62 Blood Pressure Location Lt brachial Position Sitting Pulse 75 Pulse Source Pulse Oximeter Intake Visit Reasons: follow up per [employer] Project Manager Required: Yes Accompanied by: Employee Allergies esomeprazole [From NEXIUM] Adverse Reaction (Unknown, Verified 10/07/22 11:23) BURNING SENSATION Medication List - Last Reviewed 11/26/23 by Rupa Dunbar MA ascorbic acid (vitamin C) (Vitamin C) 500 mg PO BID aspirin 81 mg PO DAILY atorvastatin 40 mg PO BEDTIME calcium carbonate 500 mg PO DAILY cholecalciferol (vitamin D3) (Vitamin D3) 50 mcg PO DAILY dulaglutide (Trulicity) 0.75 mg subcut SA estradiol 0.01%(0.1mg/gram) 2 grams vaginal 2XW levothyroxine 1 tab PO SUTUTHSA levothyroxine 75 mcg PO MOWEFR metoprolol succinate ER 50 mg PO DAILY pantoprazole 40 mg PO DAILY pregabalin 75 mg PO BID ticagrelor (Brilinta) 90 mg PO BID tramadol 50 mg PO BID zolpidem 5 mg PO BEDTIME HPI Comments Details: [age] year female who underwent PCI to left main to circumflex and subsequently presented to [facility] with oozing from the right femoral site. A small hematoma noted at the side. She had epinephrine/lidocaine injected by the clinical documentation improvement specialist with some improvement and eventually went home. She had CT scan performed which showed subcutaneous hematoma but no active bleeding. She subsequently came to emergency department for bleeding from the side again. Vascular surgery was consulted and their impression was that she has subcutaneous hematoma which is with new finding and self expressing. No concern for infection was noted although there was significant edema and fat stranding seen on the CT scan. She was seen by Dr. Cassidy yesterday and I have been asked to see her because of growing issues after cardiac catheterization. The patient has visiting nurse which is coming and changing dressings for her. She has no fevers or chills. She was complete by the PCT who has noticed that she has been somewhat fatigued more than before. Off note the patient is a [employer]. Her hemoglobin has been stable. She also received a call from [facility] and she was told to hold her Brilinta for few days after 2nd visit but it appears that she did not restarted till yesterday when she saw Dr. Cassidy. She has taken 180 mg loading dose and is taking Brilinta along with aspirin now. [facility] Medical History Anxiety and depression IBS (irritable bowel syndrome) Female bladder prolapse Diabetic retinopathy Osteoporosis CAD (coronary artery disease) Diabetes Osteoarthritis Neuropathy Hypothyroid GERD (gastroesophageal reflux disease) History of CVA (cerebrovascular accident) Mitral annular calcification Heart palpitations TASHI (obstructive sleep apnea) Essential hypertension Surgical History Hx of colonoscopy Stented coronary artery History of hysterectomy History of tonsillectomy History of cardioversion (~08/16/13) Family History Father Asthma Mother Cardiovascular disease Diabetes Arthritis Social History Household Members: None Housing: Apartment Are you a primary care team coordinator scheduler to a significant other at home: No Do you presently have visiting nurse or other home services: Yes ([employer]) Alcohol intake: never Patient Tobacco Use Status: Never used Tobacco e-Cigarette/Vaping Use: Never Used Advance Directives Date on File: 10/31/23 service: No Current occupational status: unemployed Review of Systems Const Denies chills, Denies fatigue, Denies fever(s), Denies frequent falls, Denies weakness, Denies weight gain and Denies weight loss ENT Denies dizziness Card Denies chest pain, Denies leg edema, Denies lightheadedness, Denies palpitations, Denies dyspnea and Denies dyspnea on exertion Resp Denies cough, Denies dyspnea and Denies dyspnea on exertion GI Denies hematochezia Musc Denies abnormal gait, Denies muscle weakness, Denies numbness, Denies radiating pain into limb and Denies tingling Neuro Denies abnormal gait, Denies dizziness, Denies frequent falls, Denies numbness, Denies tingling and Denies weakness Endo Denies fatigue and Denies palpitations Physical Exam Vital Signs: Last Vital Signs Pulse 75 11/26/23 11:23 BP 120/62 11/26/23 11:23 BMI result Body Mass Index 28.7 GENERAL APPEARANCE: in no acute distress, pleasant. NECK: no carotid bruit, no jugular venous distention. SKIN: no suspicious lesions, warm and dry. HEART: no murmurs, regular rate and rhythm. LUNGS: clear to auscultation bilaterally. ABDOMEN: soft, nontender. EXTREMITIES: no edema. Right femoral cardiac catheterization site-puncture site is open with oozing of old blood. There is induration around the area with tenderness and on pressure small amount of old blood from the liquified hematoma can be expressed. There is a pannus over the area of puncture but no obvious changes of cellulitis. PERIPHERAL PULSES: equal. NEUROLOGIC: No gross deficits, AAO X 3 Assessment & Plan Assessment & Plan (1) Hematoma of groin: Code(s): S30.1XXA - Contusion of abdominal wall, initial encounter Category: Medical (2) NSTEMI (non-ST elevated myocardial infarction): Code(s): I21.4 - Non-ST elevation (NSTEMI) myocardial infarction Category: Medical Plan Pleasant 78-year-old female who previously had rotablation and PCI of the LAD in 2019 who recently presented with NSTEMI. She is a [employer]. Cardiac catheterization showed ostial circumflex stenosis along with ISR in the LAD. Given the fact that she is quite frail and is a [employer] we decided to treat her percutaneously. She had balloon angioplasty of InStent restenoses in the LAD and had left main into circumflex stenting. She subsequently had a small hematoma of at the side with losing and presented and had epinephrine/lidocaine injection. It appears it improved but she came back later to ER. She was seen for vascular surgery and conservative management was advised. I have advised the patient that her Brilinta should not be discontinued at any stage without discussion with our office because she has left main stenting. The patient and her PCT the episode of understand that. She has induration around the site. I do not think there is active infection but the site is under panus so it may get infected. I am giving her prophylactic doxycycline 100 mg BID x 10 days. She will f/u with Dr Cassidy. Medications: New doxycycline hyclate 100 mg PO BID 20 tabs 0RF Coding Level of Care Code Est Pt Level 4 (69914) Diagnoses Hematoma of groin S30.1XXA NSTEMI (non-ST elevated myocardial infarction) I21.4
== END 2023-11-26 12:08 | disposition home or self-care (01) ==
PROVIDERS: PCP Family Medicine; Visit Provider Internal Medicine Cardiovascular Disease
DX: S30.1XXA Contusion of abdominal wall, initial encounter (principal); I21.4 Non-ST elevation (NSTEMI) myocardial infarction
CPT/HCPCS: 99214

== ENCOUNTER → 2023-11-26 11:07 | Outpatient (BNVA) | payer OTHER, SELFPAY | PROVIDERS: PCP Family Medicine; Visit Provider Internal Medicine Cardiovascular Disease | DX: I21.4 Non-ST elevation (NSTEMI) myocardial infarction (principal); S30.1XXA Contusion of abdominal wall, initial encounter | CPT/HCPCS: 99212 ==

== ENCOUNTER 2024-01-27 14:14 | Outpatient (AMB) | payer OTHER, SELFPAY ==
[2024-01-27 14:30] VITALS: BP 120/60; PULSE 71; BMI 28.3
--- NOTE | 2024-01-27 14:30 | A.OFFVIS_ITS ---
Vital Signs 01/27/24 14:30 Height 5 ft Weight 145 lb 1.027 oz BMI 28.3 BP 120/60 Blood Pressure Location Lt brachial Position Sitting Pulse 71 Pulse Source Pulse Oximeter Intake Visit Reasons: 2 m follow up Eyelet Cutter Required: Yes Eyelet Cutter Name: /cyracom/georgian Accompanied by: Self / Same As Patient Allergies esomeprazole [From NEXIUM] Adverse Reaction (Unknown, Verified 10/07/22 11:23) BURNING SENSATION Medication List - Last Reconciled 01/27/24 by Rafael Cassidy MD ascorbic acid (vitamin C) (Vitamin C) 500 mg PO BID aspirin 81 mg PO DAILY atorvastatin 40 mg PO BEDTIME calcium carbonate 500 mg PO DAILY cholecalciferol (vitamin D3) (Vitamin D3) 50 mcg PO DAILY dulaglutide (Trulicity) 0.75 mg subcut SA estradiol 0.01%(0.1mg/gram) 2 grams vaginal 2XW levothyroxine 1 tab PO SUTUTHSA levothyroxine 75 mcg PO MOWEFR metoprolol succinate ER 50 mg PO DAILY pantoprazole 40 mg PO DAILY pregabalin 75 mg PO BID ticagrelor (Brilinta) 90 mg PO BID tramadol 50 mg PO BID zolpidem 5 mg PO BEDTIME HPI Comments Details: Khadra returns for follow-up regarding coronary disease. In 2019, she underwent LAD stenting. She has not been seen in a couple of years but more recently had another hospitalization with NSTEMI. At that time, sent to [facility] for cardiac catheterization and she underwent circumflex stenting. Seems to have recovered well. No new symptoms. [facility], [facility] Medical History Anxiety and depression IBS (irritable bowel syndrome) Female bladder prolapse Diabetic retinopathy Osteoporosis CAD (coronary artery disease) Diabetes Osteoarthritis Neuropathy Hypothyroid GERD (gastroesophageal reflux disease) History of CVA (cerebrovascular accident) Mitral annular calcification Heart palpitations TASHI (obstructive sleep apnea) Essential hypertension Surgical History Hx of colonoscopy Stented coronary artery History of hysterectomy History of tonsillectomy History of cardioversion (~08/16/13) Family History Father Asthma Mother Cardiovascular disease Diabetes Arthritis Social History Household Members: None Housing: Apartment Are you a primary child care lead teacher to a significant other at home: No Do you presently have visiting nurse or other home services: Yes (WORD PROCESSOR) Alcohol intake: never Patient Tobacco Use Status: Never used Tobacco e-Cigarette/Vaping Use: Never Used Advance Directives Date on File: 10/31/23 service: No Current occupational status: unemployed Review of Systems Const Denies chills, Denies fatigue, Denies fever(s), Denies frequent falls, Denies weakness, Denies weight gain and Denies weight loss ENT Denies dizziness Card Denies chest pain, Denies leg edema, Denies lightheadedness, Denies palpitations, Denies dyspnea and Denies dyspnea on exertion Resp Denies cough, Denies dyspnea and Denies dyspnea on exertion GI Denies hematochezia Musc Denies abnormal gait, Denies muscle weakness, Denies numbness, Denies radiating pain into limb and Denies tingling Neuro Denies abnormal gait, Denies dizziness, Denies frequent falls, Denies numbness, Denies tingling and Denies weakness Endo Denies fatigue and Denies palpitations Physical Exam Vital Signs: Last Vital Signs Pulse 71 01/27/24 14:30 BP 120/60 01/27/24 14:30 BMI result Body Mass Index 28.3 Const General: comfortable and no acute distress Orientation/consciousness: patient oriented x3 HEENT Other: Unremarkable Head: Yes normal to inspection Neck Neck: Yes normal visual inspection Chest Chest palpation & inspection: normal inspection of the chest Resp Auscultation: clear to auscultation bilaterally Cardio Palpation: normal PMI Heart sounds: S1 normal heart sound present, S2 normal heart sound present, no gallops, no murmurs and no rubs GI Palpation (GI): Soft to palpation Back/Spine/Pelvis Other: unremarkable Skin General skin exam: no rashes or lesions noted Neuro General: patient oriented x3 Extrem General: Yes normal to inspection Psych Mental Status: mental status grossly normal Assessment & Plan Assessment & Plan (1) Atherosclerotic cardiovascular disease: Code(s): I25.10 - Atherosclerotic heart disease of [place] coronary artery without angina pectoris Category: Medical Plan: Most recent cardiac catheterization reviewed from November 2023. Severe ostial left circumflex stenosis, culprit for NSTEMI. Status post PCI of circumflex and left main. Also had severe calcification of LAD with previous stent with InStent restenosis in the proximal segment. Underwent balloon angioplasty of InStent restenosis. There is moderate diffuse calcified stenosis of the right coronary artery with ostial as well as proximal 70% stenosis. Overall, diffuse CAD. Continue aspirin/Brilinta. She has some GI distress from aspirin and hence try enteric-coated version. Labs from [facility]-LDL is 78 mg/dL and HDL 45 mg/dL. Triglycerides 156 mg/dL. (2) Essential hypertension: Code(s): I10 - Essential (primary) hypertension Category: Medical Plan: Not tolerant of beta-blockers or amlodipine in the past. More recently, list has beta-blockers again. (3) Mitral annular calcification: Code(s): I05.9 - Rheumatic mitral valve disease, unspecified Category: Medical Plan: Echocardiogram with severe mitral annular calcification but no significant dysfunction. (4) TASHI (obstructive sleep apnea): Comment: O2 - @L/MIN @ NIGHT- Could not tolerate CPAP Code(s): G47.33 - Obstructive sleep apnea (adult) (pediatric) Category: Medical Plan: Cannot tolerate CPAP. Using oxygen at nighttime. Plan Discussed with WORD PROCESSOR who came for the appointment. Medications: New aspirin (Enteric Coated Aspirin) 81 mg PO DAILY 90 tabs 3RF 90 days Coding Level of Care Code Est Pt Level 4 (51666) Diagnoses Atherosclerotic cardiovascular disease I25.10 Essential hypertension I10 Mitral annular calcification I05.9 TASHI (obstructive sleep apnea) G47.33
== END 2024-01-27 15:04 | disposition home or self-care (01) ==
PROVIDERS: PCP Family Medicine; Visit Provider Internal Medicine
DX: I25.10 Atherosclerotic heart disease of native coronary artery without angina pectoris (principal); I10 Essential (primary) hypertension; I05.9 Rheumatic mitral valve disease, unspecified; G47.33 Obstructive sleep apnea (adult) (pediatric)
CPT/HCPCS: 99214

== ENCOUNTER → 2024-01-27 14:14 | Outpatient (BNVA) | payer OTHER, SELFPAY | PROVIDERS: PCP Family Medicine; Visit Provider Internal Medicine | DX: I25.10 Atherosclerotic heart disease of native coronary artery without angina pectoris (principal); I10 Essential (primary) hypertension; I05.9 Rheumatic mitral valve disease, unspecified; G47.33 Obstructive sleep apnea (adult) (pediatric) | CPT/HCPCS: 99212 ==

== ENCOUNTER 2024-07-27 14:05 | Outpatient (AMB) | payer OTHER, SELFPAY ==
--- OUTSIDE RECORDS SUMMARY | 2024-07-27 14:07 | XMS_ITS | Continuity of Care Document ---
Author Organization [facility] Emeka saucedo's [facility] Address [address] [place] [address], [address] [place] [address]- Care Team Providers Care Oversize Load Pilot Escort Name Role Phone Mac LUKE, Davis Monroe Primary Care Physician [phone] [place] [facility] [place] [facility] [address] [facility], [address] [place] [address]- Encounter Type: Triage Allergies, Adverse Reactions, Alerts Substance Criticality Severity Reaction Reaction Severity Status Tessalon Perles Acti ve Nexium burning pain p osterior chest Active Immunizations Given and Recorded Vaccine Date Status Refusal Reason [id number] 12y+ bivalent booster vax 06/30/22 Recorded influenza virus vaccine, inactivated 05/03/22 Reji rded influenza virus vaccine, inactivated 04/20/21 Reji rded influenza virus vaccine, inactivated 04/17/20 Reji rded influenza virus vaccine, inactivated 1 05/30/19 Gi arnaldo influenza virus vaccine, inactivated 2 05/31/18 Gi arnaldo influenza virus vaccine, inactivated 3 05/17/17 Gi arnaldo influenza virus vaccine, inactivated 05/04/16 Give n influenza virus vaccine, inactivated 05/06/15 Give n influenza virus vaccine, inactivated 04/23/14 Give n influenza virus vaccine, inactivated 4 05/27/10 Gi arnaldo influenza virus vaccine, inactivated 5 05/21/09 Gi arnaldo SARS-CoV-2 (COVID-19) mRNA-1273 vaccine 06/11/21 R ecorded SARS-CoV-2 (COVID-19) mRNA-1273 vaccine 10/18/20 R ecorded SARS-CoV-2 (COVID-19) mRNA-1273 vaccine 09/20/20 R ecorded pneumococcal 13-valent vaccine 02/18/15 Given Fluarix (oldterm) 06/07/13 Given Fluzone (oldterm) 6 06/05/11 Given tetanus/diphtheria/pertussis, acel(Tdap) 7 02/12/10 Given Pneumococcal Poly (PPV23) (oldterm) 11/22/09 Given 1Result Comment: [facility]# [id number] 2Result Comment: [05/31/2018] [facility]# [id number] 3Result Comment: [05/17/2017] [facility] [id number] 4Admin Note: vis given dated 03/12/09 5Admin Note: received @ group home 6Admin Note: 02/24/11-vip form given 7Admin Note: vim given dated 06/19/08 Problem List Condition Confirmation Course Effective Dates Status H ealth Status Informant Acquired hypothyroidism Confirmed 06/05/09 Active Cholelithiasis Confirmed 11/07/23 Active CAD (coronary atherosclerotic disease) 1 Confirmed Active 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 Confirmed Active CKD stage 2 due to type 2 diabetes mellitus Confirmed 11/07/23 Active Female bladder prolapse Confirmed Active Mild non proliferative diabetic retinopathy Confirmed Active Dyslipidemia Confirmed 04/25/09 Active Esophageal reflux Confirmed 11/22/09 Active Primary hypertension Confirmed 04/25/09 Active H/O: CVA Confirmed 11/22/09 Active Hearing deficit Confirmed Active Helicobacter positive gastritis Confirmed 05/12/16 Active Hemiparesis affecting left side as late effect of cerebrovascular accident (CVA) Confirmed Active Insomnia Confirmed Active IBS (irritable bowel syndrome) Confirmed Active TASHI (obstructive sleep apnea) Confirmed Active Osteoporosis Confirmed 11/22/09 Active Recurrent major depression (disorder) Confirmed Active Diabetic neuropathy Confirmed Active Diabetes mellitus type 2, noninsulin dependent Confirmed Active 1s/p distant stent ; + stress test 01/20/13 Social History Social History Type Response Smoking Status Never smoker entered on: 02/09/14 Sex Sex Representation Female (finding) Patient Care team information Care Team Personnel Name: Geo RN, Amy Position: [facility] RN Member Role: Primary Care Nurse Name: Marcela Matthews RN Position: [facility] RN Member Role: Primary Care Nurse Name: Davis Watts MD Position: [facility] Physician - Primary Care Member Role: PCP Address: [address] [place] [address] Telecom: Name: Janae Meza RN Position: [facility] RN Member Role: Primary Care Nurse Name: Marlon Bhakta RN Position: [facility] RN Member Role: Primary Care Nurse Name: Sara Escalante RN Position: [facility] OB RN Member Role: Primary Care Nurse Name: Baylee Stock RN Position: [facility] RN Member Role: Primary Care Nurse Care Team Related Persons Name: KATLYN BELTRAN Name: JOSTIN KENDALL Name: TRES AGUILAR Insurance Providers Guarantor name: HODA KANDACE [facility] Information #: 1 Payer: SID Member Number: NA Policy Number: NA Group Number: NA
--- OUTSIDE RECORDS SUMMARY | 2024-07-27 14:07 | XMS_ITS | Continuity of Care Document ---
Author Organization [facility] Address [address] [place] [address]- Care Team Providers Care Laundry Helper Name Role Phone Mac LUKE, Davis Monroe Primary Care Physician [place] [facility] [place] 05/29/24 - 06/28/24 [facility] [address] [place] [address]- Encounter Type: Triage Allergies, Adverse Reactions, Alerts Substance Criticality Severity Reaction Reaction Severity Status Tessalon Perles Acti ve Nexium burning pain p osterior chest Active Immunizations Given and Recorded Vaccine Date Status Refusal Reason [id number] 12y+ bivalent booster vax 06/30/22 Recorded influenza [...] Poly (PPV23) (oldterm) 11/22/09 Given 1Result Comment: [facility]# [id number] 2Result Comment: [05/31/2018] [facility]# [id number] 3Result Comment: [05/17/2017] [facility] [id number] 4Admin Note: vis given dated 03/12/09 5Admin Note: received @ assisted 6Admin Note: 02/24/11-vip form given 7Admin Note: [...] Care team information Care Team Personnel Name: Amy Guardado RN Position: [facility] RN Member Role: Primary Care Nurse Name: Marcela Matthews RN Position: [facility] RN Member Role: Primary Care Nurse Name: Davis Watts MD Position: [facility] Physician - Primary Care Member Role: PCP Address: [address] [place] [address] Telecom: Name: Janae Meza RN Position: [facility] RN Member Role: Primary Care Nurse Name: Marlon Bhakta RN Position: [facility] RN Member Role: Primary Care Nurse Name: Sara Escalante RN Position: [facility] OB RN Member Role: Primary Care Nurse Name: Baylee Stock RN Position: [facility] RN Member Role: Primary Care Nurse Care Team Related Persons Name: KATLYN BELTRAN Name: JOSTIN KENDALL Name: TRES AGUILAR Insurance Providers Guarantor name: [facility] Plan Information #: 1 Payer: NA Member Number: NA Policy Number: NA Group Number: NA
--- OUTSIDE RECORDS SUMMARY | 2024-07-27 14:07 | XMS_ITS | Continuity of Care Document ---
Author Organization [facility] Address [address] [place] [address]- Care Team Providers Care Director Financial Analysis Name Role Phone Mac LUKE, Davis Monroe Primary Care Physician Encounter [facility] [place] Date(s): 06/22/24 - 07/22/24 [facility] [address] [place] [address]- Encounter Type: Triage Allergies, Adverse Reactions, Alerts Substance Criticality Severity Reaction Reaction Severity Status Tessalon Perles Acti ve Nexium burning pain p osterior chest Active Immunizations Given and Recorded Vaccine Date Status Refusal Reason [id number] 12y+ bivalent booster vax 06/30/22 Recorded influenza [...] Poly (PPV23) (oldterm) 11/22/09 Given 1Result Comment: [facility]# [id number] 2Result Comment: [05/31/2018] [facility]# [id number] 3Result Comment: [05/17/2017] [facility] [id number] 4Admin Note: vis given dated 03/12/09 5Admin Note: received @ [facility] 6Admin Note: 02/24/11-vip form given 7Admin Note: [...] Care Nurse Name: Davis Watts MD Position: [facility] Physician - Primary Care Member Role: PCP Address: [address] [place] [address] Telecom: Name: Janae Meza RN Position: S RN Member Role: Primary Care Nurse Name: Marlon Bhakta RN Position: [facility] RN Member Role: Primary Care Nurse Name: Sara Escalante RN Position: [facility] OB RN Member Role: Primary Care Nurse Name: Baylee Stock RN Position: [facility] RN Member Role: Primary Care Nurse Care Team Related Persons Name: KTALYN BELTRAN Name: JOSTIN KENDALL Name: TRES AGUILAR Insurance Providers Guarantor name: [facility] Plan Information #: 1 Payer: NA Member Number: NA Policy Number: NA Group Number: NA
--- OUTSIDE RECORDS SUMMARY | 2024-07-27 14:07 | XMS_ITS | Continuity of Care Document ---
Author Organization [facility] Address [address] [place] [address]- Care Team Providers Care Psychologist Private Practice Name Role Phone Davis Watts MD [id number] Date(s): 07/11/24 - 07/18/24 [facility] [address] [place] [address]- Attending Physician: Davis Watts MD Encounter Type: Office Visit Allergies, Adverse Reactions, Alerts Substance Criticality Severity Reaction Reaction Severity Status Tessalon Perles Acti ve Nexium burning pain p osterior chest Active Immunizations Given and Recorded Vaccine Date Status Refusal Reason [id number] 12y+ bivalent booster vax 06/30/22 Recorded influenza [...] Poly (PPV23) (oldterm) 11/22/09 Given 1Result Comment: [facility]# [id number] 2Result Comment: [05/31/2018] [facility]# [id number] 3Result Comment: [05/17/2017] [facility] [id number] 4Admin Note: vis given dated 03/12/09 5Admin Note: received @ custodial 6Admin Note: 02/24/11-vip form given 7Admin Note: [...] distant stent ; + stress test 01/20/13 Vital Signs Most recent to oldest [Reference Range]: 1 Height 155 cm (07/11/24 2:08 PM) Weight 66.0 kg (07/11/24 2:08 PM) Oxygen Saturation [94-100 %] 98 % (07/11/24 2:08 PM) Pulse Rate [55-90 bpm] 80 bpm (07/11/24 2:08 PM) Body Mass Index [18.5-24.99 kg/m2] 27.47 kg/m2 *H* (07/11/24 2:08 PM) Blood Pressure [90-138/55-84 mm Hg] 122/ 70mm Hg (07/11/24 2:08 PM) Blood pressure sites Arm, left (07/11/24 2:08 PM) Weight Obtained Via Standing scale (07/11/24 2:08 PM) Social History Social History Type Response Smoking Status Never smoker entered on: 02/09/14 Sex Sex Representation Female (finding) Note * Jaida Rogel: PERFORM Event Display: Patient Education/Instruction Authored Date: [id number] Ambulatory Adult Visit Summary [facility] [address] [place] [address] Name: HODA KANDACE : 1945?? Visit: 07/11/2024 13:19?? Ambulatory Visit Instructions ?? Your Care Team Primary Care Provider Davis Watts MD? This Visit Provider Davis Watts MD Your Diagnosis Recurrent UTI Type 2 diabetes mellitus with diabetic polyneuropathy, without long-term current use of insulin Osteoporosis CAD (coronary atherosclerotic disease) Insomnia Hemiparesis due to old stroke Vitals Signs Pulse Rate: 80 bpm Height: 155 cm Systolic Blood Pressure: 122 mm Hg Weight: 66 kg Diastolic Blood Pressure: 70 mm Hg Body Mass Index:??27.47 kg/m2??High Oxygen Saturation: 98 % Body surface area: 1.69 What to do next Scheduled Follow-Up Appointments Wednesday 2:40 PM EST ?? With: Guerrero LUKE, Suma Somers Where: [facility] [address] [address]- Status: Pending Follow-Up Appointments Follow Up with??Davis Watts MD When:??10/31/2024 02:20 PM EDT Where: [address] [place] [address]- Follow up Appointment - Ordered?-- 3 months, 07/11/24 15:08:00 EST Future Orders Comprehensive Metabolic Panel - Once, *Est. 07/22/23, Order for Today?? Hemoglobin A1C (Monitoring) - Once, *Est. 07/22/23, Order for Today?? Microalbumin Urine (Urine Microalbumin) - Urine, Once, *Est. 07/22/23, Order for Today?? TSH with T4 Reflex (Adults Only) - Once, *Est. 07/22/23, Order for Today?? Lipid Panel Non Fasting - Once, *Est. 07/22/23, Order for Today?? Hgb + Hct - Once, *Est. 07/22/23, Order for Today?? Vitamin B12 Level - Once, *Est. 07/22/23, Order for Today?? Urine Culture - Routine, Urine Clean Catch, Once, 07/11/24 3:00:00 EST, Order for Today, [facility], Urine?? Complete Urinalysis - Routine, Once, 07/11/24 3:00:00 EST, Order for Today, [facility], Urine?? Medications The list below reflects the information in our records and provided by you today along with any changes made during this visit. Please continue your medications until treatment is completed or stopped by your provider. If this is different from the information you have or there are other questions,please contact the prescribing provider. What How Much When Why Instructions New Atorvastatin (atorvastatin 40 mg oral tablet) 1 tab(s) Oral Daily Refills: 3 Pickup at [facility]/pharmacy #2070 New Durable Medical Equipment (shower chair) See instructions Type 2 diabetes mellitus with diabetic polyneuropathy, without long-term current use of insulin Hemiparesis due to old stroke as directed ?? Printed Prescription New Irbesartan (irbesartan 75 mg oral tablet) 1 tab(s) Oral Daily Hypertension Refills: 3 Pickup at [facility]/pharmacy #[id number] New Pregabalin (pregabalin 75 mg oral capsule) 1 capsule Oral Twice a day Leg pain Refills: 1 Pickup at [facility]/pharmacy #[id number] Changed Cholecalciferol (Vitamin D3 2000 intl units oral capsule) 1 capsule Oral Daily Osteoporosis CAD (coronary atherosclerotic disease) Pickup at [facility]/pharmacy #2070 Unchanged Ascorbic Acid (Vitamin C 500 mg oral tablet) See instructions TAKE 1 TABLET BY MOUTH TWICE A DAY ?? Unchanged Aspirin (aspirin 81 mg oral delayed release tablet) 81 Milligram Oral Daily Duration: 90 Days Unchanged calcium carbonate-magnesium chloride (calcium-magnesium 119 mg-71.5 mg oral delayed release tablet) 2 tab(s) Oral Daily Unchanged dulaglutide (Trulicity Pen 0.75 mg/ 0.5 mL subcutaneous solution) 0.75 Milligram Subcutaneous Injection Every week rotate injection sites; ?? Unchanged Durable Medical Equipment (One Touch Delica Test Strips) See instructions Use to test blood sugars once daily DX: DM type 2 ?? Unchanged Durable Medical Equipment (One Touch Ultra Test Strips) See instructions Duration: 90 Days use as directed for Type 2 Diabetes Mellitus Used to check BS twice daily ?? Unchanged Durable Medical Equipment (One Touch UltraSoft Lancets) See instructions Diabetes mellitus type 2, noninsulin dependent use as directed for Type 2 Diabetes Mellitus ?? Unchanged Durable Medical Equipment (wheelchair with foot rests) See instructions ht 5'1 wt 146 lbs RICK 99 Dx 169.354 ?? 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 Unchanged Estradiol Topical (Estrace Vaginal Cream 0.1 mg/ g) See instructions Recurrent UTI 2 Gm Vaginally ??2 days per week ?? Unchanged Levothyroxine (levothyroxine 75 mcg (0.075 mg) oral tablet) 1 tab(s) Oral Wednesday, Wednesday and Wednesday Unchanged Levothyroxine (Levoxyl 0.05 mg oral tablet) See instructions take 1 tablet in AM on Sundays, Tuesdays, and Saturdays ?? Unchanged Metoprolol (metoprolol 50 mg oral tablet, extended release) 1 tab(s) Oral Daily Unchanged Polyethylene Glycol 3350 (MiraLax oral powder for reconstitution) 17 gram Oral Twice a day dissolve in water before taking. Decrease to once daily if needed for excessive loose stools. ?? Unchanged Ticagrelor (ticagrelor 90 mg oral tablet) 1 tab(s) Oral Twice a day Unchanged Tramadol (traMADol 50 mg oral tablet) 1 tab(s) Oral Every 12 hours as needed for Pain , Moderate Cervicalgia Osteoarthritis Unchanged Zolpidem (zolpidem 5 mg oral tablet) 1 tab(s) Oral Daily at Bedtime as needed for for sleep Chronic insomnia Pharmacy Information [facility]/pharmacy #[id number]: [address], [place] [phone] Test Performed Below is a partial list of the tests performed during your Visit. You may have had other tests and procedures not included in this list. Please discuss all test results with your provider. Complete Urinalysis?-- Results Pending -- POC HBA1C ([facility]) Urine Culture?-- Results Pending -- Lab Test Results Below is a partial list of the most recent Laboratory test results done during your Visit. You may have had other tests and procedures not included in this list. Please discuss all test results with your provider. Test Name Test Result Date/Time POC HBA1C ([facility]) 7.4 % 07/11/2024 14:29 EST Medications and Immunizations Administered Medications Given During Visit No medications given during this visit.?? Allergies (NKA means No Known Allergies) Nexium??( burning pain posterior chest ) Sahil Aguila Common Emergency Awareness Tips IS IT A STROKE? Act FAST and Check for these signs: FACE Does the face look uneven? ARM Does one arm drift down? SPEECH Does their speech sound strange? TIME Call at any sign of stroke ?? Heart Attack Signs Chest discomfort: Most heart attacks involve discomfort in the center of the chest and lasts more than a few minutes, or goes away and comes back. It can feel like uncomfortable pressure, squeezing, fullness or pain. Discomfort in upper body: Symptoms can include pain or discomfort in one or both arms, back, neck, jaw or stomach. Shortness of breath: With or without discomfort. Other signs: Breaking out in a cold sweat, nausea, or lightheaded. Remember, MINUTES DO MATTER. If you experience any of these heart attack warning signs, call to get immediate medical attention! ?? Smoking can increase your chances of developing chronic health problems and can cause harmful effects to other family members in your house. If you smoke, you are strongly encouraged to quit. Please call [employer] [facility] [employer]) Link at [phone] or 1-006-133Amazon ([phone]) or log in to [email or web address] for referrals to smoking cessation programs. ?? The National Suicide Prevention Hotline is available 22/02 if you or someone you know needs to find a reason to keep living. By calling 7-352-517-nzhc (2219) you'll be connected to a skilled, trained counselor at a crisis center in your area. [facility] My Health Direct Portal You can view and manage your care through the patient portal or by using a health care dereck of your choosing. [employer] is a website that allows you to securely view your medical information including your hospital discharge summary, office visit summaries, medications and follow-up visits. You can also request appointments, renew medications, and request access to your medical information using a health care dereck of your choosing, or just ask a question. You can enroll at [email or web address] or register during your next office visit. [facility], in keeping with [facility] guidance, no longer requires face masks for staff, patientsor visitors in most situations. Similiar to time spent indoors at other locations, there is the chance that you were exposed to repiratory viruses during your time with us (such as flu or COVID-19). If you develop symptoms concerning for a viral respiratory infection, please seek testing (and treatment if indicated) from your medical provider or home test kit. ?? Disclaimer: The information provided is of a general nature and is intended to be used in conjunction with the recommendations and advice of your health care practitioner. Every effort has been made to ensure that the information provided is accurate and complete at the time it is provided to you however, as your needs change, or, as new information becomes available, different or additional instructions may be required. ?? If you have questions, please consult with your primary care provider or pharmacist, as appropriate. This information is not intended to serve as substitution for assessment and evaluation by a qualified health care provider. If you do not have a primary care provider, you may find a [facility] provider by calling [facility] My Health Direct Link at [phone]. * Jaida oRgel: PERFORM Event Display: Patient Education/Instruction Authored Date: [id number] Ambulatory Adult Visit Summary [address] [address] Name: HODA JERONIMO : 1945?? Visit: 07/11/2024 13:19?? Ambulatory Visit Instructions ?? Your Care Team Primary Care Provider Davis Watts MD? This Visit Provider Davis Watts MD Your Diagnosis Recurrent UTI Type 2 diabetes mellitus with diabetic polyneuropathy, without long-term current use of insulin Osteoporosis CAD (coronary atherosclerotic disease) Insomnia Hemiparesis due to old stroke Vitals Signs Pulse Rate: 80 bpm Height: 155 cm Systolic Blood Pressure: 122 mm Hg Weight: 66 kg Diastolic Blood Pressure: 70 mm Hg Body Mass Index:??27.47 kg/m2??High Oxygen Saturation: 98 % Body surface area: 1.69 What to do next Scheduled Follow-Up Appointments Wednesday 2:40 PM EST ?? With: Guerrero LUKE, Suma Somers Where: [facility] [address] [place] [address]- Status: Pending Follow-Up Appointments Follow up Appointment - Ordered?-- 3 months, 07/11/24 15:08:00 EST Future Orders Comprehensive Metabolic Panel - Once, *Est. 07/22/23, Order for Today?? Hemoglobin A1C (Monitoring) - Once, *Est. 07/22/23, Order for Today?? Microalbumin Urine (Urine Microalbumin) - Urine, Once, *Est. 07/22/23, Order for Today?? TSH with T4 Reflex (Adults Only) - Once, *Est. 07/22/23, Order for Today?? Lipid Panel Non Fasting - Once, *Est. 07/22/23, Order for Today?? Hgb + Hct - Once, *Est. 07/22/23, Order for Today?? Vitamin B12 Level - Once, *Est. 07/22/23, Order for Today?? Urine Culture - Routine, Urine Clean Catch, Once, 07/11/24 3:00:00 EST, Order for Today, [facility], Urine?? Complete Urinalysis - Routine, Once, 07/11/24 3:00:00 EST, Order for Today, [facility], Urine?? Medications The list below reflects the information in our records and provided by you today along with any changes made during this visit. Please continue your medications until treatment is completed or stopped by your provider. If this is different from the information you have or there are other questions,please contact the prescribing provider. What How Much When Why Instructions New Atorvastatin (atorvastatin 40 mg oral tablet) 1 tab(s) Oral Daily Refills: 3 Pickup at [facility]/pharmacy #207 New Durable Medical Equipment (shower chair) See instructions Type 2 diabetes mellitus with diabetic polyneuropathy, without long-term current use of insulin Hemiparesis due to old stroke as directed ?? Printed Prescription New Irbesartan (irbesartan 75 mg oral tablet) 1 tab(s) Oral Daily Hypertension Refills: 3 Pickup at [facility]/pharmacy #207 New Pregabalin (pregabalin 75 mg oral capsule) 1 capsule Oral Twice a day Leg pain Refills: 1 Pickup at [facility]/pharmacy #207 Changed Cholecalciferol (Vitamin D3 2000 intl units oral capsule) 1 capsule Oral Daily Osteoporosis CAD (coronary atherosclerotic disease) Pickup at [facility]/pharmacy #207 Unchanged Ascorbic Acid (Vitamin C 500 mg oral tablet) See instructions TAKE 1 TABLET BY MOUTH TWICE A DAY ?? Unchanged Aspirin (aspirin 81 mg oral delayed release tablet) 81 Milligram Oral Daily Duration: 90 Days Unchanged calcium carbonate-magnesium chloride (calcium-magnesium 119 mg-71.5 mg oral delayed release tablet) 2 tab(s) Oral Daily Unchanged dulaglutide (Trulicity Pen 0.75 mg/ 0.5 mL subcutaneous solution) 0.75 Milligram Subcutaneous Injection Every week rotate injection sites; ?? Unchanged Durable Medical Equipment (One Touch Delica Test Strips) See instructions Use to test blood sugars once daily DX: DM type 2 ?? Unchanged Durable Medical Equipment (One Touch Ultra Test Strips) See instructions Duration: 90 Days use as directed for Type 2 Diabetes Mellitus Used to check BS twice daily ?? Unchanged Durable Medical Equipment (One Touch UltraSoft Lancets) See instructions Diabetes mellitus type 2, noninsulin dependent use as directed for Type 2 Diabetes Mellitus ?? Unchanged Durable Medical Equipment (wheelchair with foot rests) See instructions ht 5'1 wt 146 lbs RICK 99 Dx 169.354 ?? 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 Unchanged Estradiol Topical (Estrace Vaginal Cream 0.1 mg/ g) See instructions Recurrent UTI 2 Gm Vaginally ??2 days per week ?? Unchanged Levothyroxine (levothyroxine 75 mcg (0.075 mg) oral tablet) 1 tab(s) Oral Wednesday, Wednesday and Wednesday Unchanged Levothyroxine (Levoxyl 0.05 mg oral tablet) See instructions take 1 tablet in AM on Sundays, Tuesdays, and Saturdays ?? Unchanged Metoprolol (metoprolol 50 mg oral tablet, extended release) 1 tab(s) Oral Daily Unchanged Polyethylene Glycol 3350 (MiraLax oral powder for reconstitution) 17 gram Oral Twice a day dissolve in water before taking. Decrease to once daily if needed for excessive loose stools. ?? Unchanged Ticagrelor (ticagrelor 90 mg oral tablet) 1 tab(s) Oral Twice a day Unchanged Tramadol (traMADol 50 mg oral tablet) 1 tab(s) Oral Every 12 hours as needed for Pain , Moderate Cervicalgia Osteoarthritis Unchanged Zolpidem (zolpidem 5 mg oral tablet) 1 tab(s) Oral Daily at Bedtime as needed for for sleep Chronic insomnia Pharmacy Information [facility]/pharmacy #[id number]: [address], [place] [phone] Test Performed Below is a partial list of the tests performed during your Visit. You may have had other tests and procedures not included in this list. Please discuss all test results with your provider. Complete Urinalysis?-- Results Pending -- POC HBA1C ([facility]) Urine Culture?-- Results Pending -- Lab Test Results Below is a partial list of the most recent Laboratory test results done during your Visit. You may have had other tests and procedures not included in this list. Please discuss all test results with your provider. Test Name Test Result Date/Time POC HBA1C ([facility]) 7.4 % 07/11/2024 14:29 EST Medications and Immunizations Administered Medications Given During Visit No medications given during this visit.?? Allergies (NKA means No Known Allergies) Nexium??( burning pain posterior chest ) Sahil Aguila Common Emergency Awareness Tips IS IT A STROKE? Act FAST and Check for these signs: FACE Does the face look uneven? ARM Does one arm drift down? SPEECH Does their speech sound strange? TIME Call at any sign of stroke ?? Heart Attack Signs Chest discomfort: Most heart attacks involve discomfort in the center of the chest and lasts more than a few minutes, or goes away and comes back. It can feel like uncomfortable pressure, squeezing, fullness or pain. Discomfort in upper body: Symptoms can include pain or discomfort in one or both arms, back, neck, jaw or stomach. Shortness of breath: With or without discomfort. Other signs: Breaking out in a cold sweat, nausea, or lightheaded. Remember, MINUTES DO MATTER. If you experience any of these heart attack warning signs, call to get immediate medical attention! ?? Smoking can increase your chances of developing chronic health problems and can cause harmful effects to other family members in your house. If you smoke, you are strongly encouraged to quit. Please call [facility] [employer] Link at [phone] or 8-425-045Amazon ([phone]) or log in to [email or web address] for referrals to smoking cessation programs. ?? The National Suicide Prevention Hotline is available 22/02 if you or someone you know needs to find a reason to keep living. By calling 7-830-508-Manta (5153) you'll be connected to a skilled, trained counselor at a crisis center in your area. [facility] My Health Direct Portal You can view and manage your care through the patient portal or by using a health care dereck of your choosing. [employer] is a website that allows you to securely view your medical information including your hospital discharge summary, office visit summaries, medications and follow-up visits. You can also request appointments, renew medications, and request access to your medical information using a health care dereck of your choosing, or just ask a question. You can enroll at [email or web address] or register during your next office visit. [facility], in keeping with [facility] guidance, no longer requires face masks for staff, patientsor visitors in most situations. Similiar to time spent indoors at other locations, there is the chance that you were exposed to repiratory viruses during your time with us (such as flu or COVID-19). If you develop symptoms concerning for a viral respiratory infection, please seek testing (and treatment if indicated) from your medical provider or home test kit. ?? Disclaimer: The information provided is of a general nature and is intended to be used in conjunction with the recommendations and advice of your health care practitioner. Every effort has been made to ensure that the information provided is accurate and complete at the time it is provided to you however, as your needs change, or, as new information becomes available, different or additional instructions may be required. ?? If you have questions, please consult with your primary care provider or pharmacist, as appropriate. This information is not intended to serve as substitution for assessment and evaluation by a qualified health care provider. If you do not have a primary care provider, you may find a [facility] provider by calling [facility] My Health Direct [facility] at [phone]. Patient Care team information Care Team Personnel Name: Amy Guardado RN Position: S RN Member Role: Primary Care Nurse Name: Marcela Matthews RN Position: S RN Member Role: Primary Care Nurse Name: Davis Watts MD Position: [facility] Physician - Primary Care Member Role: PCP Address: [address] [place] [address] Telecom: Name: Janae Meza RN Position: S RN Member Role: Primary Care Nurse Name: Marlon Bhakta RN Position: S RN Member Role: Primary Care Nurse Name: Sara Escalante RN Position: [facility] OB RN Member Role: Primary Care Nurse Name: Baylee Stock RN Position: S RN Member Role: Primary Care Nurse Care Team Related Persons Name: KATLYN BELTRAN Name: JOSTIN KENDALL Name: TRES AGUILAR Insurance Providers Guarantor name: HODA KANDACE Health Plan Information #: 1 Payer: NA Member Number: [id number] Policy Number: NA Group Number: [facility] [place] [facility] Plan Information #: 2 Payer: NA Member Number: [id number] Policy Number: NA Group Number: NA
--- OUTSIDE RECORDS SUMMARY | 2024-07-27 14:07 | XMS_ITS | Continuity of Care Document ---
Author Organization [facility] Address [address] [place] [address]- Care Team Providers Care Combustion Engineer Name Role Phone Mac LUKE, Davis Monroe Primary Care Physician Encounter [facility] Date(s): 05/29/24 - 06/28/24 [facility] [address] [place] [address]- Encounter Type: Triage Allergies, Adverse Reactions, Alerts Substance Criticality Severity Reaction Reaction Severity Status Nexium burning pain p osterior chest Active Tessalon Perles Acti ve Immunizations Given and Recorded Vaccine Date Status Refusal Reason [id number] 12y+ bivalent booster vax 06/30/22 Recorded influenza [...] Poly (PPV23) (oldterm) 11/22/09 Given 1Result Comment: [facility]# [id number] 2Result Comment: [05/31/2018] [facility]# [id number] 3Result Comment: [05/17/2017] [facility] [id number] 4Admin Note: vis given dated 03/12/09 5Admin Note: received @ longterm 6Admin Note: 02/24/11-vip form given 7Admin Note: [...] Care Nurse Name: Davis Watts MD Position: [facility] Physician - Primary Care Member Role: PCP Address: [address] [place] [address] Telecom: Name: Janae Meza RN Position: [facility] RN Member Role: Primary Care Nurse Name: Marlon Bhakta RN Position: [facility] RN Member Role: Primary Care Nurse Name: Sara Escalante RN Position: [facility] OB RN Member Role: Primary Care Nurse Name: Baylee Stock RN Position: [facility] RN Member Role: Primary Care Nurse Care Team Related Persons Name: KATLYN BELTRAN Name: JOSTIN KENDALL Name: TRES AGUILAR Insurance Providers Guarantor name: [facility] Plan Information #: 1 Payer: NA Member Number: NA Policy Number: NA Group Number: NA
[2024-07-27 14:08] VITALS: BP 120/54; PULSE 76; BMI 28.6
--- NOTE | 2024-07-27 14:08 | A.OFFVIS_ITS ---
Vital Signs 07/27/24 14:08 Height 5 ft Weight 146 lb 6.191 oz BMI 28.6 BP 120/54 L Blood Pressure Location Lt brachial Position Sitting Pulse 76 Pulse Source Pulse Oximeter Intake Visit Reasons: 6m follow up [employer] [place] Required: Yes [employer] [place] Language: [place] Name: [id number] Accompanied by: Employer Allergies esomeprazole [From NEXIUM] Adverse Reaction (Unknown, Verified 10/07/22 11:23) BURNING SENSATION Medication List - Last Reconciled 07/27/24 by Rafael Cassidy MD ascorbic acid (vitamin C) (Vitamin C) 500 mg PO BID aspirin (Enteric Coated Aspirin) 81 mg PO DAILY 90 days atorvastatin 40 mg PO BEDTIME calcium carbonate 500 mg PO DAILY cholecalciferol (vitamin D3) (Vitamin D3) 50 mcg PO DAILY dulaglutide (Trulicity) 0.75 mg subcut SA estradiol 0.01%(0.1mg/gram) 2 grams vaginal 2XW levothyroxine 1 tab PO SUTUTHSA levothyroxine 75 mcg PO MOWEFR metoprolol succinate ER 50 mg PO DAILY pantoprazole 40 mg PO DAILY pregabalin 75 mg PO BID ticagrelor (Brilinta) 90 mg PO BID tramadol 50 mg PO BID zolpidem 5 mg PO BEDTIME HPI Comments Details: Khadra returns for follow-up regarding coronary disease. In 2018, she underwent LAD stenting. In november 2023, had another hospitalization with NSTEMI. At that time, sent to [facility] for cardiac catheterization and she underwent circumflex stenting. Since that time, mostly doing well. No clear-cut angina but she gets some nonspecific chest pains at times. CORPORATE DEVELOPMENT ASSOCIATE thinks she has fibromyalgia as well as acid reflux and hence could be non-cardiac pain. However, overall, not too bothersome. [facility] Medical History Anxiety and depression IBS (irritable bowel syndrome) Female bladder prolapse Diabetic retinopathy Osteoporosis CAD (coronary artery disease) Diabetes Osteoarthritis Neuropathy Hypothyroid GERD (gastroesophageal reflux disease) History of CVA (cerebrovascular accident) Mitral annular calcification Heart palpitations TASHI (obstructive sleep apnea) Essential hypertension Surgical History Hx of colonoscopy Stented coronary artery History of hysterectomy History of tonsillectomy History of cardioversion (~08/16/13) Family History Father Asthma Mother Cardiovascular disease Diabetes Arthritis Social History Household Members: None Housing: Apartment Are you a primary career guidance counselor to a significant other at home: No Do you presently have visiting nurse or other home services: Yes (CORPORATE DEVELOPMENT ASSOCIATE) Alcohol intake: never Patient Tobacco Use Status: Never used Tobacco e-Cigarette/Vaping Use: Never Used Advance Directives Date on File: 10/31/23 service: No Current occupational status: unemployed Review of Systems Const Denies chills, Denies fatigue, Denies fever(s), Denies frequent falls, Denies weakness, Denies weight gain and Denies weight loss ENT Denies dizziness Card Denies chest pain, Denies leg edema, Denies lightheadedness, Denies palpitations, Denies dyspnea and Denies dyspnea on exertion Resp Denies cough, Denies dyspnea and Denies dyspnea on exertion GI Denies hematochezia Musc Denies abnormal gait, Denies muscle weakness, Denies numbness, Denies radiating pain into limb and Denies tingling Neuro Denies abnormal gait, Denies dizziness, Denies frequent falls, Denies numbness, Denies tingling and Denies weakness Endo Denies fatigue and Denies palpitations Physical Exam Vital Signs: Last Vital Signs Pulse 76 07/27/24 14:08 BP 120/54 L 07/27/24 14:08 BMI result Body Mass Index 28.6 Const General: comfortable and no acute distress Orientation/consciousness: patient oriented x3 HEENT Other: Unremarkable Head: Yes normal to inspection Neck Neck: Yes normal visual inspection Chest Chest palpation & inspection: normal inspection of the chest Resp Auscultation: clear to auscultation bilaterally Cardio Palpation: normal PMI Heart sounds: S1 normal heart sound present, S2 normal heart sound present, no gallops, no murmurs and no rubs GI Palpation (GI): Soft to palpation Back/Spine/Pelvis Other: unremarkable Skin General skin exam: no rashes or lesions noted Neuro General: patient oriented x3 Extrem General: Yes normal to inspection Psych Mental Status: mental status grossly normal Assessment & Plan Assessment & Plan (1) Atherosclerotic cardiovascular disease: Code(s): I25.10 - Atherosclerotic heart disease of [place] coronary artery without angina pectoris Category: Medical Plan: Cardiac catheterization reviewed from November 2023. Severe ostial left circumflex stenosis, culprit for NSTEMI. Status post PCI of circumflex and left main. Also had severe calcification of LAD with previous stent with InStent restenosis in the proximal segment. Underwent balloon angioplasty of InStent restenosis. There is moderate diffuse calcified stenosis of the right coronary artery with ostial as well as proximal 70% stenosis. Overall, diffuse CAD. Continue aspirin/Brilinta. Long-term aspirin. Brilinta can be stopped at the 1 year rohit. Labs from [facility]-LDL is 78 mg/dL and HDL 45 mg/dL. Triglycerides 156 mg/dL. CORPORATE DEVELOPMENT ASSOCIATE would like the patient to start cardiac rehab and hence order is being placed. (2) Essential hypertension: Code(s): I10 - Essential (primary) hypertension Category: Medical Plan: Not tolerant of beta-blockers or amlodipine in the past. More recently, list has beta-blockers again. (3) Mitral annular calcification: Code(s): I05.9 - Rheumatic mitral valve disease, unspecified Category: Medical Plan: Echocardiogram with severe mitral annular calcification but no significant dysfunction. (4) TASHI (obstructive sleep apnea): Comment: O2 - @L/MIN @ NIGHT- Could not tolerate CPAP Code(s): G47.33 - Obstructive sleep apnea (adult) (pediatric) Category: Medical Plan: Cannot tolerate CPAP. Using oxygen at nighttime. Plan Discussed with CORPORATE DEVELOPMENT ASSOCIATE who came for the appointment. Orders: Orders Cardiac Rehab Today I21.4 - Non-ST elevation (NSTEMI) myocardial infarction, Z95.5 - Presence of coronary angioplasty implant and graft Coding Level of Care Code Est Pt Level 4 (07847) Diagnoses Atherosclerotic cardiovascular disease I25.10 Essential hypertension I10 Mitral annular calcification I05.9 TASHI (obstructive sleep apnea) G47.33
--- OUTSIDE RECORDS SUMMARY | 2024-07-27 14:08 | XMS_ITS | Continuity of Care Document ---
Author Organization [facility] Address [address] [place] [address]- Care Team Providers Care Manager Human Resources Name Role Phone Mac LUKE, Davis Monroe Primary Care Physician [phone] Encounter [facility] Date(s): 06/22/24 - 07/22/24 [facility] [address] [place] [address]- Encounter Type: Triage Allergies, Adverse Reactions, Alerts Substance Criticality Severity Reaction Reaction Severity Status Tessalon Perles Acti ve Nexium burning pain p osterior chest Active Immunizations Given and Recorded Vaccine Date Status Refusal Reason [id number] 12y+ bivalent booster vax 06/30/22 Recorded influenza [...] Poly (PPV23) (oldterm) 11/22/09 Given 1Result Comment: [facility]# [id number] 2Result Comment: [05/31/2018] [facility]# [id number] 3Result Comment: [05/17/2017] [facility] [id number] 4Admin Note: vis given dated 03/12/09 5Admin Note: received @ jail 6Admin Note: 02/24/11-vip form given 7Admin Note: [...] Care Nurse Name: Davis Watts MD Position: [facility] Physician - Primary Care Member Role: PCP Address: [address] [place] [address] Telecom: Name: Janae Meza RN Position: S RN Member Role: Primary Care Nurse Name: Marlon Bhakta RN Position: [facility] RN Member Role: Primary Care Nurse Name: Sara Escalante RN Position: [facility] OB RN Member Role: Primary Care Nurse Name: Baylee Stock RN Position: [facility] RN Member Role: Primary Care Nurse Care Team Related Persons Name: KATLYN BELTRAN Name: JOSTIN KENDALL Name: TRES AGUILAR Insurance Providers Guarantor name: [facility] Plan Information #: 1 Payer: NA Member Number: NA Policy Number: NA Group Number: NA
--- OUTSIDE RECORDS SUMMARY | 2024-07-27 14:08 | XMS_ITS | Continuity of Care Document ---
Author Organization [facility] Address [address] [place] [address]- Care Team Providers Care Licensed Nuclear Control Room Operator Name Role Phone Mac LUKE, Davis Monroe Primary Care Physician [phone] [place] [facility] [place] - 06/28/24 [facility] [address] [place], [place] [address] Attending Physician: Karen Monterroso Admitting Physician: AdmtrKaren Referring Physician: AdmtrKaren Encounter Type: Triage Allergies, Adverse Reactions, Alerts Substance Criticality Severity Reaction Reaction Severity Status Nexium burning pain p osterior chest Active Tessalon Perles Acti ve Immunizations Given and Recorded Vaccine Date Status Refusal Reason [id number] 12y+ bivalent booster vax 06/30/22 Recorded influenza [...] Poly (PPV23) (oldterm) 11/22/09 Given 1Result Comment: [facility]# [id number] 2Result Comment: [05/31/2018] [facility]# [id number] 3Result Comment: [05/17/2017] [facility] [id number] 4Admin Note: vis given dated 03/12/09 5Admin Note: received @ long-term 6Admin Note: 02/24/11-vip form given 7Admin Note: [...] on: 02/09/14 Sex Sex Representation Female (finding) EKG study * Davis Watts MD: REVIEW Event Display: EKG Authored Date: * Event Display: EKG Authored Date: * Davis Watts MD: REVIEW Event Display: EKG Authored Date: Laboratory * Event Display: Laboratory Result Scanned Authored Date: * Event Display: Laboratory Result Scanned Authored Date: * Event Display: Laboratory Result Scanned Authored Date: Cardiology Consult note * Event Display: Consult Note Cardiology Authored Date: * Event Display: Consult Note Cardiology Authored Date: * Event Display: Consult Note Cardiology Authored Date: CT Abdomen * Event Display: CT Scan Abdomen Authored Date: CT Head * Event Display: CT Scan Head Authored Date: Radiology * Davis Watts MD: REVIEW Event Display: Radiology Result Scanned Authored Date: * Candice Spain: PERFORM Event Display: Radiology Results Scanned Authored Date: * Candice Spain: PERFORM Event Display: Radiology Results Scanned Authored Date: Patient Care team information Care Team Personnel Name: Amy Guardado RN Position: [facility] RN Member Role: Primary Care Nurse Name: Marcela Matthews RN Position: [facility] RN Member Role: Primary Care Nurse Name: Davis Watts MD Position: [facility] Physician - Primary Care Member Role: PCP Address: [address] [place] [address] Telecom: Name: Janae Meza RN Position: [facility] RN Member Role: Primary Care Nurse Name: Marlon Bhakta RN Position: [facility] RN Member Role: Primary Care Nurse Name: Sara Escalante RN Position: [facility] OB RN Member Role: Primary Care Nurse Name: Baylee Stock RN Position: [facility] RN Member Role: Primary Care Nurse Care Team Related Persons Name: KATLYN BELTRAN Name: JOSTIN KENDALL Name: TRES AGUILAR Insurance Providers Guarantor name: HODA KANDACE [facility] Information #: 1 Payer: NA Member Number: NA Policy Number: NA Group Number: NA
--- OUTSIDE RECORDS SUMMARY | 2024-07-27 14:08 | XMS_ITS | Data Portability ---
Author Organization [facility] [employer] Address [address] [place] [address] Care Team Providers Care Bicycle Designer Name Role Phone HIM CCA Referring Provider Assessment Encounter Date Assessment Date Assessment LastModified by Organization Details LastModified Time 10/31/2023 10/31/2023 I have reviewed and agree with the assessment and plan as documented by the nail making machine tender. I provided real-time medical direction for this encounter and was immediately available to provide additional phone-based assistance as needed. 78F presenting with left sided chest pressure radiating to arm and abdominal pain. Pt states this has started last night. Also with fatigue. EKG reveals sinus rhythms, possible ST depressions. Signs and symptoms concerns for ACS. Recommended pt be seen in ED for further evaluation. Pt agreeable. EMS called for transport. paysola Not available 10/31/2023 13:15:54 Plan of Treatment Reminders Order Date Submit Date Provider Last Modified By Organization Details Last Modified Time Details Appointments None recorded. Lab culture, urine 2021 [place] [facility], [address] [place], [address], 10:14:19 Referral None recorded. Procedures None recorded. Surgeries None recorded. Imaging None recorded. Medication Orders nitrofurant oin monohydrate /macrocryst als 100 mg capsule 2021 [address] [place] [id number], [address] [facility], [place], [address], 11:21:15 Patient TargetsNo targets recorded. Patient InstructionsNo instructions recorded. Reason for Referral None Reported. Results Created Date Observation Date Name Description Value Unit Range Abnormal Flag Note LastModifiedBy Organization Detail LastModifiedTime 12/14/19 22 12/13/2021 URINE CULTU RE specimen description URINE Not Available [facility] [address] [place], [id number], 12/15/2021 10:14:19 12/14/19 22 12/13/2021 URINE CULTU RE special requests NONE Not Available [facility] [address] [place], [id number], 12/15/2021 10:14:19 12/14/19 22 12/15/2021 URINE CULTU RE culture abnormal >100, 000 COL/M L ESCHE CHRIS A COLI This isola te was ident ified using Maldi -TOF syste m These AST resul ts were perfo rmed on the Micro scan ID and AST syste m Not Available [facility] [address] [place], [id number], 12/15/2021 10:14:19 12/14/19 22 12/15/2021 URINE CULTU RE report status FINAL 2021 Not Available [facility] [address] [place], [id number], 12/15/2021 10:14:19 12/14/19 22 12/15/2021 URINE CULTU RE organism ORGAN ISM >100, 000 COL/M L ESCHE CHRIS A COLI This isola te was ident ified using Maldi -TOF syste m Not Available [facility] [address] [place], [address], 12/15/2021 10:14:19 12/14/19 22 12/15/2021 URINE CULTU RE method METHOD MIN. INHIB. CONC. (MCG/M L) Not Available [facility] [address] [place], [address], 12/15/2021 10:14:19 12/14/19 22 12/15/2021 URINE CULTU RE ampicillin AMPICI LLIN SUSCEP TIBLE susceptib le Not Available [facility] [address] [place], [id number], 12/15/2021 10:14:19 12/14/19 22 12/15/2021 URINE CULTU RE ampicillin/s ulbactam AMPICI LLIN/S ULBACT AM SUSCEP TIBLE susceptib le Not Available [facility] [address] [place], [id number], 12/15/2021 10:14:19 12/14/19 22 12/15/2021 URINE CULTU RE amoxicillin/ clavulanic acid AMOXIC ILLIN/ CLAVUL AN SUSCEP TIBLE susceptib le Not Available [facility] [address] [place], [address], 12/15/2021 10:14:19 12/14/19 22 12/15/2021 URINE CULTU RE cefazolin CEFAZO LEVI SUSCEP TIBLE susceptib le Not Available [facility] [address] [place], [address], 12/15/2021 10:14:19 12/14/19 22 12/15/2021 URINE CULTU RE cefepime CEFEPI ME SUSCEP TIBLE susceptib le Not Available [facility] [address] [place], [address], 12/15/2021 10:14:19 12/14/19 22 12/15/2021 URINE CULTU RE ceftriaxone CEFTRI AXONE SUSCEP TIBLE susceptib le Not Available [facility] [address] [place], [id number], 12/15/2021 10:14:19 12/14/19 22 12/15/2021 URINE CULTU RE ciprofloxaci n CIPROF LOXACI N SUSCEP TIBLE susceptib le Not Available [facility] [address] [place], [address], 12/15/2021 10:14:19 12/14/19 22 12/15/2021 URINE CULTU RE ertapenem ERTAPE NEM SUSCEP TIBLE susceptib le Not Available [facility] [address] [place], [id number], 12/15/2021 10:14:19 12/14/19 22 12/15/2021 URINE CULTU RE gentamicin GENTAM ICIN SUSCEP TIBLE susceptib le Not Available [facility] [address] [place], [address], 12/15/2021 10:14:19 12/14/19 22 12/15/2021 URINE CULTU RE levofloxacin LEVOFL OXACIN SUSCEP TIBLE susceptib le Not Available [facility] [address] [place], [address], 12/15/2021 10:14:19 12/14/19 22 12/15/2021 URINE CULTU RE meropenem MEROPE NEM SUSCEP TIBLE susceptib le Not Available [facility] [address] [place], [address], 12/15/2021 10:14:19 12/14/19 22 12/15/2021 URINE CULTU RE nitrofuranto in NITROF URANTO IN SUSCEP TIBLE susceptib le Not Available [facility] [address] [place], [address], 12/15/2021 10:14:19 12/14/19 22 12/15/2021 URINE CULTU RE piperacillin /tazobactam PIPERA CILLIN /TAZOB AC SUSCEP TIBLE susceptib le Not Available [facility] [address] [place], [address], 12/15/2021 10:14:19 12/14/19 22 12/15/2021 URINE CULTU RE trimeth/sulf amethox TRIMET H/SULF AMETHO X SUSCEP TIBLE susceptib le Not Available [facility] [address] [place], [address], 12/15/2021 10:14:19 12/14/19 22 12/15/2021 URINE CULTU RE tetracycline TETRAC YCLINE SUSCEP TIBLE susceptib le Not Available [facility] [address] [place], [address], 12/15/2021 10:14:19 06/15/20 22 06/15/2022 URINE CULTU RE specimen description CLEAN CATCH (URINE ) Not Available [facility] [address] [place], [address], 06/16/2022 13:19:11 06/15/20 22 06/15/2022 URINE CULTU RE special requests NONE Not Available [facility] [address] [place], [address], 06/16/2022 13:19:11 06/15/20 22 06/16/2022 URINE CULTU RE culture NO GROWTH Not Available [facility] [address] [place], [address], 06/16/2022 13:19:11 06/15/20 22 06/16/2022 URINE CULTU RE report status FINAL 2021 Not Available [facility] [address] [place], [id number], 06/16/2022 13:19:11 Result Notes None recorded. Medical Equipment None Reported. Medications Name Sig Start Date Stop Date Status Note LastModified by Organization Details LastModified Time amoxicillin 500 mg capsule TAKE 1 CAPSULE BY MOUTH EVERY 8 HOURS active Not Available Not Available No t Available atorvastatin 40 mg tablet TAKE 1 TABLET BY MOUTH EVERY DAY active Not Available Not Available No t Available acetaminophe n 325 mg tablet TAKE 1 TABLET BY MOUTH EVERY 4 HOURS NEEDED active Not Available Not Available No t Available cefpodoxime 200 mg tablet TAKE 1 TABLET BY MOUTH TWICE A DAY WITH FOOD active Not Available Not Available No t Available metoprolol succinate ER 50 mg tablet,exten ded release 24 hr TAKE 1 TABLET BY MOUTH EVERY DAY active Not Available Not Available No t Available clindamycin HCl 150 mg capsule TAKE 1 CAPSULE BY MOUTH EVERY 6 HOURS active Not Available Not Available No t Available clopidogrel 75 mg tablet TAKE 1 TABLET BY MOUTH EVERY MORNING active Not Available Not Available No t Available ciprofloxaci n 500 mg tablet TAKE 1 TABLET BY MOUTH EVERY 12 HOURS FOR 7 DAYS active Not Available Not Available N ot Available sulfamethoxa zole 800 mg-trimethop rim 160 mg tablet TAKE 1 TABLET BY MOUTH TWICE A DAY FOR 7 DAYS active Not Available Not Available No t Available aspirin 81 mg tablet,delay ed release TAKE 1 TABLET BY MOUTH EVERY DAY active Not Available Not Available No t Available tramadol 50 mg tablet TAKE 1 TABLET BY MOUTH EVERY 12 HOURS NEEDED FOR PAIN active Not Available Not Available No t Available acetaminophe n 500 mg tablet TAKE 1 TABLET BY MOUTH EVERY 6 HOURS NEEDED active Not Available Not Available No t Available levothyroxin e 75 mcg tablet TAKE 1 TABLET BY MOUTH EVERY WEDNESDAY, WEDNESDAY, AND WEDNESDAY active Not Available Not Available N ot Available levothyroxin e 50 mcg tablet TAKE 1 TABLET IN AM ON SUNDAYS, TUESDAYS, THURSDAYS AND SATURDAYS active Not Available Not Available No t Available pantoprazole 40 mg tablet,delay ed release TAKE 1 TABLET BY MOUTH EVERY DAY active Not Available Not Available No t Available sertraline 25 mg tablet TAKE 1 TABLET BY MOUTH EVERY DAY active Not Available Not Available No t Available irbesartan 75 mg tablet TAKE 1 TABLET BY MOUTH EVERY DAY active Not Available Not Available No t Available zolpidem 5 mg tablet TAKE 1 TABLET BY MOUTH EVERY DAY AT BEDTIME NEEDED FOR SLEEP active Not Available Not Available No t Available cefuroxime axetil 500 mg tablet TAKE 1 TABLET BY MOUTH EVERY 12 HOURS FOR 7 DAYS active Not Available Not Available N ot Available estradiol 0.01% (0.1 mg/gram) vaginal cream PLACE 2 GM VAGINALLY DAILY AT BEDTIME FOR 2 WEEKS, THEN 2 DAYS PER WEEK active Not Available Not Available No t Available glipizide 5 mg tablet TAKE 1 TABLET BY MOUTH TWICE A DAY AFTER BREAKFAST active Not Available Not Available No t Available amoxicillin 500 mg-potassium clavulanate 125 mg tablet TAKE 1 TABLET BY MOUTH EVERY 8 HOURS FOR 7 DAYS active Not Available Not Available No t Available nitrofuranto in monohydrate/ macrocrystal s 100 mg capsule TAKE 1 CAPSULE BY MOUTH EVERY 12 HOURS FOR 7 DAYS active Not Available Not Available N ot Available pregabalin 75 mg capsule TAKE 1 CAPSULE BY MOUTH TWICE A DAY active Not Available Not Available No t Available chlorhexidin e gluconate 0.12 % mouthwash SWISH 15 ML IN MOUTH FOR 30 SECONDS THEN SPIT OUT TWICE A DAY AFTER MEALS active Not Available Not Available No t Available Jardiance 10 mg tablet TAKE 1 TABLET BY MOUTH EVERY MORNING active Not Available Not Available No t Available Trulicity 1.5 mg/0.5 mL subcutaneous pen injector INJECT 0.5ML UNDER THE SKIN ONCE A WEEK ROTATE INJECTION SITES active Not Available Not Available No t Available Trulicity 0.75 mg/0.5 mL subcutaneous pen injector 0.75 MG SUBCUTANEOU S INJECTION EVERY WEEK ROTATE INJECTION SITES active Not Available Not Available No t Available Vitals Date Recorded Respiratory rate Body temperature Heart rate Oxygen saturation Oxygen saturation in Arterial blood by Pulse oximetry Systolic blood pressure Diastolic blood pressure Provider Name and Address Organization Details Last Updated DateTime 4 18 /min 98.7 [degF] 95 /min 98 % 98 % 170 mm[Hg] 88 mm[Hg] Not Available [employer] 4 13:38:23 Date Recorded Oxygen saturation Oxygen saturation in Arterial blood by Pulse oximetry Heart rate Body height Body temperature Body weight Respiratory rate Body temperature Oxygen saturation Oxygen saturation in Arterial blood by Pulse oximetry Respiratory rate Body weight Heart rate Body height Systolic blood pressure Diastolic blood pressure Systolic blood pressure Diastolic blood pressure Provider Name and Address Organization Details Last Updated DateTime 2 97 % 97 % 89 /min 152.4 cm 97.7 [degF] 40421.8 g 18 /min 97.7 [degF] 97 % 97 % 18 /min 23321.8 g 89 /min 152.4 cm 152 mm[Hg] 84 mm[Hg] 152 mm[Hg] 84 mm[Hg] Not Available [employer] 2 12:04:54 Social History None recorded. Functional Status None recorded. Mental Status None recorded. Family History Nothing Reported. Medical History No medical history recorded. Gynecological HistoryNo gynecological history recorded. Obstetrics History GPAL:G 0 P 0 0 0 0 Past Encounters Encounter ID Performer Location Encounter Start Date Encounter Closed Date Diagnosis/Indication Diagnosis SNOMED-CT Code Diagnosis ICD10 Code [id number] Miguel Mims MD [facility] [address] [place] [address] [phone] 12/13/2021 11:07:03 04/24/2022 16:08:10 Acute urinary tract infection [id number] N39.0 [id number] Sanjana Lee MD [facility] [address] [place] [address] [phone] 10/31/2023 13:12:39 11/02/2023 11:10:12 Chest pain 99283070 R07.9 Health Concerns Section Related Observation LastModified by Organization Detai ls LastModified Time None Recorded Concern Status LastModified by Organization Details LastModified Time None Recorded Advance Directives Directive None Recorded Payers Encounter Date Sequence Insurance Name Policy Number Policy Pereira Covered Member ID Pereira Member ID Guarantor Name 12/13/2021 1 [facility] - DOS PRIOR TO 2022 - DUAL ELIGIBLE (MEDICARE REPLACEMENT/AD VANTAGE - HMO) Khadra Hair [id number] Khadra Hair 10/31/2023 1 [facility] - DOS ON OR AFTER 2022 - DUAL ELIGIBLE - INTERMEDIATE OPTIONS AND ONE CARE (MEDICARE REPLACEMENT/AD VANTAGE - HMO) Khadra Hair [id number] Khadra Hair Notes Date Note Type Note Provider Name and Address Organization Details Recorded Time 12/13/2021 text/html HPI: [place] was treated for UTI in the ED, she states having felt better, and now is experiencing same symptoms, and is requesting [facility] visit. Protocol Used: Urinary Symptoms Protocol-Based Disposition: Consider [facility], [facility] Community Clinician, or PCP visit within 24 hours Positive Triage Questions: * Side (flank) or lower back pain present * [1] Can't control passage of urine (i.e., urinary incontinence) AND [2] new-onset (< 2 weeks) or worsening * Urinating more frequently than usual (i.e., frequency) * Bad or foul-smelling urine ................... ................... ................... ................... ................... ................... ................... ........ [facility] Staff Nurse Note: Sent to a call for a pt complaining of UTI symptoms. [email or web address] arrives on scene, pt contact made in apartment. Pt is alert and oriented. Airway is patent. Pt complains of UTI symptoms x 3 weeks. Pt was evaluated at ER and prescribed Cefpodoxime 200mg BID x 10 days on 11/28/21. Pt reports decreased symptoms after antibiotics, but complains of dysuria, polyuria, foul-smelling urine, abdominal pain, nausea and feeling off balance. Pt denies headache, falls, cp, sob, vomiting, diarrhea, back pain, hematuria or kidney problems. Pt is able to eat and drink but states she hasn't been drinking as much water as she should. Pt provides urine sample. Sample is positive for leukocytes, blood and protein. Results uploaded to [employer]. BP:152/84, P:89, RR:18, SpO2:97%, T:97.7; Lung sounds: clear bilaterally; [facility] orders urine culture and sends script for Macrobid to pt's pharmacy. Pt encouraged to stay hydrated. Red flags discussed. Pt has no further questions. ................... ................... ................... ................... ................... ................... ................... ........ Disposition: Fulfilled note: - Symptoms consistent with prior UTI's- Was treated in ER in past; no data in [facility] re: sensitivities Miguel Mims MD [address] [facility],[address], [place], [phone], [facility] - [place] 12/13/2021 20:50:56 10/31/2023 text/html HPI: mbr with complaints of CP since ;last night states B/P 179/88 experiencing weakness denies any Dizziness/lighthead edness/diaphoresis SOB/N/V. refusing ED requesting [facility] visit for assessment. mbr advised to call 911 if symptoms get worse. Mbr stated understanding of risks associated with her symptoms. Protocol Used: Chest Pain Protocol-Based Disposition: Consider [facility], ASSISTANT HVAC MECHANIC, MD/ROLL FINISHER triage, PCP, or ED /Urgent Care Visit now Positive Triage Questions: * [1] Chest pain lasts > 5 minutes AND [2] occurred in past 3 days (72 hours) (Exception: Feels exactly the same as previously diagnosed heartburn and has accompanying sour taste in mouth.) * Patient sounds very sick or weak to the triager Negative Triage Questions: * SEVERE difficulty breathing (e.g., struggling for each breath, speaks in single words) * Shock suspected (e.g., cold/pale/clammy skin, too weak to stand, low BP, rapid pulse) * Passed out (i.e., lost consciousness, collapsed and was not responding) * Visible sweat on face or sweat dripping down face * Fever > 100.4 F (38.0 C) * Rash in same area as pain (may be described as small blisters ) ................... ................... ................... ................... ................... ................... ................... ........ [facility] Nurse Triage Notes (Bhavesh Young): Comments: HPI reviewed by this RN, no further information needed to process visit -Adilia Young RN ................... ................... ................... ................... ................... ................... ................... ........ [facility] Staff Nurse Note From Laura Bose: Patient reports that she has had chest pressure since last night with nausea and fatigue. Patient reports that the chest pressure radiates into the left arm. Patient reports that the pain is staying about the same. Patient reports that she was previously on blood thinners due to her previous stroke. However, her doctors determined she no longer needed it. Patient denies any allergies. Patient was advised that the ER was the only advisable option and agreed to transport to [facility]. While waiting for EMS [facility] administered an additional 243 mg aspirin due to the patient already of taking her daily 81 mg aspirin. [facility] was unable to obtain a line or administer nitro before EMS arrived ................... ................... ................... ................... ................... ................... ................... ........ Disposition: Fulfilled Sanjana Lee MD [address] [facility],[address], [place], [phone], [facility] 10/31/2023 17:51:34 OBGyn Episode No OBEpisode recorded.
== END 2024-07-27 14:26 | disposition home or self-care (01) ==
PROVIDERS: PCP Family Medicine; Visit Provider Internal Medicine
DX: I25.10 Atherosclerotic heart disease of native coronary artery without angina pectoris (principal); I10 Essential (primary) hypertension; I05.9 Rheumatic mitral valve disease, unspecified; G47.33 Obstructive sleep apnea (adult) (pediatric)
CPT/HCPCS: 99214

== ENCOUNTER → 2024-07-27 14:05 | Outpatient (BNVA) | payer OTHER, SELFPAY | PROVIDERS: PCP Family Medicine; Visit Provider Internal Medicine | DX: I25.10 Atherosclerotic heart disease of native coronary artery without angina pectoris (principal); I10 Essential (primary) hypertension; I05.9 Rheumatic mitral valve disease, unspecified; I21.4 Non-ST elevation (NSTEMI) myocardial infarction; G47.33 Obstructive sleep apnea (adult) (pediatric); Z95.5 Presence of coronary angioplasty implant and graft | CPT/HCPCS: 99212 ==

== ENCOUNTER 2024-11-29 13:30 | Outpatient (RCR) | payer OTHER, SELFPAY ==
[2024-09-27 06:18] LABS: Glucose, Whole Blood 98 mg/dL (60-115)
[2024-11-01 14:38] LABS: Glucose, Whole Blood 108 mg/dL (60-115)
[2024-11-08 14:33] LABS: Glucose, Whole Blood 98 mg/dL (60-115)
[2024-11-08 14:33] LABS: Glucose, Whole Blood 118 mg/dL (60-115)
== END 2024-12-29 06:34 | disposition home or self-care (01) ==
LOC: HO.CR 13:30
PROVIDERS: PCP Family Medicine; Visit Provider Internal Medicine
DX: Z95.5 Presence of coronary angioplasty implant and graft (principal); I21.4 Non-ST elevation (NSTEMI) myocardial infarction
CPT/HCPCS: 82947; 93798

== ENCOUNTER 2024-12-02 00:42 | Inpatient (IN) | payer OTHER, SELFPAY ==
[2024-12-02] VITALS (16 sets, daily range): BP systolic 121–185; BP diastolic 58–81; PULSE 64–86; RESP 12–18; TEMP 36–37.5; O2SAT 95–145; BMI 30.3; BMI 28.2; BMI 28.0
--- NOTE | 2024-12-02 | ECG_ITS ---
Test Reason : CP Blood Pressure : */* mmHG Vent. Rate : 88 BPM Atrial Rate : 88 BPM P-R Int : 152 ms QRS Dur : 80 ms QT Int : 382 ms P-R-T Axes : 33 46 -13 degrees QTcB Int : 462 ms Sinus rhythm with frequent Premature ventricular complexes ST & T wave abnormality, consider inferior ischemia Abnormal ECG When compared with ECG of 31-Oct-2023 18:06, Premature ventricular complexes are now Present Inverted T waves have replaced nonspecific T wave abnormality in Inferior leads Nonspecific T wave abnormality no longer evident in Anterior leads Referred By: Generic ED Physician Electronically Signed By: Musa Tadeo
[2024-12-02 01:10] LABS: MANUAL DIFF FLAG NO
[2024-12-02 01:11] LABS: Basophils Percent Auto 0.4 % (0-2); Eosinophils Absolute Auto 0.2 X10*3/uL (0.0-0.4); Eosinophils Percent Auto 3.1 % (0-4); Hematocrit 35.1 % (37.0-47.0); Hemoglobin 12.1 g/dl (12.0-16.0); Imm Gran Abs Auto 0.01 X10*3/uL (0.00-0.03); Imm Gran Pct Auto 0.1 % (0.0-0.4); Lymphocytes Absolute Auto 2.2 X10*3/uL (1.2-4.9); Lymphocytes Percent Auto 31.5 % (20-40); Mean Corpuscular HGB Conc 34.5 g/dl (31.0-35.0); Mean Corpuscular Volume 84.2 fL (80.0-98.0); Mean Platelet Volume 10.3 fL (9.4-12.3); Monocytes Absolute Auto 0.8 X10*3/uL (0.1-1.2); Monocytes Percent Auto 10.9 % (2-11); Neutrophils Absolute Auto 3.8 x10*3/uL (2.0-8.3); Platelet Count 192 X10*3/uL (160-400); Red Blood Count 4.17 X10*6/uL (4.20-5.50); Red Cell Distribution Width 13.2 % (11.0-16.0)
[2024-12-02 01:17] LABS: Prothrombin Time 11.2 SEC (10.9-12.4)
[2024-12-02 01:25] LABS: Anion Gap 13 (12-20); Blood Urea Nitrogen 19 mg/dL (9-16); Calcium 9.2 mg/dL (8.4-10.2); Carbon Dioxide 24 mmol/L (22-29); Chloride 96 mmol/L (96-108); Creatinine Clr Calc Pharmacy 43.1; Estimated Glomerular Filt Rate 59; Glucose Random 151 mg/dL (60-115); Potassium 4.3 mmol/L (3.3-5.1); Sodium 129 mmol/L (135-145)
[2024-12-02 01:32] LABS: Troponin-I High Sensitivity 5.1 ng/L (<3.5-17.0)
--- NOTE | 2024-12-02 02:30 | ED_ITS ---
HPI - Chest Pain General Chief Complaint: Chest Pain Stated Complaint: CP 03/11 Time Seen by Provider: 12/02/24 02:22 Source: patient Mode of arrival: EMS Limitations: no limitations History of Present Illness ED Provider: HPI narrative: 79 year-old female with history of [id number] type 2 diabetes, osteoporosis, diabetic polyneuropathy, hypothyroidism, GERD, history CVA, TASHI not on CPAP but uses 2 L supplemental O2 at bedtime, hypertension, diabetic retinopathy, coronary artery disease s/p JANEY to LAD 2019 , restent placement and balloon angioplasty in 11/23 comes here with mid chest pain at rest started at 19:00 lasted for 3 hours received baby aspirin by the EMS and by the time patient came here pain improved patient has been having off and on chest pain since angioplasty last year but this is the time when pain lasted so long patient is on Brilinta Related Data Home Medications ?Medication ?Instructions ?Recorded ?Confirmed pregabalin 75 mg capsule 75 mg PO BID 06/20/20 07/27/24 tramadol 50 mg tablet 50 mg PO BID Pain 06/20/20 07/27/24 zolpidem 5 mg tablet 5 mg PO BEDTIME Sleep 06/20/20 07/27/24 atorvastatin 40 mg tablet 40 mg PO BEDTIME 06/19/21 07/27/24 levothyroxine 75 mcg tablet 75 mcg PO MOWEFR 06/19/21 07/27/24 pantoprazole 40 mg tablet,delayed 40 mg PO DAILY 06/19/21 07/27/24 release calcium carbonate 500 mg PO DAILY 12/24/21 07/27/24 dulaglutide 0.75 mg/0.5 mL 0.75 mg subcut SA 12/24/21 07/27/24 subcutaneous pen injector (Trulicity) levothyroxine 50 mcg tablet 1 tab PO SUTUTHSA 12/24/21 07/27/24 ascorbic acid (vitamin C) 500 mg 500 mg PO BID 10/07/22 07/27/24 tablet (Vitamin C) cholecalciferol (vitamin D3) 50 50 mcg PO DAILY 10/07/22 07/27/24 mcg (2,000 unit) capsule (Vitamin D3) estradiol 0.01% (0.1 mg/gram) 2 g vaginal 2XW 10/07/22 07/27/24 vaginal cream Previous Rx's ?Medication ?Instructions ?Recorded aspirin 81 mg tablet,delayed 81 mg PO DAILY 90 days #90 tabs 01/27/24 release (Enteric Coated Aspirin) metoprolol succinate 50 mg 50 mg PO DAILY #90 tabs 07/17/24 tablet,extended release 24 hr ticagrelor 90 mg tablet (Brilinta) 90 mg PO BID #60 tabs 09/07/24 Allergies Allergy/AdvReac Type Severity Reaction Status Date / Time esomeprazole [From NEXIUM] AdvReac Unknown BURNING Verified 12/02/24 00:55 SENSATION Review of Systems 2 Review of Systems: Yes all other systems are reviewed and are negative [facility] Past Medical History Medical History Anxiety and depression IBS (irritable bowel syndrome) Female bladder prolapse Diabetic retinopathy Osteoporosis CAD (coronary artery disease) Diabetes Osteoarthritis Neuropathy Hypothyroid GERD (gastroesophageal reflux disease) History of CVA (cerebrovascular accident) Mitral annular calcification Heart palpitations TASHI (obstructive sleep apnea) Essential hypertension Surgical History Hx of colonoscopy Stented coronary artery History of hysterectomy History of tonsillectomy History of cardioversion (~08/16/13) Family History Family History Father Asthma Mother Cardiovascular disease Diabetes Arthritis Social History Social History Household Members: None Housing: Apartment Are you a primary healthcare insurance sales agent to a significant other at home: No Do you presently have visiting nurse or other home services: Yes (HADOOP ADMIN) Alcohol intake: never Patient Tobacco Use Status: Never used Tobacco Smoked in Last 30 Days: No e-Cigarette/Vaping Use: Never Used Use of substances other than those prescribed or required for medical reasons: No Advance Directives: Yes Advance Directives Information Provided: Yes Advance Directives on File: No Advance Directives Date on File: 10/31/23 Nutrition Risks: No Nutritional Risk Patient : No service: No Current occupational status: unemployed Physical Exam 2 Vital Signs: Vital Signs: Last Vital Signs Temp 98 F 12/02/24 05:39 Pulse 70 12/02/24 05:39 Resp 14 12/02/24 05:39 BP 142/63 H 12/02/24 05:39 Pulse Ox 97 12/02/24 05:39 O2 Del Method Room Air 12/02/24 05:39 BMI result Body Mass Index 30.3 Appearance: Alert. Oriented X3. No acute distress. No chest pain at this time Eyes: No pallor or icterus ENT: Pharynx normal. Oral Mucosa moist Neck: Normal inspection. Neck supple. CVS: Normal heart rate and rhythm. Pulses normal. Respiratory: No respiratory distress. Equal air entry bilateral, no wheezing/rales/rhonchi Abdomen: Soft and nontender. Bowel sounds are present, no mass palpable, no CVA tenderness Skin: Skin warm and dry. Normal skin color. Normal skin turgor. Extremities: No lower extremity edema. No calf tenderness Neuro: Oriented X 3. No motor deficit. No sensory deficit.No cerebellar signs , cranial nerves II-XII intact Medications Administered Generic Name Dose Route Start Last Admin Trade Name Freq PRN Reason Stop Dose Admin Heparin Sodium/Sodium Chloride 25,000 unit in 250 mls @ 0 mls/hr 12/02/24 04:15 12/02/24 05:36 Heparin Sodium,Porcine/1/2ns IVCONT 12 units/kg/hr .Q0M HIREN 7.87 mls/hr Administration Protocol Per Protocol Discontinued Medications Generic Name Dose Route Start Last Admin Trade Name Freq PRN Reason Stop Dose Admin Heparin Sodium (Porcine) 5,000 unit 12/02/24 04:11 12/02/24 04:51 Heparin Sodium,Porcine 5,000 Unit/Ml Vial IVPUSH 12/02/24 04:12 5,000 unit ONCE ONE Administration Nitroglycerin 1 inch 12/02/24 02:45 12/02/24 02:51 Nitroglycerin 2 % Oint 1 Gm Packet TRANSDERMA 12/02/24 02:46 1 inch ONCE ONE Administration Medical Decision Making Medical Decision Making [facility] Narrative: Patient has significant coronary artery disease status post PTCA and balloon angioplasty on Brilinta and aspirin without any significant delta change in troponin no acute ischemic EKG changes started on heparin drip hospitalist aware that patient is on Brilinta patient has not taken the medicine today Differential Diagnosis Differential Diagnoses: The differential diagnosis associated with the presentation includes ACS/unstable angina/non STEMI Admission/Observation Consideration of admission/observation: Escalation of care including admission/observation considered Consult Healthcare Provider Management of the patient was discussed with: Hospitalist Lab Data MDM Lab Attestation statement: I reviewed the patient's lab results. 12/02/24 05:17 12/02/24 05:17 Labs: Lab Results 12/02/24 12/02/24 Range/Units 01:05 03:35 WBC 7.0 (4.8-10.8) X10*3/uL RBC 4.17 L (4.20-5.50) X10*6/uL Hgb 12.1 (12.0-16.0) g/dl Hct 35.1 L (37.0-47.0) % MCV 84.2 (80.0-98.0) fL MCH 29.0 (27.0-33.0) pg MCHC 34.5 (31.0-35.0) g/dl RDW 13.2 (11.0-16.0) % Plt Count 192 (160-400) X10*3/uL MPV 10.3 (9.4-12.3) fL Immature Gran % (Auto) 0.1 (0.0-0.4) % Neut % (Auto) 54.0 (45-73) % Lymph % (Auto) 31.5 (20-40) % Beltrami % (Auto) 10.9 (2-11) % Eos % (Auto) 3.1 (0-4) % Baso % (Auto) 0.4 (0-2) % Lymph # (Auto) 2.2 (1.2-4.9) X10*3/uL Beltrami # (Auto) 0.8 (0.1-1.2) X10*3/uL Eos # (Auto) 0.2 (0.0-0.4) X10*3/uL Baso # (Auto) 0.0 (0.0-0.2) X10*3/uL Abs Immat Gran (auto) 0.01 (0.00-0.03) X10*3/uL Absolute Neuts (auto) 3.8 (2.0-8.3) x10*3/uL Absolute Nucleated RBC 0.000 (0.0-0.012) X10*3/uL Nucleated RBC % (auto) 0.0 (0.0-0.2) /100WBC PT 11.2 (10.9-12.4) SEC INR 1.0 (0.9-1.1) APTT 38.2 H (26.0-36.8) SEC Sodium 129 L (135-145) mmol/L Potassium 4.3 (3.3-5.1) mmol/L Chloride 96 (96-108) mmol/L Carbon Dioxide 24 (22-29) mmol/L Anion Gap 13 (12-20) BUN 19 H (9-16) mg/dL Creatinine 0.91 (0.5-1.4) mg/dL Estim Creat Clear Calc 43.1 Estimated GFR 59 Random Glucose 151 H (60-115) mg/dL Calcium 9.2 (8.4-10.2) mg/dL Troponin I High Sens 5.1 D 6.9 (<3.5-17.0) ng/L Independent Interpretation I performed an independent interpretation of an: EKG Interpretation: Normal sinus rhythm with heart rate 88 beats per minute with PACs nonspecific STT wave changes inferior leads no acute ST elevation Critical Care Time Critical Care Time Critical Care Time: Yes Total Critical Care Time: 55 Attestation: The patient was critically ill with a high probability of imminent or life threatening deterioration. I spent greater than 6???minutes of discontinuous time evaluating the patient,delivering critical care at the bedside, discussing and evaluating pertinent data with consultants. Critical care time does not include time spent performing separately billable procedures or teaching. Total time spent performing critical care was ?55??minutes. Discharge Plan Discharge Patient Disposition: Admitted As Inpatient Interventions: Admission Worksheet (ED) Last Done: 12/02/24 05:53
[2024-12-02 02:49] LABS: Partial Thromboplastin Time 38.2 SEC (26.0-36.8)
[2024-12-02] MEDS: Nitroglycerin 2 % Oint 1 GM Packet 1 INCH TRANSDERMA (02:51)
--- OUTSIDE RECORDS SUMMARY | 2024-12-02 02:52 | XMS_ITS | Data Portability ---
Author Organization [employer] Address [address] [place] [address] Care Team Providers Care Animal Caregiver Name Role Phone HIM [facility] Referring Provider Assessment Encounter Date Assessment Date Assessment LastModified by Organization Details LastModified Time 10/31/2023 10/31/2023 I have reviewed and agree with the assessment and plan as documented by the spinner operator. I provided real-time medical direction for this [...] Appointments None recorded. Lab culture, urine 2021 [facility] (Centralized Electronic Ordering - All Locations), Patient Can Go To The Location Of Their Choice, [id number] 10:14:19 Referral None recorded. Procedures None recorded. Surgeries None recorded. Imaging None recorded. Medication Orders nitrofurant oin monohydrate /macrocryst als 100 mg capsule 2021 022 [id number], [address], [place], [address], 11:21:15 Patient TargetsNo targets recorded. Patient InstructionsNo instructions recorded. Reason for Referral None Reported. Results Created Date Observation Date Name Description Value Unit Range Abnormal Flag Note LastModifiedBy Organization Detail LastModifiedTime 12/14/1912/13/2021 URINE CULTU RE specimen description URINE Not Available [facility] ([facility] Order[facility] - All Locations) Patient Can Go To The Location Of Their Choice, 12/15/2021 10:14:12/14/1912/13/2021 URINE CULTU RE special requests NONE Not Available [facility] (Centralized Electronic Ordering - All Locations) Patient Can Go To The Location Of Their Choice, 12/15/2021 10:14:12/14/1912/15/2021 URINE CULTU RE culture abnormal >100, 000 COL/M L ESCHE CHRIS A COLI This isola te was ident ified using Maldi -TOF syste m These AST resul ts were perfo rmed on the Micro scan ID and AST syste m Not Available [facility] (Centralized Electronic Ordering - All Locations) Patient Can Go To The Location Of Their Choice, 12/15/2021 10:14:12/14/1912/15/2021 URINE CULTU RE report status FINAL 2021 Not Available [facility] (Centralized Electronic Ordering - All Locations) Patient Can Go To The Location Of Their Choice, 12/15/2021 10:14:12/14/1912/15/2021 URINE CULTU RE organism ORGAN ISM >100, 000 COL/M L ESCHE CHRIS A COLI This isola te was ident ified using Maldi -TOF syste m Not Available [facility] (Centralized Electronic Ordering - All Locations) Patient Can Go To The Location Of Their Choice, 12/15/2021 10:14:12/14/1912/15/2021 URINE CULTU RE method METHOD MIN. INHIB. CONC. (MCG/M L) Not Available [facility] (Centralized Electronic Ordering - All Locations) Patient Can Go To The Location Of Their Choice, 12/15/2021 10:14:12/14/1912/15/2021 URINE CULTU RE ampicillin AMPICI LLIN SUSCEP TIBLE susceptib le Not Available [facility] (Centralized Electronic Ordering - All Locations) Patient Can Go To The Location Of Their Choice, 12/15/2021 10:14:12/14/1912/15/2021 URINE CULTU RE ampicillin/s ulbactam AMPICI LLIN/S ULBACT AM SUSCEP TIBLE susceptib le Not Available [facility] (Centralized Electronic Ordering - All Locations) Patient Can Go To The Location Of Their Choice, 12/15/2021 10:14:12/14/1912/15/2021 URINE CULTU RE amoxicillin/ clavulanic acid AMOXIC ILLIN/ CLAVUL AN SUSCEP TIBLE susceptib le Not Available [facility] (Centralized Electronic Ordering - All Locations) Patient Can Go To The Location Of Their Choice, 12/15/2021 10:14:12/14/1912/15/2021 URINE CULTU RE cefazolin CEFAZO LEVI SUSCEP TIBLE susceptib le Not Available [facility] (Centralized Electronic Ordering - All Locations) Patient Can Go To The Location Of Their Choice, 12/15/2021 10:14:12/14/1912/15/2021 URINE CULTU RE cefepime CEFEPI ME SUSCEP TIBLE susceptib le Not Available [facility] (Centralized Electronic Ordering - All Locations) Patient Can Go To The Location Of Their Choice, 12/15/2021 10:14:12/14/1912/15/2021 URINE CULTU RE ceftriaxone CEFTRI AXONE SUSCEP TIBLE susceptib le Not Available [facility] (Centralized Electronic Ordering - All Locations) Patient Can Go To The Location Of Their Choice, 12/15/2021 10:14:12/14/1912/15/2021 URINE CULTU RE ciprofloxaci n CIPROF LOXACI N SUSCEP TIBLE susceptib le Not Available [facility] (Centralized Electronic Ordering - All Locations) Patient Can Go To The Location Of Their Choice, 12/15/2021 10:14:12/14/1912/15/2021 URINE CULTU RE ertapenem ERTAPE NEM SUSCEP TIBLE susceptib le Not Available [facility] (Centralized Electronic Ordering - All Locations) Patient Can Go To The Location Of Their Choice, 12/15/2021 10:14:12/14/1912/15/2021 URINE CULTU RE gentamicin GENTAM ICIN SUSCEP TIBLE susceptib le Not Available [facility] (Centralized Electronic Ordering - All Locations) Patient Can Go To The Location Of Their Choice, 12/15/2021 10:14:19 12/14/1912/15/2021 URINE CULTU RE levofloxacin LEVOFL OXACIN SUSCEP TIBLE susceptib le Not Available [facility] (Centralized Electronic Ordering - All Locations) Patient Can Go To The Location Of Their Choice, 12/15/2021 10:14:19 12/14/19 22 12/15/2021 URINE CULTU RE meropenem MEROPE NEM SUSCEP TIBLE susceptib le Not Available [facility] (Centralized Electronic Ordering - All Locations) Patient Can Go To The Location Of Their Choice, 12/15/2021 10:14:19 12/14/1912/15/2021 URINE CULTU RE nitrofuranto in NITROF URANTO IN SUSCEP TIBLE susceptib le Not Available [facility] (Centralized Electronic Ordering - All Locations) Patient Can Go To The Location Of Their Choice, 12/15/2021 10:14:19 12/14/19 22 12/15/2021 URINE CULTU RE piperacillin /tazobactam PIPERA CILLIN /TAZOB AC SUSCEP TIBLE susceptib le Not Available [facility] (Centralized Electronic Ordering - All Locations) Patient Can Go To The Location Of Their Choice, 12/15/2021 10:14:19 12/14/1912/15/2021 URINE CULTU RE trimeth/sulf amethox TRIMET H/SULF AMETHO X SUSCEP TIBLE susceptib le Not Available [facility] (Centralized Electronic Ordering - All Locations) Patient Can Go To The Location Of Their Choice, 12/15/2021 10:14:19 12/14/1912/15/2021 URINE CULTU RE tetracycline TETRAC YCLINE SUSCEP TIBLE susceptib le Not Available [facility] (Centralized Electronic Ordering - All Locations) Patient Can Go To The Location Of Their Choice, 12/15/2021 10:14:19 06/15/20 22 06/15/2022 URINE CULTU RE specimen description CLEAN CATCH (URINE ) Not Available [facility] (Centralized Electronic Ordering - All Locations) Patient Can Go To The Location Of Their Choice, 06/16/2022 13:19:11 06/15/20 22 06/15/2022 URINE CULTU RE special requests NONE Not Available [facility] (Centralized [facility] Ordering - All Locations) Patient Can Go To The Location Of Their Choice, [id number] 06/16/2022 13:19:11 06/15/20 22 06/16/2022 URINE CULTU RE culture NO GROWTH Not Available [facility] (Centralized Electronic Ordering - All Locations) Patient Can Go To The Location Of Their Choice, [id number] 06/16/2022 13:19:11 06/15/20 22 06/16/2022 URINE CULTU RE report status FINAL 2021 Not Available [facility] (Centralized Electronic Ordering - All Locations) Patient Can Go To The Location Of Their Choice, [id number] 06/16/2022 13:19:11 Result Notes None recorded. Medical [...] % 170 mm[Hg] 88 mm[Hg] Not Available [facility] - production 4 13:38:23 Date Recorded Oxygen saturation Oxygen [...] % 89 /min 152.4 cm 97.7 [degF] 31501.8 g 18 /min 97.7 [degF] 97 % 97 % 18 /min 51774.8 g 89 /min 152.4 cm 152 mm[Hg] 84 mm[Hg] 152 mm[Hg] 84 mm[Hg] Not Available [facility] - production 2 12:04:54 Social History None recorded. Functional Status None recorded. Mental Status None recorded. Family History Nothing Reported. Medical History No medical history recorded. Gynecological HistoryNo gynecological history recorded. Obstetrics History GPAL:G 0 P 0 0 0 0 Past Encounters Encounter ID Performer Location Encounter Start Date Encounter Closed Date Diagnosis/Indication Diagnosis SNOMED-CT Code Diagnosis ICD10 Code Diagnosis Note [id number] Miguel Mims MD [facility] [address] [place] [address] [phone] [id number] 12/13/2021 11:07:03 04/24/2022 16:08:10 Acute urinary tract infection 298778209 N39.0 Will treat empiricall y with Macrobid and await urine culture [id number] Sanjana Lee MD Main - [facility] [address] [place] [address] [id number] 10/31/2023 13:12:39 11/02/2023 11:10:12 Chest pain 49891363 R07.9 Health Concerns Section Related Observation LastModified by Organization Detai ls LastModified Time None Recorded Concern Status LastModified by Organization Details LastModified Time None Recorded Advance Directives Directive None Recorded Payers Encounter Date Sequence Insurance Name Policy Number Policy Pereira Covered Member ID Pereira Member ID Guarantor Name 12/13/2021 1 [facility] - DOS PRIOR TO 2022 - DUAL ELIGIBLE (MEDICARE REPLACEMENT/AD VANTAGE - HMO) Khadra Hair [id number] Khadra Reginaldo 10/31/2023 1 [facility] - DOS ON OR AFTER 2022 - DUAL ELIGIBLE - ALF OPTIONS AND ONE CARE (MEDICARE REPLACEMENT/AD VANTAGE - HMO) Khadra Reginaldo [id number] Khadra Reginaldo Notes Date Note Type Note Provider Name and Address Organization Details Recorded Time 12/13/2021 text/html HPI: [place] was treated for UTI in the ED, she states having felt better, and now is experiencing same symptoms, and is requesting [facility] visit. Protocol Used: Urinary Symptoms Protocol-Based Disposition: Consider [facility], [facility] Community Clinician, or PCP visit within 24 hours Positive Triage Questions: * Side (flank) or lower back pain present * [1] Can't control passage of urine (i.e., urinary incontinence) AND [2] new-onset (< 2 weeks) or worsening * Urinating more frequently than usual (i.e., frequency) * Bad or foul-smelling urine ................... ................... ................... ................... ................... ................... ................... ........ Airfield Manager Note: Sent to a call for a pt complaining of UTI symptoms. [facility] arrives on scene, pt contact made in [...] leukocytes, blood and protein. Results uploaded to [employer]. BP:152/84, P:89, RR:18, SpO2:97%, T:97.7; Lung sounds: clear bilaterally; [facility] [place] and sends script for Macrobid to pt's pharmacy. Pt encouraged to stay hydrated. Red flags discussed. Pt has no further questions. ................... ................... ................... ................... ................... ................... ................... ........ Disposition: Fulfilled MD note: - Symptoms consistent with prior UTI's- Was treated in ER in past; no data in [facility] re: jomar Mims MD [address] [facility], [place], [phone], [facility] 12/13/2021 20:50:56 10/31/2023 text/html HPI: mbr with complaints of CP since ;last night states B/P 179/88 experiencing weakness denies any Dizziness/lighthead edness/diaphoresis SOB/N/V. refusing ED requesting [facility] visit for assessment. mbr advised to call 911 if symptoms get worse. Mbr stated understanding of risks associated with her symptoms. Protocol Used: Chest Pain Protocol-Based Disposition: Consider [facility], BATHROOM TILING PROFESSIONAL, MD/INTEGRATED CIRCUIT FABRICATOR triage, PCP, or ED /Urgent Care Visit [...] ................... ................... ................... ................... ................... ................... ........ Airfield Manager Note From Laura Bose: Patient reports that [...] advisable option and agreed to transport to [facility]. While waiting for EMS [facility] administered an additional 243 mg aspirin due to the patient already of taking her daily 81 mg aspirin. [facility] was unable to obtain a line or administer nitro before EMS arrived ................... ................... ................... ................... ................... ................... ................... ........ Disposition: Fulfilled Sanjana Lee MD [address] [facility], [place], [address], [employer] 10/31/2023 17:51:34 OBGyn Episode No OBEpisode recorded.
--- OUTSIDE RECORDS SUMMARY | 2024-12-02 02:52 | XMS_ITS | Encounter Summary ---
Author Organization [employer] [facility] Address [address] [facility] [address] [place] [address] Care Team Providers Care Rn Concurrent Review Name Role Phone Unavailable Primary Care Provider Unavailabl e Encounter Details Date Type Department Care Team (Latest Contact Info) Description 09/28/2019 Abstract [facility] CONVERSION[facility] Dental, Provider, DDS Social History Tobacco Use Types Packs/Day Years Used Date Smoking Tobacco: Never Assessed Comments Unknown Sex and Gender Information Value Date Recorded Sex Assigned at Female 06/01/2022 10:16 AM EDT Legal Sex Female 10:16 AM EDT Gender Identity Female 06/01/2022 10:16 AM EDT Sexual Orientation Choose not to disclose 2021 10:16 AM EDT documented as of this encounter Plan of Treatment Not on file documented as of this encounter Visit Diagnoses Not on filedocumented in this encounter
--- OUTSIDE RECORDS SUMMARY | 2024-12-02 02:52 | XMS_ITS | Clinical Summary ---
Author Organization [facility] Address [address] [address] Care Team Providers Care Glaze Grinder Name Role Phone Davis Watts MD Primary Care Provider [phone] Social History Tobacco Use Types Packs/Day Years Used Date Smoking Tobacco: Never Assessed Comments Unknown Sex and Gender Information Value Date Recorded Sex Assigned at Not on file Legal Sex Female 4:40 PM EST Gender Identity Not on file Sexual Orientation Not on file Plan of Treatment Health Maintenance Due Date Last Done Comments Diabetes: Hemoglobin A1C 12/30/2021 Diabetes: Ophthalmology Exam 12/30/2021 Diabetes: Pedal Pulse Checked 12/30/2021 Diabetes: Sensory Foot Exam 12/30/2021 Diabetes: Visual Foot Exam 12/30/2021 Influenza Vaccine (Season Ended) 2025 06/07/2013, 06/05/2011 Pneumococcal Vaccine: 50+ Years Completed 02/18/2015, 11/22/2009 Pneumococcal Vaccine: Peds ( 0 to 5 Years) and At-Risk Patients (6 to 49 Years) Discontinued 02/18/2015, 11/22/2009 Hepatitis B Vaccine Aged Out No longe r eligible based on patient's age to complete this topic Insurance [address] [place] [id number] [place] [address] Care Teams Glaze Grinder Relationship Specialty Start Date End Date Davis Watts MD [address] [place] [address] PCP - General 08/12/20
--- OUTSIDE RECORDS SUMMARY | 2024-12-02 02:52 | XMS_ITS | Encounter Summary ---
Author Organization [employer] [facility] Address [address] [facility] [address] [place] [address] Care Team Providers Care English Adjunct Faculty Name Role Phone Unavailable Primary Care Provider Unavailabl e Encounter Details Date Type Department Care Team (Latest Contact Info) Description 01/03/2021 Abstract [facility]VERSION[facility] Dental, Provider, DDS Social History Tobacco [...]
[2024-12-02 03:59] LABS: Troponin-I High Sensitivity 6.9 ng/L (<3.5-17.0)
--- OUTSIDE RECORDS SUMMARY | 2024-12-02 04:08 | XMS_ITS | Encounter Summary ---
Author Organization [employer] [facility] Address [address] [facility] [address] [place] [address] Care Team Providers Care Trial Management Associate Name Role Phone Unavailable Primary Care Provider [...]
--- OUTSIDE RECORDS SUMMARY | 2024-12-02 04:08 | XMS_ITS | Clinical Summary ---
Author Organization [facility] Facility Address [address] [address] Care Team Providers Care Process Plant Operator Name Role Phone Davis Watts MD Primary Care Provider [phone] Social History Tobacco Use Types Packs/Day Years [...] age to complete this topic Insurance [address] [address] [facility] [place] [address] Care Teams Process Plant Operator Relationship Specialty Start Date End Date Davis Watts MD [address] [place] [address] PCP - General 08/12/20
--- OUTSIDE RECORDS SUMMARY | 2024-12-02 04:08 | XMS_ITS | Encounter Summary ---
Author Organization [employer] [facility] Address [address] [facility] [address] [address] [place] [address] Care Team Providers Care Buttoner Name Role Phone Unavailable Primary Care Provider Unavailabl e Encounter Details Date Type Department Care Team (Latest Contact Info) Description 09/28/2019 Abstract [facility] CONVERSIONS Dental, Provider, DDS Social History Tobacco [...]
--- OUTSIDE RECORDS SUMMARY | 2024-12-02 04:09 | XMS_ITS | Clinical Summary ---
Author Organization [employer] Address [address] [facility] [address] [place] [address] Care Team Providers Care Drier Tender Naphthalene Name Role Phone Unavailable Primary Care Provider Unavailabl e Allergies Active Allergy Reactions Criticality Noted Date Comments Esomeprazole 06/22/2023 Other reaction(s): burning pain posterior chest Medications Aspirin Low Dose 81 MG EC tablet Take 81 mg by mouth in the morning. 3 Active Ascorbic Acid (vitamin C) 500 MG tablet Take 500 mg by mouth 2 times daily. 3 Active atorvastatin (Lipitor) 40 MG tablet Take 40 mg by mouth in the morning. 3 Active Blood Glucose Monitoring Suppl (ONE TOUCH ULTRA 2) w/Device kit USE TO TEST BLOOD SUGARS 2 TIMES A DAY 3 Active buPROPion SR (Wellbutrin SR) 100 MG 12 hr tablet Take 100 mg by mouth in the morning. 3 Active Trulicity 0.75 MG/0.5ML solution pen-injector INJECT 1 PEN SUBCUTANEOUS INJECTION EVERY WEEK,INSTR:ROTAT E INJECTION SITES 3 Active estradiol (Estrace) 0.1 MG/GM vaginal cream USE 2 GM VAGINALLY DAILY AT BEDTIME FOR 2 WEEKS, THEN 2 DAYS PER WEEK 3 Active glipiZIDE XL (Glucotrol XL) 2.5 MG 24 hr tablet Take 2.5 mg by mouth in the morning. 3 Active irbesartan (Avapro) 75 MG tablet Take 75 mg by mouth in the morning. 3 Active levothyroxine (Synthroid, Levoxyl) 50 MCG tablet TAKE 1 TABLET IN THE MORNING ON SUNDAYS, TUESDAYS, THURSDAYS AND Saturdays 3 Active neomycin-polymy gerson-dexAMETHaso ne (Polydex) 3.5-67917-3.1 ointment ophthalmic ointment APPLY 1/4 STRIP TO RIGHT LOWER LID THREE TIMES A DAY WITH MASSAGE FOR 5 TO 7 DAYS AND STOP 3 Active nitrofurantoin, macrocrystal-mo nohydrate, (Macrobid) 100 MG capsule TAKE 1 CAPSULE BY MOUTH TWICE A DAY FOR 5 DAYS 3 Active pantoprazole (ProtoNix) 40 MG EC tablet Take 40 mg by mouth in the morning. 3 Active Active Problems Problem Noted Date Diagnosed Date Missing teeth, acquired 06/22/2023 Dental plaque 06/22/2023 Social History Tobacco Use Types Packs/Day Years Used Date Smoking Tobacco: Never Passive Smoke Exposure: Never Smokeless Tobacco: Never Tobacco Cessation:Counseling Given: No Alcohol Use Standard Drinks/Week Comments Never 0 (1 standard drink = 0.6 oz pur e alcohol) Comments Unknown Sex and Gender Information Value Date Recorded Sex Assigned at Female 06/01/2022 10:16 AM EDT Legal Sex Female 10:16 AM EDT Gender Identity Female 06/01/2022 10:16 AM EDT Sexual Orientation Choose not to disclose 2021 10:16 AM EDT Last Filed Vital Signs Vital Sign Reading Time Taken Comments Blood Pressure 136/78 08/24/2023 10:51 AM EST Pulse 72 08/24/2023 10:51 AM EST Temperature - - Respiratory Rate - - Oxygen Saturation - - Inhaled Oxygen Concentration - - Weight - - Height - - Body Mass Index - - Plan of Treatment Health Maintenance Due Date Last Done Comments Depression Screening 1944 Lipid Panel 1944 SDOH Screening 1944 Alcohol/Substance Use Screening 1956 Zoster Vaccines (1 of 2) 1994 RSV Patients and Patients Aged 60 years or older (1 - 1-dose 75+ series) 2019 DTaP/Tdap/Td Vaccines (2 - Td or Tdap) 02/13/2020 02/12/2010 Dental Prophylaxis 12/22/2023 06/22/2023, 0 09/03/2021, 01/03/2021, Additional history exists Dental Oral Exam 02/23/2024 08/24/2023, 04/2022, 09/03/2021, Additional history exists COVID-19 Vaccine ( season) 2024 06/30/2022, 06/11/2021, 10/18/2020, Additional history exists Influenza Vaccine (#1) 2024 , 05/03/2022, 04/20/2021, Additional history exists Dental X-Ray: Bitewings 06/23/2024 06/22/20, 07/21/2021, 09/28/2019, Additional history exists Tobacco Screening 08/24/2024 08/24/2023 Dental X-Ray: Full Mouth 09/04/2024 09/03/2021, 01/31 Pneumococcal Vaccine: 50+ Years Completed 02/18/2015, 11/22/2009 HIB Vaccines Aged Out No longer eligi ble based on patient's age to complete this topic HPV Vaccines Aged Out No longer eligi ble based on patient's age to complete this topic Hepatitis A Vaccines Aged Out No long er eligible based on patient's age to complete this topic Hepatitis B Vaccines Aged Out No long er eligible based on patient's age to complete this topic IPV Vaccines Aged Out No longer eligi ble based on patient's age to complete this topic Meningococcal Vaccine Aged Out No rosa michi eligible based on patient's age to complete this topic RSV under 20 months Aged Out No longe r eligible based on patient's age to complete this topic Rotavirus Vaccines Aged Out No longer eligible based on patient's age to complete this topic Procedures Procedure Name Priority Date/Time Associated Diagnosis Comments PERIODIC ORAL EVALUATION - ESTABLISHED PATIENT Routine 08/24/2023 10:30 AM EST Full PROPHYLAXIS - ADULT Routine 023 10:00 AM EST Dental plaque BITEWINGS - 2 RADIOGRAPHIC IMAGES Routine 06/22/2023 10:00 AM EST Missing teeth, acquired Dental plaque PANORAMIC RADIOGRAPHIC IMAGE Routine 09/03/2021 12:00 AM EST from Last 3 Months or Most Recently Relevant to Health Maintenance Insurance [facility]
--- NOTE | 2024-12-02 04:12 | P.HPHOSP_ITS ---
History of Present Illness Date of Service: 12/02/24 Attending physician on admission: Pablo Vo Chief Complaint: chest pain Pt is an 79 yo female, can speak and understand Tamazight with PMH IDDM II, HTN, HLD, TASHI, Hypothyroidism, CAD, ACS, urinary incontinence and frequent UTI, hysterectomy, bladder sling, constipaton on Trulicity, hyponatremia (suspected SIADH in the past) was seen in the ED for sudden onset chest pain approximately 1930 last evening. Pt states she was watching TV at the time. Pt had eating earlier at 3PM. Pt also reported some abdominal pain, upper right and lower left quadrants. Pt is on trulicity with ongoing constipation issues and still has her gallBladder but denies issues with gallstones in the past. Pt states currently her CP is resolved and pt is currently wearing nitropaste. POX 95% on RA. ECG sinus rhythm with PVCs, ST and T-wave abnormalities inferiorly. Labs stable 4 liver function and T bili. Troponin 5.1 and 6.9. Patient diagnosed with unstable angina. Patient also noted to have hyponatremia sodium 129 no alterations of mental status. Patient has had history of hyponatremia in the past with previous admissions and was followed by Nephrology. Patient presents euvolemic. 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 Has received urea. Nephrology consulted. First dose of urea provided. Please note patient is a Jehovah Witness and does not believe in blood transfusions. Patient did state she is a DNR DNI and MOLST was completed back in September of 2024. Code status updated. Review of Systems 2 Review of Systems: Patient denies any current chest pain, shortness of breath at rest, nausea, vomiting and abdominal pain. Although patient did report some abdominal pain when the chest pain started earlier this .past evening patient has issues of chronically with constipation being on Trulicity. Patient denies any headache, visual changes, difficulty swallowing. Patient uses walker to ambulate. Patient denies any recent falls. Yes all other systems are reviewed and are negative [facility] Medical History Anxiety and depression IBS (irritable bowel syndrome) Female bladder prolapse Diabetic retinopathy Osteoporosis CAD (coronary artery disease) Diabetes Osteoarthritis Neuropathy Hypothyroid GERD (gastroesophageal reflux disease) History of CVA (cerebrovascular accident) Mitral annular calcification Heart palpitations TASHI (obstructive sleep apnea) Essential hypertension Cognitive capacity: Alert and orientated x3 Functional capacity: uses cane/walker Patient : No Family History Father Asthma Mother Cardiovascular disease Diabetes Arthritis Surgical History Hx of colonoscopy Stented coronary artery History of hysterectomy History of tonsillectomy History of cardioversion (~08/16/13) Social History Household Members: None Housing: Apartment Are you a primary pediatric care coordinator to a significant other at home: No Do you presently have visiting nurse or other home services: 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) Alcohol intake: never Patient Tobacco Use Status: Never used Tobacco Smoked in Last 30 Days: No e-Cigarette/Vaping Use: Never Used Use of substances other than those prescribed or required for medical reasons: No Advance Directives: Yes Advance Directives Information Provided: Yes Advance Directives on File: No Advance Directives Date on File: 10/31/23 Patient : No service: No Current occupational status: unemployed Ebola Risk: Travel/Contact With Anyone From Affected Area/s: No Has Patient Experienced Ebola Symptoms: No Meds Allergies Allergy/AdvReac Type Severity Reaction Status Date / Time esomeprazole [From NEXIUM] AdvReac Unknown BURNING Verified 12/02/24 00:55 SENSATION Active Medications: Current Medications Heparin Sodium (Porcine) (Heparin Sodium,Porcine 5,000 Unit/Ml Vial) 2,800 unit 40 unit/kg (2800 unit) IVPUSH PROTOCOL BOLUS PRN; Protocol PRN Reason: 40 unit/kg - Heparin Protocol Heparin Sodium (Porcine) (Heparin Sodium,Porcine 5,000 Unit/Ml Vial) 5,600 unit 80 unit/kg (5600 unit) IVPUSH PROTOCOL BOLUS PRN; Protocol PRN Reason: 80 unit/kg - Heparin Protocol Heparin Sodium/Sodium Chloride (Heparin Sodium,Porcine/1/2ns) 25,000 unit in 250 mls @ 0 mls/hr IVCONT .Q0M HIREN; Protocol Home Medications ?Medication ?Instructions ?Recorded ?Confirmed ?Last Taken ?Type pregabalin 75 mg capsule 75 mg PO BID 06/20/20 07/27/24 12/23/21 History tramadol 50 mg tablet 50 mg PO BID Pain 06/20/20 07/27/24 07/21/20 History zolpidem 5 mg tablet 5 mg PO BEDTIME Sleep 06/20/20 07/27/24 07/20/20 21:00 History atorvastatin 40 mg tablet 40 mg PO BEDTIME 06/19/21 07/27/24 12/23/21 History levothyroxine 75 mcg tablet 75 mcg PO MOWEFR 06/19/21 07/27/24 10/26/22 History pantoprazole 40 mg tablet,delayed 40 mg PO DAILY 06/19/21 07/27/24 10/12/22 History release calcium carbonate 500 mg PO DAILY 12/24/21 07/27/24 12/23/21 History dulaglutide 0.75 mg/0.5 mL 0.75 mg subcut SA 12/24/21 07/27/24 10/30/23 History subcutaneous pen injector (Trulicity) levothyroxine 50 mcg tablet 1 tab PO SUTUTHSA 12/24/21 07/27/24 12/23/21 History ascorbic acid (vitamin C) 500 mg 500 mg PO BID 10/07/22 07/27/24 Unknown History tablet (Vitamin C) cholecalciferol (vitamin D3) 50 50 mcg PO DAILY 10/07/22 07/27/24 Unknown History mcg (2,000 unit) capsule (Vitamin D3) estradiol 0.01% (0.1 mg/gram) 2 g vaginal 2XW 10/07/22 07/27/24 Unknown History vaginal cream Physical Exam 2 Vital Signs and Narrative: Vital Signs: Last Vital Signs Temp 98.0 F 12/02/24 03:53 Pulse 74 12/02/24 03:53 Resp 12 12/02/24 03:53 BP 128/62 12/02/24 03:53 Pulse Ox 95 12/02/24 03:53 O2 Del Method Room Air 12/02/24 03:53 BMI result Body Mass Index 30.3 Alert and orientated X3, able to give good history. Neuro: CN II-X11 intact, no deficits, visual acuity intact EYES: PERRLA, EOM intact ENT: hearing intact, no issues with swallowing, uvula midline, lips moist, nares patent no epistaxis Cardiac: S1 S2 RRR, no murmur, no JVD, no edema in Lower ext Pulmonary: lungs clear to ausculation B Abdominal: BS active in all 4 quadrants, no guarding, tenderness, rebounding MSK: strength 4/5 upper and lower extremities : no CVA tenderness no bladder distension Extremities: no edema in lower extremities, PT and DP pulses palpable +2 Psych: mood stable, judgement and insight good Skin: No open wounds reported, no open wounds found on exam Results Labs 12/02/24 05:17 12/02/24 01:05 Labs: Laboratory Results - last 24 hr 12/02/24 01:05 MCV 84.2 MCH 29.0 MCHC 34.5 RDW 13.2 Plt Count 192 MPV 10.3 Immature Gran % (Auto) 0.1 Neut % (Auto) 54.0 Lymph % (Auto) 31.5 [place] % (Auto) 10.9 Eos % (Auto) 3.1 Baso % (Auto) 0.4 Lymph # (Auto) 2.2 [place] # (Auto) 0.8 Eos # (Auto) 0.2 Baso # (Auto) 0.0 Abs Immat Gran (auto) 0.01 Absolute Neuts (auto) 3.8 Absolute Nucleated RBC 0.000 Nucleated RBC % (auto) 0.0 PT 11.2 INR 1.0 APTT 38.2 H Anion Gap 13 Estim Creat Clear Calc 43.1 Estimated GFR 59 Random Glucose 151 H Calcium 9.2 ECG Attestation: I personally reviewed and interpreted this ECG as follows: (Sinus rhythm with PVCs, ST and T-wave abnormality possible inferior ischemia) ECG interpretation date: 12/02/24 Prior ECG tracings: available for review Imaging Radiologist's Impressions: None to report Assessment and Plan (1) Unstable angina: Status: Acute Plan Pt is an 79 yo female, can speak and understand Tamazight with PMH IDDM II, HTN, HLD, TASHI, Hypothyroidism, CAD, ACS, urinary incontinence and frequent UTI, hysterectomy, bladder sling, constipaton on Trulicity, hyponatremia (suspected SIADH in the past) seen for episode of sudden onset chest pain at home approximately 730 the night before. Patient currently is symptom free. Noted hyponatremia. Patient being admitted for further evaluation from Cardiology. Unstable angina/ troponins WNL -Patient is started on heparin -Nitropaste -Cardiology consult -Echo ordered -Telemetry -A.M. labs to include lipid panel Hyponatremia -Sodium 129, urine studies sent -Patient has history of hyponatremia as far back as 2021 -Nephrology consulted -Patient was seen back in 2021 diagnosed with suspected SIADH, was started on urea and fluid restriction -Urea 15 gms X1 ordered, consdier Fluid restriction Constipation on Trulicity -senna at HS -MiraLax daily -Dulcolax suppository as needed -no history of ileus or bowel obstruction Insulin-dependent diabetes -sliding scale insulin ordered -diabetic diet Hypothyroidism -check TSH, continue levothyroxine, adjust if needed DVT prophylaxis: Heparin infusion PPI prophylaxis: Omeprazole for patient's home Protonix Med rec pending Patient is a DNR DNI Quality Stroke Does the patient have a stroke diagnosis?: No Reason for No Anti-thrombotic by Day Two: N/A - Med Ordered VTE Prior VTE?: No VTE Risk Level:: Medical - moderate - high VTE Device Contraindication: N/A - Device Ordered VTE Drug Contraindication: Patient Refused
[2024-12-02] MEDS: Heparin Sodium,Porcine 5,000 UNIT/ML VIAL 5000 UNIT IVPUSH (04:51)
[2024-12-02 05:01] LABS: Appearance Urine Clear; Color Urine Yellow; Glucose Urine UA Negative (Negative); Leukocyte Esterase Urine Negative (Negative); Nitrite Urine Negative (Negative); PH 7.5 (5.0-9.0); Specific Gravity - Urine <= 1.005 (1.005-1.025); Urine Blood Negative (Negative); Urine Ketones Negative (Negative); Urine Protein Negative (Neg-Trace)
[2024-12-02 05:10] LABS: Osmolality Urine 155 mosm/kg (373-1093)
--- NOTE | 2024-12-02 05:20 | PC.NURSE ---
Patient helped to bedside commode with standby assist.
[2024-12-02] MEDS: Heparin Sodium,Porcine/1/2NS 25,000 UNIT/250 ML IV.SOLN 7.87 UNIT IVCONT (05:36)
[2024-12-02 05:41] LABS: MANUAL DIFF FLAG NO
[2024-12-02 05:42] LABS: Basophils Percent Auto 0.4 % (0-2); Eosinophils Absolute Auto 0.2 X10*3/uL (0.0-0.4); Eosinophils Percent Auto 2.8 % (0-4); Hematocrit 34.5 % (37.0-47.0); Hemoglobin 11.8 g/dl (12.0-16.0); Imm Gran Abs Auto 0.02 X10*3/uL (0.00-0.03); Imm Gran Pct Auto 0.3 % (0.0-0.4); Lymphocytes Absolute Auto 2.5 X10*3/uL (1.2-4.9); Mean Corpuscular HGB Conc 34.2 g/dl (31.0-35.0); Mean Corpuscular Hemoglobin 28.9 pg (27.0-33.0); Mean Corpuscular Volume 84.6 fL (80.0-98.0); Monocytes Absolute Auto 0.9 X10*3/uL (0.1-1.2); Monocytes Percent Auto 11.8 % (2-11); Neutrophils Absolute Auto 3.9 x10*3/uL (2.0-8.3); Neutrophils Percent Auto 51.7 % (45-73); Platelet Count 208 X10*3/uL (160-400); Red Blood Count 4.08 X10*6/uL (4.20-5.50); Red Cell Distribution Width 13.3 % (11.0-16.0); White Blood Count 7.5 X10*3/uL (4.8-10.8)
[2024-12-02 05:50] LABS: Prothrombin Time 11.4 SEC (10.9-12.4)
[2024-12-02 05:53] LABS: PTT Heparin Drip 36.3 SEC (53-77.9)
[2024-12-02 05:54] LABS: Osmolality, Serum 285 mosm/kg (281-305)
[2024-12-02 06:02] LABS: Alanine Aminotransferase 29 U/L (0-31); Albumin Level 3.9 g/dL (3.5-5.0); Anion Gap 10 (12-20); Aspartate Amino Transferase 31 U/L (5-31); Bilirubin Total 0.6 mg/dL (0.0-1.0); Blood Urea Nitrogen 18 mg/dL (9-16); Calcium 9.3 mg/dL (8.4-10.2); Carbon Dioxide 27 mmol/L (22-29); Chloride 100 mmol/L (96-108); Cholesterol 138 mg/dL (<200); Creatinine Clr Calc Pharmacy 43.1; Estimated Glomerular Filt Rate > 60; Glucose Random 115 mg/dL (60-115); HDL Cholesterol 43 mg/dL (>40); LDL Cholesterol Calculated 64 mg/dL (<100); Potassium 4.4 mmol/L (3.3-5.1); Sodium 133 mmol/L (135-145); Total Protein 6.9 g/dL (6.5-8.0); Triglycerides 157 mg/dL (<150)
--- NOTE | 2024-12-02 06:21 | PC.NURSE ---
Medication requested from pharmacy at this time
[2024-12-02 06:23] LABS: Alkaline Phosphatase 51 U/L (39-117); Thyroid Stimulating Hormone 1.79 uIU/mL (0.32-4.0)
[2024-12-02 07:54] LABS: Glucose, Whole Blood 120 mg/dL (60-115)
[2024-12-02] MEDS: Urea 15 GM POWDER PO (08:04)
[2024-12-02] MEDS: Omeprazole 20 MG CAPSULE.DR PO ×2 (08:38→16:00)
[2024-12-02] MEDS: Aspirin Enteric Coated 81 MG TABLET.DR PO (08:38)
[2024-12-02] MEDS: Metoprolol Succinate ER 50 MG TAB.ER.24H PO (08:39)
--- NOTE | 2024-12-02 09:59 | PHA.MEDREC ---
Addendum entered by Yenny Rivera RPh 12/02/24 10:41: REVIEWED BY [facility] Original Note: Pharmacy Consult ? Medication Reconciliation Pharmacy has completed the medication reconciliation. Spoke to pt to confirm meds. pt has personal med list which is mostly accurate, with few omissions that were inquired upon during the med rec.
[2024-12-02 11:38] LABS: Glucose, Whole Blood 131 mg/dL (60-115)
--- NOTE | 2024-12-02 12:15 | PM.CNCAR ---
History of Present Illness History of Present Illness Date of Service: 12/02/24 Requesting physician: Ani Garcia Chief complaint: Unstable angina Narrative: 79-year-old female with background history of coronary artery disease with previous LAD and left main into circumflex PCI. Last PCI was in November of 2023. She is taking aspirin and Brilinta. She is a [employer]. She is presenting with chest pressure which happen yesterday around 07:00 for approximately 2-3 hours. She has mildly elevated troponin level with inferior T-wave changes which are new. She is saying she has been getting similar pressure-like feeling before. This was an episode lasting for few hours. She is saying last year when she had left main into circumflex PCI she was mostly short of breath and did not have pressure but she is not sure about the symptoms. Denying any bleeding concerns. She is saying she would not accept any blood products because she is a Roman Catholic. [facility]LY [facility] Past Medical History Medical History Anxiety and depression IBS (irritable bowel syndrome) Female bladder prolapse Diabetic retinopathy Osteoporosis CAD (coronary artery disease) Diabetes Osteoarthritis Neuropathy Hypothyroid GERD (gastroesophageal reflux disease) History of CVA (cerebrovascular accident) Mitral annular calcification Heart palpitations TASHI (obstructive sleep apnea) Essential hypertension Family History Family History Father Asthma Mother Cardiovascular disease Diabetes Arthritis Surgical History Surgical History Hx of colonoscopy Stented coronary artery History of hysterectomy History of tonsillectomy History of cardioversion (~08/16/13) Social History Social History Household Members: None Housing: Apartment Are you a primary career technology teacher to a significant other at home: No Do you presently have visiting nurse or other home services: Yes ([employer]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) Alcohol intake: never Patient Tobacco Use Status: Never used Tobacco Smoked in Last 30 Days: No e-Cigarette/Vaping Use: Never Used Use of substances other than those prescribed or required for medical reasons: No Advance Directives: Yes Advance Directives Information Provided: Yes Advance Directives on File: No Advance Directives Date on File: 10/31/23 Nutrition Risks: No Nutritional Risk Patient : No service: No Current occupational status: unemployed Travel History Ebola Risk: Travel/Contact With Anyone From Affected Area/s: No Has Patient Experienced Ebola Symptoms: No Meds Allergies Allergy/AdvReac Type Severity Reaction Status Date / Time esomeprazole [From NEXIUM] AdvReac Unknown BURNING Verified 12/02/24 00:55 SENSATION Active Medications: Current Medications Acetaminophen (Acetaminophen 325 Mg Tablet) 650 mg PO Q6H PRN PRN Reason: Pain, Mild 1-3,fever,headache Aspirin (Aspirin Enteric Coated 81 Mg Tablet.Dr) 81 mg PO DAILY [facility] Last Admin: 12/02/24 08:38 Dose: 81 mg Calcium Carbonate (Calcium Carbonate 750 Mg Tab.Chew) 750 mg PO Q4H PRN PRN Reason: Heartburn Dextrose (Dextrose 50 % 25 Gm/50 Ml Syringe) 25 gm IVPUSH Q15M PRN; Protocol PRN Reason: per Hypoglycemia Standing Ord. Glucose (Glucose Gel 15 Gm Gel..Gram.) 15 gm PO Q15M PRN; Protocol PRN Reason: per Hypoglycemia Standing Ord. Heparin Sodium (Porcine) (Heparin Sodium,Porcine 5,000 Unit/Ml Vial) 2,600 unit IVPUSH PROTOCOL BOLUS PRN; Protocol PRN Reason: 40 unit/kg - Heparin Protocol Heparin Sodium (Porcine) (Heparin Sodium,Porcine 5,000 Unit/Ml Vial) 5,200 unit IVPUSH PROTOCOL BOLUS PRN; Protocol PRN Reason: 80 unit/kg - Heparin Protocol Heparin Sodium/Sodium Chloride (Heparin Sodium,Porcine/1/2ns) 25,000 unit in 250 mls @ 0 mls/hr IVCONT .Q0M [facility]; Protocol Last Admin: 12/02/24 05:36 Dose: 12 units/kg/hr, 7.87 mls/hr Insulin Human Lispro (Insulin Lispro 100 Unit/Ml 3 Ml Vial) 0 unit SUBCUT QIDACHS [facility]; Protocol Last Admin: 12/02/24 11:37 Dose: Not Given Magnesium Hydroxide (Milk Of Magnesia 30 Ml Oral.Susp) 30 ml PO DAILY PRN PRN Reason: Constipation Melatonin (Melatonin 3 Mg Tablet) 6 mg PO BEDTIME PRN PRN Reason: Insomnia Metoprolol Succinate (Metoprolol Succinate Er 50 Mg Tab.Er.24h) 50 mg PO DAILY [facility]; Protocol Last Admin: 12/02/24 08:39 Dose: 50 mg Omeprazole (Omeprazole 20 Mg Capsule.Dr) 20 mg PO BID@0630,1630 [facility] Last Admin: 12/02/24 08:38 Dose: 20 mg Ondansetron HCl (Ondansetron Hcl 4 Mg/2 Ml Vial) 4 mg IVPUSH Q8H PRN PRN Reason: Nausea and Vomiting Senna (Sennosides 8.6 Mg Tablet) 17.2 mg PO BEDTIME [facility] Sodium Chloride (0.9 % Sodium Chloride Flush 3 Ml Syringe) 3 ml IVFLUSH QSHIFT [facility] Last Admin: 12/02/24 08:05 Dose: Not Given Home Medications ?Medication ?Instructions ?Recorded ?Confirmed ?Last Taken ?Type tramadol 50 mg tablet 50 mg PO BID PRN Pain 06/20/20 12/02/24 07/21/20 History zolpidem 5 mg tablet 5 mg PO BEDTIME Sleep 06/20/20 12/02/24 12/01/24 History atorvastatin 40 mg tablet 40 mg PO BEDTIME 06/19/21 12/02/24 12/01/24 History levothyroxine 75 mcg tablet 75 mcg PO MOWEFR@0606/19/21 12/02/24 12/01/24 History pantoprazole 40 mg tablet,delayed 40 mg PO DAILY@0630 06/19/21 12/02/24 12/01/24 History release calcium carbonate 500 mg PO DAILY 12/24/21 12/02/24 12/01/24 History dulaglutide 0.75 mg/0.5 mL 0.75 mg subcut FR@89912/24/21 12/02/24 12/01/24 History subcutaneous pen injector (Trulicity) levothyroxine 50 mcg tablet 1 tab PO SUTUTHSA@59912/24/21 12/02/24 12/23/21 History ascorbic acid (vitamin C) 500 mg 500 mg PO BID 10/07/22 12/02/24 12/01/24 History tablet (Vitamin C) cholecalciferol (vitamin D3) 50 50 mcg PO DAILY 10/07/22 12/02/24 12/01/24 History mcg (2,000 unit) capsule (Vitamin D3) estradiol 0.01% (0.1 mg/gram) 2 g vaginal MOFR@2100 12/02/24 12/02/24 Unknown History vaginal cream irbesartan 75 mg tablet 75 mg PO DAILY 12/02/24 12/02/24 12/01/24 History meclizine 12.5 mg tablet 12.5 mg PO TID PRN Dizziness 12/02/24 12/02/24 Unknown History pregabalin 100 mg capsule 100 mg PO BID 12/02/24 12/02/24 12/01/24 History Physical Exam Vital Signs: Vital Signs: Last Vital Signs Temp 98.0 F 12/02/24 07:43 Pulse 74 12/02/24 08:39 Resp 12 12/02/24 07:43 BP 129/64 12/02/24 08:39 Pulse Ox 97 12/02/24 07:43 O2 Del Method Room Air 12/02/24 07:43 BMI result Body Mass Index 28.2 GENERAL APPEARANCE: in no acute distress, pleasant. NECK: no carotid bruit, no jugular venous distention. SKIN: no suspicious lesions, warm and dry. HEART: no murmurs, regular rate and rhythm. LUNGS: clear to auscultation bilaterally. ABDOMEN: soft, nontender. EXTREMITIES: no edema. PERIPHERAL PULSES: equal. NEUROLOGIC: No gross deficits, AAO X 3 Objective Labs and Meds 12/02/24 05:17 12/02/24 05:17 Lab results: Laboratory Results - last 24 hr 12/02/24 12/02/24 12/02/24 01:05 03:35 04:53 WBC 7.0 RBC 4.17 L Hgb 12.1 Hct 35.1 L MCV 84.2 MCH 29.0 MCHC 34.5 RDW 13.2 Plt Count 192 MPV 10.3 Immature Gran % (Auto) 0.1 Neut % (Auto) 54.0 Lymph % (Auto) 31.5 [place] % (Auto) 10.9 Eos % (Auto) 3.1 Baso % (Auto) 0.4 Lymph # (Auto) 2.2 [place] # (Auto) 0.8 Eos # (Auto) 0.2 Baso # (Auto) 0.0 Abs Immat Gran (auto) 0.01 Absolute Neuts (auto) 3.8 Absolute Nucleated RBC 0.000 Nucleated RBC % (auto) 0.0 PT 11.2 INR 1.0 APTT 38.2 H aPTT Heparin Protocol Sodium 129 L Potassium 4.3 Chloride 96 Carbon Dioxide 24 Anion Gap 13 BUN 19 H Creatinine 0.91 Estim Creat Clear Calc 43.1 Estimated GFR 59 POC Glucose Random Glucose 151 H Osmolality Calcium 9.2 Magnesium Total Bilirubin AST ALT Alkaline Phosphatase Troponin I High Sens 5.1 D 6.9 Total Protein Albumin Triglycerides Cholesterol LDL Cholesterol, Calc HDL Cholesterol TSH Urine Color Yellow Urine Appearance Clear Urine pH 7.5 Ur Specific [place] <= 1.005 Urine Protein Negative Urine Glucose (UA) Negative Urine Ketones Negative Urine Blood Negative Urine Nitrite Negative Ur Leukocyte Esterase Negative Urine Osmolality 155 L Ur Random Sodium 47.0 12/02/24 12/02/24 12/02/24 05:17 07:40 11:34 WBC 7.5 RBC 4.08 L Hgb 11.8 L Hct 34.5 L MCV 84.6 MCH 28.9 MCHC 34.2 RDW 13.3 Plt Count 208 MPV 11.0 Immature Gran % (Auto) 0.3 Neut % (Auto) 51.7 Lymph % (Auto) 33.0 [place] % (Auto) 11.8 H Eos % (Auto) 2.8 Baso % (Auto) 0.4 Lymph # (Auto) 2.5 [place] # (Auto) 0.9 Eos # (Auto) 0.2 Baso # (Auto) 0.0 Abs Immat Gran (auto) 0.02 Absolute Neuts (auto) 3.9 Absolute Nucleated RBC 0.000 Nucleated RBC % (auto) 0.0 PT 11.4 INR 1.0 APTT aPTT Heparin Protocol 36.3 L D Sodium 133 L Potassium 4.4 Chloride 100 Carbon Dioxide 27 Anion Gap 10 L BUN 18 H Creatinine 0.88 Estim Creat Clear Calc 43.1 Estimated GFR > 60 POC Glucose 120 H 131 H Random Glucose 115 Osmolality 285 Calcium 9.3 Magnesium 2.0 Total Bilirubin 0.6 AST 31 ALT 29 Alkaline Phosphatase 51 Troponin I High Sens Total Protein 6.9 Albumin 3.9 Triglycerides 157 H Cholesterol 138 LDL Cholesterol, Calc 64 HDL Cholesterol 43 TSH 1.79 Urine Color Urine Appearance Urine pH Ur Specific [place] Urine Protein Urine Glucose (UA) Urine Ketones Urine Blood Urine Nitrite Ur Leukocyte Esterase Urine Osmolality Ur Random Sodium Assessment and Plan (1) Unstable angina: Status: Acute Plan Pleasant 79-year-old female who has known history of coronary disease with previous PCI to LAD in 2019 and NSTEMI presentation in 2023 when ostial circumflex was severe stenosis. Given the fact that the patient was 78 years old and was a [employer], we decided to treat left main into left circumflex last year. She had 70% RCA stenosis at that time. She is now presenting with inferior T-wave inversions and chest discomfort. She is on heparin drip and being treated as unstable angina. She is on aspirin and Brilinta. Denying any bleeding. She had complex PCI in the past. I think she will need repeat angiography. We could not complete the angiography last time from radial access due to severe spasm and we will have to use femoral approach. With her being a [employer] there is always a concern about bleeding and requirement for transfusion but she has complex coronary disease and is coming with unstable symptoms at this point. Blood pressure is well controlled currently. Continue antiplatelet therapy and heparin. We will potentially transfer her tomorrow for cardiac catheterization by Wednesday. Thank you for allowing me to participate in the care of your patient. Please feel free to contact me if you have any questions. Procedures Date of Service Date of Service: 12/02/24
[2024-12-02 12:16] LABS: PTT Heparin Drip > 200.0 SEC (53-77.9)
--- NOTE | 2024-12-02 12:24 | PC.NURSE ---
12:17 Critical lab received from Chemistry of PTT >200. Heparin drip paused at this time. Re-draw PTT in 1 hour per protocol (1317.) Attending made aware via [facility].
[2024-12-02 14:03] LABS: PTT Heparin Drip 184.2 SEC (53-77.9)
--- NOTE | 2024-12-02 14:18 | PM.EVENT ---
Event Note Date of Service: 12/02/24 Event Note: Seen and evaluated symptoms concerning for unstable angina Keep on heparin drip ASA, Brilinta, Statin Cardiology input appreciated; potential transfer to [facility] [place] [facility] for angiogram monitor H&H, PTT and BMP repeat EKG for chest pain Time Spent With Patient Time: Total time managing care of this patient today ____ minutes.
[2024-12-02 15:06] LABS: PTT Heparin Drip 84.9 SEC (53-77.9)
[2024-12-02 15:53] LABS: Glucose, Whole Blood 260 mg/dL (60-115)
[2024-12-02] MEDS: 0.9 % Sodium Chloride Flush 3 ML SYRINGE IVFLUSH (16:08)
[2024-12-02] MEDS: Insulin Lispro 100 UNIT/ML 3 ML VIAL SUBCUT (16:08)
[2024-12-02] MEDS: Acetaminophen 325 MG TABLET 650 MG PO (18:57)
[2024-12-02 20:33] LABS: Glucose, Whole Blood 139 mg/dL (60-115)
[2024-12-02] MEDS: Pregabalin 100 MG CAPSULE PO (20:44)
[2024-12-02] MEDS: Ticagrelor 90 MG TABLET PO (20:45)
[2024-12-02] MEDS: Zolpidem Tartrate 5 MG TABLET PO (20:45)
[2024-12-02] MEDS: Atorvastatin Calcium 40 MG TABLET PO (20:45)
[2024-12-02] MEDS: Ascorbic Acid 500 MG TABLET PO (20:45)
[2024-12-02 22:53] LABS: PTT Heparin Drip 196.6 SEC (53-77.9)
[2024-12-03] MEDS: 0.9 % Sodium Chloride Flush 3 ML SYRINGE IVFLUSH ×3 (00:04→22:13)
[2024-12-03 00:20] LABS: PTT Heparin Drip 139.4 SEC (53-77.9)
[2024-12-03 01:21] LABS: PTT Heparin Drip 39.8 SEC (53-77.9)
[2024-12-03] MEDS: traMADoL HCL 50 MG TABLET PO (02:42)
[2024-12-03 04:00] VITALS: BP 126/59; PULSE 68; RESP 17; TEMP 35.8; O2SAT 98
[2024-12-03] MEDS: Heparin Sodium,Porcine/1/2NS 25,000 UNIT/250 ML IV.SOLN 2.62 UNIT IVCONT (05:20)
[2024-12-03 06:00] VITALS: BMI 28.8
[2024-12-03] MEDS: Omeprazole 20 MG CAPSULE.DR PO ×2 (06:24→15:59)
[2024-12-03] MEDS: Levothyroxine Sodium 50 MCG TABLET PO (06:25)
--- NOTE | 2024-12-03 06:51 | ECG_ITS ---
Test Reason : CP Blood Pressure : */* mmHG Vent. Rate : 55 BPM Atrial Rate : 55 BPM P-R Int : 158 ms QRS Dur : 88 ms QT Int : 446 ms P-R-T Axes : 8 61 19 degrees QTcB Int : 426 ms Sinus bradycardia Nonspecific T wave abnormality Abnormal ECG When compared to the previous EKG of 12/02/2024, PVCs not seen Referred By: Ani Garcia Electronically Signed By: CHELE LE
[2024-12-03 07:35] LABS: Glucose, Whole Blood 105 mg/dL (60-115)
[2024-12-03 07:36] VITALS: BP 120/60; PULSE 70; RESP 17; TEMP 36.2; O2SAT 96
[2024-12-03 08:15] LABS: MANUAL DIFF FLAG NO
[2024-12-03] MEDS: Aspirin Enteric Coated 81 MG TABLET.DR PO (08:15)
[2024-12-03] MEDS: Ticagrelor 90 MG TABLET PO ×2 (08:16→22:12)
[2024-12-03] MEDS: Cholecalciferol (Vitamin D3) 25 MCG TABLET 50 MCG PO (08:16)
[2024-12-03] MEDS: Metoprolol Succinate ER 50 MG TAB.ER.24H PO (08:16)
[2024-12-03] MEDS: Pregabalin 100 MG CAPSULE PO ×2 (08:17→22:12)
[2024-12-03] MEDS: Ascorbic Acid 500 MG TABLET PO ×2 (08:17→22:12)
[2024-12-03] MEDS: Calcium Oyster Shell Elemental 500 MG TABLET PO (08:17)
[2024-12-03 08:23] LABS: Basophils Percent Auto 0.5 % (0-2); Eosinophils Absolute Auto 0.2 X10*3/uL (0.0-0.4); Eosinophils Percent Auto 2.8 % (0-4); Hematocrit 36.2 % (37.0-47.0); Hemoglobin 12.5 g/dl (12.0-16.0); Imm Gran Abs Auto 0.02 X10*3/uL (0.00-0.03); Imm Gran Pct Auto 0.2 % (0.0-0.4); Lymphocytes Absolute Auto 2.7 X10*3/uL (1.2-4.9); Lymphocytes Percent Auto 33.5 % (20-40); Mean Corpuscular HGB Conc 34.5 g/dl (31.0-35.0); Mean Corpuscular Hemoglobin 29.2 pg (27.0-33.0); Mean Corpuscular Volume 84.6 fL (80.0-98.0); Mean Platelet Volume 10.9 fL (9.4-12.3); Monocytes Percent Auto 12.5 % (2-11); Neutrophils Absolute Auto 4.1 x10*3/uL (2.0-8.3); Neutrophils Percent Auto 50.5 % (45-73); Platelet Count 209 X10*3/uL (160-400); Red Blood Count 4.28 X10*6/uL (4.20-5.50); Red Cell Distribution Width 13.8 % (11.0-16.0); White Blood Count 8.1 X10*3/uL (4.8-10.8)
[2024-12-03 08:25] LABS: PTT Heparin Drip 79.3 SEC (53-77.9)
[2024-12-03 08:43] LABS: Anion Gap 14 (12-20); Blood Urea Nitrogen 19 mg/dL (9-16); Calcium 9.5 mg/dL (8.4-10.2); Carbon Dioxide 23 mmol/L (22-29); Chloride 106 mmol/L (96-108); Creatinine Clr Calc Pharmacy 48.4; Estimated Glomerular Filt Rate > 60; Glucose Random 126 mg/dL (60-115); Potassium 4.1 mmol/L (3.3-5.1); Sodium 139 mmol/L (135-145)
--- NOTE | 2024-12-03 09:37 | MHC.CM.PN ---
CM met with Patient at bedside and addressed IMM with her, providing Patient with the original and a copy has been placed on the chart. Patient lives alone in an apartment and she uses a walker to assist with mobility. Patient has a [employer] 46 hours/week and RN visits through [facility]. Home/resume said services is Patient's goal and CM has initiated and will follow for dc planning. PCP is Dr. Davis Watts and a [employer] will transport to home at time of dc. Patient is a Jehovah Witness.
--- NOTE | 2024-12-03 10:47 | PM.PNCARD ---
Subjective Subjective Date of Service: 12/03/24 Interval history: Seen examined at bedside. She has been feeling well. Repeat EKG has shown improvement in T-wave changes inferiorly. I arranged a bed for her at [facility] but after discussion with her later she said she wishes to be medically treated. The transfer was canceled. Physical Exam Vital Signs: Last Vital Signs Temp 97.1 F 12/03/24 07:36 Pulse 70 12/03/24 07:36 Resp 17 12/03/24 07:36 BP 120/60 12/03/24 07:36 Pulse Ox 96 12/03/24 07:36 O2 Del Method Room Air 12/03/24 07:36 BMI result Body Mass Index 28.8 GENERAL APPEARANCE: in no acute distress, pleasant. NECK: no carotid bruit, no jugular venous distention. SKIN: no suspicious lesions, warm and dry. HEART: no murmurs, regular rate and rhythm. LUNGS: clear to auscultation bilaterally. ABDOMEN: soft, nontender. EXTREMITIES: no edema. PERIPHERAL PULSES: equal. NEUROLOGIC: No gross deficits, AAO X 3 Objective Labs and Meds 12/03/24 08:03 12/03/24 08:03 Lab results: Laboratory Results - last 24 hr 12/02/24 12/02/24 12/02/24 11:34 11:37 13:17 WBC RBC Hgb Hct MCV MCH MCHC RDW Plt Count MPV Immature Gran % (Auto) Neut % (Auto) Lymph % (Auto) [place] % (Auto) Eos % (Auto) Baso % (Auto) Lymph # (Auto) [place] # (Auto) Eos # (Auto) Baso # (Auto) Abs Immat Gran (auto) Absolute Neuts (auto) Absolute Nucleated RBC Nucleated RBC % (auto) PT INR aPTT Heparin Protocol > 200.0 H* D 184.2 H* Sodium Potassium Chloride Carbon Dioxide Anion Gap BUN Creatinine Estim Creat Clear Calc Estimated GFR POC Glucose 131 H Random Glucose Calcium 12/02/24 12/02/24 12/02/24 14:51 15:49 20:29 WBC RBC Hgb Hct MCV MCH MCHC RDW Plt Count MPV Immature Gran % (Auto) Neut % (Auto) Lymph % (Auto) [place] % (Auto) Eos % (Auto) Baso % (Auto) Lymph # (Auto) [place] # (Auto) Eos # (Auto) Baso # (Auto) Abs Immat Gran (auto) Absolute Neuts (auto) Absolute Nucleated RBC Nucleated RBC % (auto) PT INR aPTT Heparin Protocol 84.9 H D Sodium Potassium Chloride Carbon Dioxide Anion Gap BUN Creatinine Estim Creat Clear Calc Estimated GFR POC Glucose 260 H 139 H Random Glucose Calcium 12/02/24 12/02/24 12/03/24 22:08 23:44 00:58 WBC RBC Hgb Hct MCV MCH MCHC RDW Plt Count MPV Immature Gran % (Auto) Neut % (Auto) Lymph % (Auto) [place] % (Auto) Eos % (Auto) Baso % (Auto) Lymph # (Auto) [place] # (Auto) Eos # (Auto) Baso # (Auto) Abs Immat Gran (auto) Absolute Neuts (auto) Absolute Nucleated RBC Nucleated RBC % (auto) PT INR aPTT Heparin Protocol 196.6 H* D 139.4 H* D 39.8 L D Sodium Potassium Chloride Carbon Dioxide Anion Gap BUN Creatinine Estim Creat Clear Calc Estimated GFR POC Glucose Random Glucose Calcium 12/03/24 12/03/24 07:29 08:03 WBC 8.1 RBC 4.28 Hgb 12.5 Hct 36.2 L MCV 84.6 MCH 29.2 MCHC 34.5 RDW 13.8 Plt Count 209 MPV 10.9 Immature Gran % (Auto) 0.2 Neut % (Auto) 50.5 Lymph % (Auto) 33.5 [place] % (Auto) 12.5 H Eos % (Auto) 2.8 Baso % (Auto) 0.5 Lymph # (Auto) 2.7 [place] # (Auto) 1.0 Eos # (Auto) 0.2 Baso # (Auto) 0.0 Abs Immat Gran (auto) 0.02 Absolute Neuts (auto) 4.1 Absolute Nucleated RBC 0.000 Nucleated RBC % (auto) 0.0 PT 12.0 INR 1.0 aPTT Heparin Protocol 79.3 H D Sodium 139 Potassium 4.1 Chloride 106 Carbon Dioxide 23 Anion Gap 14 BUN 19 H Creatinine 0.79 Estim Creat Clear Calc 48.4 Estimated GFR > 60 POC Glucose 105 Random Glucose 126 H Calcium 9.5 Progress Note: A&P Assessment and plan (1) Unstable angina: Status: Acute Plan Pleasant 79 year female who is a [employer] presenting with unstable angina. She has complex coronary disease and previously had LAD PCI in 1999 19 followed by NSTEMI last year with ostial circumflex stenosis which was treated with left main into circumflex stenting. She had 70% ostial/proximal RCA stenosis at that time. She now presented with chest discomfort and inferior T-wave changes. She was treated as unstable angina and has been on heparin drip. She was already taking aspirin and Brilinta. EKG changes have improved at this stage. I discussed with her about cardiac catheterization but she wishes to be medically treated. We will continue anticoagulation for 48 hours and then do some ambulation in the hallways to see how she is feeling. Overall if she does fine then can potentially go home with medical management. On the other hand if she has recurrent chest discomfort then we need to revisit diagnostic cardiac catheterization again. Adding isosorbide mononitrate 30 mg daily. Thank you for allowing me to participate in the care of your patient. Please feel free to contact me if you have any questions. Time Spent With Patient Time: Total time managing care of this patient today ____ minutes. Progress Note: Quality Stroke Does the patient have a stroke diagnosis?: No Reason for No Anti-thrombotic by Day Two: N/A - Med Ordered Procedures Date of Service Date of Service: 12/03/24
--- NOTE | 2024-12-03 10:59 | ECG_ITS ---
Test Reason : CK RHYTHM Blood Pressure : */* mmHG Vent. Rate : 73 BPM Atrial Rate : 73 BPM P-R Int : 186 ms QRS Dur : 84 ms QT Int : 438 ms P-R-T Axes : 32 7 111 degrees QTcB Int : 482 ms Normal sinus rhythm Minimal voltage criteria for LVH, may be normal variant ( R in aVL ) Nonspecific T wave abnormality Abnormal ECG When compared with ECG of 02-Dec-2024 00:46, T wave inversion no longer evident in Inferior leads T wave inversion now evident in Lateral leads Referred By: Ani Garcia Electronically Signed By: CHELE LE
[2024-12-03 11:37] LABS: Glucose, Whole Blood 156 mg/dL (60-115)
[2024-12-03 11:52] VITALS: BP 124/65; PULSE 71; RESP 17; TEMP 36.1; O2SAT 98
[2024-12-03] MEDS: Insulin Lispro 100 UNIT/ML 3 ML VIAL SUBCUT ×2 (11:57→22:12)
--- NOTE | 2024-12-03 12:02 | HO.PM.IMPN ---
Subjective Subjective Date of Service: 12/03/24 Interval History: seen and evaluated denies any chest pain no fever or chills no other events Review of Systems Review of Systems: Yes all other systems are reviewed and are negative Physical Exam Vital Signs: Vital Signs: Last Vital Signs Temp 97.0 F 12/03/24 11:52 Pulse 71 12/03/24 11:52 Resp 17 12/03/24 11:52 BP 124/65 12/03/24 11:52 Pulse Ox 98 12/03/24 11:52 O2 Del Method Room Air 12/03/24 11:52 BMI result Body Mass Index 28.8 Const: Other: Constitutional : Awake, interactive, not in distress Neck : Normal inspection, Supple Cardiovascular : RRR, no JVP, no lower extremity edema Respiratory : good bilateral air entry, no crackles, wheezes or rhonchi Gastrointestinal: soft, lax, Normal bowel sounds, Non tender Skin : Warm, Dry Neurological : Alert & oriented x3, No focal deficit Objective Data Active Medications Acetaminophen (Acetaminophen 325 Mg Tablet) 650 mg PO Q6H PRN PRN Reason: Pain, Mild 1-3,fever,headache Last Admin: 12/02/24 18:57 Dose: 650 mg Documented By: MARTITA Ascorbic Acid (Ascorbic Acid 500 Mg Tablet) 500 mg PO BID [facility] Last Admin: 12/03/24 08:17 Dose: 500 mg Documented By: SUKUMAR Aspirin (Aspirin Enteric Coated 81 Mg Tablet.) 81 mg PO DAILY [facility] Last Admin: 12/03/24 08:15 Dose: 81 mg Documented By: SUKUMAR Atorvastatin Calcium (Atorvastatin Calcium 40 Mg Tablet) 40 mg PO BEDTIME [facility] Last Admin: 12/02/24 20:45 Dose: 40 mg Documented By: MADHU Calcium Carbonate (Calcium Carbonate 750 Mg Tab.Chew) 750 mg PO Q4H PRN PRN Reason: Heartburn Calcium Carbonate (Calcium Oyster Shell Elemental 500 Mg Tablet) 500 mg PO DAILY [facility] Last Admin: 12/03/24 08:17 Dose: 500 mg Documented By: SUKUMAR Dextrose (Dextrose 50 % 25 Gm/50 Ml Syringe) 25 gm IVPUSH Q15M PRN; Protocol PRN Reason: per Hypoglycemia Standing Ord. Enoxaparin Sodium (Enoxaparin Sodium 80 Mg/0.8 Ml Syringe) 70 mg 1 mg/kg (70 mg) SUBCUT Q12H [facility] Glucose (Glucose Gel 15 Gm Gel..Gram.) 15 gm PO Q15M PRN; Protocol PRN Reason: per Hypoglycemia Standing Ord. Insulin Human Lispro (Insulin Lispro 100 Unit/Ml 3 Ml Vial) 0 unit SUBCUT QIDACHS [facility]; Protocol Last Admin: 12/03/24 11:57 Dose: 4 unit Documented By: SUKUMAR Levothyroxine Sodium (Levothyroxine Sodium 50 Mcg Tablet) 50 mcg PO SUTUTHSA@0600 [facility] Last Admin: 12/03/24 06:25 Dose: 50 mcg Documented By: TOOTIE Levothyroxine Sodium (Levothyroxine Sodium 75 Mcg Tablet) 75 mcg PO MOWEFR@0600 [facility] Magnesium Hydroxide (Milk Of Magnesia 30 Ml Oral.Susp) 30 ml PO DAILY PRN PRN Reason: Constipation Meclizine HCl (Meclizine Hcl 12.5 Mg Tablet) 12.5 mg PO TID PRN PRN Reason: Dizziness Melatonin (Melatonin 3 Mg Tablet) 6 mg PO BEDTIME PRN PRN Reason: Insomnia Metoprolol Succinate (Metoprolol Succinate Er 50 Mg Tab.Er.24h) 50 mg PO DAILY [facility]; Protocol Last Admin: 12/03/24 08:16 Dose: 50 mg Documented By: SUKUMAR Omeprazole (Omeprazole 20 Mg Capsule.Dr) 20 mg PO BID@0630,1630 [facility] Last Admin: 12/03/24 06:24 Dose: 20 mg Documented By: TOOTIE Ondansetron HCl (Ondansetron Hcl 4 Mg/2 Ml Vial) 4 mg IVPUSH Q8H PRN PRN Reason: Nausea and Vomiting Pregabalin (Pregabalin 100 Mg Capsule) 100 mg PO BID [facility] Last Admin: 12/03/24 08:17 Dose: 100 mg Documented By: SUKUMAR Senna (Sennosides 8.6 Mg Tablet) 17.2 mg PO BEDTIME [facility] Last Admin: 12/02/24 20:48 Dose: Not Given Documented By: MADHU Non-Admin Reason: Patient Refused Sodium Chloride (0.9 % Sodium Chloride Flush 3 Ml Syringe) 3 ml IVFLUSH QSHIFT [facility] Last Admin: 12/03/24 08:21 Dose: Not Given Documented By: SUKUMAR Non-Admin Reason: IV Running Ticagrelor (Ticagrelor 90 Mg Tablet) 90 mg PO BID [facility] Last Admin: 12/03/24 08:16 Dose: 90 mg Documented By: SUKUMAR Vitamin D (Cholecalciferol (Vitamin D3) 25 Mcg Tablet) 50 mcg PO DAILY [facility] Last Admin: 12/03/24 08:16 Dose: 50 mcg Documented By: SUKUMAR Zolpidem Tartrate (Zolpidem Tartrate 5 Mg Tablet) 5 mg PO BEDTIME [facility] Last Admin: 12/02/24 20:45 Dose: 5 mg Documented By: FOGARTB Labs 12/03/24 08:03 12/03/24 08:03 Labs: Laboratory Results - last 24 hr 12/02/24 12/02/24 12/02/24 11:37 13:17 14:51 MCV MCH MCHC RDW Plt Count MPV Immature Gran % (Auto) Neut % (Auto) Lymph % (Auto) [place] % (Auto) Eos % (Auto) Baso % (Auto) Lymph # (Auto) [place] # (Auto) Eos # (Auto) Baso # (Auto) Abs Immat Gran (auto) Absolute Neuts (auto) Absolute Nucleated RBC Nucleated RBC % (auto) PT INR aPTT Heparin Protocol > 200.0 H* D 184.2 H* 84.9 H D Anion Gap Estim Creat Clear Calc Estimated GFR POC Glucose Random Glucose Calcium 12/02/24 12/02/24 12/02/24 15:49 20:29 22:08 MCV MCH MCHC RDW Plt Count MPV Immature Gran % (Auto) Neut % (Auto) Lymph % (Auto) [place] % (Auto) Eos % (Auto) Baso % (Auto) Lymph # (Auto) [place] # (Auto) Eos # (Auto) Baso # (Auto) Abs Immat Gran (auto) Absolute Neuts (auto) Absolute Nucleated RBC Nucleated RBC % (auto) PT INR aPTT Heparin Protocol 196.6 H* D Anion Gap Estim Creat Clear Calc Estimated GFR POC Glucose 260 H 139 H Random Glucose Calcium 12/02/24 12/03/24 12/03/24 23:44 00:58 07:29 MCV MCH MCHC RDW Plt Count MPV Immature Gran % (Auto) Neut % (Auto) Lymph % (Auto) [place] % (Auto) Eos % (Auto) Baso % (Auto) Lymph # (Auto) [place] # (Auto) Eos # (Auto) Baso # (Auto) Abs Immat Gran (auto) Absolute Neuts (auto) Absolute Nucleated RBC Nucleated RBC % (auto) PT INR aPTT Heparin Protocol 139.4 H* D 39.8 L D Anion Gap Estim Creat Clear Calc Estimated GFR POC Glucose 105 Random Glucose Calcium 12/03/24 12/03/24 08:03 11:33 MCV 84.6 MCH 29.2 MCHC 34.5 RDW 13.8 Plt Count 209 MPV 10.9 Immature Gran % (Auto) 0.2 Neut % (Auto) 50.5 Lymph % (Auto) 33.5 [place] % (Auto) 12.5 H Eos % (Auto) 2.8 Baso % (Auto) 0.5 Lymph # (Auto) 2.7 [place] # (Auto) 1.0 Eos # (Auto) 0.2 Baso # (Auto) 0.0 Abs Immat Gran (auto) 0.02 Absolute Neuts (auto) 4.1 Absolute Nucleated RBC 0.000 Nucleated RBC % (auto) 0.0 PT 12.0 INR 1.0 aPTT Heparin Protocol 79.3 H D Anion Gap 14 Estim Creat Clear Calc 48.4 Estimated GFR > 60 POC Glucose 156 H Random Glucose 126 H Calcium 9.5 Assessment and Plan (1) Unstable angina: Status: Acute Plan Pt is an 79 yo female, can speak and understand Armenian with PMH IDDM II, HTN, HLD, TASHI, Hypothyroidism, CAD, ACS, urinary incontinence and frequent UTI, hysterectomy, bladder sling, constipaton on Trulicity, hyponatremia (suspected SIADH in the past) seen for episode of sudden onset chest pain at home approximately 730 the night before. Patient currently is symptom free. Noted hyponatremia. Patient being admitted for further evaluation from Cardiology. Unstable angina PAtient was planned to go to [facility] [place] for Angiogram but she did not want to. discussed with cardiology who recommended medical treatment for now EKG changes resolved upon repeat Trop negative DC Heparin drip, start full dose lovenox Nitropaste Cardiology input appreciated, keep ASA and Brilinta for now , walk tomorrow before discharge Echo pending Telemetry PT evaluation Hyponatremia, acute resolved, likely SIADH Urea 15 gms , Fluid restriction Constipation on Trulicity MiraLax daily Dulcolax suppository as needed Insulin-dependent diabetes sliding scale insulin ordered diabetic diet Hypothyroidism normal TSH, continue levothyroxine, adjust if needed DVT prophylaxis: Lovenox Patient is a DNR DNI The patient will need overnight hospital stay for Telemetry monitoring, blood thinners, cardiology follow up Quality Stroke Does the patient have a stroke diagnosis?: No Reason for No Anti-thrombotic by Day Two: N/A - Med Ordered VTE Prior VTE?: No VTE Risk Level:: Medical - moderate - high VTE Device Contraindication: N/A - Device Ordered VTE Drug Contraindication: Patient Refused
[2024-12-03] MEDS: Enoxaparin Sodium 80 MG/0.8 ML SYRINGE 70 MG SUBCUT ×2 (13:30→23:07)
[2024-12-03] MEDS: Isosorbide Mononitrate 30 MG TAB.ER.24H PO (13:30)
[2024-12-03 15:32] VITALS: BP 129/71; PULSE 71; RESP 17; TEMP 36.5; O2SAT 99
[2024-12-03 15:50] LABS: Glucose, Whole Blood 112 mg/dL (60-115)
[2024-12-03 19:32] VITALS: BP 141/65; PULSE 73; RESP 19; TEMP 36.4; O2SAT 99
[2024-12-03 20:36] LABS: Glucose, Whole Blood 216 mg/dL (60-115)
[2024-12-03] MEDS: Zolpidem Tartrate 5 MG TABLET PO (22:12)
[2024-12-03] MEDS: Atorvastatin Calcium 40 MG TABLET PO (22:12)
[2024-12-03] MEDS: Acetaminophen 325 MG TABLET 650 MG PO (23:06)
[2024-12-03 23:26] VITALS: BP 106/57; PULSE 80; RESP 16; TEMP 36.1; O2SAT 96
[2024-12-04 03:34] VITALS: BP 109/59; PULSE 79; RESP 16; TEMP 36.4; O2SAT 97
[2024-12-04] MEDS: Levothyroxine Sodium 75 MCG TABLET PO (05:48)
[2024-12-04] MEDS: Omeprazole 20 MG CAPSULE.DR PO (05:48)
[2024-12-04 06:00] VITALS: BMI 28.8
[2024-12-04 06:32] LABS: MANUAL DIFF FLAG NO
[2024-12-04 06:47] LABS: PTT Heparin Drip 67.6 SEC (53-77.9)
[2024-12-04 06:59] LABS: Anion Gap 13 (12-20); Blood Urea Nitrogen 18 mg/dL (9-16); Calcium 9.2 mg/dL (8.4-10.2); Carbon Dioxide 25 mmol/L (22-29); Chloride 105 mmol/L (96-108); Creatinine Clr Calc Pharmacy 41.6; Estimated Glomerular Filt Rate 59; Glucose Random 96 mg/dL (60-115); Potassium 4.5 mmol/L (3.3-5.1); Sodium 138 mmol/L (135-145)
--- NOTE | 2024-12-04 07:00 | CA_ITS ---
Transthoracic Echocardiogram Patient (Last, First, Middle): Khadra Hair, Gender: Female Date of : 1945 Age: 79 Procedure Date: 12/04/2024 Procedure Type: Transthoracic Echocardiogram Location: [facility] [place] [facility] [place] Height: 152.4 cm Weight: 66.68 kg BSA: 1.64 m2 Heart Rate: 78 bpm BP: 118 / 61 mmHg Dynamo Tender: Referring MD: Kayleen ROSEPCATA Symptoms: unstable angina Study Quality: Adequate ECG Rhythm: Sinus Conclusions: - The calculated ejection fraction is 64% by biplane method. There is no evidence of regional wall motion abnormalities. - There is moderate mitral annular calcification. - There is mild calcification of the aortic valve. Findings Left Ventricle Normal left ventricular cavity size. The left ventricular systolic function is normal. The calculated ejection fraction is 64% by biplane method. There is no evidence of regional wall motion abnormalities. Evidence suggests grade I (mild) diastolic dysfunction. There is mild septal asymmetric hypertrophy. Right Ventricle Normal right ventricular cavity size. There is low normal right ventricular systolic function. Atria Both atria are normal in size. Aortic Valve There is mild calcification of the aortic valve. There is no aortic valve stenosis. There is no aortic valve regurgitation. Mitral Valve There is moderate mitral annular calcification. There is no mitral valve regurgitation. There is no mitral valve stenosis. Pulmonic Valve The pulmonic valve is likely normal. Tricuspid Valve Normal tricuspid valve structure. There is trace tricuspid valve regurgitation. There is no evidence of pulmonary hypertension. Great Vessels The asc aorta is normal in size. Venous The inferior vena cava is normal in size and collapses greater than 50% with inspiration. Pericardium/Pleural There is no evidence of pericardial effusion. Prior Study Comparison No significant change compared to prior study dated: 11/01/2023. Measurements 2D Linear Measurements IVSd: 1.04 0.6-0.9/0.6-1.0 cm LVIDd: 3.53 3.9-5.3/4.2-5.9 cm LVIDd Index: 2.15 2.4-3.2/2.2-3.1 cm/m2 LVIDs: 2.51 2.0-3.6 cm LVPWd: 0.98 0.7-1.1 cm LA Diam: 3.60 2.7-3.8/3.0-4.0 cm LAIDs Index: 2.20 1.5-2.3 cm/m2 LV Mass: 132.43 67-162/88-224 g LV Mass Index: 80.75 43-95/49-115 g/m2 LVOT Diam: 2.00 3.0+(-)1.3 cm 2D Systolic Function EF 4C: 62.40 >55% EF 2C: 60.60 >55% EF BiP: 63.80 >55% Mitral Valve MV VTI: 0.29 MV Pk Oli: 1.13 MV Mn Oli: 0.63 MV Pk Grad: 5.00 MV Mn Grad: 2.00 MV Pk E: 0.65 MV PK A: 1.18 MV Decel Time: 202.00 E/A: 0.50 E'Lateral: 4.79 E'Medial: 2.61 E/E' Med: 24.80 E/E' Lat: 13.50 PHT: 59.00 MVA PHT: 3.73 MVA Continuity: 1.75 Decel [place]: 3.20 Aortic Valve AoV Pk Oli: 1.56 AoV Mn Oli: 1.08 AoV VTI: 0.33 AoV Pk Grad: 10.00 Aov Mn Grad: 6.00 GWENDOLYN Cont.VTI: 1.57 LVOT LVOT Pk Oli: 0.76 LVOT Mn Oli: 0.49 LVOT VTI: 0.16 LVOT Pk Grad: 2.00 LVOT Mn Grad: 1.00 LVOT Diam: 2.00 LVOT Area: 3.14 Diastolic Function MV Pk E: 0.65 MV Pk A: 1.18 E/A: 0.50 E'Medial: 2.61 E/E' Med: 24.80 E' Laterial: 4.79 E/E' Lat: 13.50 Right Ventricle TAPSE (mm): 25.20 TVS' Oli: 9.03 Tricuspid Valve TR Pk Oli: 1.92 TR Pk Grad: 15.00 RA Press: 3.00 RVSP: 18.00 Great Vessels Aorta Sinus of Valsalva: 2.80 2.0-3.5 cm Ao Asc: 3.30 2.1-3.4 cm Pulmonary Valve PV Pk Oli: 1.22 Peak PV Grad: 6.00 Updated in Other Vendor System with Status of Final Rafael Cassidy MD electronically signed on 12/04/2024 1:02:57 PM with status of Final
[2024-12-04 07:03] VITALS: BP 118/61; PULSE 72; RESP 17; TEMP 36.3; O2SAT 97
[2024-12-04 07:08] LABS: Glucose, Whole Blood 98 mg/dL (60-115)
[2024-12-04 07:09] LABS: Basophils Percent Auto 0.4 % (0-2); Eosinophils Absolute Auto 0.2 X10*3/uL (0.0-0.4); Eosinophils Percent Auto 3.2 % (0-4); Hematocrit 34.5 % (37.0-47.0); Hemoglobin 11.7 g/dl (12.0-16.0); Imm Gran Abs Auto 0.03 X10*3/uL (0.00-0.03); Imm Gran Pct Auto 0.4 % (0.0-0.4); Lymphocytes Absolute Auto 2.7 X10*3/uL (1.2-4.9); Lymphocytes Percent Auto 36.9 % (20-40); Mean Corpuscular HGB Conc 33.9 g/dl (31.0-35.0); Mean Corpuscular Hemoglobin 29.3 pg (27.0-33.0); Mean Corpuscular Volume 86.5 fL (80.0-98.0); Mean Platelet Volume 11.1 fL (9.4-12.3); Monocytes Absolute Auto 0.9 X10*3/uL (0.1-1.2); Monocytes Percent Auto 11.8 % (2-11); Neutrophils Absolute Auto 3.5 x10*3/uL (2.0-8.3); Neutrophils Percent Auto 47.3 % (45-73); Platelet Count 200 X10*3/uL (160-400); Red Blood Count 3.99 X10*6/uL (4.20-5.50); Red Cell Distribution Width 13.8 % (11.0-16.0); White Blood Count 7.3 X10*3/uL (4.8-10.8)
[2024-12-04] MEDS: Ticagrelor 90 MG TABLET PO (08:00)
[2024-12-04] MEDS: Isosorbide Mononitrate 30 MG TAB.ER.24H PO (08:00)
[2024-12-04] MEDS: Pregabalin 100 MG CAPSULE PO (08:00)
[2024-12-04] MEDS: Calcium Oyster Shell Elemental 500 MG TABLET PO (08:00)
[2024-12-04] MEDS: Ascorbic Acid 500 MG TABLET PO (08:00)
[2024-12-04] MEDS: Metoprolol Succinate ER 50 MG TAB.ER.24H PO (08:00)
[2024-12-04] MEDS: Cholecalciferol (Vitamin D3) 25 MCG TABLET 50 MCG PO (08:01)
[2024-12-04] MEDS: 0.9 % Sodium Chloride Flush 3 ML SYRINGE IVFLUSH (08:01)
[2024-12-04] MEDS: Aspirin Enteric Coated 81 MG TABLET.DR PO (08:01)
[2024-12-04 10:21] VITALS: BP 118/61; PULSE 72; O2SAT 97
[2024-12-04] MEDS: traMADoL HCL 50 MG TABLET PO (10:41)
[2024-12-04 11:17] LABS: Glucose, Whole Blood 187 mg/dL (60-115)
[2024-12-04 11:29] VITALS: BP 133/63; PULSE 75; RESP 18; TEMP 36.4; O2SAT 97
--- NOTE | 2024-12-04 12:22 | P.DS_ITS ---
DS: Providers Provider Date of Service: 12/04/24 Date of admission: 12/02/24 04:03 Date of discharge: 12/04/24 Primary care physician: Davis Watts MD Consults: 12/02/24 05:22 Consult to Cardiology Routine Consulting Provider: [facility] Reason for consultation: unstable angina Has provider been notified: No Consult to Nephrology Routine Consulting Provider: [facility] Reason for consultation: hyponatremia DS: Diagnosis Discharge Diagnosis (1) Unstable angina: Status: Acute (2) Chest pain: Status: Acute (3) Coronary artery disease: Status: Acute (4) Acute hyponatremia: Status: Acute DS: Summary Hospital Course Hospital Course: Admission note HPI Pt is an 79 yo female, can speak and understand Spanish with PMH IDDM II, HTN, HLD, TASHI, Hypothyroidism, CAD, ACS, urinary incontinence and frequent UTI, hysterectomy, bladder sling, constipaton on [facility], hyponatremia (suspected SIADH in the past) was seen in the ED for sudden onset chest pain approximately 1930 last evening. Pt states she was watching TV at the time. Pt had eating earlier at 3PM. Pt also reported some abdominal pain, upper right and lower left quadrants. Pt is on trulicity with ongoing constipation issues and still has her gallBladder but denies issues with gallstones in the past. Pt states currently her CP is resolved and pt is currently wearing nitropaste. POX 95% on RA. ECG sinus rhythm with PVCs, ST and T-wave abnormalities inferiorly. Labs stable 4 liver function and T bili. Troponin 5.1 and 6.9. Patient diagnosed with unstable angina. Patient also noted to have hyponatremia sodium 129 no alterations of mental status. Patient has had history of hyponatremia in the past with previous admissions and was followed by Nephrology. Patient presents euvolemic. 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 Has received urea. Nephrology consulted. First dose of urea provided. Please note patient is a Jehovah Witness and does not believe in blood transfusions. Patient did state she is a DNR DNI and MOLST was completed back in September of 2024. Code status updated. Hospital course The patient was admitted for evaluation of Unstable angina as she reported chest pain and had EKG changes that was evaluated by cardiology and started on IV Heparin drip along with Aspirin, Brilinta. EKG changes on presentation were mainly Inverted T waves in Inferior leads . She did not have recurrence of pain on her stay. Started on Imdur by cardiology. EKG changes resolved on repeat. Trop remained negative. PAtient was planned to go to [facility] [place] for Angiogram but she did not want to. discussed with cardiology who recommended medical treatment for now. Cardiology suggested to DC Heparin drip and switch to Lovenox. she did not report any pain. Echo done showing ejection fraction is 64% by biplane method. There is no evidence of regional wall motion abnormalities. Participated with PT who recommended home PT which will follow her with [facility]. Noticed to have mild Hyponatremia, acute. resolved, likely SIADH. aDvised to stay on Fluid restriction. Discharge plan Increase Atorvastatin to 80 mg daily Start Imdur 30 mg daily Discontinue Irbesartan for now Monitor blood pressure at home for next week and follow with PCP\Cardiology for further adjustments of medications Physical therapy at home Follow with Cardiology as outpatient Come back to ED for any new chest pain Time Attestation Discharge Coordination Time (in mins): 43 Quality: Safe Use of Opioids Does Pt have an Active Cancer Diagnosis on the Problem List?: No Quality: Stroke Does the patient have a stroke diagnosis?: No Physical Exam Vital Signs: Vital Signs: Last Vital Signs Temp 97.5 F 12/04/24 11:29 Pulse 75 12/04/24 11:29 Resp 18 12/04/24 11:29 BP 133/63 12/04/24 11:29 Pulse Ox 97 12/04/24 11:29 O2 Del Method Room Air 12/04/24 11:29 BMI result Body Mass Index 28.8 Const: Other: Constitutional : Awake, interactive, not in distress Neck : Normal inspection, Supple Cardiovascular : RRR, no JVP, no lower extremity edema Respiratory : good bilateral air entry, no crackles, wheezes or rhonchi Gastrointestinal: soft, lax, Normal bowel sounds, Non tender Skin : Warm, Dry Neurological : Alert & oriented x3, No focal deficit DS: Data Data Completed and Pending Labs on day of discharge: Laboratory Results - last 24 hr 12/03/24 12/03/24 12/04/24 15:45 20:32 06:15 WBC 7.3 RBC 3.99 L Hgb 11.7 L Hct 34.5 L MCV 86.5 MCH 29.3 MCHC 33.9 RDW 13.8 Plt Count 200 MPV 11.1 Immature Gran % (Auto) 0.4 Neut % (Auto) 47.3 Lymph % (Auto) 36.9 [place] % (Auto) 11.8 H Eos % (Auto) 3.2 Baso % (Auto) 0.4 Lymph # (Auto) 2.7 [place] # (Auto) 0.9 Eos # (Auto) 0.2 Baso # (Auto) 0.0 Abs Immat Gran (auto) 0.03 Absolute Neuts (auto) 3.5 Absolute Nucleated RBC 0.000 Nucleated RBC % (auto) 0.0 aPTT Heparin Protocol Sodium Potassium Chloride Carbon Dioxide Anion Gap BUN Creatinine Estim Creat Clear Calc Estimated GFR POC Glucose 112 216 H Random Glucose Calcium 12/04/24 12/04/24 12/04/24 06:16 07:05 11:13 WBC RBC Hgb Hct MCV MCH MCHC RDW Plt Count MPV Immature Gran % (Auto) Neut % (Auto) Lymph % (Auto) [place] % (Auto) Eos % (Auto) Baso % (Auto) Lymph # (Auto) [place] # (Auto) Eos # (Auto) Baso # (Auto) Abs Immat Gran (auto) Absolute Neuts (auto) Absolute Nucleated RBC Nucleated RBC % (auto) aPTT Heparin Protocol 67.6 Sodium 138 Potassium 4.5 Chloride 105 Carbon Dioxide 25 Anion Gap 13 BUN 18 H Creatinine 0.92 Estim Creat Clear Calc 41.6 Estimated GFR 59 POC Glucose 98 187 H Random Glucose 96 Calcium 9.2 Imaging Chest x-ray: Radiologist's impression: XR/XR chest 1V IMPRESSION: Chronic appearing and postoperative changes but no acute process seen otherwise. Discharge Plan Discharge Anticipated Discharge Date/Time: 12/04/24 12:09 Patient Disposition: Home Health Service Discharge Diagnosis: Unstable angina Referrals: Davis Watts MD [Primary Care Provider] - 1 Week Discharge Medications: New isosorbide mononitrate 30 mg Tablet Extended Release 24 Hr 30 mg PO DAILY Qty: 90 0RF Protocol: Hold for SBP< HOLD for SBP < : 90 Continued metoprolol succinate 50 mg tablet extended release 24 hr 50 mg PO DAILY Qty: 90 2RF Brilinta 90 mg tablet 90 mg PO BID Qty: 60 2RF levothyroxine 50 mcg tablet 1 tab PO SUTUTHSA@0600 Trulicity 0.75 mg/0.5 mL pen injector 0.75 mg subcut FR@0900 calcium carbonate 500 mg calcium (1,250 mg) Tablet 500 mg PO DAILY ascorbic acid (vitamin C) [Vitamin C] 500 mg Tablet 500 mg PO BID cholecalciferol (vitamin D3) [Vitamin D3] 50 mcg (2,000 unit) Capsule 50 mcg PO DAILY pregabalin 100 mg capsule 100 mg PO BID meclizine 12.5 mg Tablet 12.5 mg PO TID PRN (Reason: Dizziness) estradiol 0.01 % (0.1 mg/gram) cream 2 g vaginal MOFR@2100 levothyroxine 75 mcg tablet 75 mcg PO MOWEFR@0600 pantoprazole 40 mg tablet,delayed release (DR/EC) 40 mg PO DAILY@0630 tramadol 50 mg tablet 50 mg PO BID PRN (Reason: Pain) zolpidem 5 mg tablet 5 mg PO BEDTIME aspirin [Enteric Coated Aspirin] 81 mg tablet,delayed release (DR/EC) 81 mg PO DAILY 90 Days Qty: 90 3RF Changed atorvastatin 40 mg tablet 80 mg PO BEDTIME Qty: 60 0RF Discontinued irbesartan 75 mg tablet 75 mg PO DAILY Discharge Orders: Discharge Order (Routine); Ordered 12/04/24 Ordered By: Ani Garcia Diet: Low salt diet Activity on Discharge: As tolerated Stand Alone Forms: Patient Portal Discharge page Print Language: Kiswahili Care Plan Goals: Increase Atorvastatin to 80 mg daily Start Imdur 30 mg daily Discontinue Irbesartan for now Monitor blood pressure at home for next week and follow with PCP\Cardiology for further adjustments of medications Physical therapy at home Follow with Cardiology as outpatient Come back to ED for any new chest pain Health Concerns: Unstable angina Plan of Treatment: Increase Atorvastatin Start Imdur Assessment: as above
[2024-12-04] MEDS: Enoxaparin Sodium 80 MG/0.8 ML SYRINGE 70 MG SUBCUT (12:37)
[2024-12-04] MEDS: Insulin Lispro 100 UNIT/ML 3 ML VIAL SUBCUT (12:37)
--- NOTE | 2024-12-04 14:22 | W.MHC.F2F ---
Service Date Service Date: 12/04/24 Encounter Date of encounter: 12/04/24 Reasons for Services Signs and symptoms assessed: Physical deconditioning Reason for physical therapy: home safety and mobility and therapeutic exercises Homebound: Leaving the home is medically contraindicated at this time without the asist of a device and/or another person due th the listed conditions above and below. Reason homebound: unable to drive Certification: Based on the above findings, I certify that this patient is confined to the home and needs intermittent halfway care, physical therapy and/or speech therapy, or continues to need occupational therapy. The patient is under my care, and I have initiated the establishment of the plan of care. The patient will be followed by a physician who will periodically review the plan of care. Time Spent With Patient Time: Total time managing care of this patient today ____ minutes.
--- NOTE | 2024-12-04 14:29 | MHC.CM.PN ---
Pt. has been medically cleared for DC, she will go home via family transport, and have home care services from [facility].
== END 2024-12-04 15:40 | disposition home health service (06) | DRG 303 ==
LOC: HO.ED 02:57 → HO.EDOVER 04:08 → HO.IMC 14:02
PROVIDERS: Nurse Practitioner Family; Admitting Provider Student in an Organized Health Care Education/Training Program; Emergency Provider Internal Medicine; PCP Family Medicine; Visit Provider Student in an Organized Health Care Education/Training Program
DX: I25.110 Atherosclerotic heart disease of native coronary artery with unstable angina pectoris (principal); E22.2 Syndrome of inappropriate secretion of antidiuretic hormone; E11.42 Type 2 diabetes mellitus with diabetic polyneuropathy; E03.9 Hypothyroidism, unspecified; K59.03 Drug induced constipation; T38.3X5A Adverse effect of insulin and oral hypoglycemic [antidiabetic] drugs, initial encounter; G47.33 Obstructive sleep apnea (adult) (pediatric); Z99.81 Dependence on supplemental oxygen; Z66 Do not resuscitate; Z95.5 Presence of coronary angioplasty implant and graft; Z79.82 Long term (current) use of aspirin; Z79.85 Long-term (current) use of injectable non-insulin antidiabetic drugs; Z79.890 Hormone replacement therapy; Z79.899 Other long term (current) drug therapy
CPT/HCPCS: 36415; 80048; 80053; 80061; 81003; 82947; 83735; 83930; 83935; 84300; 84443; 84484; 85025; 85610; 85730; 93005; 93306; 97161; 99285; J1644; J1650

== ENCOUNTER 2024-12-02 04:03 | Outpatient (BNV) | payer OTHER, SELFPAY | END 2024-12-04 07:00 | PROVIDERS: Admitting Provider Student in an Organized Health Care Education/Training Program; Emergency Provider Internal Medicine; PCP Family Medicine; Visit Provider Internal Medicine | DX: I25.110 Atherosclerotic heart disease of native coronary artery with unstable angina pectoris (principal); I42.2 Other hypertrophic cardiomyopathy; I35.8 Other nonrheumatic aortic valve disorders; I34.81 Nonrheumatic mitral (valve) annulus calcification | CPT/HCPCS: 93306 ==

== ENCOUNTER 2024-12-02 04:03 | Outpatient (BNV) | payer OTHER, SELFPAY | END 2024-12-03 06:51 | PROVIDERS: Admitting Provider Student in an Organized Health Care Education/Training Program; Emergency Provider Internal Medicine; PCP Family Medicine; Visit Provider Internal Medicine | DX: R00.1 Bradycardia, unspecified (principal); R94.31 Abnormal electrocardiogram [ECG] [EKG] | CPT/HCPCS: 93010 ==

== ENCOUNTER → 2024-12-02 04:03 | Outpatient (BNV) | payer OTHER, SELFPAY | PROVIDERS: Admitting Provider Student in an Organized Health Care Education/Training Program; Emergency Provider Internal Medicine; PCP Family Medicine; Visit Provider Internal Medicine Cardiovascular Disease | DX: I20.0 Unstable angina (principal) | CPT/HCPCS: 93010; 99223; 99233 ==

== ENCOUNTER → 2024-12-02 04:03 | Outpatient (BNV) | payer OTHER, SELFPAY | PROVIDERS: Admitting Provider Student in an Organized Health Care Education/Training Program; Emergency Provider Internal Medicine; Visit Provider Nurse Practitioner Family | DX: I20.0 Unstable angina (principal) | CPT/HCPCS: 99223; 99232; 99239; 99499; G0180 ==

== ENCOUNTER 2024-12-09 23:26 | Emergency (ER) | payer OTHER, SELFPAY ==
[2024-12-09 23:40] VITALS: BP 182/68; PULSE 88; RESP 18; TEMP 36.8; O2SAT 98; BMI 28.3
[2024-12-10 00:06] LABS: MANUAL DIFF FLAG NO
[2024-12-10 00:07] LABS: Basophils Percent Auto 0.2 % (0-2); Eosinophils Absolute Auto 0.3 X10*3/uL (0.0-0.4); Eosinophils Percent Auto 2.6 % (0-4); Hematocrit 33.3 % (37.0-47.0); Hemoglobin 11.3 g/dl (12.0-16.0); Imm Gran Abs Auto 0.02 X10*3/uL (0.00-0.03); Imm Gran Pct Auto 0.2 % (0.0-0.4); Lymphocytes Percent Auto 20.7 % (20-40); Mean Corpuscular HGB Conc 33.9 g/dl (31.0-35.0); Mean Corpuscular Hemoglobin 29.1 pg (27.0-33.0); Mean Corpuscular Volume 85.8 fL (80.0-98.0); Mean Platelet Volume 11.1 fL (9.4-12.3); Monocytes Percent Auto 9.7 % (2-11); Neutrophils Absolute Auto 6.5 x10*3/uL (2.0-8.3); Neutrophils Percent Auto 66.6 % (45-73); Platelet Count 195 X10*3/uL (160-400); Red Blood Count 3.88 X10*6/uL (4.20-5.50); Red Cell Distribution Width 13.6 % (11.0-16.0); White Blood Count 9.8 X10*3/uL (4.8-10.8)
[2024-12-10 00:08] LABS: Appearance Urine Turbid; Color Urine Yellow; Glucose Urine UA Negative (Negative); Leukocyte Esterase Urine Large (3+) (Negative); Nitrite Urine Negative (Negative); Specific Gravity - Urine <= 1.005 (1.005-1.025); UMIC TRIGGER UACC YES; Urine Blood Small (1+) (Negative); Urine Ketones Negative (Negative); Urine Protein Trace mg/dL (Neg-Trace)
[2024-12-10 00:16] LABS: Bacteria Urine None Seen (None Seen); Hyaline Casts Urine 0-2 /LPF (0-2); RBC Urine 0-2 /HPF (0-2); Squamous Epithelial Cell Urine 0-2 /HPF (0-2); UACC Culture Trigger YES; WBC Urine >50 /HPF (0-5)
[2024-12-10 00:23] LABS: Alanine Aminotransferase 37 U/L (0-31); Albumin Level 3.9 g/dL (3.5-5.0); Alkaline Phosphatase 55 U/L (39-117); Anion Gap 12 (12-20); Aspartate Amino Transferase 30 U/L (5-31); Bilirubin Total 0.5 mg/dL (0.0-1.0); Blood Urea Nitrogen 18 mg/dL (9-16); Calcium 9.1 mg/dL (8.4-10.2); Carbon Dioxide 24 mmol/L (22-29); Chloride 100 mmol/L (96-108); Creatinine Clr Calc Pharmacy 38.3; Estimated Glomerular Filt Rate 54; Glucose Random 226 mg/dL (60-115); Lipase 16 U/L (8-78); Potassium 4.4 mmol/L (3.3-5.1); Sodium 132 mmol/L (135-145)
--- OUTSIDE RECORDS SUMMARY | 2024-12-10 02:49 | XMS_ITS | Data Portability ---
Author Organization [employer] Address [address] [place] [address] Care Team Providers Care Vocational Examiner Name Role Phone HIM CCA Referring Provider [phone] Assessment Encounter Date Assessment Date Assessment LastModified by Organization Details LastModified Time 10/31/2023 10/31/2023 I have reviewed and agree with the assessment and plan as documented by the forest fire fighters dispatcher. I provided real-time medical direction for this [...] Appointments None recorded. Lab culture, urine 2021 BERGER [facility] (Centralized Electronic Ordering - All Locations), Patient Can Go To The Location Of Their Choice, [id number] 10:14:19 Referral None recorded. Procedures None recorded. Surgeries None recorded. Imaging None recorded. Medication Orders nitrofurant oin monohydrate /macrocryst als 100 mg capsule 2021 022 [id number], [address], [place], [address], 11:21:15 Patient TargetsNo targets recorded. Patient InstructionsNo [...] Go To The Location Of Their Choice, [id number] 06/16/2022 13:19:11 06/15/20 22 06/16/2022 URINE CULTU RE culture NO GROWTH Not Available [facility] (Centralized Electronic Ordering - All Locations) Patient Can Go To The Location Of Their Choice, [id number] 06/16/2022 13:19:11 06/15/20 22 06/16/2022 URINE CULTU RE report status FINAL 2021 Not Available [facility] (Centralized Electronic Ordering - All Locations) Patient Can Go To The Location Of Their Choice, [id number] 06/16/2022 13:19:11 Result Notes None recorded. Medical [...] % 89 /min 152.4 cm 97.7 [degF] 09353.8 g 18 /min 97.7 [degF] 97 % 97 % 18 /min 40470.8 g 89 /min 152.4 cm 152 mm[Hg] [...] [id number] Miguel Mims MD Main - [facility] [address] [place] [phone] 12/13/2021 11:07:03 04/24/2022 16:08:10 Acute urinary tract infection [id number] N39.0 Will treat empiricall y with Macrobid and await urine culture [id number] Sanjana Lee MD Main - [facility] [address] [place] [phone] 10/31/2023 13:12:39 11/02/2023 11:10:12 Chest pain [id number] R07.9 Health Concerns Section Related Observation LastModified by Organization Detai ls LastModified Time None Recorded Concern Status LastModified by Organization Details LastModified Time None Recorded Advance Directives Directive None Recorded Payers Insurance Date Sequence Insurance Name Policy Number Policy Pereira Covered Member ID Pereira Member ID Guarantor Name 09/26/2023 1 [facility] - DOS PRIOR TO 2022 - DUAL ELIGIBLE (MEDICARE REPLACEMENT/AD VANTAGE - HMO) Khadra Hair [id number] Khadra Hair 11/02/2023 1 [facility] - DOS ON OR AFTER 2022 - DUAL ELIGIBLE - JAIL OPTIONS AND ONE CARE (MEDICARE REPLACEMENT/AD VANTAGE - HMO) Khadra Reginaldo [id number] Khadra Hair Notes Date Note Type Note Provider Name and Address Organization Details Recorded Time 12/13/2021 text/html HPI: berlin was treated for UTI in the ED, she states having felt better, and now is experiencing same symptoms, and is requesting [facility] visit. Protocol Used: Urinary Symptoms Protocol-Based Disposition: [...] ................... ................... ................... ................... ................... ................... ........ Authorization Manager Note: Sent to a call for [...] leukocytes, blood and protein. Results uploaded to [employer]. BP:152/84, P:89, RR:18, SpO2:97%, T:97.7; Lung sounds: clear bilaterally; [facility] orders urine culture and sends script for Macrobid to pt's pharmacy. Pt encouraged to stay hydrated. Red flags discussed. Pt has no further questions. ................... ................... ................... ................... ................... ................... ................... ........ Disposition: Fulfilled MD note: - Symptoms consistent with prior UTI's- Was treated in ER in past; no data in ECW re: jomar Mims MD [address] [facility],[address], [place], [phone], [facility] 12/13/2021 20:50:56 10/31/2023 text/html HPI: mbr with complaints of CP since ;last night states B/P 179/88 experiencing weakness denies any Dizziness/lighthead edness/diaphoresis SOB/N/V. refusing ED requesting [facility] visit for assessment. mbr advised to call 911 if symptoms get worse. Mbr stated understanding of risks associated with her symptoms. Protocol Used: Chest Pain Protocol-Based Disposition: Consider [facility], MANAGER TARGET, MD/CUSTODIAL MANAGER triage, PCP, or ED /Urgent Care Visit [...] ................... ................... ................... ................... ................... ................... ........ Authorization Manager Note From Laura Bose: Patient reports [...] advisable option and agreed to transport to [facility]. While waiting for EMS [facility] administered an additional 243 mg aspirin due to the patient already of taking her daily 81 mg aspirin. [facility] was unable to obtain a line or administer nitro before EMS arrived ................... ................... ................... ................... ................... ................... ................... ........ Disposition: Fulfilled Sanjana Lee MD [address] [facility], [place], [phone], [facility] 10/31/2023 17:51:34 OBGyn Episode No OBEpisode recorded.
--- OUTSIDE RECORDS SUMMARY | 2024-12-10 02:49 | XMS_ITS | Encounter Summary ---
Author Organization [employer] Address [address] [facility] [address] [place] [address] Care Team Providers Care First Crusher Name Role Phone Unavailable Primary Care Provider Unavailabl e Encounter Details Date Type Department Care Team (Latest Contact Info) Description 01/03/2021 Abstract [facility] CONVERSIONS Dental, Provider, DDS Social History Tobacco [...]
--- OUTSIDE RECORDS SUMMARY | 2024-12-10 02:49 | XMS_ITS | Encounter Summary ---
Author Organization [employer] Address [address] [facility] [address] [place] [address] Care Team Providers Care Cement Or Concrete Finishing Supervisor Name Role Phone Unavailable Primary Care Provider Unavailabl e Encounter Details Date Type Department Care Team (Latest Contact Info) Description 09/28/2019 Abstract C CONVERSIONS Dental, Provider, DDS Social [...]
--- OUTSIDE RECORDS SUMMARY | 2024-12-10 02:49 | XMS_ITS | Clinical Summary ---
Author Organization [facility] Address [address] [address] Care Team Providers Care Store Person Name Role Phone Davis Watts MD Primary Care Provider [phone] Social History Tobacco Use Types Packs/Day Years [...] age to complete this topic Insurance [address] [place] [id number] [place] [address] Care Teams Store Person Relationship Specialty Start Date End Date Davis Watts MD [address] [place] [address] PCP - General 08/12/20
[2024-12-10 02:51] VITALS: BP 180/77; PULSE 78; RESP 17; TEMP 36.9; O2SAT 99
--- NOTE | 2024-12-10 02:52 | PC.NURSE ---
pt a&ox4, respirations even and unlabored. pt reports onset of trouble with urination and pain, pt reports history of chronic uti but reports she has not been treated for one since september.
--- NOTE | 2024-12-10 02:53 | ED_ITS ---
HPI - Female Genitourinary General Chief complaint: Urogenital-Female Stated complaint: UTI? Time Seen by Provider: 12/10/24 02:48 Source: patient Mode of arrival: ambulatory Limitations: no limitations History of Present Illness ED Provider: HPI Narrative: Patient's history of frequent UTI comes here for right flank pain and dysuria started at 16:00 associated with nausea no fever no chills no flank pain no hematuria no abdominal pain no vomiting Related Data Home Medications ?Medication ?Instructions ?Recorded ?Confirmed tramadol 50 mg tablet 50 mg PO BID PRN Pain 06/20/20 12/02/24 zolpidem 5 mg tablet 5 mg PO BEDTIME Sleep 06/20/20 12/02/24 levothyroxine 75 mcg tablet 75 mcg PO MOWEFR@0600 06/19/21 12/02/24 pantoprazole 40 mg tablet,delayed 40 mg PO DAILY@0630 06/19/21 12/02/24 release calcium carbonate 500 mg PO DAILY 12/24/21 12/02/24 dulaglutide 0.75 mg/0.5 mL 0.75 mg subcut FR@0900 12/24/21 12/02/24 subcutaneous pen injector (Trulicity) levothyroxine 50 mcg tablet 1 tab PO SUTUTHSA@0612/24/21 12/02/24 ascorbic acid (vitamin C) 500 mg 500 mg PO BID 10/07/22 12/02/24 tablet (Vitamin C) cholecalciferol (vitamin D3) 50 50 mcg PO DAILY 10/07/22 12/02/24 mcg (2,000 unit) capsule (Vitamin D3) estradiol 0.01% (0.1 mg/gram) 2 g vaginal MOFR@2100 12/02/24 12/02/24 vaginal cream meclizine 12.5 mg tablet 12.5 mg PO TID PRN Dizziness 12/02/24 12/02/24 pregabalin 100 mg capsule 100 mg PO BID 12/02/24 12/02/24 Previous Rx's ?Medication ?Instructions ?Recorded aspirin 81 mg tablet,delayed 81 mg PO DAILY 90 days #90 tabs 01/27/24 release (Enteric Coated Aspirin) metoprolol succinate 50 mg 50 mg PO DAILY #90 tabs 07/17/24 tablet,extended release 24 hr atorvastatin 40 mg tablet 80 mg (2 x 40 mg) PO BEDTIME #60 12/04/24 tabs isosorbide mononitrate 30 mg 30 mg PO DAILY #90 tabs 12/04/24 tablet,extended release 24 hr ticagrelor 90 mg tablet (Brilinta) 90 mg PO BID #60 tabs 12/09/24 cefuroxime axetil 250 mg tablet 250 mg PO BID 7 days #14 tabs 12/10/24 phenazopyridine 100 mg tablet 100 mg PO TID PRN pain 6 doses #6 12/10/24 (Pyridium) tabs Allergies Allergy/AdvReac Type Severity Reaction Status Date / Time esomeprazole [From NEXIUM] AdvReac Unknown BURNING Verified 12/09/24 23:44 SENSATION Review of Systems 2 Review of Systems: Yes all other systems are reviewed and are negative [facility] Past Medical History Medical History Anxiety and depression IBS (irritable bowel syndrome) Female bladder prolapse Diabetic retinopathy Osteoporosis CAD (coronary artery disease) Diabetes Osteoarthritis Neuropathy Hypothyroid GERD (gastroesophageal reflux disease) History of CVA (cerebrovascular accident) Mitral annular calcification Heart palpitations TASHI (obstructive sleep apnea) Essential hypertension Surgical History Hx of colonoscopy Stented coronary artery History of hysterectomy History of tonsillectomy History of cardioversion (~08/16/13) Family History Family History Father Asthma Mother Cardiovascular disease Diabetes Arthritis Social History Social History Household Members: None Housing: Apartment Are you a primary healthcare administrator to a significant other at home: No Do you presently have visiting nurse or other home services: Yes Alcohol intake: never Patient Tobacco Use Status: Never used Tobacco Smoked in Last 30 Days: No e-Cigarette/Vaping Use: Never Used Use of substances other than those prescribed or required for medical reasons: No Advance Directives: Yes Advance Directives Information Provided: Yes Advance Directives on File: No Advance Directives Date on File: 10/31/23 Do you have a plan to hurt others: No Plan service: No Current occupational status: unemployed Physical Exam 2 Vital Signs: Vital Signs: Last Vital Signs Temp 98.5 F 12/10/24 03:15 Pulse 78 12/10/24 03:15 Resp 17 12/10/24 03:15 BP 180/77 H 12/10/24 03:15 Pulse Ox 99 12/10/24 03:15 O2 Del Method Room Air 12/10/24 03:15 BMI result Body Mass Index 28.3 Appearance: Alert. Oriented X3. No acute distress. Eyes: PERRLA, No Nystagmus ENT: Pharynx normal. Oral Mucosa moist Neck: Normal inspection. Neck supple. CVS: Normal heart rate and rhythm. Pulses normal. Respiratory: No respiratory distress. Equal air entry bilateral, no wheezing/rales/rhonchi Abdomen: Soft and nontender. Bowel sounds are present, no mass palpable, no CVA tenderness Skin: Skin warm and dry. Normal skin color. Normal skin turgor. Extremities: No lower extremity edema. No calf tenderness Neuro: Oriented X 3. No motor deficit. No sensory deficit.No cerebellar signs , cranial nerves II-XII intact Medications Administered Discontinued Medications Generic Name Dose Route Start Last Admin Trade Name Freq PRN Reason Stop Dose Admin Cefuroxime Axetil 250 mg 12/10/24 03:03 12/10/24 03:12 Cefuroxime Axetil 250 Mg Tablet PO 12/10/24 03:04 250 mg ONCE ONE Administration Ondansetron HCl 4 mg 12/10/24 02:55 12/10/24 03:12 Ondansetron Odt 4 Mg Tab.Rapdis TRANSLINGU 12/10/24 02:56 4 mg ONCE ONE Administration Phenazopyridine HCl 200 mg 12/10/24 03:07 12/10/24 03:12 Phenazopyridine Hcl 200 Mg Tablet PO 12/10/24 03:08 200 mg ONCE ONE Administration Medical Decision Making Medical Decision Making MDM Narrative: Patient's uncomplicated UTI will prescribe cefuroxime which was sensitive to previous UTIs in the past patient advised to follow with PCP Lab Data MDM Lab Attestation statement: I reviewed the patient's lab results. 12/10/24 00:02 12/10/24 00:02 Labs: Lab Results 12/10/24 Range/Units 00:02 WBC 9.8 (4.8-10.8) X10*3/uL RBC 3.88 L (4.20-5.50) X10*6/uL Hgb 11.3 L (12.0-16.0) g/dl Hct 33.3 L (37.0-47.0) % MCV 85.8 (80.0-98.0) fL MCH 29.1 (27.0-33.0) pg MCHC 33.9 (31.0-35.0) g/dl RDW 13.6 (11.0-16.0) % Plt Count 195 (160-400) X10*3/uL MPV 11.1 (9.4-12.3) fL Immature Gran % (Auto) 0.2 (0.0-0.4) % Neut % (Auto) 66.6 (45-73) % Lymph % (Auto) 20.7 (20-40) % Bremer % (Auto) 9.7 (2-11) % Eos % (Auto) 2.6 (0-4) % Baso % (Auto) 0.2 (0-2) % Lymph # (Auto) 2.0 (1.2-4.9) X10*3/uL Bremer # (Auto) 1.0 (0.1-1.2) X10*3/uL Eos # (Auto) 0.3 (0.0-0.4) X10*3/uL Baso # (Auto) 0.0 (0.0-0.2) X10*3/uL Abs Immat Gran (auto) 0.02 (0.00-0.03) X10*3/uL Absolute Neuts (auto) 6.5 (2.0-8.3) x10*3/uL Absolute Nucleated RBC 0.000 (0.0-0.012) X10*3/uL Nucleated RBC % (auto) 0.0 (0.0-0.2) /100WBC Sodium 132 L (135-145) mmol/L Potassium 4.4 (3.3-5.1) mmol/L Chloride 100 (96-108) mmol/L Carbon Dioxide 24 (22-29) mmol/L Anion Gap 12 (12-20) BUN 18 H (9-16) mg/dL Creatinine 0.99 (0.5-1.4) mg/dL Estim Creat Clear Calc 38.3 Estimated GFR 54 Random Glucose 226 H (60-115) mg/dL Calcium 9.1 (8.4-10.2) mg/dL Total Bilirubin 0.5 (0.0-1.0) mg/dL AST 30 (5-31) U/L ALT 37 H (0-31) U/L Alkaline Phosphatase 55 (39-117) U/L Total Protein 7.0 (6.5-8.0) g/dL Albumin 3.9 (3.5-5.0) g/dL Lipase 16 (8-78) U/L Urine Color Yellow Urine Appearance Turbid Urine pH 7.0 (5.0-9.0) Ur Specific [place] <= 1.005 (1.005-1.025) Urine Protein Trace (Neg-Trace) mg/dL Urine Glucose (UA) Negative (Negative) mg/dL Urine Ketones Negative (Negative) mg/dL Urine Blood Small (1+) H (Negative) Urine Nitrite Negative (Negative) Ur Leukocyte Esterase Large (3+) H (Negative) Urine RBC 0-2 (0-2) /HPF Urine WBC >50 H (0-5) /HPF Ur Squamous Epith Cells 0-2 (0-2) /HPF Urine Bacteria None Seen (None Seen) Hyaline Casts 0-2 (0-2) /LPF Discharge Plan Discharge Clinical Impression: Acute UTI Patient Disposition: Home, Self-Care Instructions: Urinary Tract Infection in Older Adults (ED) Additional Instructions: Drink plenty of fluids Take antibiotic as prescribed Report to the ER/PCP if high fever/vomiting/flank pain Prescriptions: New cefuroxime axetil 250 mg tablet 250 mg PO BID 7 Days Qty: 14 0RF phenazopyridine [Pyridium] 100 mg tablet 100 mg PO TID PRN (Reason: pain) Qty: 6 0RF No Action metoprolol succinate 50 mg tablet extended release 24 hr 50 mg PO DAILY Qty: 90 2RF Brilinta 90 mg tablet 90 mg PO BID Qty: 60 2RF levothyroxine 50 mcg tablet 1 tab PO SUTUTHSA@0600 Trulicity 0.75 mg/0.5 mL pen injector 0.75 mg subcut FR@0900 calcium carbonate 500 mg calcium (1,250 mg) Tablet 500 mg PO DAILY ascorbic acid (vitamin C) [Vitamin C] 500 mg Tablet 500 mg PO BID cholecalciferol (vitamin D3) [Vitamin D3] 50 mcg (2,000 unit) Capsule 50 mcg PO DAILY pregabalin 100 mg capsule 100 mg PO BID meclizine 12.5 mg Tablet 12.5 mg PO TID PRN (Reason: Dizziness) estradiol 0.01 % (0.1 mg/gram) cream 2 g vaginal MOFR@2100 isosorbide mononitrate 30 mg Tablet Extended Release 24 Hr 30 mg PO DAILY Qty: 90 0RF Protocol: Hold for SBP< HOLD for SBP < : 90 atorvastatin 40 mg tablet 80 mg PO BEDTIME Qty: 60 0RF levothyroxine 75 mcg tablet 75 mcg PO MOWEFR@0600 pantoprazole 40 mg tablet,delayed release (DR/EC) 40 mg PO DAILY@0630 tramadol 50 mg tablet 50 mg PO BID PRN (Reason: Pain) zolpidem 5 mg tablet 5 mg PO BEDTIME aspirin [Enteric Coated Aspirin] 81 mg tablet,delayed release (DR/EC) 81 mg PO DAILY 90 Days Qty: 90 3RF Interventions: ED Discharge Assessment Last Done: 12/10/24 03:15 Discharge Date/Time: 12/10/24 03:15 Print Language: Tajik
[2024-12-10] MEDS: Phenazopyridine HCL 200 MG TABLET PO (03:12)
[2024-12-10] MEDS: cefuroxime axetiL 250 MG TABLET PO (03:12)
[2024-12-10] MEDS: Ondansetron ODT 4 MG TAB.RAPDIS TRANSLINGU (03:12)
[2024-12-10 03:15] VITALS: BP 180/77; PULSE 78; RESP 17; TEMP 36.9; O2SAT 99
== END 2024-12-10 03:15 | disposition home or self-care (01) ==
PROVIDERS: Emergency Provider Internal Medicine; PCP Family Medicine
DX: N39.0 Urinary tract infection, site not specified (principal); R10.2 Pelvic and perineal pain; R30.0 Dysuria; R11.0 Nausea; Z79.899 Other long term (current) drug therapy
CPT/HCPCS: 36415; 80053; 81001; 83690; 85025; 87086; 99283; 99284

== ENCOUNTER 2024-12-28 14:05 | Outpatient (AMB) | payer OTHER, SELFPAY ==
--- NOTE | 2024-12-28 14:08 | MHC.OFFVIS ---
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 Automatic Required: Yes Metalizing Machine Operator Automatic Language: Supervisor Opening And Picking Name: [id number] Accompanied by: Employee Allergies esomeprazole [From NEXIUM] Adverse Reaction (Unknown, Verified 12/09/24 23:44) BURNING SENSATION Medication List - Last Reconciled 12/28/24 by Rafael Cassidy MD ascorbic acid (vitamin C) (Vitamin C) 500 mg PO BID aspirin 81 mg PO DAILY atorvastatin 80 mg (2 x 40 mg) PO BEDTIME calcium carbonate 500 mg PO DAILY cefuroxime axetil 250 mg PO BID 7 days cholecalciferol (vitamin D3) (Vitamin D3) 50 mcg PO DAILY dulaglutide (Trulicity) 0.75 mg subcut FR@0900 estradiol 0.01%(0.1mg/gram) 2 grams vaginal MOFR@2100 isosorbide mononitrate ER 30 mg See Protocol PO DAILY levothyroxine 1 tab PO SUTUTHSA@0600 levothyroxine 75 mcg PO MOWEFR@0600 meclizine 12.5 mg PO TID PRN metoprolol succinate ER 50 mg PO DAILY pantoprazole 40 mg PO DAILY@0630 phenazopyridine (Pyridium) 100 mg PO TID PRN 6 doses pregabalin 100 mg PO BID ticagrelor (Brilinta) 90 mg PO BID tramadol 50 mg PO BID PRN zolpidem 5 mg PO BEDTIME HPI Comments Details: Khadra returns for follow-up regarding coronary disease. In 2018, she underwent LAD stenting. In november 2023, had another hospitalization with NSTEMI; underwent circumflex stenting. More recently, admitted to the hospital with suspicion of unstable angina. Recommended cardiac catheterization but it seems that she wanted only medical therapy. It seems she is doing generally okay. No further chest pains after discharge. Otherwise, getting along. [facility] Medical History Anxiety and depression IBS (irritable bowel syndrome) Female bladder prolapse Diabetic retinopathy Osteoporosis CAD (coronary artery disease) Diabetes Osteoarthritis Neuropathy Hypothyroid GERD (gastroesophageal reflux disease) History of CVA (cerebrovascular accident) Mitral annular calcification Heart palpitations TASHI (obstructive sleep apnea) Essential hypertension Surgical History Hx of colonoscopy Stented coronary artery History of hysterectomy History of tonsillectomy History of cardioversion (~08/16/13) Family History Father Asthma Mother Cardiovascular disease Diabetes Arthritis Social History Household Members: None Housing: Apartment Are you a primary manager home healthcare to a significant other at home: No Do you presently have visiting nurse or other home services: Yes Alcohol intake: never Patient Tobacco Use Status: Never used Tobacco e-Cigarette/Vaping Use: Never Used Advance Directives Date on File: 10/31/23 service: No Current occupational status: unemployed Review of Systems Const Denies chills, Denies fatigue, Denies fever(s), Denies frequent falls, Denies weakness, Denies weight gain and Denies weight loss ENT Denies dizziness Card Denies chest pain, Denies leg edema, Denies lightheadedness, Denies palpitations, Denies dyspnea and Denies dyspnea on exertion Resp Denies cough, Denies dyspnea and Denies dyspnea on exertion GI Denies hematochezia Musc Denies abnormal gait, Denies muscle weakness, Denies numbness, Denies radiating pain into limb and Denies tingling Neuro Denies abnormal gait, Denies dizziness, Denies frequent falls, Denies numbness, Denies tingling and Denies weakness Endo Denies fatigue and Denies palpitations Physical Exam Vital Signs: Last Vital Signs Pulse 67 12/28/24 14:12 BP 130/70 12/28/24 14:12 BMI result Body Mass Index 27.8 Const General: comfortable and no acute distress Orientation/consciousness: patient oriented x3 HEENT Other: Unremarkable Head: Yes normal to inspection Neck Neck: Yes normal visual inspection Chest Chest palpation & inspection: normal inspection of the chest Resp Auscultation: clear to auscultation bilaterally Cardio Palpation: normal PMI Heart sounds: S1 normal heart sound present, S2 normal heart sound present, no gallops, no murmurs and no rubs GI Palpation (GI): Soft to palpation Back/Spine/Pelvis Other: unremarkable Skin General skin exam: no rashes or lesions noted Neuro General: patient oriented x3 Extrem General: Yes normal to inspection Psych Mental Status: mental status grossly normal Office Procedures EKG Details: EKG with underlying sinus rhythm at 67/Min; nonspecific ST[place] changes; [place]. [id number], Complete Assessment & Plan Assessment & Plan (1) Atherosclerotic cardiovascular disease: Code(s): I25.10 - Atherosclerotic heart disease of havasupai coronary artery without angina pectoris Category: Medical Plan: Cardiac catheterization reviewed from November 2023. Severe ostial left circumflex stenosis, culprit for NSTEMI. Status post PCI of circumflex and left main. Also had severe calcification of LAD with previous stent with InStent restenosis in the proximal segment. Underwent balloon angioplasty of InStent restenosis. There is moderate diffuse calcified stenosis of the right coronary artery with ostial as well as proximal 70% stenosis. Recent hospitalization in 11/2024 for suspected unstable angina, but treated medically per patient's request. It appears long-acting nitrates were added. May continue medical management unless she gets recurrent angina. We discussed about this today. Long-term aspirin. Brilinta can be Continued for the foreseeable future due to recent chest pain admission. LDL 64 mg/dL and triglycerides 157 mg/dL. (2) Essential hypertension: Code(s): I10 - Essential (primary) hypertension Category: Medical Plan: Not tolerant of beta-blockers or amlodipine in the past. More recently, list has beta-blockers again. Home blood pressure seems generally reasonable. During hospitalization, some high readings. (3) Mitral annular calcification: Code(s): I05.9 - Rheumatic mitral valve disease, unspecified Category: Medical Plan: Mitral annular calcification on the echocardiogram but no significant valvular dysfunction. Can be monitored. (4) TASHI (obstructive sleep apnea): Comment: O2 - @L/MIN @ NIGHT- Could not tolerate CPAP Code(s): G47.33 - Obstructive sleep apnea (adult) (pediatric) Category: Medical Plan: Cannot tolerate CPAP. Using oxygen at nighttime. Plan Discussion Notes In our discussion, I explained the diagnosis of unstable angina and the rationale for changing her management. The potential for an angiogram in the future, depending on her future symptoms like chest pain was addressed. I emphasized the importance of symptom monitoring and maintaining a heart-healthy lifestyle, including light physical activity and dietary changes. We reviewed the risks and benefits of her current treatment plan and agreed on a follow-up in three months to reassess her condition and explore further interventions if necessary. Patient was informed and verbally consented to the use of an ambient scribe for clinic note documentation during this visit. Discussed with CHURCH WORKER who came for the appointment. Patient Instructions: - Continue taking Isosorbide as prescribed. - Engage in light physical activity, such as walking. - Monitor blood pressure regularly. - Follow a heart-healthy diet. - Contact medical personnel if chest pain returns or worsens. - Follow up in three months. Coding Level of Care Code Est Pt Level 4 (09756) Complex EM visit Add On G2211 Diagnoses Atherosclerotic cardiovascular disease I25.10 Essential hypertension I10 Mitral annular calcification I05.9 TASHI (obstructive sleep apnea) G47.33 CPT Codes EKG - CPT: 17848-[id number], Complete ([id number])
[2024-12-28 14:12] VITALS: BP 130/70; PULSE 67; BMI 27.8
--- OUTSIDE RECORDS SUMMARY | 2024-12-28 14:16 | XMS_ITS | Clinical Summary ---
Author Organization [employer] Address [address] [place] [address] Care Team Providers Care Rubbish Collection Supervisor Name Role Phone Unavailable Primary Care [...] Saturdays 3 Active neomycin-polymy gerson-dexAMETHaso ne (Polydex) [id number] ointment ophthalmic ointment APPLY 1/4 STRIP TO [...] patient's age to complete this topic Meningococcal B Vaccine Aged Out No l onger eligible based on patient's age to complete [...] Most Recently [place] [address] [facility] [place] [address] , [place] [address]
== END 2024-12-28 14:44 | disposition home or self-care (01) ==
LOC: HO.HCS 14:06
PROVIDERS: PCP Family Medicine; Visit Provider Internal Medicine
DX: I25.10 Atherosclerotic heart disease of native coronary artery without angina pectoris (principal); I10 Essential (primary) hypertension; I05.9 Rheumatic mitral valve disease, unspecified; G47.33 Obstructive sleep apnea (adult) (pediatric)
CPT/HCPCS: 93010; 99214; G2211

== ENCOUNTER → 2024-12-28 14:05 | Outpatient (BNVA) | payer OTHER, SELFPAY | PROVIDERS: PCP Family Medicine; Visit Provider Internal Medicine | DX: I25.2 Old myocardial infarction (principal); I25.10 Atherosclerotic heart disease of native coronary artery without angina pectoris; I10 Essential (primary) hypertension; I05.9 Rheumatic mitral valve disease, unspecified; G47.33 Obstructive sleep apnea (adult) (pediatric) | CPT/HCPCS: 93005; 99212 ==

== ENCOUNTER 2025-03-19 10:43 | Outpatient (AMB) | payer OTHER, SELFPAY ==
[2025-03-19 10:49] VITALS: BP 122/60; PULSE 80; BMI 27.6
--- NOTE | 2025-03-19 10:49 | MHC.OFFVIS ---
Vital Signs 03/19/25 10:49 Height 5 ft Weight 141 lb 1.533 oz BMI 27.6 BP 122/60 Blood Pressure Location Lt brachial Position Sitting Pulse 80 Pulse Source Pulse Oximeter Intake Visit Reasons: 3m follow up Cancellation Clerk Required: Yes Cancellation Clerk Name: ZHENG [id number] Accompanied by: Daughter Allergies esomeprazole (From NEXIUM) Adverse Reaction (Unknown, Verified 12/09/24 23:44) BURNING SENSATION Medication List - Last Reconciled 03/19/25 by Rafael Cassidy MD ascorbic acid (vitamin C) (Vitamin C) 500 mg PO BID aspirin 81 mg PO DAILY atorvastatin (Lipitor) 80 mg PO BEDTIME cholecalciferol (vitamin D3) (Vitamin D3) 50 mcg PO DAILY cranberry fruit 400 mg PO DAILY d-mannose (AZO D-Mannose) 1,000 mg PO BID dulaglutide (Trulicity) 0.75 mg subcut FR@0900 estradiol 0.01%(0.1mg/gram) 2 grams vaginal MOFR@2100 isosorbide mononitrate ER 30 mg See Protocol PO DAILY levothyroxine 75 mcg PO MOWEFR@0600 levothyroxine 50 mcg PO SUTUTHSA@0600 metoprolol succinate ER 50 mg PO DAILY nitroglycerin 0.4 mg sublingual Q5M PRN pantoprazole 40 mg PO DAILY@0630 pregabalin 100 mg PO BID tramadol 50 mg PO BID PRN zolpidem 5 mg PO BEDTIME HPI Comments Details: Patient returns for follow-up regarding coronary disease. In 2018, she underwent LAD stenting. In november 2023, had another hospitalization with NSTEMI; underwent circumflex stenting. In november 2024, admitted to the hospital with unstable angina. Recommended cardiac catheterization, but patient preferred to just be on medications only. For the most part, it seems she is doing okay. Occasional chest pains but not too frequent. It seems she is doing generally okay. No further chest pains after discharge. Otherwise, getting along. She is not too keen on taking the cholesterol medication. She associates that with aches and pains. [facility] Medical History Anxiety and depression IBS (irritable bowel syndrome) Female bladder prolapse Diabetic retinopathy Osteoporosis CAD (coronary artery disease) Diabetes Osteoarthritis Neuropathy Hypothyroid GERD (gastroesophageal reflux disease) History of CVA (cerebrovascular accident) Mitral annular calcification Heart palpitations TASHI (obstructive sleep apnea) Essential hypertension Surgical History Hx of colonoscopy Stented coronary artery History of hysterectomy History of tonsillectomy History of cardioversion (~08/16/13) Family History Father Asthma Mother Cardiovascular disease Diabetes Arthritis Social History Household Members: None Housing: Apartment Are you a primary adult care manager to a significant other at home: No Do you presently have visiting nurse or other home services: Yes Alcohol intake: never Patient Tobacco Use Status: Never used Tobacco e-Cigarette/Vaping Use: Never Used Advance Directives Date on File: 10/31/23 service: No Current occupational status: unemployed Review of Systems Const Denies weakness ENT Denies dizziness Card Denies chest pain, Denies chest pain with activity, Denies syncope, Denies rapid heart rate, Denies pedal edema, Denies edema, Denies leg edema, Denies lightheadedness, Denies palpitations, Denies dyspnea, Denies dyspnea on exertion and Denies orthopnea Resp Denies cough, Denies dyspnea and Denies dyspnea on exertion GI Denies hematochezia and Denies change in stool character Musc Denies abnormal gait, Denies muscle cramps, Denies muscle weakness, Denies numbness, Denies radiating pain into limb and Denies tingling Neuro Denies abnormal gait, Denies dizziness, Denies syncope, Denies numbness, Denies tingling and Denies weakness Endo Denies palpitations Physical Exam Vital Signs: Last Vital Signs Pulse 80 03/19/25 10:49 BP 122/60 03/19/25 10:49 BMI result Body Mass Index 27.6 Const General: comfortable and no acute distress Orientation/consciousness: patient oriented x3 HEENT Other: Unremarkable Head: Yes normal to inspection Neck Neck: Yes normal visual inspection Chest Chest palpation & inspection: normal inspection of the chest Resp Auscultation: clear to auscultation bilaterally Cardio Palpation: normal PMI Heart sounds: S1 normal heart sound present, S2 normal heart sound present, no gallops, no murmurs and no rubs GI Palpation (GI): Soft to palpation Back/Spine/Pelvis Other: unremarkable Skin General skin exam: no rashes or lesions noted Neuro General: patient oriented x3 Extrem General: Yes normal to inspection Psych Mental Status: mental status grossly normal Assessment & Plan Assessment & Plan (1) Atherosclerotic cardiovascular disease: Code(s): I25.10 - Atherosclerotic heart disease of [place] coronary artery without angina pectoris Category: Medical Plan: Cardiac catheterization reviewed from November 2023. Severe ostial left circumflex stenosis, culprit for NSTEMI. Status post PCI of circumflex and left main. Also had severe calcification of LAD with previous stent with InStent restenosis in the proximal segment. Underwent balloon angioplasty of InStent restenosis. There is moderate diffuse calcified stenosis of the right coronary artery with ostial as well as proximal 70% stenosis. Recent hospitalization in 11/2024 for suspected unstable angina, but treated medically per patient's request. It appears long-acting nitrates were added. May continue medical management unless she gets recurrent angina. Patient also prefers conservative care. She continue aspirin but can hold off on Brilinta as she states she is on too much medications. She is on long-acting nitrates. Add sublingual nitroglycerin as needed. Continue statins. LDL 64 mg/dL and triglycerides 157 mg/dL. (2) Essential hypertension: Code(s): I10 - Essential (primary) hypertension Category: Medical Plan: Not tolerant of beta-blockers or amlodipine in the past. More recently, list has beta-blockers again. No new changes today. (3) Mitral annular calcification: Code(s): I05.9 - Rheumatic mitral valve disease, unspecified Category: Medical Plan: Mitral annular calcification on the echocardiogram but no significant valvular dysfunction. Can be monitored. (4) TASHI (obstructive sleep apnea): Comment: O2 - @L/MIN @ NIGHT- Could not tolerate CPAP Code(s): G47.33 - Obstructive sleep apnea (adult) (pediatric) Category: Medical Plan: Cannot tolerate CPAP. Using oxygen at nighttime. Plan Discussion Notes I discussed with the patient the importance of continuing Atorvastatin despite the side effects, as it plays a crucial role in managing her cholesterol and preventing further cardiac events. We reviewed the decision to stop Brilinta, given the age of her stent and her request to minimize medications, and I prescribed sublingual nitroglycerin for her angina symptoms. We also talked about dietary changes to support her cholesterol management, and I reassured her about the positive trend in her lab results. Patient was informed and verbally consented to the use of an ambient scribe for clinic note documentation during this visit. Medications: New nitroglycerin do not exceed 3 doses per episode 0.4 mg sublingual Q5M PRN 30 tabs 5RF chest pain R07.2 - Precordial pain Discontinued ticagrelor (Brilinta) Discontinued Reason: Doctor's Order 90 mg PO BID 60 tabs 2RF Patient Instructions: - Continue taking Atorvastatin as prescribed. - Stop taking Brilinta. - Use sublingual nitroglycerin as needed for chest pain. - Follow dietary recommendations to manage cholesterol levels. Coding Level of Care Code Est Pt Level 4 (15195) Complex EM visit Add On G2211 Diagnoses Atherosclerotic cardiovascular disease I25.10 Essential hypertension I10 Mitral annular calcification I05.9 TASHI (obstructive sleep apnea) G47.33
== END 2025-03-19 11:30 | disposition home or self-care (01) ==
LOC: HO.HCS 10:44
PROVIDERS: PCP Family Medicine; Visit Provider Internal Medicine
DX: I25.10 Atherosclerotic heart disease of native coronary artery without angina pectoris (principal); I10 Essential (primary) hypertension; I05.9 Rheumatic mitral valve disease, unspecified; G47.33 Obstructive sleep apnea (adult) (pediatric)
CPT/HCPCS: 99214; G2211

== ENCOUNTER → 2025-03-19 10:43 | Outpatient (BNVA) | payer OTHER, SELFPAY | PROVIDERS: PCP Family Medicine; Visit Provider Internal Medicine | DX: I25.10 Atherosclerotic heart disease of native coronary artery without angina pectoris (principal); I10 Essential (primary) hypertension; I05.9 Rheumatic mitral valve disease, unspecified; G47.33 Obstructive sleep apnea (adult) (pediatric) | CPT/HCPCS: 99212 ==